=== PATIENT | female | born 1955 | race Caucasian/White ===

== ENCOUNTER 2022-09-23 09:31 | Outpatient (CLI) | payer MEDICARE, BC, SELFPAY ==
[2022-09-23 11:04] LABS: Aspartate Amino Transferase* 24 U/L (12-35); Cholesterol* 182 mg/dL (90-199)
[2022-09-23 11:05] LABS: Glucose* 92 mg/dL (60-115); HDL Cholesterol* 77 mg/dL (>=50); LDL Cholesterol Calculated 83 mg/dL (<100); Triglycerides* 109 mg/dL (40-149)
[2022-09-23 11:36] LABS: TSH With Reflex to FT4* 0.205 uIU/mL (0.270-4.200)
== END 2022-09-23 09:32 | disposition home or self-care (01) ==
LOC: NFLDREF 09:31
PROVIDERS: PCP Internal Medicine; Visit Provider Internal Medicine
DX: E78.5 Hyperlipidemia, unspecified (principal); E03.9 Hypothyroidism, unspecified; I10 Essential (primary) hypertension; E66.9 Obesity, unspecified; R73.03 Prediabetes
CPT/HCPCS: 80061; 82947; 84439; 84443; 84450

== ENCOUNTER 2022-09-26 11:08 | Outpatient (CLI) | payer MEDICARE, BC, SELFPAY ==
--- OUTSIDE RECORDS SUMMARY | 2022-09-26 11:10 | XMS_ITS | Clinical Summary ---
:1955 Author Organization [facility] Address [address] [place] [address] Care Team Providers Name Role Phone Elsewhere, Pcp Primary Care Provider Unavailable Source Comments Patient records contain information from all sites at [facility]. For routine questions regarding patient records, call [phone] during business hours, M-F 8:00 AM - 5:00 PM Central Time. Record requests for emergency care only can be directed to [phone] at any time.[facility] Allergies Active Allergy Reactions Severity Noted Date Comments Sulfa (Sulfonamide Antibiotics) Hives 9 Medications Medication Sig Dispensed Refills Start Date End Date Status aspirin [address] Take 81 mg by 0 Active tablet mouth daily. melatonin 5 mg tablet Take 5 mg by mouth 0 Active at bedtime. fluticasone Administer 1 spray 0 Active propionate (FLONASE) into each nostril 50 mcg/actuation daily. nasal spray sertraline (ZOLOFT) Take 100 mg by 0 Active 100 mg tablet mouth daily. omeprazole (PriLOSEC) Take 40 mg by [address] capsule mouth every morning before breakfast. ramipril (ALTACE) 5 Take 5 mg by mouth 0 Active mg capsule daily. simvastatin (ZOCOR) Take 10 mg by 0 Active 10 mg tablet mouth at bedtime. levothyroxine Take 88 mcg by 0 A ctive (SYNTHROID, mouth every LEVOTHROID) 88 mcg morning before tablet breakfast. acetaminophen Take 325-650 mg by 0 09/24/2012 Active (TYLENOL) 325 mg mouth as needed. tablet cefdinir (OMNICEF) Take 1 capsule 14 capsule 0 08/07/2021 Active 300 mg capsule (300 mg total) by mouth every 12 (twelve) hours. 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 07/06/2022 Clinical Support Physical Medicine and Mitchell Amador Movement Disorder Rehabilitation P.T. from Last 3 Months Immunizations Name Administration Dates Next Due SARS-COV-2 (COVID-19) - MODERNA 01/15/2021, 12/17/2020 Family History Medical History Relation Name Comments Coronary artery disease Father Stroke Father Breast cancer Father's Sister 3 Breast cancer Maternal Grandmother Heart failure Mother CHF Relation Name Status Comments Father (Age 79) Stroke complic ations Father's Sister 3 Maternal Grandmother Mother (Age 95) After a fall/r habdomyolysis Social History Tobacco Use Types Packs/Day Years Used Date Smoking Tobacco: Former Cigarettes Quit : 04/2003 Smokeless Tobacco: Never Alcohol Use Standard Drinks/Week Comments No 0 (1 standard drink = 0.6 oz pure alcoho l) Sober since 01/2013 Alcohol Habits Answer Date Recorded How often do you have a drink containing alcohol? Never 04/06/2019 How many drinks containing alcohol do you have on a typical Not asked day when you are drinking? How often do you have six or more drinks on one occasion? Ne nora 04/06/2019 Social Isolation Answer Date Recorded In a typical week, how many times do you talk on the phone O nce a week 04/06/2019 with family, friends, or neighbors? How often do you get together with friends or relatives? Onc e a week 04/06/2019 How often do you attend holiness or christianity services? Never 04/06/2019 Do you belong to any clubs or organizations such as holiness N o 04/06/2019 groups, unions, fraternal or athletic groups, or school groups? How often do you attend meetings of the clubs or Never 04/06/2019 organizations you belong to? Are you now , , , , never Div orced 04/06/2019 or living with a partner? Physical Activity Answer Date Recorded On average, how many days per week do you engage in moderate to 3 days 04/06/2019 strenuous exercise (like walking fast, running, jogging, dancing, swimming, biking, or other activities that cause a light or heavy sweat)? On average, how many minutes do you engage in exercise at th is 40 min 04/06/2019 level? Stress Answer Date Recorded Do you feel stress - tense, restless, nervous, or anxious, N ot at all 04/06/2019 or unable to sleep at night because your mind is troubled all the time - these days? Financial Resource Strain Answer Date Recorded How hard is it for you to pay for the very basics like Not h jeovanny at all 04/06/2019 food, housing, medical care, and heating? Food Insecurity Answer Date Recorded Within the past 12 months, you worried that your food would Never true 04/06/2019 run out before you got money to buy more. Within the past 12 months, the food you bought just didn't N ever true 04/06/2019 last and you didn't have money to get more. Transportation Needs Answer Date Recorded In the past 12 months, has lack of transportation kept you f rom No 04/06/2019 medical appointments or from getting medications? In the past 12 months, has lack of transportation kept you f rom No 04/06/2019 meetings, work, or getting things needed for daily living? Education Answer Date Recorded What is the highest level of school Bachelor's degree (e.g., BA, AB, 04/05/2019 you have completed or the highest BS) degree you have received? Sex Assigned at Date Recorded Female 02/07/2019 8:34 PM CDT Last Filed Vital Signs Vital Sign Reading Time Taken Comments Blood Pressure 135/66 08/07/2021 3:12 PM CDT Pulse 88 08/07/2021 3:12 PM CDT Temperature 36.8 ??C (98.2 ??F) 08/07/2021 3:12 PM CDT Respiratory Rate 16 08/07/2021 3:12 PM CDT Oxygen Saturation 99% 08/07/2021 3:12 PM CDT Inhaled Oxygen Concentration - - Weight 79 kg (174 lb 2.6 oz) 08/07/2021 3:10 PM CDT Height - - Body Mass Index - - Plan of Treatment Health Maintenance Due Date Last Done Comments Bone Density Scan (Osteoporosis 1954 Screen) CT Colonography 1955 Cologuard 1955 Colonoscopy 1955 Colorectal Cancer Screening 1955 FIT 1955 Hepatitis C Screening 1955 Mammogram 1955 Thyroid Stimulating Hormone (TSH) 1955 test for thyroid function DTaP,Tdap,and Td Vaccines (2 - Td 06/08/2021 06/08/2011 or Tdap) COVID-19 Vaccine (4 - Booster for 10/08/2021 08/13/2021, , Moderna series) 12/17/2020 Depression Screening (Annual 10/16/2021 PHQ-2) Creatinine Level 07/15/2022 07/15/2021 Potassium Level 07/15/2022 07/15/2021 Sodium Level 07/15/2022 07/15/2021 Fasting Glucose for Diabetes 07/15/2024 07/15/2021, 021 Screening Zoster Vaccines Completed 05/30/2019, 02/16/2019 Pneumococcal vaccine (65+ years) Completed 09/22/2020, Fall Risk Screen (Annual) Completed 11/22/2021 Influenza Vaccine Completed 07/21/2022, 09/23/2021, 09/22/2020, Additional history exists Insurance Payer Benefit Plan Subscriber ID Effective Phone Address Typ e / Group Dates MEDICARE MEDICARE A [id number] 2019-Pres [address] [place] [address] BLUE CROSS BCBS [place] [id number] 2020-Pres [phone] PO AUGUST X Cost Share BLUE SHIELD BLUE COST ent [phone] [address] [place] [id number] Advance Directives For more information, please contact: [phone] Documents on File Type Date Recorded Patient Insurance Inspector Explanati on Advance Directives 08/08/2021 10:13 AM Inés Ortega HCPOA/ADVOCATE/AGENT/R EPRESENTATIVE/[place] RROGAT E Healthcare Agents on File Name Relationship Healthcare Agent Relationship Co mmunication Inés Marrero Daughter Health Care Agent [phone] ( Home) Justice Ortega Daughter [facility] Care Agen t Care Teams Extractor Loader And Unloader Relationship Specialty Start Date End Date Elsewhere, Pcp PCP - General Family Medicine 10/11/18
--- OUTSIDE RECORDS SUMMARY | 2022-09-26 11:10 | XMS_ITS | Encounter Summary ---
:1955 Author Organization [facility] Address [address] [place] [address] Care Team Providers Name Role Phone Elsewhere, Pcp Primary Care Provider Unavailable Reason for Visit Physical Therapy (Routine) - Authorized Specialty Diagnoses / Procedures Referred By Contact Refer red To Contact Diagnoses [facility] Procedures PT Ongoing treatment [address] [address] Referral ID Status Reason Start Date Expiration Date Visits V isits Requested Authorized [id number] Authorized 06/10/2022 06/10/2023 99 99 Encounter Details Date Type Department Care Team Description 07/15/2022 Clinical Support Department of Physical Perry, Mitchell Goodrich, Movement Disorder Medicine and P.T. Rehabilitation in [facility] [address] [place], [place] [address] [facility] [address] [place] [address] [phone] Social History Tobacco Use Types Packs/Day Years [...] week 04/06/2019 How often do you attend faith or mandaen services? Never 04/06/2019 Do you belong to any clubs or organizations such as faith N o 04/06/2019 groups, unions, fraternal or [...] Date Recorded Female 02/07/2019 8:34 PM CDT documented as of this encounter Progress Notes Mitchell Amador P.T. - 07/15/2022 12:30 PM CDT Physical Therapy Outpatient Treatment and Discharge Note SUBJECTIVE Patient's Name: Shawna White Referring Provider: No ref. provider found Visit Diagnosis: 1. 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 female who presents to outpatient physical therapy for evaluation. Her symptoms consist of: Involuntary movements, freezing, speech disturbance Overall she reports her status remains the same. 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 She made tremendous improvement at the end of the week long program which only lasted about 2 weeks. She was trying to reintegrate back to the community (going to restaurants, going for walks outside) but, foundthat she was not able to continue with the strategies with external stimulus occurring from the environment. She had another bout of PT and OT for motor retraining in June of 2019 with excellent results after 5 weeks. Again she could not maintain effective use of the strategies learned. The patient continues to be sensitive to auditory and visual stimulus to the point that she has returned to plugging her ears, wearing ear plugs, wearing darkened glasses, and modifying her environment. She is currently struggling with her involuntary movements again over the past month. Feels like trigger may have been a biopsy she underwent in beginning of May. Even having difficulty maintaining control within her apartment (controlled environment). Triggers include: surprises, biopsy, loud noise or higher pitched voices. Patient goals: to improve self control of her FMD symptoms Contact monitoring: PPE used during therapy: Therapist was wearing the following PPE throughout entire session: surgicalmask and eye protection Patient was wearing a mask during therapy session: yes Additional Staff Present During Session: no OBJECTIVE PHYSICAL EXAM Pain: None reported Symptoms during mobility: Sitting: rare trunk flexion pending noise level Walking: no freezing or symptoms in gym or hallway when walking, no longer using 4ww or spc Ortho Exam TREATMENT Treatment today consisted of: Neuromuscular Re-education: Provided education on idea of body scanning, identifying which muscles are turned on at a certain time, and working to only have necessary muscles active, allowing all others to relax via controlled,pursed lip breathing. Ongoing education/training on motor reprogramming intervention is specific to the patient's unique symptoms and improves with a focus on quality vs quantity of movement. Goal of PT is to re-establish self-management strategies to improve independent control of abnormal movement patterns, specifically recognizing abnormal movements before (or when) they begin, and incorporating breathing strategies toassist in relaxation and control of movement, while reducing or eliminating dependence on adaptive equipment and compensatory strategies: ear plugs. Continued practice of self-management by stopping and resetting to avoid reinforcing maladaptive patterns. Discussed quality versus quantity and avoiding pushing through movements as this reinforces prior abnormal, inefficient movement patterns. Provided patient education on deep, pursed lip, diaphragmatic breathing during functional tasks whenshe experiences symptoms; again using body scanning, identifying which muscles are turned on and then using controlled breath to resolve them. Practiced this during standing tasks today. Discussed importance of breath in assisting with controlling and re-setting movement. Also discussed use of mindfulness practice during controlled breathing, acknowledging thoughts and avoiding judgement on them. Negative thoughts about situation or self, as well as judging herself, will increase her abnormal movements. Incorporated these strategies during the following movement patterns: Step taps alternating without UE support Alternating step ups 8 with single light UE support as needed Cross stepping L/R Fast forward walking with quick reversal into retro walking without UE support Stair negotiation up/down with light single UE support Ramp negotiation up/down with carlos UE support Stair negotiation while carrying 5kg ball, no UE support ascending, single UE support descending Marching + weighted ball raises Ball toss with forward walking Assessment Clinical Impression: Ms. White presented to physical therapy with return of signs and symptoms consistent with previously diagnosed functional movement disorder involving abnormal gait and tremors of upper extremities with stopping of lower extremities. Her symptoms are distractible and are modulated by controlling the environment but she is now able to functiona in more open environments with much less symptoms, and diminish/resolve symptoms if they do occur with use of controlled breathing and resetting. Today was able to demonstrate good control and prevention of most symptoms in a louder, more open environment(gym with other patients/PT). She will now transition out of form skilled PT and continue with independent management. She may return to PT in the future if she experiences a regression in function. Rehab Potential: Ms. White has potential to achieve established physical therapy goals within thetime frame outlined below, provided she actively participates in her physical therapy treatment planand home program. Functional Goals and Timeframes: Functional Goals and Timeframes: PT Outpatient Goals PT Goal #1: Patient will demonstrate and/or verbalize understanding of home exercise program for improved self-management of the condition. PT Goal #1 Date: 08/09/22 PT Goal #1 Status: Met PT Goal #2: Patient will report >3+ on the Global Rating of Change in 6 weeks. PT Goal #2 Date: 07/22/22 PT Goal #2 Status: Met PT Goal #3: Patient will improve 10 MWT speed to 1.1 m/sec or greater to demonstrate improved gait efficiency and less involuntary movement patterns. PT Goal #3 Date: 08/09/22 PT Goal #3 Status: Met PT Goal #4: Patient will improve 5 Times sit to stand to 9 reps or more PT Goal #4 Date: 08/09/22 PT Goal #4 Status: Ongoing - not assessed Plan Ms. White was educated regarding evaluative findings, diagnosis, prognosis, potential risks and benefits of rehabilitation interventions. A collaborative effort was used to establish goals and plan of care. She was informed of her right to make decisions regarding her care, including refusal of examination or treatment or selection of services from another provider if desired. The treatment plan may be progressed or modified based upon her response to treatment. Treatment Plan: Start of Plan of Care: 07/15/2022 PT Next Certification Date: 09/08/22 Number of Visits: 5/16 visits PT Duration: PT Frequency: Treatment interventions may include: DISCHARGE STATUS Patient discharged from therapy after this session. Refer to plan of care for first appointment date and recorded visit counts. REASON FOR DISCHARGE: see above progress report on current status and goal status. DISCHARGE RECOMMENDATIONS: Patient would be advised to continue with her previously documented home program. Juan Manuel Amador P.T. 07/15/2022 Time Spent with Patient Neuromuscular Re-Education (min): 40 min Time Calculation Total Timed Units (min): 40 min Total Treatment Time (min): 40 min documented in this encounter Plan of Treatment Not on filedocumented as of this encounter Visit Diagnoses Diagnosis Movement Disorder documented in this encounter Care Teams Spinning Machine Tender Relationship Specialty Start Date End Date Elsewhere, Pcp PCP - General Family Medicine 10/11/18 documented as of this encounter
--- OUTSIDE RECORDS SUMMARY | 2022-09-26 11:10 | XMS_ITS | Encounter Summary ---
:1955 Author Organization [facility] Address [address] [place] [address] Care Team Providers Name Role Phone Elsewhere, Pcp Primary Care Provider Unavailable Reason for Visit Physical Therapy (Routine) - Authorized Specialty Diagnoses / Procedures Referred By Contact Refer red To Contact Diagnoses [facility] Procedures PT Ongoing treatment [address] [place] [address] Referral ID Status Reason Start Date Expiration Date Visits V isits Requested Authorized [id number] Authorized 06/10/2022 06/10/2023 99 99 Encounter Details Date Type Department Care Team Description 07/06/2022 Clinical Support Department of Physical Perry, Mitchell Goodrich, Movement Disorder Medicine and P.T. Rehabilitation in [facility] [address] [place], [place] [address] [facility] [address] [place] [address] [phone] Social History Tobacco Use Types Packs/Day Years [...] week 04/06/2019 How often do you attend anabaptism or taoist services? Never 04/06/2019 Do you belong to any clubs or organizations such as anabaptism N o 04/06/2019 groups, unions, fraternal or [...] encounter Progress Notes Mitchell Amador P.T. - 07/06/2022 12:30 PM CDT Physical Therapy Outpatient Treatment Note SUBJECTIVE Patient's Name: Shawna White Referring Provider: No ref. provider found Visit Diagnosis: 1. Movement Disorder Reason for Referral: PT Re-evaluation for motor retraining due to functional movement disorder Onset Date: (2018) Payor: MEDICARE / Plan: MEDICARE A AND B / Product Type: Medicare / ValetAnywhere Visit Count: 14 PERTINENT MEDICAL / SURGICAL HISTORY: Patient Active [...] Pain: None reported Symptoms during mobility: Sitting: trunk flexion, kicking or stomping legs L > R Walking: less frequent freezing gait and improving initiation, wide stance, impaired coordination Demonstrates a high steppage gait, with intermittent trunk/hip flexion during periods of leg freezing. No freezing during sit > stand. Occasional trunk flexion when sitting and heel raise L LE when standing still. No speech symptoms today. Ortho Exam TREATMENT Treatment today consisted of: [...] with single light UE support as needed Lateral steps L/R with metronome for step initiation (worked well) Fast forward walking with quick reversal into retro walking without UE support Stair negotiation up/down with light single UE support Ramp negotiation up/down and down backwards with carlos UE support W drill walking forward/back 4 corner cone drill: forward, retro, lateral walking Assessment Clinical Impression: Ms. White presents to physical therapy with return of signs and symptoms consistent with previously diagnosed functional movement disorder involving abnormal gait and tremors of upper extremities with stopping of lower extremities. Her symptoms are distractible and are modulated by controlling the environment but is improving her ability to diminish/resolve symptoms with use of controlled breathing and resetting. Today was able to demonstrate good control and prevention of most symptoms in a louder, more open environment (gym with other patients/PT). She is also requiring less time to recover when symptoms occur. Will plan on one additional skilled PT session prior to DC utilizing strategies for independent management. Rehab Potential: Ms. White has potential to [...] #1 Date: 08/09/22 PT Goal #1 Status: Ongoing PT Goal #2: Patient will report >3+ on the Global Rating of Change in 6 weeks. PT Goal #2 Date: 07/22/22 PT Goal #2 Status: Ongoing PT Goal #3: Patient will improve 10 MWT speed to 1.1 m/sec or greater to demonstrate improved gait efficiency and less involuntary movement patterns. PT Goal #3 Date: 08/09/22 PT Goal #3 Status: Ongoing PT Goal #4: Patient will improve 5 Times sit to stand to 9 reps or more PT Goal #4 Date: 08/09/22 PT Goal #4 Status: Ongoing Plan Ms. White was educated regarding evaluative [...] Treatment Plan: Start of Plan of Care: 07/06/2022 PT Next Certification Date: 09/08/22 Number of Visits: 4/16 visits PT Duration: PT Frequency: Treatment interventions may include: Plan for next session: body scanning step ups > stairs carrying items, walking/balance in gym quiet (forward/back/lateral, braiding), open space walking. Time Spent with Patient Neuromuscular Re-Education (min): 54 min Time Calculation Total Timed Units (min): 54 min Total Treatment Time (min): 54 min documented in this encounter Plan of Treatment Not on filedocumented as of this encounter Visit Diagnoses Diagnosis Movement Disorder documented in this encounter Care Teams Upholsterer Limousine And Hearse Relationship Specialty Start Date End Date Elsewhere, Pcp PCP - General Family Medicine 10/11/18 documented as of this encounter
--- OUTSIDE RECORDS SUMMARY | 2022-09-26 11:11 | XMS_ITS | Encounter Summary ---
:1955 Author Organization [facility] Address [address] [place] [id number] Care Team Providers Name Role Phone Elsewhere, Pcp Primary Care Provider Unavailable Reason for Visit Reason Comments JakeA/Juwan Encounter Details Date Type Department Care Team Description 07/16/2021 Clinical Communication Department of Neurology Serene Echeverria/Juwan in [facility] chelly Bey M.D., [address] [facility] Ph.D. [place], [place] [address] [place] [phone] [place], [place] [phone] Social History Tobacco Use Types Packs/Day Years [...] week 04/06/2019 How often do you attend anabaptist or latter day services? Never 04/06/2019 Do you belong to any clubs or organizations such as anabaptist N o 04/06/2019 groups, unions, fraternal or [...] PM CDT documented as of this encounter Miscellaneous Notes Telephone Encounter - Radha Whitfield R.NJavier - 07/23/2021 3:30 PM CDT SUBJECTIVE CHIEF COMPLAINT / REASON FOR CALL Brent/Juwan Information Discussed I spoke with Mrs. White who states that when the weather was very humid and she went swimming after that she had brain fog an no energy. This lasted a couple days and then she became quite dizzy andwas seen in the ER. She states they thought she was probably a bit dehydrated. I let her know that she should talk with her PCP about concerns related to this as Dr. Echeverria saw her for her movement disorder. She understood and had no further questions. PLAN Disposition/Recommendation: self-care is appropriate at this time, patient encouraged to call back with questions Information/Education: patient/caller able to teach back Caller agreeable to plan of care: yes The following references were used: nursing clinical judgement Telephone Encounter - Serene Echeverria M.D., Ph.D. - 07/17/2021 10:45 AM CDT To the Neurology nursing staff: Please look at her last notes from me and then call her. 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 If the problems are still the same,there would not be much purpose in doing further diagnostic tests. Telephone Encounter - Kylee Moses - 07/16/2021 10:[address] Echeverria, You last saw this patient in 2019. She was in the ER last night and they suggested she reconnect with you. Since seeing you, her she moves abnormally when she is overstimulated. Noise and tones can sether off too. She tends to rock back and forth when overstimulated. If she stands up when overstimulated, she bends over and cannot move well. Her ER note is from the [facility]. She would like to meet with you again to discuss what is going on. Please advise if you'd like to see her back. Thank you, Kelly documented in this encounter Plan of Treatment Not on filedocumented as of this encounter Visit Diagnoses Not on filedocumented in this encounter Care Teams Power And Recovery Supervisor Relationship Specialty Start Date End Date Elsewhere, Pcp PCP - General Family Medicine 10/11/18 documented as of this encounter
--- OUTSIDE RECORDS SUMMARY | 2022-09-26 11:11 | XMS_ITS | Encounter Summary ---
:1955 Author Organization [facility] Address [address] [place] [address] Care Team Providers Name Role Phone Elsewhere, Pcp Primary Care Provider Unavailable Reason for Visit Physical Therapy (Routine) - Canceled Specialty Diagnoses / Procedures Referred By Contact Refer red To Contact Diagnoses Abnormal Gait Non Orthopedic Abnormal Movement Involuntary Samreen Romano M.D. [facility] Procedures PT Ongoing treatment [address] [place] [address] Referral ID Status Reason Start Date Expiration Date Visits V isits Requested Authorized [id number] Canceled 11/03/2021 11/03/2022 99 99 Encounter Details Date Type Department Care Team Description 11/16/2021 Clinical Support Department of Physical Samreen Romano M.D. [address] [place] [address] Abnormal Gait Non Orthopedic; Medicine and Mitchell Amador, PJavierTJavier [address] [place] [phone] Abnormal Movement Involuntary Rehabilitation in [place], [place] [address] [place] [phone] Social History Tobacco Use Types Packs/Day Years [...] week 04/06/2019 How often do you attend christianity or synagogue services? Never 04/06/2019 Do you belong to any clubs or organizations such as christianity N o 04/06/2019 groups, unions, fraternal or [...] encounter Progress Notes Mitchell Amador P.T. - 11/16/2021 3:30 PM CST Physical Therapy Outpatient Treatment Note SUBJECTIVE Patient's Name: Shawna White Referring Provider: Samreen Romano M.D. Visit Diagnosis: 1. Abnormal Gait Non Orthopedic 2. Abnormal Movement Involuntary Reason for Referral: PT evaluation for motor retraining due to functional movement disorder Onset Date: (2018) Payor: MEDICARE / Plan: MEDICARE A AND B / Product Type: Medicare / PT Next Certification Date: 02/01/2022 Epic Visit Count: 3 Patient comments: no new concerns. Attends PT wearing darkened glasses but without earplugs, using 4ww. Performs good sit <> stand from chair, and good control of ambulation back to treatment area. Contact monitoring: PPE used during therapy: Therapist was wearing the following PPE throughout entire session: surgicalmask and eye protection Patient was wearing a mask during therapy session: yes Additional Staff Present During Session: no OBJECTIVE Pain: Ortho Exam TREATMENT Treatment today consisted of: Neuromuscular Re-education: Ongoing education on idea of??body scanning, identifying which muscles begin to tense/tighten and at a certain time, and then resetting with breath control, working to only have necessary muscles active, allowing all others to relax.? Discussed that motor reprogramming intervention is specific to the patient's unique symptoms and improves with a focus on quality vs quantity of movement. Goal of PT is to re-establish self-management strategies to improve independent control of abnormal movement patterns, specifically recognizing abnormal movements before they begin, and incorporating breathing strategies to assist in relaxation andcontrol of movement, while reducing or eliminating dependence on adaptive equipment and compensatorystrategies. We will work to improve self- management by stopping and resetting to avoid reinforcingmaladaptive patterns. Discussed quality versus quantity and avoiding pushing through movements as this reinforces??prior abnormal, inefficient movement patterns. ?? Provided patient education on deep breathing and relaxation when completing activities or exercises.Discussed importance of breath in assisting with controlling and re-setting movement. Instructed in diaphragmatic breathing and pursed lip breathing with breathing in through nose, out through mouth using hand on stomach for tactile feedback of it rising and falling vs chest movement. Tied breathing to pre gait and multidirectional stepping: retro, left and right. Cues to stop, breathe and reset prior to restarting intentional movement. Progressed to breathe control synchronized with sit <> stands. Home Exercise Program/Education: Access Code: [email or web address] URL: [email or web address] Date: 11/10/2021 Prepared by: Mitchell Amador Program Notes -Perform controlled breathing prior to each exercise. -Only start an exercise once you are focused on breathing and are in control. -Stop, breathe and reset if you experience abnormal movements during an exercise. -Control your breath, control your body. Exercises Hooklying Lumbar Rotation - 3 x daily - 5-7 x weekly - 2 sets - 10 reps Bridge - 3 x daily - 5-7 x weekly - 2 sets - 10 reps Supine Hip Abduction - 3 x daily - 5-7 x weekly - 2 sets - 10 reps Sit to Stand - 2 x daily - 5-7 x weekly - 2 sets - 10 reps Pt reports good compliance with her HEP. Assessment Clinical Impression: Ms. White presents to physical therapy with signs and symptoms consistent with previously diagnosed functional movement disorder involving abnormal gait and tremors of upper extremities with stopping of lower extremities. ??Her symptoms are distractible and are modulated by controlling the environment. She is demonstrating improved symptoms in just 3 sessions. She has been able to remove her ear plugs and has been utilizing breath control to improve movement efficiency within the community. Needsmore work on improved utilization of body scanning, identifying which muscles begin to tense/tighten and then resetting prior to attempting to carry on with mobility. Functional Goals and Timeframes: PT Goal #1: Patient will demonstrate and/or verbalize understanding of home exercise program for improved self-management of the condition. PT Goal #1 Date: 01/02/2022 PT Goal #1 Status: Ongoing PT Goal #2: Patient will report >3+ on the Global Rating of Change in 6 weeks. PT Goal #2 Date: 01/02/2022 PT Goal #3: Patient will improve 10 MWT speed by 0.15 m/sec to demonstrate improved gait efficiency and less involuntary movement patterns. PT Goal #3 Date: 01/02/2022 PT Goal #3 Status: Ongoing No data recorded Plan Plan: Continue with current plan Number of Outpatient PT Visits: 01/02 PT Outpatient Duration (days): 60 days Plan for next session: education re: body scanning and identifying if the stimulus is threatening, pre- gait training > // bars (forward/back/lateral, braiding), open space walking at fast and slow speeds, stepping over obstacles, more open environment. Time Spent with Patient Neuromuscular Re-Education (min): 56 min Time Calculation Total Timed Units (min): 56 min Total Treatment Time (min): 56 min OR BUSINESS ARCHITECT documented in this encounter Plan of Treatment Not on filedocumented as of this encounter Visit Diagnoses Diagnosis Abnormal Gait Non Orthopedic Abnormal Movement Involuntary documented in this encounter Care Teams Indirect Fire Infantryman Relationship Specialty Start Date End Date Elsewhere, Pcp PCP - General Family Medicine 10/11/18 documented as of this encounter
--- OUTSIDE RECORDS SUMMARY | 2022-09-26 11:11 | XMS_ITS | Encounter Summary ---
:1955 Author Organization [facility] Address [address] [place] [address] Care Team Providers Name Role Phone Elsewhere, Pcp Primary Care Provider Unavailable Reason for Visit Physical Therapy (Routine) - Canceled Specialty Diagnoses / Procedures Referred By Contact Refer red To Contact Diagnoses Abnormal Gait Non Orthopedic Abnormal Movement Involuntary Samreen Romano M.D. [facility] Procedures PT Ongoing treatment [address] [place] [address] Referral ID Status Reason Start Date Expiration Date Visits V isits Requested Authorized [id number] Canceled 11/03/2021 11/03/2022 99 99 Encounter Details Date Type Department Care Team Description 12/01/2021 Clinical Support Department of Physical Samreen Romano M.D. [address] [place] [address] Abnormal Gait Non Orthopedic; Medicine and Mitchell Amador, PJavierTJavier [address] [place] [phone] Abnormal Movement Involuntary Rehabilitation in [place], [place] [address] [place] [address] [phone] Social History Tobacco Use Types Packs/Day Years [...] week 04/06/2019 How often do you attend buddhism or mormonism services? Never 04/06/2019 Do you belong to any clubs or organizations such as buddhism N o 04/06/2019 groups, unions, fraternal or [...] encounter Progress Notes Mitchell Amador P.T. - 12/01/2021 9:00 AM CST Physical Therapy Outpatient Treatment Note SUBJECTIVE [...] Next Certification Date: 02/01/2022 Epic Visit Count: 6 Patient comments: no new concerns. Attends PT wearing darkened glasses and earplugs, and has progressed to no AD unless walking in parking lots. Performs good sit <> stand from chair, only minor freezing prior to walking. She states her symptoms have been very minimal when she is at home and shewas able to go out for dinner with her daughter the other night with minimal symptoms except when the vibration technician was talking loudly. Contact monitoring: PPE used during therapy: Therapist was wearing the following PPE throughout entire session: surgicalmask and eye protection Patient was wearing a mask during therapy session: yes Additional Staff Present During Session: no OBJECTIVE Ortho Exam TREATMENT Treatment today consisted of: Neuromuscular Re-education: Ongoing education on idea of??body scanning, identifying which muscles begin to tense/tighten and at a certain time, and then resetting with breath control, working to only have necessary muscles active, allowing all others to relax.? Ongoing education: specifically recognizing abnormal movements before they begin, and incorporating breathing strategies to assist in relaxation and control of movement, while reducing or eliminating dependence on adaptive equipment and compensatory strategies. We worked to improve self-management by stopping and resetting to avoid reinforcing maladaptive patterns. Discussed quality versus quantityand avoiding pushing through movements as this reinforces??prior abnormal, inefficient movement patterns. ?? Provided patient education on deep breathing and relaxation for resetting. Breathing should be deep enough to hear so she received auditory feedback since her triggers are auditory. Discussed importance of breath in assisting with controlling and re-setting movement. Ongoing cues for diaphragmatic breathing and pursed lip breathing with breathing in through nose, out through mouth. Incorporated external auditory stimuli with recording of crowd noise in the background. PT adjusted the noise volume at random throughout the treatment: controlled breathing during sit <> stands with good control. Progressed to pre gait and multidirectional stepping: left and right, high knee marching with single light UE support, 180 degree turns on command with cues as needed to breathe and reset prior to restarting intentional movement. Home Exercise Program/Education: Access Code: [email or web address] URL: [email or web address] Date: 11/10/2021 Prepared by: Mitchell Amador Program [...] by controlling the environment. She is demonstrating substantially improved symptoms in quite environments after just 4 sessions. She has been able to remove her ear plugs and has been utilizing breath control to improve movementefficiency within the community. Needs to improve ability/perforemance in open environments with more auditory stimuli, utilization of body scanning, identifying which muscles [...] current plan Number of Outpatient PT Visits: 04/04 PT Outpatient Duration (days): 60 days Plan for next session: education re: body scanning and identifying if the stimulus is threatening, deep breathing for auditory feedback, with video/music playing for auditory stimuli: pre-gait training > // bars, L SLS with light UE support, open space walking at fast and slow speeds, stepping over obstacles. Time Spent with Patient Neuromuscular Re-Education (min): 26 min Time Calculation Total Timed Units (min): 26 min Total Treatment Time (min): 26 min UNITY SERVICE OFFICER COORDINATOR documented in this encounter Plan of Treatment Not on filedocumented as of this encounter Visit Diagnoses Diagnosis Abnormal Gait Non Orthopedic Abnormal Movement Involuntary documented in this encounter Care Teams Color Paste Mixer Relationship Specialty Start Date End Date Elsewhere, Pcp PCP - General Family Medicine 10/11/18 documented as of this encounter
--- OUTSIDE RECORDS SUMMARY | 2022-09-26 11:11 | XMS_ITS | Encounter Summary ---
:1955 Author Organization [facility] Address [address] [place] [address] Care Team Providers Name Role Phone Elsewhere, Pcp Primary Care Provider Unavailable Reason for Visit Occupational Therapy (Routine) - Closed Specialty Diagnoses / Procedures Referred By Contact Refer red To Contact Diagnoses Movement Disorder David Best M.D., Ph.D. [facility] Procedures OT Ongoing Treatment [address] [place] [phone] Referral ID Status Reason Start Date Expiration Date Visits Requ ested Visits Authorized [id number] Closed 07/08/2019 07/07/2020 20 20 Encounter Details Date Type Department Care Team Description 08/07/2019 Clinical Support Department of Physical David Best M.D., Ph.D. [address] [place] [phone] Movement Disorder (Primary Dx); Medicine and Hanny Morgan O.T., O.TLilian Abnormal Movement Involuntary Rehabilitation in [place], [place] [address] [place] [phone] Social History Tobacco Use Types Packs/Day Years [...] How often do you attend christianity or lutheran services? Never 04/06/2019 Do you belong to [...] documented as of this encounter Progress Notes Hanny Morgan O.T., O.T.D. - 08/07/2019 2:00 PM CDT Occupational Therapy Neurologic Outpatient Progress Note SUBJECTIVE Patient's Name: Shawna White Referring Provider: David Best M.D., Ph.D. Rehab Diagnosis: 1. Movement Disorder 2. Abnormal Movement Involuntary Reason for Referral: Occupational therapy evaluation and intervention for motor retraining in the setting of functional movement disorder History of Present Illness: The patient went through the BeST program for functional movement disorder related to stamping, rocking, and stuttering with vocalizations at the end of January 2019. She madetremendous improvement at the end of the week which lasted about 2 weeks. She was trying to reintegrate back to the community (going to restaurants, going for walks outside) but, found that she was notable to continue with the strategies with external stimulus occurring from the environment. The patient continues to be sensitive to auditory and visual stimulus to the point that she has returned to plugging her ears, wearing ear plugs, wearing sunglasses, and modifying the environment. She is able to successfully reset but, only for a manner of seconds. She worked with physical therapy in [place] for 6 sessions, primarily focused on desensitization but, this has thus far been unsuccessful. Onset Date: 07/08/19 Payor: [facility] / Plan: [facility] HMO / Product Type: HMO / Patient/Caregiver Goals: Return to riding bike, going to movies, or going to resturaunts. OBJECTIVE Pain: Patient denies any pain that would interfere with her participation in this session. TREATMENT Patient presented to the session alone and independent of the use of an ambulation aid. She reportedthat yesterday was a ???eye skein dyer?? for her to see how much she has restricted her exposure to visual and auditory stimulation in her own home environment and how this has impacted her. She endorses feeling more confident in her ability to manage her movement independently today. Treatment today consisted of: Therapist and patient went for a walk down into the subway and navigated to a small gift shop with music, smells, and visual overload. The patient was given a theoretical 50 dollars to spend on 12 items in the store. This forced the patient to be immerse to in the store while engaging in a cognitive task. Through the span the walk to and from the store and time in the store, the patient experienced one minor movement that was quickly managed. Recommendations: breathe; stop and reset; focus on control and not speed; use the eyes to look, not the head; practice eye exercises twice daily; use the finger to track items, if needed; contemplate if the visual or auditory stimulus that is experienced is harmful in any way; keep arms down at rest; find a focal point; heels down Assessment Clinical Impression: Marly is made tremendous improvement in not only managing her movements but, understanding the relationship between her chosen sensory deprivation and movements occurring. She has been challenged over the last several weeks with multiple activities meant to help her adjust to both visually and auditorily stimulating environments. Marly now states that she feels that she has the tools to continue succeeding at home independently. I am exceptionally brought up of hard work Marly has put into these last several weeks and an a hopeful that she will continue to work hard at home. She has met treatment goals for this plan of care and is dismissed from skilled occupational therapy services at this time. Rehab Potential: Ms. White has Good potential to achieve established occupational therapy goals within the time frame outlined below. Functional Goals and Timeframes: OT Goal #1: Patient will tolerate 15 minutes of controlled movement while in a store. OT Goal #1 Date: 10/06/19 OT Goal #2: Patient will tolerate 15 minutes of activity without visual or auditory compensations. OT Goal #2 Date: 10/06/19 Plan Treatment Plan: Number of Visits: up to 12 visits. Pt is on 13 visit. OT Duration: 90 days Plan: Discontinue therapy Treatment interventions may include: Therapeutic functional activity Progress: Improving as expected Rehab Potential: Good Time Spent with Patient Therapeutic Activity (min): 45 min Time Calculation Total Timed Units (min): 45 min Total Treatment Time (min): 45 min TECHNICIAN documented in this encounter Plan of Treatment Not on filedocumented as of this encounter Visit Diagnoses Diagnosis Movement Disorder - Primary Abnormal Movement Involuntary documented in this encounter Care Teams Camera Mechanic Relationship Specialty Start Date End Date Elsewhere, Pcp PCP - General Family Medicine 10/11/18 documented as of this encounter
--- OUTSIDE RECORDS SUMMARY | 2022-09-26 11:11 | XMS_ITS | Encounter Summary ---
:1955 Author Organization [facility] Address [address] [place] [address] Care Team Providers Name Role Phone Elsewhere, Pcp Primary Care Provider Unavailable Reason for Visit Physical Therapy (Routine) - Canceled Specialty Diagnoses / Procedures Referred By Contact Refer red To Contact Diagnoses Abnormal Gait Non Orthopedic Abnormal Movement Involuntary Samreen Romano M.D. [facility] Procedures PT Ongoing treatment [address] [place] [address] Referral ID Status Reason Start Date Expiration Date Visits V isits Requested Authorized [id number] Canceled 11/03/2021 11/03/2022 99 99 Encounter Details Date Type Department Care Team Description 11/10/2021 Clinical Support Department of Physical Samreen Romano M.D. [address] [place] [address] Abnormal Gait Non Orthopedic; Medicine and Mitchell Amador, PJavierTJavier [address] [place] [phone] Abnormal Movement Involuntary Rehabilitation in [place], [place] [address] [place] [address] [phone] Social History Tobacco Use Types Packs/Day Years [...] week 04/06/2019 How often do you attend scientology or congregation services? Never 04/06/2019 Do you belong to any clubs or organizations such as scientology N o 04/06/2019 groups, unions, fraternal or [...] for the very basics like Not h jeovanyn at all 04/06/2019 food, housing, medical care, [...] of this encounter Progress Notes Mitchell Amador PStacy. - 11/10/2021 4:00 PM CST Physical Therapy Outpatient Treatment Note [...] Next Certification Date: 02/01/2022 Epic Visit Count: 2 History of Present Illness: The patient went [...] walks outside) but, found that she was not able to continue with [...] glasses, and modifying her environment. She is able to successfully reset in a controlled, quiet environment, but only for less than 1 min. Patient/Caregiver Goals: Return to going to movies, or going to resturaunts with less symptom interruption. Patient comments: no new concerns. Attends PT wearing darkened glasses and ear plugs, using 4ww. Performs good sit <> stand from chair, but then involuntary movement triggered by another patient talking and blocking her path. Fall Risk (65 and older) Fall in the last 12 months: No Are you fearful of falling?: No Contact monitoring: PPE used during therapy: Therapist was wearing the following PPE throughout entire session: surgicalmask and eye protection Patient was wearing a mask during therapy session: yes Additional Staff Present During Session: no OBJECTIVE Pain: Ortho Exam TREATMENT Treatment today consisted of: Neuromuscular Re-education: Provided education on idea of??body scanning, identifying which muscles are turned on or off at a certain time, and working to [...] falling vs chest movement. Tied breathing to supine exercise program including hooklying spinal rotation, bridging and hip abduction. If she experienced abnormal movement, she was cued to stop, breathe and reset prior to restarting intentional movement. Progressed to breathe control synchronized with sit <> stands. Home Exercise Program/Education: Access Code: [email or web address] URL: [email or web address] Date: 11/10/2021 Prepared by: Mitchell Amador Program [...] and are modulated by controlling the environment. ?? Rehab Potential: Good Personal Factors: Needs assistive device Functional Goals and Timeframes: PT Goal #1: [...] #3 Status: Ongoing No data recorded Plan Physical Therapy Attestation Statement: Patient agrees with the plan of care and goals. Plan: Continue with current plan Number of Outpatient PT Visits: 12/05 PT Outpatient Duration (days): 60 days Plan for next session: PSFS, 10 MWT, 5 Times Sit to Stand, 6 min walk, education re: body scanning and identifying if the stimulus is threatening, pre-gait training > // bars (forward/back/lateral, braiding), open space walking. Treatment/Interventions: Therapeutic exercise, Neuromuscular re-education, Therapeutic functional activity, Gait training, Self-care/home management Time Spent with Patient Neuromuscular Re-Education (min): 26 min Time Calculation Total Timed Units (min): 26 min Total Treatment Time (min): 26 min RY CHEF documented in this encounter Plan of Treatment Not on filedocumented as of this encounter Visit Diagnoses Diagnosis Abnormal Gait Non Orthopedic Abnormal Movement Involuntary documented in this encounter Care Teams Dope Worker Relationship Specialty Start Date End Date Elsewhere, Pcp PCP - General Family Medicine 10/11/18 documented as of this encounter
--- OUTSIDE RECORDS SUMMARY | 2022-09-26 11:11 | XMS_ITS | Encounter Summary ---
:1955 Author Organization [facility] Address [address] [place] [address] Care Team Providers Name Role Phone Elsewhere, Pcp Primary Care Provider Unavailable Reason for Visit Physical Therapy (Routine) - Canceled Specialty Diagnoses / Procedures Referred By Contact Refer red To Contact Diagnoses Abnormal Gait Non Orthopedic Abnormal Movement Involuntary Samreen Romano M.D. [facility] Procedures PT Ongoing treatment [address] [place] [address] Referral ID Status Reason Start Date Expiration Date Visits V isits Requested Authorized [id number] Canceled 11/03/2021 11/03/2022 99 99 Encounter Details Date Type Department Care Team Description 12/31/2021 Clinical Support Department of Physical Samreen Romano M.D. [address] [place] [address] Abnormal Gait Non Orthopedic; Medicine and Mitchell Amador, PJavierTJavier [address] [place] [phone] Abnormal Movement Involuntary Rehabilitation in [place], [place] [address] [place] [address] [phone] Social History Tobacco Use Types Packs/Day Years [...] week 04/06/2019 How often do you attend spiritism or scientology services? Never 04/06/2019 Do you belong to any clubs or organizations such as spiritism N o 04/06/2019 groups, unions, fraternal or [...] encounter Progress Notes Mitchell Amador PStacy. - 12/31/2021 12:30 PM CDT Images from the original note were not included. Physical Therapy Outpatient Progress, Treatment Note and Discharge SUBJECTIVE Patient's Name: Shawna Jacob White Referring Provider: Samreen Romano M.D. Visit Diagnosis: 1. Abnormal Gait Non Orthopedic 2. Abnormal Movement Involuntary Reason for Referral: PT evaluation for motor retraining due to functional movement disorder Onset Date: (2018) Payor: MEDICARE / Plan: MEDICARE A AND B / Product Type: Medicare / PT Next Certification Date: 02/01/2022 Epic Visit Count: 10 Patient comments: no new concerns. Attends PT wearing darkened glasses but no earplugs, and has progressed to no AD unless walking in parking lots. She states her symptoms have been very minimal when she is at home. Pickleball has been going well though has difficulty jogging/running forward so she avoids this. Has been returning to society more and more. Contact monitoring: PPE used during therapy: Therapist was wearing the following PPE throughout entire session: surgicalmask and eye protection Patient was wearing a mask during therapy session: yes Additional Staff Present During Session: no OBJECTIVE Ortho Exam 10 MWT without AD, Self Selected: 0.79 m/sec and no maladaptive movements 10 MWT without AD, Fast: 1.25 m/sec and no maladaptive movements GROC: +7 points (maximal improvement possible). TREATMENT Treatment today consisted of: Neuromuscular Re-education: Ongoing education: incorporating breathing strategies to assist in relaxation and control of movement, while reducing or eliminating dependence on adaptive equipment such as ear plugs and compensatory strategies. We worked to improve self-management by stopping and resetting to avoid reinforcing maladaptive patterns. ??Incorporated intentional multijoint movements during controlled breathing to improve rate of resetting, allowing her brain to concentrate on the simple movement and breathing vs stopping the unwantedmovements. Reinforced trunk and cervical rotation L/R with controlled breathing and this was effective for resetting. Progressed to functional activities and balance challenges with cues as needed to breathe and reset prior to restarting intentional movement: Walking slow and fast on command. Walking fast pace along level, clear hallway. Home Exercise Program/Education: Access Code: [email or web address] URL: [email or web address] Date: 12/20/2021 Prepared by: Mitchell Amador Program Notes -Perform controlled breathing prior to each exercise. -Only start an exercise once you are focused on breathing and are in control. -Stop, breathe and reset if you experience abnormal movements during an exercise. -Control your breath, control your body. In seated: you can lean forward and backward in a controlled manner to help stop involuntary movements. In standing: you can rotate your shoulders left and right in a controlled manner to help stop involuntary movements. Exercises Hooklying Lumbar Rotation - 3 x [...] her HEP. Assessment Clinical Impression: Ms. White presented to physical therapy with signs and symptoms consistent with previously diagnosed functional movement disorder involving abnormal gait and tremors of upper extremities with stopping of lower extremities. ??Her symptoms are much less frequent and intense and she no longer needs touse compensatory strategies such as ear plugs or avoidance to control her symptoms. She is demonstrating substantially improved symptoms in controlled and open environments. She will not transition to independent management program and discontinue formal PT. Functional Goals and Timeframes: PT Goal #1: Patient will demonstrate and/or verbalize understanding of home exercise program for improved self-management of the condition. PT Goal #1 Date: 01/02/2022 PT Goal #1 Status: Met. PT Goal #2: Patient will report >3+ on the Global Rating of Change in 6 weeks. PT Goal #2 Date: 01/02/2022 Status: Met. PT Goal #3: Patient will improve 10 MWT speed by 0.15 m/sec to demonstrate improved gait efficiency and less involuntary movement patterns. PT Goal #3 Date: 01/02/2022 PT Goal #3 Status: Met. No data recorded Plan Plan: Continue with current plan Number of Outpatient PT Visits: 08/04 PT Outpatient Duration (days): 60 days DISCHARGE STATUS Patient discharged from therapy after this session. Refer to plan of care for first appointment date and recorded visit counts. REASON FOR DISCHARGE: see above progress report on current status and goal status. DISCHARGE RECOMMENDATIONS: Patient would be advised to continue with her previously documented home program. Juan Manuel Amador P.T. 12/31/2021 Time Spent with Patient Neuromuscular Re-Education (min): 19 min Time Calculation Total Timed Units (min): 19 min Total Treatment Time (min): 19 min documented in this encounter Plan of Treatment Not on filedocumented as of this encounter Visit Diagnoses Diagnosis Abnormal Gait Non Orthopedic Abnormal Movement Involuntary documented in this encounter Care Teams Pipe Layer Relationship Specialty Start Date End Date Elsewhere, Pcp PCP - General Family Medicine 10/11/18 documented as of this encounter
--- OUTSIDE RECORDS SUMMARY | 2022-09-26 11:11 | XMS_ITS | Encounter Summary ---
:1955 Author Organization [facility] Address [address] [place] [address] Care Team Providers Name Role Phone Elsewhere, Pcp Primary Care Provider Unavailable Reason for Visit Physical Therapy (Routine) - Canceled Specialty Diagnoses / Procedures Referred By Contact Refer red To Contact Diagnoses Abnormal Gait Non Orthopedic Abnormal Movement Involuntary Samreen Romano M.D. [facility] Procedures PT Ongoing treatment [address] [place] [address] Referral ID Status Reason Start Date Expiration Date Visits V isits Requested Authorized [id number] Canceled 11/03/2021 11/03/2022 99 99 Encounter Details Date Type Department Care Team Description 11/19/2021 Clinical Support Department of Physical Samreen Romano M.D. [address] [place] [address] Abnormal Gait Non Orthopedic; Medicine and Mitchell Amador, PJavierTJavier [address] [place] [phone] Abnormal Movement Involuntary Rehabilitation in [place], [place] [address] [place] [address] [phone] Social History Tobacco Use Types Packs/Day Years [...] week 04/06/2019 How often do you attend jehovah's witness or sikh services? Never 04/06/2019 Do you belong to any clubs or organizations such as jehovah's witness N o 04/06/2019 groups, unions, fraternal or [...] encounter Progress Notes Mitchell Amador P.T. - 11/19/2021 3:30 PM CST Physical Therapy Outpatient Treatment [...] Next Certification Date: 02/01/2022 Epic Visit Count: 4 Patient comments: no new concerns. Attends PT wearing darkened glasses but without earplugs, and [facility] [place] [place]. Performs good sit <> stand from chair, mild freezing when reaching for bag,and then good control of ambulation back to treatment area. She states her symptoms have been very minimal and healed when she is at home and she hasn't been using a cane for mobility unless outside her apartment. Contact monitoring: PPE used during therapy: Therapist [...] dependence on adaptive equipment and compensatorystrategies. We worked to improve self- management by stopping and resetting to avoid reinforcing [...] it rising and falling vs chest movement. Progressed to Supine motor control exercises of hip abd, bridging and hooklying lumbar rotation. Incorporated breathing during sit <> stands with good control. Progressed to pre gait and multidirectional stepping: retro, left and right, braiding steps with cues to stop, breathe and reset prior to restarting intentional movement. Attempted to progress to ambulation exercises out in the open environment of the gym, however this was too challenging due to external stimuli of another patient talking loudly. Home Exercise Program/Education: Access Code: [email or web address] URL: [email or web address] Date: 11/10/2021 Prepared by: Mitchell Amador Program [...] current plan Number of Outpatient PT Visits: 02/02 PT Outpatient Duration (days): 60 days Plan for next session: education re: body scanning and identifying if the stimulus is threatening, with video/music playingfor auditory stimuli: pre-gait training > // bars (forward/back/lateral, braiding), open space walking at fast and slow speeds, stepping over obstacles. Time Spent with Patient Neuromuscular Re-Education (min): 54 min Time Calculation Total Timed Units (min): 54 min Total Treatment Time (min): 54 min HELPER documented in this encounter Plan of Treatment Not on filedocumented as of this encounter Visit Diagnoses Diagnosis Abnormal Gait Non Orthopedic Abnormal Movement Involuntary documented in this encounter Care Teams Planting Material Remover Relationship Specialty Start Date End Date Elsewhere, Pcp PCP - General Family Medicine 10/11/18 documented as of this encounter
--- OUTSIDE RECORDS SUMMARY | 2022-09-26 11:11 | XMS_ITS | Encounter Summary ---
:1955 Author Organization [facility] Address [address] [place] [address] Care Team Providers Name Role Phone Elsewhere, Pcp Primary Care Provider Unavailable Reason for Visit Physical Therapy (Routine) - Canceled Specialty Diagnoses / Procedures Referred By Contact Refer red To Contact Diagnoses Movement Disorder David Best M.D., Ph.D. [facility] Procedures PT Ongoing treatment [address] [place] [phone] Referral ID Status Reason Start Date Expiration Date Visits V isits Requested Authorized [id number] Canceled 07/08/2019 07/07/2020 14 14 Encounter Details Date Type Department Care Team Description 08/06/2019 Clinical Support Department of Physical David Best M.D., Ph.D. [address] [place] [phone] Movement Disorder Medicine and Urvashi Hernández, P.T., D.P.T., [facility] Rehabilitation in [place], [place] [address] [place] [phone] Social History Tobacco Use Types Packs/Day Years [...] week 04/06/2019 How often do you attend rastafari or sabianism services? Never 04/06/2019 Do you belong to any clubs or organizations such as rastafari N o 04/06/2019 groups, unions, fraternal or [...] documented as of this encounter Progress Notes Urvashi Hernández P.T., D.P.T., [facility] - 08/06/2019 11:00 AM CDT Physical Therapy Neurologic Outpatient Progress Note SUBJECTIVE Patient's Name: Shawna White Referring Provider: David Best M.D., Ph.D. Rehab Diagnosis: 1. Movement Disorder Reason for Referral: Physical therapy evaluation and intervention for motor retraining [...] seconds. She worked with physical therapy in [place] for 6 sessions, primarily focused on desensitization but, this has thus far been unsuccessful. Onset Date: 07/08/19 Payor: [facility] / Plan: [facility] HMO / Product Type: HMO / Patient/Caregiver Goals: Return to riding bike, going to movies, or going to resturaunts. Patient Comments: Marly returns and reports that the standing balance reset has been very helpful for her. She had a really good weekend and went to the mall but had a setback in the waiting room yesterday. Total Visit Count: 5 OBJECTIVE Vitals: Not indicated at this time Observation: Still in the waiting room, movements kicked up when discussing the difficulties she hadyesterday in the lobby. TREATMENT Neuromuscular Re-Education: Marly reports that the standing balance has been very helpful and now we progressed to work on her turning technique. Educated patient on safety with turning, the patient was encouraged to maintain an upright posture and to move in a slow and controlled fashion. The patient is to complete a full 90 degree L turn to the direction that they want to turn, then completing it with me needed with the trailing leg so that both toes are facing in the same direction. This is to be repeated in a full [place] until turn is complete. The patient was encouraged to maintain upright posture, to waste picker the feet rather than slide them, and to move slowly and with control making sure to find balance point before going to the next step. New Noise desensitization homework- setting a morning alarm and alternating between music or the TV on at home for 3 hours a day. Broken into small doses and use of resets as needed. Assessment Clinical Impression: Marly reports that she is now able to stand still while in the kitchen or brushing her teeth but stillstruggles with noise such as in a waiting room. We progressed her work on turning and some more gradual exposure to noise. We will wrap up in our next session for continued home going program and plan. Functional Goals and Timeframes: PT Goal #1: Patient will demonstrate and/or verbalize understanding of home exercise program in 5 sessions for improved self-management of the condition. (GOAL IN PROGRESS) PT Goal #1 Date: 10/06/19 PT Goal #2: Patient will report >3+ on the Global Rating of Change in 5 sessions. (GOAL IN PROGRESS) PT Goal #2 Date: 10/06/19 Rehab Potential: Ms. White has Good potential to achieve established physical therapy goals within the time frame outlined below, provided she actively participates in her physical therapy treatmentplan and home program. Plan TREATMENT PLAN Number of Visits: up to 6 visits Patient is on visit 5. Frequency: 1-2x/week Duration: until goals in plan of care are met. Plan: Continue with current plan Other PT Comments: resetting in standing, balance with trunk rotation, sts with ball bounce Treatment interventions may include: Treatment/Interventions: Neuromuscular re- education, Gait training, Therapeutic functional activity, Therapeutic exercise Time Spent with Patient Neuromuscular Re-Education (min): 48 min Time Calculation Total Timed Units (min): 48 min Total Treatment Time (min): 48 min Functional G-code Worksheet Urvashi Hernández P.T., D.P.T., MIGUEL documented in this encounter Plan of Treatment Not on filedocumented as of this encounter Visit Diagnoses Diagnosis Movement Disorder documented in this encounter Care Teams Regulator Assembler Relationship Specialty Start Date End Date Elsewhere, Pcp PCP - General Family Medicine 10/11/18 documented as of this encounter
--- OUTSIDE RECORDS SUMMARY | 2022-09-26 11:11 | XMS_ITS | Encounter Summary ---
:1955 Author Organization [facility] Address [address] [place] [address] Care Team Providers Name Role Phone Elsewhere, Pcp Primary Care Provider Unavailable Reason for Visit Occupational Therapy (Routine) - Closed Specialty Diagnoses / Procedures Referred By Contact Refer red To Contact Diagnoses Movement Disorder David Best M.D., Ph.D. [facility] Procedures OT Ongoing Treatment [address] [place] [phone] Referral ID Status Reason Start Date Expiration Date Visits Requ ested Visits Authorized [id number] Closed 07/08/2019 07/07/2020 20 20 Encounter Details Date Type Department Care Team Description 08/06/2019 Clinical Support Department of Physical David Best M.D., Ph.D. [address] [place] [phone] Movement Disorder Medicine and Hanny Morgan O.T., O.TLilian (Primary Dx) Rehabilitation in [place], [place] [address] [place] [address] Social History Tobacco Use Types Packs/Day Years [...] How often do you attend anabaptist or faith services? Never 04/06/2019 Do you belong to [...] documented as of this encounter Progress Notes Molly Felix M - 08/06/2019 2:00 PM CDT Occupational Therapy Neurologic Outpatient Progress Note SUBJECTIVE Patient's Name: Shawna White Referring Provider: David Best M.D., Ph.D. Rehab Diagnosis: 1. Movement Disorder Reason for Referral: Occupational therapy evaluation and [...] seconds. She worked with physical therapy in [place] for 6 sessions, primarily focused on desensitization but, this has thus far been unsuccessful. Onset Date: 07/08/19 Payor: [facility] / Plan: [facility] HMO / Product Type: HMO / Patient/Caregiver Goals: Return to riding bike, going to movies, or going to resturaunts. OBJECTIVE Pain: Patient denies any pain that would interfere with her participation in this session. TREATMENT Patient presented to this session alone, without the use of a gait aid, and with minimal abnormal movements. Patient reports that her movements have been difficult today and that she has been trying tocontrol them and 'calm' them down since arriving at [facility] at 1:00pm--she even went as far as going into the bathroom for a while just to be in a quiet environment. Treatment today consisted of: Treatment today focused on controlled movements with an integrated cognitive task while in an environment with increased auditory stimuli. Therapist and patient went from [place] [address] to the [facility] level and navigated through the elevators and busy hallways to a coffee shop. Therapist had the patient standin line, place an order for coffee, and then sit at a table while waiting for her order to be called. Therapist selected a table that was near the coffee shop's overhead music speaker as well as other customers. While seated at this location, therapist instructed patient on a Sudoku game and facilitated patient engagement in this cognitively challenging task. Patient displayed episodes of abnormal movements during Sudoku but was able to calm down quickly when closing her eyes and ears. Patient was then able to complete this task with minimal abnormal movements despite exposure to a busy environmentwith auditory distractions including grinding noises, calling out names, music, and various conversations. Recommendations: breathe; stop and reset; focus on control and not speed; use the eyes to look, not the head; practice eye exercises twice daily; use the finger to track items, if needed; contemplate if the visual or auditory stimulus that is experienced is harmful in any way; keep arms down at rest; find a focal point; heels down Assessment Clinical Impression: Marly continues to improve in her movement abilities, even with increasing challenge and distracting environmental stimuli. Overall, her tolerance to unwanted auditory stimuli is improving and Marly has anincreased abilities to recognize and control her movements.The beginning of the session, while in the elevator, and at the start of the Sudoku task were difficult times for Marly today, as her movements started to increase in response to the anticipation of loud environments as well as when she was subjected the loud/distracting environments themselves. During this, Marly went back to implementing sensory deprivation strategies (i.e. closing her eyes and plugging her ears) in order to lessen her postural deviations and calm her movements. Although these are not the strategies that have been promoted through therapy sessions, Marly did a great job quickly recovering from her movements and then maintaining them for >10 minutes to engage in the Sudoku task. Marly continues to require cueing to find a focal spot as a means to lessen her postural deviations. Skilled occupational therapy remains necessary for sensory and motor retraining, cueing, and functional integration of skills. Rehab Potential: Ms. White has Good potential [...] up to 12 visits. Pt is on 12 visit. One more session is scheduled, as there was a miscommunication on scheduling and the visit count within occupational therapy notes. Therefore, patient is currently at 12/13 visits. OT Duration: 90 days Plan: Continue with current plan Plan Comments: Patient has not met treatment goals and will return for additional occupational therapy sessions to address the following: shopping task in an environment with various visual and auditory stimuli. Treatment interventions may include: Therapeutic functional activity Progress: Progressing toward goals Rehab Potential: Good Time Spent with Patient Therapeutic Activity (min): 40 min Time Calculation Total Timed Units (min): 40 min Total Treatment Time (min): 40 min Associated attestation - Hanny Morgan O.T., O.TLilian - 08/08/2019 11:23 AM CDT This therapist has reviewed all documentation and supervised today's session. This therapist agrees with the plan of care developed in collaboration with the patient. documented in this encounter Plan of Treatment Not on filedocumented as of this encounter Visit Diagnoses Diagnosis Movement Disorder - Primary documented in this encounter Care Teams Clinical Counselor Relationship Specialty Start Date End Date Elsewhere, Pcp PCP - General Family Medicine 10/11/18 documented as of this encounter
--- OUTSIDE RECORDS SUMMARY | 2022-09-26 11:11 | XMS_ITS | Encounter Summary ---
:1955 Author Organization [facility] Address [address] [place] [id number] Care Team Providers Name Role Phone Elsewhere, Pcp Primary Care Provider Unavailable Encounter Details Date Type Department Care Team Description 08/10/2021 Abstract [facility] FAM Provider, Historical Social History Tobacco Use Types Packs/Day Years [...] week 04/06/2019 How often do you attend worship or episcopal services? Never 04/06/2019 Do you belong to any clubs or organizations such as worship N o 04/06/2019 groups, unions, fraternal or [...] PM CDT documented as of this encounter Plan of Treatment Not on filedocumented as of this encounter Visit Diagnoses Not on filedocumented in this encounter Care Teams Soda Fountain Operator Relationship Specialty Start Date End Date Elsewhere, Pcp PCP - General Family Medicine 10/11/18 documented as of this encounter
--- OUTSIDE RECORDS SUMMARY | 2022-09-26 11:11 | XMS_ITS | Encounter Summary ---
:1955 Author Organization [facility] Address [address] [place] [address] Care Team Providers Name Role Phone Elsewhere, Pcp Primary Care Provider Unavailable Reason for Visit Physical Therapy (Routine) - Authorized Specialty Diagnoses / Procedures Referred By Contact Refer red To Contact Diagnoses [facility] Procedures PT Ongoing treatment [address] [place] [phone] Referral ID Status Reason Start Date Expiration Date Visits V isits Requested Authorized [id number] Authorized 06/10/2022 06/10/2023 99 99 Encounter Details Date Type Department Care Team Description 06/22/2022 Clinical Support Department of Physical Perry, Mitchell Goodrich, Movement Disorder Medicine and P.T. Rehabilitation in [facility] [address] [place], [place] [address] [facility] [phone] [place] [address] [phone] Social History Tobacco Use Types Packs/Day Years [...] How often do you attend rastafari or worship services? Never 04/06/2019 Do you belong to [...] encounter Progress Notes Mitchell Amador P.T. - 06/22/2022 11:00 AM CDT Physical Therapy Outpatient Treatment Note SUBJECTIVE Patient's Name: Shawna White Referring Provider: No ref. provider found Visit Diagnosis: 1. Movement Disorder Reason for Referral: PT Re-evaluation for motor retraining due to functional movement disorder Onset Date: (2018) Payor: MEDICARE / Plan: MEDICARE A AND B / Product Type: Medicare / [facility] Visit Count: 13 PERTINENT MEDICAL / SURGICAL HISTORY: Patient Active [...] Triggers include: surprises, biopsy, loud noise or voices. Patient goals: Contact monitoring: PPE used during therapy: Therapist [...] education on deep, pursed lip, diaphragmatic breathing and relaxation at rest and during functional tasks when she experiences symptoms. Practiced this in sitting and standing while limiting use of accessory muscles. Discussed importance of breath in assisting with [...] with single light UE support as needed Standing lateral wt shifting Lateral steps L/R with metronome for step initiation (worked well) Retro walking without UE support Assessment Clinical Impression: Ms. White presents to physical therapy with return of signs and symptoms consistent with previously diagnosed functional movement disorder involving abnormal gait and tremors of upper extremities with stopping of lower extremities. Her symptoms are distractible and are modulated by controlling the environment but is improving her ability to diminish/resolve symptoms with use of controlled breathing and resetting. She is also requiring less time to recover when symptoms occur. Rehab Potential: Ms. White has Good potential to achieve established physical therapy goals within the time frame outlined below, provided she actively participates in her physical therapy treatmentplan and home program. Personal Factors: Needs assistive device Functional Goals and Timeframes: Functional Goals and [...] modified based upon her response to treatment. Physical Therapy Attestation Statement: Patient agrees with the plan of care and goals. Treatment Plan: Plan: Continue with current plan Start of Plan of Care: 06/22/2022 PT Next Certification Date: 09/08/22 Number of Visits: 3/16 visits PT Duration: 60 days PT Frequency: Treatment interventions may include: Treatment/Interventions: Therapeutic exercise, Neuromuscular re-education, Therapeutic functional activity, Gait training, Self-care/home management Plan for next session: body scanning and identifying if the stimulus is threatening, pre-gait training with repeated steps,step ups, // bars if gym quiet (forward/back/lateral, braiding), open space walking. Time Spent with Patient Neuromuscular Re-Education (min): 35 min Time Calculation Total Timed Units (min): 35 min Total Treatment Time (min): 35 min documented in this encounter Plan of Treatment Not on filedocumented as of this encounter Visit Diagnoses Diagnosis Movement Disorder documented in this encounter Care Teams Piano Regulator Inspector Relationship Specialty Start Date End Date Elsewhere, Pcp PCP - General Family Medicine 10/11/18 documented as of this encounter
--- OUTSIDE RECORDS SUMMARY | 2022-09-26 11:11 | XMS_ITS | Encounter Summary ---
:1955 Author Organization [facility] Address [address] [place] [address] Care Team Providers Name Role Phone Elsewhere, Pcp Primary Care Provider Unavailable Encounter Details Date Type Department Care Team Description 08/11/2021 Orders Only RST PCP [facility] MNT Hanny Suarez M.D. [address] [place], [place] [phone] (Wo rk) Social History Tobacco Use Types Packs/Day Years [...] week 04/06/2019 How often do you attend episcopalian or amish services? Never 04/06/2019 Do you belong to any clubs or organizations such as episcopalian N o 04/06/2019 groups, unions, fraternal or [...] on filedocumented in this encounter Care Teams Concert Promoter Relationship Specialty Start Date End Date Elsewhere, Pcp PCP - General Family Medicine 10/11/18 documented as of this encounter
--- OUTSIDE RECORDS SUMMARY | 2022-09-26 11:11 | XMS_ITS | Encounter Summary ---
:1955 Author Organization [facility] Address [address] [place] [address] Care Team Providers Name Role Phone Elsewhere, Pcp Primary Care Provider Unavailable Reason for Visit Reason Comments Blood in Urine presents with blood in urine and lower abdominal pain Encounter Details Date Type Department Care Team Description 08/07/2021 Emergency [facility] Cummins, Piña N, Hemat uria (Primary Dx); Department C.N.P. Infection Urinary Tract [address] [place] [address] [address] [place] [phone] Social History Tobacco Use Types Packs/Day Years [...] week 04/06/2019 How often do you attend quaker or gnosticism services? Never 04/06/2019 Do you belong to any clubs or organizations such as quaker N o 04/06/2019 groups, unions, fraternal or [...] PM CDT documented as of this encounter Last Filed Vital Signs Vital Sign Reading [...] - - Body Mass Index - - documented in this encounter Discharge Instructions Discharge InstructionsWang Cummins C.N.P. - 08/07/2021 3:41 PM CDT Take the antibiotic completely for 5 days only. If the blood in urine still persist after finishing antibiotic, I recommend follow up with your primary care provider for further evaluation, including referral to urology or cystoscopy. Return to the emergency department if you develop fever, nausea or vomiting that you cannot control,or worsening symptoms. AttachmentsThe following attachments cannot be sent through Care Everywhere. Hematuria Adult (Bermudian)Urinary Tract Infection Adult (Bermudian)documented in this encounter Medications at Time of Discharge Medication Sig Dispensed Refills Start Date End Date acetaminophen (TYLENOL) Take 325-650 mg by 0 09/15 325 mg tablet mouth as needed. aspirin [address] tablet Take 81 mg by mouth 0 daily. fluticasone propionate Administer 1 spray 0 (FLONASE) 50 into each nostril mcg/actuation nasal spray daily. levothyroxine (SYNTHROID, Take 88 mcg by mouth 0 LEVOTHROID) 88 mcg tablet every morning before breakfast. melatonin 5 mg tablet Take 5 mg by mouth at 0 bedtime. omeprazole (PriLOSEC) 40 Take 40 mg by mouth [address] capsule every morning before breakfast. ramipril (ALTACE) 5 mg Take 5 mg by mouth 0 capsule daily. sertraline (ZOLOFT) 100 Take 100 mg by mouth 0 mg tablet daily. simvastatin (ZOCOR) 10 mg Take 10 mg by mouth 0 tablet at bedtime. cefdinir (OMNICEF) 300 mg Take 1 capsule (300 14 capsule 0 1 capsule mg total) by mouth every 12 (twelve) hours. documented as of this encounter ED Notes Wang Cummins C.NLora. - 08/07/2021 3:12 PM CDT SUBJECTIVE CHIEF COMPLAINT/REASON FOR VISIT Blood in Urine (presents with blood in urine and lower abdominal pain) HISTORY OF PRESENT ILLNESS Shawna White is a 66 y.o. female presents to the ED concerning for hematuria. Patient reports this morning she noticed blood in urine. She states for the past week she has been having suprapubic discomfort. She does endorse having urinary urgency but no dysuria or frequency. Denies any fevers,chills, back pain, or flank pain. REVIEW OF SYSTEMS Constitutional: Negative for chills and fever. HENT: Negative. Eyes: Negative for theresa-orbital edema. Respiratory: Negative for cough. Cardiovascular: Negative for chest pain. Gastrointestinal: Positive for abdominal pain. Genitourinary: Positive for hematuria and urgency. Negative for dysuria, flank pain and frequency. Psychiatric/Behavioral: Negative for homicidal ideas and suicidal ideas. OBJECTIVE Initial Vitals Temperature Pulse Rate Heart Rate Resp Rate Blood Pressure SpO2 08/07/21 1512 08/07/21 1512 -- 08/07/21 1512 08/07/21 1512 08/07/21 1512 36.8 ??C 88 16 135/66 99 % Pain Score 08/07/21 1515 2 PHYSICAL EXAMINATION Constitutional: She appears not lethargic. No distress. HENT: Nose: Nose normal. Eyes: Conjunctivae are normal. Pulmonary/Chest: Effort normal. Abdominal: There is abdominal tenderness in the suprapubic area. There is no CVA tenderness. Neurological: Alert and oriented to person, place, and time. Skin: Skin is normal color. She is not diaphoretic. Psychiatric: She has a normal mood and affect. ASSESSMENT/PLAN IMPRESSION AND PLAN Differential diagnoses includes but is not limited to nephritic syndrome, urogenital malignancy, pyelonephritis, kidney stones, urethritis, urogenital trauma and UTI. This includes the possible complication of pyelonephritis progressing to urosepsis, a life threatening complication. Patient presents concerning for hematuria. Stable vital sign. Low suspicion for sepsis. No flank pain noted. Low suspicion pyelo at this time. Urinalysis does shows evidence of UTI. Plan: Discharge home with cefdinir and recommendation to follow up with PCP for further evaluation, including referral to urology for cystoscopy if hematuria still persist after UTI treatment. Advised on strict time precaution. Patient states understanding. I personally reviewed the lab result(s) and my interpretation is abnormal. ED Course as of 08/07/21 1541 Sat Aug 07, 2021 1534 Leukocyte Esterase(!): Moderate 1534 Blood(!): Large Patient denies any flank or back pain. Do think symptoms likely UTI and less likely renal stone. 1537 Bacteria(!): Present 1537 White Blood Cells(!): 21-30 Final Diagnoses: as of 08/07/21 1541 Hematuria Infection Urinary Tract Wang Cummins, C.N.P. 08/07/21 1541 documented in this encounter Plan of Treatment Not on filedocumented as of this encounter Procedures Procedure Name Priority Date/Time Associated Comments Diagnosis BACTERIAL CULTURE, STAT 08/07/2021 3:19 PM Res ults for this AEROBIC + SUSC, URINE CDT proced ure are in the results section. URINALYSIS WITH STAT 08/07/2021 3:19 PM Result s for this MICROSCOPIC CDT procedure are i n the results section. documented in this encounter Results (ABNORMAL) Urinalysis with Microscopic: Urine, Midstream (08/07/2021 3:19 PM CDT) P athologist Signature Source Midstream 08/07/2021 [facility] 3:33 PM CDT Clarity Cloudy (A) Clear 08/07/2021 [facility] 3:33 PM CDT Color Krista 08/07/2021 [facility] 3:33 PM CDT Comment: ----REFERENCE VALUE---- Colorless Yellow Krista Blood Large (A) Negative 08/07/2021 3:33 PM CDT [facility] Nitrite Negative Negative 08/07/2021 3:33 PM CDT [facility] Leukocyte Esterase Moderate (A) Negative 08/07/2021 3:33 PM CDT [facility] Protein 100 (A) mg/dL 08/07/2021 3:33 PM CDT [facility] Comment: ----REFERENCE VALUE---- Negative Trace Glucose Negative Negative mg/dL 08/07/2021 3:33 PM CDT CN FL Ketones, QI(U) Negative Negative mg/dL 08/07/2021 3:33 PM C DT [facility] Bilirubin Negative Negative 08/07/2021 3:33 PM CDT [facility] pH 7.5 5.0 - 8.0 08/07/2021 3:33 PM CDT [facility] Specific [place] 1.015 1.001 - 1.035 08/07/2021 3:33 PM CDT [facility] Urobilinogen 0.2 0.2 - 1.0 mg/dL 08/07/2021 3:33 PM CD T [facility] White Blood Cells 21-30 (A) /hpf 08/07/2021 3:36 PM CDT [facility] Comment: ----REFERENCE VALUE---- Males: 0-3 Females: 0-10 Unknown: 0-10 Red Blood Cells 31-40 (A) 0 - 2 /hpf 08/07/2021 3:36 PM CDT [facility] Dysmorphic Red Blood Cells <=25 <=25 % 08/07/2021 3: 36 PM CDT [facility] Squamous Cells Occ-3 /hpf 08/07/2021 3:36 PM CDT CN FL Transitional Cells Occ-3 (A) None Seen /hpf 08/07/2021 3:36 PM CDT [facility] Bacteria Present (A) None Seen 08/07/2021 3:36 PM CDT [facility] Specimen Anatomical Collection Method Collection Time Receive d Time (Source) Location / / Volume Laterality Urine (Urine, 08/07/2021 3:19 PM 08/07/20 3:29 Midstream) CDT PM CDT Piña N Cummins C.N.P. LAB URINE ORDERABLES Performing Organization Address City/State/ZIP Code Phon e Number [address] [address] [place] [address] System in [address] Bacterial Culture, Aerobic + Susc, Urine (08/07/2021 3:19 PM CDT) [facility] Method Time Signature Urine Culture No growth 08/08/2021 ECLR after 1 day 3:33 PM CDT of incubation. Specimen Anatomical Collection Method Collection Time Receive d Time (Source) Location / / Volume Laterality Urine (Urine, 08/07/2021 3:19 PM 08/07/20 9:07 Midstream) CDT PM CDT Comment: Specimen Source Site: Urine Wang VasquezN.PJavier LAB MICROBIOLOGY - GENERAL O RDERABLES Performing Organization Address City/State/ZIP Code Phon e Number [facility]- [address] [place] [address] [place] [address] [place] [address] System in [address] documented in this encounter Visit Diagnoses Diagnosis Hematuria - Primary Infection Urinary Tract documented in this encounter Care Teams Poultry Boner Relationship Specialty Start Date End Date Elsewhere, Pcp PCP - General Family Medicine 10/11/18 documented as of this encounter
--- OUTSIDE RECORDS SUMMARY | 2022-09-26 11:11 | XMS_ITS | Encounter Summary ---
:1955 Author Organization [facility] Address [address] [place] [address] Care Team Providers Name Role Phone Elsewhere, Pcp Primary Care Provider Unavailable Reason for Visit Physical Therapy (Routine) - Authorized Specialty Diagnoses / Procedures Referred By Contact Refer red To Contact Diagnoses Movement Disorder [facility] Procedures PT Ongoing treatment [address] [place] [phone] Referral ID Status Reason Start Date Expiration Date Visits V isits Requested Authorized [id number] Authorized 06/10/2022 06/10/2023 99 99 Encounter Details Date Type Department Care Team Description 06/15/2022 Clinical Support Department of Physical Perry, Mitchell Goodrich, Movement Disorder Medicine and P.T. Rehabilitation in [facility] [address] [place], [place] [address] [facility] [address] [place] [address] [phone] Social History Tobacco Use Types Packs/Day Years [...] week 04/06/2019 How often do you attend oriental orthodox or judaism services? Never 04/06/2019 Do you belong to any clubs or organizations such as oriental orthodox N o 04/06/2019 groups, unions, fraternal or [...] encounter Progress Notes Mitchell Amador P.T. - 06/15/2022 10:00 AM CDT Physical Therapy Outpatient Treatment Note SUBJECTIVE Patient's Name: Shawna White Referring Provider: No ref. provider found Visit Diagnosis: 1. 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 female who presents [...] include: surprises, biopsy, loud noise or voices. Family/Caregiver Present: No Patient goals:I want to be able to talk on the telephone. Return to going to movies, or going to [employer] with less symptom interruption. Fall Risk (65 and older) Fall in [...] or stomping legs L > R Walking: freezing gait, difficulty with initiation, wide stance, impaired coordination Demonstrates a high steppage gait, with intermittent trunk/hip flexion during periods of leg freezing.Note freezing during sit > stand with excessive trunk extension and heel raise carlos. She also demonstrates speech freezing and stuttering. Ortho Exam TREATMENT Treatment today consisted of: Neuromuscular Re-education: Provided education on idea of body scanning, identifying which muscles are turned on at a certain time, and working to only have necessary muscles active, allowing all others to relax via controlled,pursed lip breathing. Discussed that motor reprogramming intervention is specific to the patient's unique symptoms and improves with a focus on quality vs quantity of movement. Goal of PT is to re-establish self-management strategies to improve independent control of abnormal movement patterns, specifically recognizing abnormal movements before (or when) they begin, and incorporating breathing strategies to assist in relaxation and control of movement, while reducing or eliminating dependence on adaptive equipment and compensatory strategies. We will work to improve self-management by stopping and resetting to avoid reinforcing maladaptive patterns. Discussed quality versus quantity and avoiding pushing through movements as this reinforces prior abnormal, inefficient movement patterns. Provided patient education on deep, pursed lip, diaphragmatic breathing and relaxation at rest. Practiced this in supine and seated with tactile cues of hand on chest and hand on abdomen to ensure diaphragmatic breathing and limiting use of accessory muscles. Discussed importance of breath in assisting with controlling and re-setting movement. Also discussed use of mindfulness practice during controlled breathing, acknowledging thoughts and avoiding judgement on them. Negative thoughts about situation or self, as well as judging herself, will increase her abnormal movements. Incorporated these strategies during the following movement patterns, progressing from easy to more dynamic/functional: Hooklying trunk rotation, supine hip abd, hooklying bridging, sit <> stands, standing lateral wt shifting, walking forward and backward without UE support. Assessment Clinical Impression: Ms. White presents to physical therapy with return of signs and symptoms consistent with previously diagnosed functional movement disorder involving abnormal gait and tremors of upper extremities with stopping of lower extremities. Her symptoms are distractible and are modulated by controlling the environment. Is able to diminish/resolve symptoms with verbal cues for breath control and resettingbut is not yet able to identify the start of symptoms and prevent them from occurring. Rehab Potential: Ms. White has Good potential to achieve established physical therapy goals within the time frame outlined below, provided she actively participates in her physical therapy treatmentplan and home program. Personal Factors: Needs assistive device Functional Goals and Timeframes: PT Outpatient Goals [...] current plan Start of Plan of Care: 06/15/2022 PT Next Certification Date: 09/08/22 Number of Visits: 2/16 visits PT Duration: 60 days PT Frequency: Treatment interventions may include: Treatment/Interventions: Therapeutic exercise, Neuromuscular re-education, Therapeutic functional activity, Gait training, Self-care/home management Plan for next session: body scanning and identifying if the stimulus is threatening, pre-gait training with repeated steps,step ups, // bars if gym quiet (forward/back/lateral, braiding), open space walking. Time Spent with Patient Neuromuscular Re-Education (min): 55 min Time Calculation Total Timed Units (min): 55 min Total Treatment Time (min): 55 min documented in this encounter Plan of Treatment Not on filedocumented as of this encounter Visit Diagnoses Diagnosis Movement Disorder documented in this encounter Care Teams Ski Tow Operator Relationship Specialty Start Date End Date Elsewhere, Pcp PCP - General Family Medicine 10/11/18 documented as of this encounter
--- OUTSIDE RECORDS SUMMARY | 2022-09-26 11:11 | XMS_ITS | Encounter Summary ---
:1955 Author Organization [facility] Address [address] [place] [address] Care Team Providers Name Role Phone Elsewhere, Pcp Primary Care Provider Unavailable Reason for Referral Physical Therapy (Routine) - Authorized Specialty Diagnoses / Procedures Referred By Contact Refer red To Contact Diagnoses [facility] Procedures PT Ongoing treatment [address] [place] [address] Referral ID Status Reason Start Date Expiration Date Visits V isits Requested Authorized [id number] Authorized 06/10/2022 06/10/2023 99 99 Reason for Visit Appointment Request (Routine) - Closed Specialty Diagnoses / Procedures Referred By Contact Refer red To Contact Physical Therapy Diagnoses Musculoskeletal Psychogenic Disorder Louise Vaz M.D. [address] [place] [address] Referral ID Status Reason Start Date Expiration Date Visits Requ ested Visits Authorized [id number] Closed 05/19/2022 05/19/2023 1 1 Encounter Details Date Type Department Care Team Description 06/10/2022 Comprehensive Visit Department of Germaine Romano M.D. [address] [place] [address] Movement Disorder Physical Medicine and Mitchell Amador P.T. [address] [place] [address] (Primary Dx) Rehabilitation in [place], [place] [address] [place] [address] Social History Tobacco Use Types Packs/Day Years [...] week 04/06/2019 How often do you attend samaritan or mosque services? Never 04/06/2019 Do you belong to any clubs or organizations such as samaritan N o 04/06/2019 groups, unions, fraternal or [...] PM CDT documented as of this encounter Consult Notes Mitchell Amador PJavierT. - 06/10/2022 10:30 AM CDT Physical Therapy Outpatient Evaluation/Treatment SUBJECTIVE Patient's Name: Shawna White Referring Provider: Louise Vaz M.D. Visit Diagnosis: 1. Movement Disorder Reason for Referral: PT Re-evaluation for motor retraining due to functional movement disorder Onset Date: (2018) Payor: MEDICARE / Plan: MEDICARE A AND B / Product Type: Medicare / [facility] Visit Count: 11 PERTINENT MEDICAL / SURGICAL HISTORY: Patient Active [...] include: surprises, biopsy, loud noise or voices. Previous Treatments: Physical Therapy Best program x 1 week intensive, PT and OT again using BeST strategies x 5 weeks. PT Program here last winter x 6 weeks. Family/Caregiver Present: No Patient goals:I want to be able to talk on the telephone. Return to going to movies, or going to [email or web address] with less symptom interruption. Fall Risk (65 and older) Fall in the last 12 months: No Are you fearful of falling?: No Contact monitoring: PPE used during therapy: Therapist was wearing the following PPE throughout entire session: surgicalmask and eye protection Patient was wearing a mask during therapy session: yes Additional Staff Present During Session: no OBJECTIVE I have briefly reviewed the Review of Systems based on chart review and history per patient report. I am only responding to those symptoms which are directly relevant to the specific indication for my consultation. I recommend that the patient follow up with their primary or referring provider to pursue any other symptoms which may be of concern. PHYSICAL EXAM Pain: None reported Symptoms during [...] demonstrates speech freezing and stuttering. Ortho Exam Outcome Measures: 30 Sec Sit to Stand: 6 reps 10 MWT without AD: 16.6 sec = 0.60 m/sec Previously 1.25 m/sec TREATMENT Treatment today consisted of: Neuromuscular Re-education: Provided education on idea of body scanning, identifying which muscles are turned on or off at a certain time, and working to only have necessary muscles active, allowing all others to relax. Discussed that motor reprogramming intervention is specific [...] lip, diaphragmatic breathing and relaxation at rest. Discussed importance of breath in assisting with controlling and re-setting movement. She should use handon stomach for tactile feedback of it rising and falling vs chest movement. Also discussed use of mindfulness practice during controlled breathing, acknowledging thoughts and avoiding judgement on them. Negative thoughts about situation or self, as well as judging herself, will increase her abnormal movements. Assessment Clinical Impression: Ms. White presents to physical therapy with return of signs and symptoms consistent with previously diagnosed functional movement disorder involving abnormal gait and tremors of upper extremities with stopping of lower extremities. Her symptoms are distractible and are modulated by controlling the environment. Rehab Potential: Ms. White has Good potential to achieve established physical therapy goals within the time frame outlined below, provided she actively participates in her physical therapy treatmentplan and home program. Personal Factors: Needs assistive device Clinical Presentation: Evolving Clinical Decision Making: Moderate complexity clinical decision making Functional Goals and Timeframes: PT Outpatient Goals [...] of care and goals. Treatment Plan: Plan: Alter current plan Start of Plan of Care: 06/10/2022 PT Next Certification Date: 09/08/22 Number of Visits:16 visits PT Duration: 60 days PT Frequency: Treatment interventions may include: Treatment/Interventions: Therapeutic exercise, Neuromuscular re-education, Therapeutic functional activity, Gait training, Self-care/home management Plan for next session: body scanning and identifying if the stimulus is threatening, supine exercise program including hooklying spinal rotation, bridging and hip abduction, pre- gait training > // bars (forward/back/lateral, braiding), open space walking. Time Spent with Patient PT Re-Eval (min): 14 min Neuromuscular Re-Education (min): 36 min Time Calculation Total Timed Units (min): 36 min Total Treatment Time (min): 50 min documented in this encounter Plan of Treatment Not on filedocumented as of this encounter Visit Diagnoses Diagnosis Movement Disorder - Primary documented in this encounter Care Teams Test And Research Reactor Operator Relationship Specialty Start Date End Date Elsewhere, Pcp PCP - General Family Medicine 10/11/18 documented as of this encounter
--- OUTSIDE RECORDS SUMMARY | 2022-09-26 11:11 | XMS_ITS | Encounter Summary ---
:1955 Author Organization [facility] Address [address] [place] [address] Care Team Providers Name Role Phone Elsewhere, Pcp Primary Care Provider Unavailable Reason for Visit Occupational Therapy (Routine) - Closed Specialty Diagnoses / Procedures Referred By Contact Refer red To Contact Diagnoses Movement Disorder David Best M.D., Ph.D. [facility] Procedures OT Ongoing Treatment [address] [place] [phone] Referral ID Status Reason Start Date Expiration Date Visits Requ ested Visits Authorized [id number] Closed 07/08/2019 07/07/2020 20 20 Encounter Details Date Type Department Care Team Description 08/01/2019 Clinical Support Department of Physical David Best M.D., Ph.D. [address] [place] [id number] Movement Disorder (Primary Dx); Medicine and Hanny Morgan O.T., O.TLilian Abnormal Movement Involuntary Rehabilitation in [place], [place] [address] [place] [address] Social History Tobacco Use Types Packs/Day Years [...] week 04/06/2019 How often do you attend voodoo or buddhism services? Never 04/06/2019 Do you belong to any clubs or organizations such as voodoo N o 04/06/2019 groups, unions, fraternal or [...] encounter Progress Notes Molly Felix M - 08/01/2019 4:30 PM CDT Occupational Therapy Neurologic Outpatient Progress [...] seconds. She worked with physical therapy in [place] for 6 sessions, primarily focused on desensitization but, this has thus far been unsuccessful. Onset Date: 07/08/19 Payor: [facility] / Plan: [facility] HMO / Product Type: HMO / Patient/Caregiver Goals: Return to riding bike, going to movies, or going to resturaunts. OBJECTIVE Pain: Patient denies any pain that would interfere with her participation in this session. TREATMENT Patient presented to this session alone, without the use of a gait aid, and with no abnormal movements. She reported that over the past few days, she followed therapist instruction and listened to the TV at a high volume while engaging in another task (in the kitchen). She was able to do this for 2 hours with ease, however when she sat in her chair to watch the TV at a high volume, she reported that this was very difficult for her and she was only do it for a short period of time before turning the volume down to 'very quiet.' Further, patient reported that since her last therapy session, her movements have been well controlled and she has had many moments of calm. Treatment today consisted of: Treatment today focused on multi-tasking, controlled movements, and postural stability while engaging in an integrated walking task. Therapist provided patient with Perplexus and instructed patient to engage in the 3D maze while walking through the therapy department and between [place] and [place] [address]. Patient was able to ambulate in the different environments with few abnormal movements, but therapist provided 3-5 verbal cues for patient to 'keep her heels down' when her movements started to exacerbate.Therapist facilitated the continuation of Perplexus and provided minimal assistance when the patientbecame frustrated with the maze. Therapist next instructed patient to bounce a small ball while walking through the therapy department in order to further increase postural stability. While patient performed this task, with a ball that did not make much noise, therapist would create auditory confrontation by loudly bouncing a gym ball behind the patient. Patient was initially startled by the sound, but was able to continue through task with minimal postural deviations. Therapist then progressed the bouncing task by providing the patient with a large rubber gym ball that created a much louder auditory stimulus in each bounce. The patient was able to better tolerate the loud auditory stimulus produced by bouncing the gym ball because each bounce was predictable and the patient was in control. Therapist provided further auditory confrontation by clapping her hands at various intensities and frequencies. Patient had moments of abnormal movements during these activities in response to auditory stimuli, but with therapist cueing of not pushing through her movements, continue breathing, and when breathing does not decrease the movements, stop and reset, the patient was able to find 'calm.' Recommendations: breathe; stop and reset; focus on [...] in her movement abilities, even with increasing challenge. Today she presented to the session without her cane, with no obvious postural deviations or abnormal movments, which is a great success for her. However, today was challenging for Marly; there was an increased need for multi- tasking while maintaining postural stabilities when subjected to various visual and auditory stimuli. For example, twice throughout the Perplexus activity she stopped participating in the maze and focused on ambulation due to the increased difficulty in the multi-tasking component of the game. Additonally, at the end of the bouncing task, Marly was overwhelmed by the noise she was unable to change, and her postural deviations became apparent and disruptive to the task, causing her to flex forward at the waist. Marly continues to require multiple verbal cues to control her movements, keep her heels down, and reset herself. Despite the various visual and auditory stimuli and confrontations in today's session, Marly was able to successfully find periods of calm.Skilled occupational therapy remains necessary for sensory and [...] up to 12 visits. Pt is on 10 visit. OT Duration: 90 days Plan: Continue with current plan Plan Comments: Patient has not met treatment goals and will return for additional occupational therapy sessions to address the following: integrated auditory tasks; simple tasks in complex enviornments->multitasking through complex enviornments, shopping task , wayfinding through the [employer] level, v isualization of harmful and adverse scenarios. Treatment interventions may include: Therapeutic functional activity Progress: Patient is progressing as expected. Rehab Potential: Good Time Spent with Patient Therapeutic Activity (min): 30 min Time Calculation Total Timed Units (min): 30 min Total Treatment Time (min): 30 min Associated attestation - Kavitateresa Hanny Jose Georges O.T.D. - 08/05/2019 9:47 AM CDT This therapist has reviewed all documentation and supervised today's session. This therapist agrees with the plan of care developed in collaboration with the patient. documented in this encounter Plan of Treatment Not on filedocumented as of this encounter Visit Diagnoses Diagnosis Movement Disorder - Primary Abnormal Movement Involuntary documented in this encounter Care Teams Securities Compliance Examiner Relationship Specialty Start Date End Date Elsewhere, Pcp PCP - General Family Medicine 10/11/18 documented as of this encounter
--- OUTSIDE RECORDS SUMMARY | 2022-09-26 11:11 | XMS_ITS | Encounter Summary ---
:1955 Author Organization [facility] Address [address] [place] [address] Care Team Providers Name Role Phone Elsewhere, Pcp Primary Care Provider Unavailable Reason for Visit Physical Therapy (Routine) - Canceled Specialty Diagnoses / Procedures Referred By Contact Refer red To Contact Diagnoses Abnormal Gait Non Orthopedic Abnormal Movement Involuntary Samreen Romano M.D. [facility] Procedures PT Ongoing treatment [address] [place] [address] Referral ID Status Reason Start Date Expiration Date Visits V isits Requested Authorized [id number] Canceled 11/03/2021 11/03/2022 99 99 Encounter Details Date Type Department Care Team Description 12/20/2021 Clinical Support Department of Physical Samreen Romano M.D. [address] [place] [address] Abnormal Gait Non Orthopedic; Medicine and Mitchell Amador, PJavierTJavier [address] [place] [address] Abnormal Movement Involuntary Rehabilitation in [place], [place] [address] [place] [address] [phone] Social History Tobacco Use Types Packs/Day Years [...] week 04/06/2019 How often do you attend orthodox or latter-day services? Never 04/06/2019 Do you belong to any clubs or organizations such as orthodox N o 04/06/2019 groups, unions, fraternal [...] encounter Progress Notes Mitchell Amador P.T. - 12/20/2021 1:00 PM CST Physical Therapy Outpatient Treatment Note [...] Next Certification Date: 02/01/2022 Epic Visit Count: 8 Patient comments: no new concerns. Attends PT wearing darkened glasses but no earplugs, and has progressed to no AD unless walking in parking lots. She states her symptoms have been very minimal when she is at home. She was able to go out for dinner with friends on Monday night with minimal symptoms but did not disrupt her mobility. She also attended her grandson's birthday with 8 people. One person's voice was a trigger and she had to remove her self from the crowd a few times to diminish symptoms.Pickleball has been going well though has difficulty jogging/running forward so she avoids this. Contact monitoring: PPE used during therapy: Therapist [...] allowing all others to relax.? Ongoing education: incorporating breathing strategies to assist in relaxation and control of movement, while reducing or eliminating dependence on adaptive equipment such as ear plugs and compensatory strategies. We worked to improve self-management by stopping and resetting to avoid reinforcing maladaptive patterns. ?? Provided education regarding evidence based treatment incorporating regular visits/discussions with a psychological therapist or psychologist to maximize effectiveness of treatment and self management. Incorporated intentional multijoint movements during controlled breathing to improve rate of resetting, allowing her brain to concentrate on the simple movement and breathing vs stopping the unwanted movements. In sitting, incorporated anterior and posterior hip hinges with breathing. In standing worke d on trunk rotation L/R with controlled breathing and this was effective for resetting. Incorporated external auditory stimuli with recording of crowd noise in the background. PT adjusted the noise volume at random throughout the treatment: controlled breathing during sit <> stands with good control. Progressed to functional activities and balance challenges with cues as needed to breathe and reset prior to restarting intentional movement: repeated step taps at 8 surface progressing to alternating step taps; forward step ups and downs at 4 step without UE support; single leg balance with R UE support for each LE; walking on compliant mat surface with 4 step up/down. Home Exercise Program/Education: Access Code: [email or web address] Access Code: [email or web address] URL: [email or web address] Date: 12/20/2021 Prepared by: Mitchell Amador Program [...] She is demonstrating substantially improved symptoms in quiet environments and mildly noisy environments. She has been able to remove her ear plugs and today demonstrated improved ability to reset when implementing a simple intentional movement pattern in combination with breathing to improve movement efficiency when presented with auditory stimuli. Demonstrated the least amount of involutionary movements during today's session since start of care. Needs to improve ability/perforemance in open environments with more auditory stimuli, utilization of body scanning, identifying which muscles beginto tense/tighten and then resetting prior to attempting [...] current plan Number of Outpatient PT Visits: 06/04 PT Outpatient Duration (days): 60 days Plan for next session: education re: body scanning and identifying if the stimulus is threatening, deep breathing for auditory feedback and use of simple intentional movement to reset, with video/music playing for auditory stimuli: pre-gait training > // bars, L SLS with light UE support, open space walking at fast and slow speeds, stepping over obstacles and walking on mats. Time Spent with Patient Neuromuscular Re-Education (min): 56 min Time Calculation Total Timed Units (min): 56 min Total Treatment Time (min): 56 min ER documented in this encounter Plan of Treatment Not on filedocumented as of this encounter Visit Diagnoses Diagnosis Abnormal Gait Non Orthopedic Abnormal Movement Involuntary documented in this encounter Care Teams Floor Care Technician Relationship Specialty Start Date End Date Elsewhere, Pcp PCP - General Family Medicine 10/11/18 documented as of this encounter
--- OUTSIDE RECORDS SUMMARY | 2022-09-26 11:11 | XMS_ITS | Encounter Summary ---
:1955 Author Organization [facility] Address [address] [place] [address] Care Team Providers Name Role Phone Elsewhere, Pcp Primary Care Provider Unavailable Reason for Referral Specialty Diagnoses / Procedures Referred By Contact Refer red To Contact T [facility] [address] [place] [address] Referral ID Status Reason Start Date Expiration Date Visits Requ ested Visits Authorized HANDISING EXECUTION ASSOCIATE Encounter Details Date Type Department Care Team Description 12/17/2020 Immunization Department of [facility] er For COVID-19 Medicine, [facility] Vaccine I [facility], ([facility] in [facility] [address] [place] [address] Social History Tobacco Use Types Packs/Day Years [...] week 04/06/2019 How often do you attend caodaism or jew services? Never 04/06/2019 Do you belong to any clubs or organizations such as caodaism N o 04/06/2019 groups, unions, fraternal or [...] as of this encounter Plan of Treatment Scheduled Referrals Name Type Priority Associated Diagnoses Order S chedule Covid immunization Outpatient Referral Routine Encounter For E xpected: office visit COVID-19 Vaccine 01/14/2021, Subsequent; 28 days Immunization Expires: 12/18/2023 documented as of this encounter Visit Diagnoses Diagnosis Encounter For COVID-19 Vaccine Immunizat ion - Primary documented in this encounter Care Teams Snowboarding Instructor Relationship Specialty Start Date End Date Elsewhere, Pcp PCP - General Family Medicine 10/11/18 documented as of this encounter
--- OUTSIDE RECORDS SUMMARY | 2022-09-26 11:11 | XMS_ITS | Encounter Summary ---
:1955 Author Organization [facility] Address [address] [place] [id number] Care Team Providers Name Role Phone Elsewhere, Pcp Primary Care Provider Unavailable Reason for Referral Specialty Diagnoses / Procedures Referred By Contact Refer red To Contact Dre Barrett M.D. [facility] [address] [place] [phone] Referral ID Status Reason Start Date Expiration Date Visits Requ ested Visits Authorized [employer] Encounter Details Date Type Department Care Team Description 12/15/2020 Orders Only RST PCP [facility] Max Barrett Jr., M.D. [address] [facility] [address] [place] [phone] (Wo rk) Social History Tobacco Use Types [...] week 04/06/2019 How often do you attend gnosticist or episcopal services? Never 04/06/2019 Do you belong to any clubs or organizations such as gnosticist N o 04/06/2019 groups, unions, fraternal or [...] Treatment Scheduled Referrals Name Type Priority Associated Order Schedule Diagnoses Covid immunization Outpatient Referral Routine Ex pected: office visit Initial 021 (Approximate), Expires: 12/15/2021 documented as of this encounter Visit Diagnoses Not on filedocumented in this encounter Care Teams Volunteer Specialist Relationship Specialty Start Date End Date Elsewhere, Pcp PCP - General Family Medicine 10/11/18 documented as of this encounter
--- OUTSIDE RECORDS SUMMARY | 2022-09-26 11:11 | XMS_ITS | Encounter Summary ---
:1955 Author Organization [facility] Address [address] [place] [address] Care Team Providers Name Role Phone Elsewhere, Pcp Primary Care Provider Unavailable Reason for Visit Physical Therapy (Routine) - Canceled Specialty Diagnoses / Procedures Referred By Contact Refer red To Contact Diagnoses Abnormal Gait Non Orthopedic Abnormal Movement Involuntary Samreen Romano M.D. [facility] Procedures PT Ongoing treatment [address] [place] [address] Referral ID Status Reason Start Date Expiration Date Visits V isits Requested Authorized [id number] Canceled 11/03/2021 11/03/2022 99 99 Encounter Details Date Type Department Care Team Description 12/28/2021 Clinical Support Department of Physical Samreen Romano M.D. [address] [place] [address] Abnormal Gait Non Orthopedic; Medicine and Mitchell Amador, PJavierTJavier [address] [place] [address] Abnormal Movement Involuntary Rehabilitation in [place], [place] [address] [place] [address] [phone] Social History Tobacco Use Types Packs/Day Years [...] or more drinks on one occasion? Ne nroa 04/06/2019 Social Isolation Answer Date Recorded In a typical week, how many times do you talk on the phone O nce a week 04/06/2019 with family, friends, or neighbors? How often do you get together with friends or relatives? Onc e a week 04/06/2019 How often do you attend sabianism or zoroastrianism services? Never 04/06/2019 Do you belong to any clubs or organizations such as sabianism N o 04/06/2019 groups, unions, fraternal or [...] encounter Progress Notes Mitchell Amador PStacy. - 12/28/2021 1:00 PM CDT Physical Therapy Outpatient Treatment Note [...] Next Certification Date: 02/01/2022 Epic Visit Count: 9 Patient comments: no new concerns. Attends PT [...] resetting to avoid reinforcing maladaptive patterns. ?? Incorporated intentional multijoint movements during controlled breathing to improve rate of resetting, allowing her brain to concentrate on the simple movement and breathing vs stopping the unwanted movements. In sitting, incorporated anterior and posterior hip hinges with breathing. In standing worke d on trunk and cervical rotation L/R with controlled breathing and this was effective for resetting. Incorporated external auditory stimuli with by moving patient form a controlled environment of [facility] room, out into the gym with other patients and therapists working. Progressed to functional activities and balance challenges with cues as needed to breathe and reset prior to restarting intentional movement: repeated step taps at 8 surface progressing to alternating step taps; single leg balance with R UE support for each LE; walking up/down stairs (6) with single UE support, walking up/down ramped surface with single UE support, retro walking without UE support, 180 degree turns on command during fast paced walking. Home Exercise Program/Education: Access Code: [email or web address] URL: [email or web address] Date: 12/20/2021 Prepared by: Mitchell Amador Program [...] and are modulated by controlling the environment however today she was able to demonstrate her best ability/performance when exposed to an open environment with more volume. She is demonstrating substantially improved symptoms in controlled and open environments. She has been able to remove her ear plugs and today demonstrated improved ability to reset when implementing a simple intentional movement pattern in combination with breathing to improve movement efficiency when presented with auditory stimuli. Demonstrated the least amount of involutionary movements during today's session since start of care. Will continue to work on improvement of ability/perforemance in open environments with more auditory stimuli, utilization of body scanning,identifying which muscles begin to tense/tighten and then [...] current plan Number of Outpatient PT Visits: 07/05 PT Outpatient Duration (days): 60 days Plan for next session: Progress assessment, education re: body scanning and identifying if the stimulus is threatening, deep breathing for auditory feedback and use of simple intentional movement to reset, with video/music playing for auditory stimuli: Cycling in open gym, L SLS with light UE support, open space walking at fast and slow speeds, stepping over obstacles, walking on mats, walking and carrying a weight to emulate bags. Time Spent with Patient Neuromuscular Re-Education (min): 48 min Time Calculation Total Timed Units (min): 48 min Total Treatment Time (min): 48 min documented in this encounter Plan of Treatment Not on filedocumented as of this encounter Visit Diagnoses Diagnosis Abnormal Gait Non Orthopedic Abnormal Movement Involuntary documented in this encounter Care Teams Bottom Buffer Relationship Specialty Start Date End Date Elsewhere, Pcp PCP - General Family Medicine 10/11/18 documented as of this encounter
--- OUTSIDE RECORDS SUMMARY | 2022-09-26 11:11 | XMS_ITS | Encounter Summary ---
:1955 Author Organization [facility] Address [address] [place] [address] Care Team Providers Name Role Phone Elsewhere, Pcp Primary Care Provider Unavailable Reason for Visit Physical Therapy (Routine) - Canceled Specialty Diagnoses / Procedures Referred By Contact Refer red To Contact Diagnoses Abnormal Gait Non Orthopedic Abnormal Movement Involuntary Samreen Romano M.D. [facility] Procedures PT Ongoing treatment [address] [place] [address] Referral ID Status Reason Start Date Expiration Date Visits V isits Requested Authorized [id number] Canceled 11/03/2021 11/03/2022 99 99 Encounter Details Date Type Department Care Team Description 12/10/2021 Clinical Support Department of Physical Samreen Romano M.D. [address] [place] [address] Abnormal Gait Non Orthopedic; Medicine and Mitchell Amador, PJavierTJavier [address] [place] [address] Abnormal Movement Involuntary Rehabilitation in [place], [place] [address] [place] [address] [phone] Social History Tobacco Use Types Packs/Day Years [...] How often do you attend orthodox or samaritan services? Never 04/06/2019 Do you belong to [...] encounter Progress Notes Mitchell Amador P.T. - 12/10/2021 1:30 PM CST Physical Therapy Outpatient Treatment Note [...] Next Certification Date: 02/01/2022 Epic Visit Count: 7 Patient comments: no new concerns. Attends PT wearing darkened glasses and earplugs, and has progressed to no AD unless walking in parking lots. Waiting area was very busy with a lot of auditory stimuli which resulted in significant symptoms. This took quite a bit of time to gain control. She states her symptoms have been very minimal when she is at home. She was able to go out for dinner with her daughter, she went to an [employer] store, she began pickle ball at the [facility] and she attended a birthday gathering at her apartment building, all with good tolerance and few symptoms. Contact monitoring: PPE used during therapy: Therapist [...] and compensatory strategies. We worked to improve se lf-management by stopping and resetting to avoid reinforcing maladaptive patterns. ?? Provided patient education on deep breathing to balance her autonomic nervous system regarding sympathetics and parasympathetics and resetting. Breathing should be deep enough to hear so she receivedauditory feedback since her triggers are auditory. Discussed importance of breath in assisting with c ontrolling and re-setting movement. Ongoing cues for pursed lip breathing with breathing in throughnose, out through mouth. Incorporated intentional multijoint movements during controlled breathing to improve rate of resetting, allowing her brain to concentrate on the simple movement and breathing vs stopping the unwanted movements. In sitting, incorporated anterior and posterior hip hinges with breathing. In standing, atte mpted lateral wt shifts with minimal affect so progressing to static marching with little effect. Progressed to standing trunk rotation L/R with controlled breathing and this was effective for resetting. Incorporated external auditory stimuli with recording of crowd noise in the background. PT adjusted the noise volume at random throughout the treatment: controlled breathing during sit <> stands with good control. Progressed to pre gait and multidirectional stepping: left and right, 180 degree turns on command and retro ambulation with cues as needed to breathe and reset prior to restarting intentional movement. Home Exercise Program/Education: Access Code: [email or web address] URL: [email or web address] Date: 11/10/2021 Prepared by: Mitchell Amador Program Notes -Perform controlled breathing prior to each exercise. -Only start an exercise once you are focused on breathing and are in control. -Stop, breathe and perform simple intentional movement to reset if you experience abnormal movementsduring an exercise. -Control your breath, control your [...] demonstrating substantially improved symptoms in quiet environments after just 4 sessions. She has been able to remove her ear plugs and today demonstrated improved ability to reset when implementing a simple intentional movement pattern in combination with breathing to improve movement efficiency when presented with auditory stimuli. Needs to improve ability/perforemance in open environments [...] current plan Number of Outpatient PT Visits: 05/04 PT Outpatient Duration (days): 60 days Plan [...] Time Spent with Patient Neuromuscular Re-Education (min): 45 min Time Calculation Total Timed Units (min): 45 min Total Treatment Time (min): 45 min TERM CARE PHLEBOTOMIST documented in this encounter Plan of Treatment Not on filedocumented as of this encounter Visit Diagnoses Diagnosis Abnormal Gait Non Orthopedic Abnormal Movement Involuntary documented in this encounter Care Teams Television Picture Tube Rebuilder Relationship Specialty Start Date End Date Elsewhere, Pcp PCP - General Family Medicine 10/11/18 documented as of this encounter
--- OUTSIDE RECORDS SUMMARY | 2022-09-26 11:11 | XMS_ITS | Encounter Summary ---
:1955 Author Organization [facility] Address [address] [place] [address] Care Team Providers Name Role Phone Elsewhere, Pcp Primary Care Provider Unavailable Reason for Visit Physical Therapy (Routine) - Canceled Specialty Diagnoses / Procedures Referred By Contact Refer red To Contact Diagnoses Abnormal Gait Non Orthopedic Abnormal Movement Involuntary Samreen Romano M.D. [facility] Procedures PT Ongoing treatment [address] [place] [address] Referral ID Status Reason Start Date Expiration Date Visits V isits Requested Authorized [id number] Canceled 11/03/2021 11/03/2022 99 99 Encounter Details Date Type Department Care Team Description 11/22/2021 Clinical Support Department of Physical Samreen Romano M.D. [address] [place] [address] Abnormal Gait Non Orthopedic; Medicine and Mitchell Aamdor, PJavierTJavier [address] [place] [address] Abnormal Movement Involuntary Rehabilitation in [place], [place] [address] [place] [address] [phone] Social History Tobacco Use Types Packs/Day Years [...] How often do you attend gnosticist or taoism services? Never 04/06/2019 Do you belong to [...] encounter Progress Notes Mitchell Amador P.T. - 11/22/2021 2:00 PM CST Physical Therapy Outpatient Treatment Note [...] Next Certification Date: 02/01/2022 Epic Visit Count: 5 Patient comments: no new concerns. Attends PT wearing darkened glasses but without earplugs, and hasprogressed to no AD unless walking in parking lots. Performs good sit <> stand from chair, with significant freezing in the waiting room. She squats so deeply that she lowers herself onto one knee. After breath control is regained, she is able to return to standing under her own power and then good control of ambulation back to treatment area. She states her symptoms have been very minimal whenshe is at home Contact monitoring: PPE used during therapy: Therapist [...] it rising and falling vs chest movement. Incorporated external auditory stimuli with recording of crowd noise in the background. PT adjusted the noise volume at random throughout the treatment: controlled breathing during sit <> stands with good control. Progressed to pre gait and multidirectional stepping: retro, left and right, clockheel taps, stair negotiation up and down with cues as needed to breathe and reset prior to restarting intentional movement. Home Exercise Program/Education: Access Code: [email or web address] URL: [email or web address])/ Date: 11/10/2021 Prepared by: Mitchell Amador Program [...] playingfor auditory stimuli: pre-gait training > // bars, L SLS with light UE support, open space walking at fast and slow speeds, stepping over obstacles. Time Spent with Patient Neuromuscular Re-Education (min): 54 min Time Calculation Total Timed Units (min): 54 min Total Treatment Time (min): 54 min O NARRATOR documented in this encounter Plan of Treatment Not on filedocumented as of this encounter Visit Diagnoses Diagnosis Abnormal Gait Non Orthopedic Abnormal Movement Involuntary documented in this encounter Care Teams Accounting Lecturer Relationship Specialty Start Date End Date Elsewhere, Pcp PCP - General Family Medicine 10/11/18 documented as of this encounter
--- OUTSIDE RECORDS SUMMARY | 2022-09-26 11:11 | XMS_ITS | Encounter Summary ---
:1955 Author Organization [facility] Address [address] [place] [address] Care Team Providers Name Role Phone Elsewhere, Pcp Primary Care Provider Unavailable Reason for Visit Occupational Therapy (Routine) - Closed Specialty Diagnoses / Procedures Referred By Contact Refer red To Contact Diagnoses Movement Disorder David Best M.D., Ph.D. [facility] Procedures OT Ongoing Treatment [address] [place] [phone] Referral ID Status Reason Start Date Expiration Date Visits Requ ested Visits Authorized [id number] Closed 07/08/2019 07/07/2020 20 20 Encounter Details Date Type Department Care Team Description 08/05/2019 Clinical Support Department of Physical David Best M.D., Ph.D. [address] [place] [id number] Movement Disorder (Primary Dx); Medicine and Hanny Morgan O.T., O.TLilian Abnormal Movement Involuntary Rehabilitation in [place], [place] [address] [place] [phone] Social History Tobacco Use Types Packs/Day Years [...] week 04/06/2019 How often do you attend lutheran or zoroastrian services? Never 04/06/2019 Do you belong to any clubs or organizations such as lutheran N o 04/06/2019 groups, unions, fraternal or [...] encounter Progress Notes Molly Felix M - 08/05/2019 1:00 PM CDT Occupational Therapy Neurologic Outpatient Progress [...] seconds. She worked with physical therapy in [place] for 6 sessions, primarily focused on desensitization but, this has thus far been unsuccessful. Onset Date: 07/08/19 Payor: [facility] / Plan: [facility] HMO / Product Type: HMO / Patient/Caregiver Goals: Return to riding bike, going to movies, or going to resturaunts. OBJECTIVE Pain: Patient denies any pain that would interfere with her participation in this session. TREATMENT Patient presented to this session alone, without the use of a gait aid, and with minimal abnormal movements. She reported that while in the waiting room, her movements were 'good' for roughly 30 minutes. At that time, she said that two men talking next to her provoked her symptoms, although their conversation was not loud, and she was unable to find 'calm' and regain control of her movements--which frustrated her. Other than this, patient reported that her movements have been good for the past few days, even when subjected to loud auditory stimuli on the TV. Treatment today consisted of: Treatment today focused on controlled movements and postural stability while engaging in a baking task. At beginning of session, patient had a bout of movements that she was unable to gain control of for >5 minutes while seated. Therapist emphasized that just because the patient was having movements and that it may be a bad day, that doesn't have to impact the improvements she has made thus far intherapy. Patient was then able to successfully implement breathing strategies and find 'calm' in order to begin task. Therapist instructed patient to locate materials to make cookies, follow the directions on the package, and clean up afterwards. While patient was engaging in task, therapist created au ditory stimuli around the therapy kitchen (I.e. loudly opening and closing cabinets). Patient was able to complete this task with minimal abnormal movements despite exposure to unwanted auditory distractions and was able to 'reset' without therapist cueing. Recommendations: breathe; stop and reset; focus on [...] with increasing challenge and distracting environmental stimuli. Although the beginning of the session was difficult for Marly, with the episode of movements, she was able to slowly control these and regain 'calm.' Marly continues to need reassurance that just because her movements may be having a bad day, it does not mean that it is a bad life; she has the tools to lessen the postural deviations. Her tolerance to unwanted auditory stimuli is improving, and as noted today during the treatment session, she did not display any movements in responseto sound. Skilled occupational therapy remains necessary for sensory [...] up to 12 visits. Pt is on 11 visit. OT Duration: 90 days Plan: Continue with current plan Plan Comments: Patient has not met treatment goals and will return for additional occupational therapy sessions to address the following: cognitive tasks in a busy coffee shop; shopping task in an environment with various visual and auditory stimuli. Treatment interventions may include: Therapeutic functional activity Progress: Progressing toward goals Rehab Potential: Good Time Spent with Patient Therapeutic Activity (min): 43 min Time Calculation Total Timed Units (min): 43 min Total Treatment Time (min): 43 min Associated attestation - Hanny Morgan O.T., O.TLilian - 08/07/2019 9:51 AM CDT This therapist has reviewed all documentation and supervised today's session. This therapist agrees with the plan of care developed in collaboration with the patient. documented in this encounter Plan of Treatment Not on filedocumented as of this encounter Visit Diagnoses Diagnosis Movement Disorder - Primary Abnormal Movement Involuntary documented in this encounter Care Teams Acoustical Installer Relationship Specialty Start Date End Date Elsewhere, Pcp PCP - General Family Medicine 10/11/18 documented as of this encounter
--- OUTSIDE RECORDS SUMMARY | 2022-09-26 11:11 | XMS_ITS | Encounter Summary ---
:1955 Author Organization [facility] Address [address] [place] [address] Care Team Providers Name Role Phone Elsewhere, Pcp Primary Care Provider Unavailable Encounter Details Date Type Department Care Team Description 01/15/2021 Immunization Department of Reymundo Fairchild For COVID-19 Medicine, [facility] M.D. Vaccine Immunization Clinic [place], [address] [facility] in [address] [phone] [place] [address] [address] ([address]) [place], [place] [phone] (Fax) [phone] Social History Tobacco Use Types Packs/Day Years [...] week 04/06/2019 How often do you attend mandaen or latter day services? Never 04/06/2019 Do you belong to any clubs or organizations such as mandaen N o 04/06/2019 groups, unions, fraternal or [...] Diagnosis Encounter For COVID-19 Vaccine Immunizat ion documented in this encounter Care Teams Naval Designer Relationship Specialty Start Date End Date Elsewhere, Pcp PCP - General Family Medicine 10/11/18 documented as of this encounter
--- OUTSIDE RECORDS SUMMARY | 2022-09-26 11:11 | XMS_ITS | Encounter Summary ---
:1955 Author Organization [facility] Address [address] [place] [address] Care Team Providers Name Role Phone Elsewhere, Pcp Primary Care Provider Unavailable Reason for Visit Reason Comments Abdominal Pain Encounter Details Date Type Department Care Team Description 07/15/2021 Emergency [place] [facility] Cummins, Piña N, Diver ticulosis (Primary Dx); Department C.N.P. Nausea; [address] [place] [address] [address] [facility] [place] [phone] Social History Tobacco Use Types Packs/Day Years [...] week 04/06/2019 How often do you attend hoahaoism or adventism services? Never 04/06/2019 Do you belong to any clubs or organizations such as hoahaoism N o 04/06/2019 groups, unions, fraternal or [...] Sign Reading Time Taken Comments Blood Pressure 114/73 07/15/2021 10:15 PM CDT Pulse 65 07/15/2021 10:15 PM CDT Temperature 36 ??C (96.8 ??F) 07/15/2021 7:44 PM CDT Respiratory Rate 17 07/15/2021 8:30 PM CDT Oxygen Saturation 94% 07/15/2021 10:15 PM CDT Inhaled Oxygen Concentration - - Weight - - Height - - Body Mass Index - - documented in this encounter Discharge Instructions Discharge InstructionsWang Cummins C.NLora. - 07/15/2021 10:12 PM CDT Your blood work and CT scan are reassuring at this time. I have low suspicion for stroke at this time. A prescription for Zofran has been prescribed for your nausea. You can follow-up with your primaryproviders next week for close monitoring as needed. Return to the emergency department if you develop fever, slurred speech, vision changes, sensation loss, facial drooping, nausea vomiting that you cannot control, or worsening symptoms. AttachmentsThe following attachments cannot be sent through Care Everywhere. Dizziness (Zambian)Diverticulosis (Zambian)documented in this encounter Medications at Time of [...] tablet Take 5 mg by mouth 0 at bedtime. omeprazole (PriLOSEC) 40 Take 40 mg by mouth [address] capsule every morning before breakfast. ramipril (ALTACE) 5 mg Take 5 mg by mouth 0 capsule daily. sertraline (ZOLOFT) 100 Take 100 mg by mouth 0 mg tablet daily. simvastatin (ZOCOR) 10 mg Take 10 mg by mouth 0 tablet at bedtime. ALPRAZolam (XANAX) 0.5 mg Take 1-2 tablets 2 tablet 0 03/2 11/2018 08/07/2021 tablet (0.5-1 mg total) by mouth See Admin Instructions. 1-2 tablets by mouth 30 minutes prior to procedure ondansetron ODT Take 1 tablet (4 mg 10 tablet 0 07/15/2021 08/07/2021 (ZOFRAN-ODT) 4 mg total) by mouth disintegrating tablet every 12 (twelve) hours. primidone (MYSOLINE) 50 Take 50 mg by mouth 0 08/07/2021 mg tablet at bedtime. documented as of this encounter ED Notes Wang Cummins C.NChapo - 07/15/2021 7:48 PM CDT SUBJECTIVE CHIEF COMPLAINT/REASON FOR VISIT Abdominal Pain HISTORY OF PRESENT ILLNESS Shawna White is a 66 y.o. 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 Patient reports since 5:00 p.m. she has been having feelings of intermittent dizziness along with abdominal pain to the epigastric area as well as 1 episodes of nausea and vomiting. She did states she felt like fogginess well at home. She states she did said dizziness while she was laying down. She denies any dizziness at this time. Denies any fever, chills, headache, slurred speech, weakness, chest pain, back pain, shortness of breath, or urinary problem. REVIEW OF SYSTEMS Constitutional: Negative for chills and fever. HENT: Negative for facial swelling. Eyes: Negative for theresa-orbital edema. Respiratory: Negative for cough and shortness of breath. Cardiovascular: Negative for chest pain and leg swelling. Gastrointestinal: Positive for abdominal pain, nausea and vomiting. Negative for diarrhea. Genitourinary: Negative for dysuria, flank pain, frequency and urgency. Musculoskeletal: Negative. Skin: Negative. Negative for pallor. Neurological: Positive for dizziness. Negative for tremors, seizures, syncope, speech difficulty, weakness and headaches. Psychiatric/Behavioral: Negative. Negative for hallucinations, homicidal ideas and suicidal ideas. All other systems reviewed and are negative. OBJECTIVE Initial Vitals Temperature Pulse Rate Heart Rate Resp Rate Blood Pressure SpO2 07/15/21 1944 07/15/21199907/15/21199907/15/21199907/15/21199907/15/211999 36 ??C 75 75 20 (!) 155/105 92 % Pain Score 07/15/211943 1 PHYSICAL EXAMINATION Constitutional: Nursing note and vitals reviewed. She appears not lethargic. No distress. HENT: Head: Normocephalic. Nose: Nose normal. Eyes: Conjunctivae are normal. Cardiovascular: Normal rate. Capillary refill: takes less than 3 seconds, Pulmonary/Chest: Effort normal. Abdominal: exhibits no distension. There is abdominal tenderness in the epigastric area. Musculoskeletal: General: No deformity. Neurological: Alert. She has normal sensation and normal strength. GCS eye subscore is 4. GCS verbalsubscore is 5. GCS motor subscore is 6. Normal speech. Skin: Skin is warm and dry. She is not diaphoretic. Psychiatric: She has a normal mood and affect. ASSESSMENT/PLAN IMPRESSION AND PLAN Patient presents concerning for nausea vomiting abdominal pain as well as dizziness occurring since 5:00 p.m. today. Her dizziness is not constant. She has not had any dizziness while in the ED. neurologically she is intact. Low suspicion at the time symptoms could be due to CVA. Given the abdominal pain with nausea vomiting, blood work and CT scan was done that was essentially unremarkable. Diverticulosis with no evidence of diverticulitis. No signs of bowel obstruction noted. Stable vital sign in the ED. She was given Zofran as well as GI cocktail with improvement in pain and nausea. Plan: Given improvement in symptoms, plan will be to discharge home with the Zofran as needed for nausea. Advised to follow with PCP for close monitoring further evaluation as needed. Patient states understanding. DIFFERENTIAL DIAGNOSIS Mesenteric ischemia, bowel obstruction, diverticulitis, CVA, and others considered. I personally reviewed the lab result(s) and my interpretation is normal. I reviewed the radiology report(s). The Radiology exam interpretation(s) is/are abnormal but unchanged from previous exam. Final Diagnoses: as of Jul 15 2212 Diverticulosis Nausea Dizziness Wang Cummins, C.N.P. 07/15/212211 documented in this encounter Plan of Treatment Not on filedocumented as of this encounter Procedures Procedure Name Priority Date/Time Associated Comments Diagnosis CT ABDOMEN PELVIS RAD - Semiurgent 07/15/2021 8:52 Res ults for WITH IV CONTRAST (Fast; most ED PM CDT this proc edure patients; some are in the inpatients) results section. TROPONIN T, STAT 07/15/2021 8:03 Results for BASELINE, 5TH GEN, P PM CDT this pr ocedure are in the results section. CBC WITH STAT 07/15/2021 8:03 Results for DIFFERENTIAL, B PM CDT this procedu re are in the results section. LIPASE, S/P STAT 07/15/2021 8:03 Results for PM CDT this procedure are in the results section. LACTATE, B/P STAT 07/15/2021 8:03 Results for PM CDT this procedure are in the results section. COMPREHENSIVE STAT 07/15/2021 8:03 Results for METABOLIC PANEL, S/P PM CDT this pr ocedure are in the results section. ECG STAT 07/15/2021 7:53 Results for PM CDT this procedure are in the results section. GLUCOSE POCT, B Routine 07/15/2021 7:48 Results f or PM CDT this procedure are in the results section. documented in this encounter Results CT Abdomen Pelvis with IV Contrast (07/15/2021 8:52 PM CDT) Anatomical Region Laterality Modality Abdomen, Pelvis, Abdominal RST LOS, Abdominal ARZ LOS, N/A Computed Tomography Abdominal FLA LOS Specimen (Source) Anatomical Collection Method Collection Time Re ceived Time Location / / Volume Laterality 07/16/2021 8:20 AM CDT Impressions 07/16/2021 8:23 AM CDT 1. Colonic diverticulosis without diverticulitis. 2. Negative for small bowel obstruction. 3. Large colonic stool burden. Narrative 07/16/2021 8:23 AM CDT EXAM: CT ABDOMEN PELVIS WITH IV CONTRAST COMPARISON: None FINDINGS: The liver, spleen, adrenal gla nds, and pancreas are negative. Symmetric nephrograms. No hydronephrosis . Small esophageal hiatal hernia. Negative for small bowel obstruction. Colonic diverticulosis without diverticulitis. L arge stool burden. Appendectomy. Cholecystectomy. Small fat-containing umbilical hernia. N o consolidations in the lung bases. No acute osseous findings. Left GROVER. vRad: ??Findings concordant with marianne Oakes report. Procedure Note Adriel Benavides M.D. - 07/16/2021For matting of this note might be different from the original. EXAM: CT ABDOMEN PELVIS WITH IV CONTRAST COMPARISON: None FINDINGS: The liver, spleen, adrenal gla nds, and pancreas are negative. Symmetric nephrograms. No hydronephrosis . Small esophageal hiatal hernia. Negative for small bowel obstruction. Colonic diverticulosis without diverticulitis. L arge stool burden. Appendectomy. Cholecystectomy. Small fat-containing umbilical hernia. N o consolidations in the lung bases. No acute osseous findings. Left GROVRE. vRad: Findings concordant with prelimina ry vRad report. IMPRESSION: 1. Colonic diverticulosis without divert iculitis. 2. Negative for small bowel obstruction. 3. Large colonic stool burden. Wang VasquezNLora. IMG CT PROCEDURES Troponin T, Baseline, 5th gen (07/15/2021 8:03 PM CDT) athologist Signature Troponin T, <6 <=10 ng/L 07/15/2021 CNFL Baseline, 5th 8:27 PM CDT gen Comment: Biotin has been identified by the robert cturer as a potential interfering substance. ??Higher concentr ations of biotin may be found in multivitamins, hair/nail supple ments, and workout supplements. ??If the result does not [facility] clinical observations, repeat testing after patient refrains fr om the use of supplements for at least 12 hours. Specimen Anatomical Collection Method Collection Time Receive d Time (Source) Location / / Volume Laterality Blood (Blood, 07/15/2021 8:03 PM 07/15/20 8:06 Venous) CDT PM CDT Wang VasquezN.P. LAB BLOOD TROPONIN Performing Organization Address City/State/ZIP Code Phon e Number [facility]- [address] [place], [place] [address] [address] [place] [address] [address] Lipase (07/15/2021 8:03 PM CDT) athologist Signature Lipase, P 40 13 - 60 U/L 07/15/2021 8:26 CNFL PM CDT Specimen Anatomical Collection Method Collection Time Receive d Time (Source) Location / / Volume Laterality Blood (Blood, 07/15/2021 8:03 PM 07/15/20 8:06 Venous) CDT PM CDT Wang Cummins C.N.P. LAB BLOOD ADD-ON Performing Organization Address City/[facility] Phon e Number [address] [phone] [place] [address] [address] Lactate (07/15/2021 8:03 PM CDT) P athologist Signature Lactate, P 1.7 0.5 - 2.2 07/15/2021 CNFL mmol/L 8:20 PM CDT Specimen Anatomical Collection Method Collection Time Receive d Time (Source) Location / / Volume Laterality Blood (Blood, 07/15/2021 8:03 PM 07/15/20 8:05 Venous) CDT PM CDT Wang Cummins C.N.P. LAB BLOOD NON ADD-ON Performing Organization Address City/[facility] Phon e Number [address] [phone] [place] [address] [address] (ABNORMAL) Comprehensive Metabolic Panel (07/15/2021 8:03 PM CDT) Analysis Performed At Patho logist Time Signature Potassium, P 4.1 3.6 - 5.2 07/15/2021 CNFL mmol/L 8:26 PM CDT Sodium, P 135 135 - 145 07/15/2021 CNFL mmol/L 8:26 PM CDT Chloride, P 103 98 - 107 07/15/2021 CNFL mmol/L 8:26 PM CDT Bicarbonate, P 21 (L) 22 - 29 07/15/2021 CNFL mmol/L 8:26 PM CDT Anion Gap, P 11 7 - 15 07/15/2021 CNFL 8:26 PM CDT BUN (Blood Urea 17 6 - 21 07/15/2021 CNFL Nitrogen), P mg/dL 8:26 PM CDT Creatinine 1.08 (H) 0.59 - 07/15/2021 CNFL 1.04 mg/dL 8:26 PM CDT eGFR-Black/Afri 61 >=60 07/15/2021 CNFL can Zimbabwean mL/min/BSA 8:26 PM CDT Comment: ----ADDITIONAL INFORMATION---- Estimated GFR calculated using the 2009 CKD_EPI creatinine equation. eGFR Non-Black/ 53 (L) >=60 mL/min/BSA 07/15/2021 8:26 PM CDT CNFL Zimbabwean Comment: ----ADDITIONAL INFORMATION---- Estimated GFR calculated using the 2009 CKD_EPI creatinine equation. Calcium, Total, P 9.4 8.8 - 10.2 mg/dL 07/15/2021 8:26 PM CDT CNFL Glucose, P 125 70 - 140 mg/dL 07/15/2021 8:26 PM CDT C NFL Protein, Total, P 6.4 6.3 - 7.9 g/dL 07/15/2021 8:26 P M CDT CNFL Albumin, P 4.4 3.5 - 5.0 g/dL 07/15/2021 8:26 PM CDT C NFL Aspartate Aminotransferase 16 8 - 43 U/L 07/15/2021 8 :26 PM CDT CNFL (AST), P Alkaline Phosphatase, P 68 35 - 104 U/L 07/15/2021 8: 26 PM CDT CNFL Alanine Aminotransferase (ALT), 17 7 - 45 U/L 021 8:26 PM CDT CNFL P Bilirubin, Total, P 0.2 <=1.2 mg/dL 07/15/2021 8:26 PM CDT CNFL Specimen Anatomical Collection Method Collection Time Receive d Time (Source) Location / / Volume Laterality Blood (Blood, 07/15/2021 8:03 PM 07/15/20 21 8:06 Venous) CDT PM CDT Wang VasquezNJavierPJavier LAB BLOOD ADD-ON Performing Organization Address City/State/ZIP Code Phon e Number [facility]- [address] [place] [phone] [place] [address] CBC with Differential, Blood (07/15/2021 8:03 PM CDT) P athologist Signature Hemoglobin 12.9 11.6 - 07/15/2021 CNFL 15.0 g/dL 8:11 PM CDT Hematocrit 38.6 35.5 - 07/15/2021 CNFL 44.9 % 8:11 PM CDT Erythrocytes 4.21 3.92 - 07/15/2021 CNFL 5.13 8:11 PM CDT x10(12)/L MCV 91.7 78.2 - 07/15/2021 CNFL 97.9 fL 8:11 PM CDT RBC Distrib Width 13.0 12.2 - 07/15/2021 CNFL 16.1 % 8:11 PM CDT Platelet Count 223 157 - 371 07/15/2021 CNFL x10(9)/L 8:11 PM CDT Leukocytes 4.7 3.4 - 9.6 07/15/2021 CNFL x10(9)/L 8:11 PM CDT Neutrophils 3.18 1.56 - 07/15/2021 CNFL 6.45 8:11 PM CDT x10(9)/L Lymphocytes 1.08 0.95 - 07/15/2021 CNFL 3.07 8:11 PM CDT x10(9)/L Monocytes 0.39 0.26 - 07/15/2021 CNFL 0.81 8:11 PM CDT x10(9)/L Eosinophils 0.07 0.03 - 07/15/2021 CNFL 0.48 8:11 PM CDT x10(9)/L Basophils 0.01 0.01 - 07/15/2021 CNFL 0.08 8:11 PM CDT x10(9)/L Specimen Anatomical Collection Method Collection Time Receive d Time (Source) Location / / Volume Laterality Blood (Blood, 07/15/2021 8:03 PM 07/15/20 8:06 Venous) CDT PM CDT Wang Cummins C.N.P. LAB BLOOD ADD-ON Performing Organization Address City/State/ZIP Code Phon e Number [address] [address] [place] [address] ECG 12 Lead (07/15/2021 7:53 PM CDT) P athologist Signature Ventricular Rate 88 BPM MUSE ECG/Min AL Interval 130 ms MUSE QRSD Interval 82 ms MUSE QT Interval 380 ms MUSE QTC Interval 459 ms MUSE P Mingo 41 degrees MUSE R Mingo 35 degrees MUSE T Wave Mingo 43 degrees MUSE Specimen Anatomical Collection Method Collection Time Receive d Time (Source) Location / / Volume Laterality 07/15/2021 7:53 PM 8:01 CDT PM CDT Impressions MUSE - 07/15/2021 8:01 PM CDT Normal sinus rhythm Normal ECG No previous ECGs available Reviewed by FALGUNI Oleary Narrative This result has an attachment that is no t available. Procedure Note Gerald Tolbert M.D. - 07/15/2021Form atting of this note might be different from the original. IMPRESSION: Normal sinus rhythm Normal ECG No previous ECGs available Reviewed by FALGUNI Oleary Piña N Cummins C.N.P. ECG ORDERABLES Performing Organization Address City/State/ZIP Code Phon e Number MUSE MUSE NA Glucose, POCT (07/15/2021 7:48 PM CDT) P athologist Signature Glucose, POCT, 130 70 - 140 07/15/2021 CNFL B mg/dL 7:48 PM CDT Specimen Anatomical Collection Method Collection Time Receive d Time (Source) Location / / Volume Laterality Blood 07/15/2021 7:48 PM 8:09 CDT PM CDT Generic Rals LAB POCT ORDERABLES-MANUAL Performing Organization Address City/State/ZIP Code Phon e Number [facility]- [address] [place] [address] [place] [address] [address] documented in this encounter Visit Diagnoses Diagnosis Diverticulosis - Primary Nausea Dizziness documented in this encounter Administered Medications Inactive Administered Medications - up to 3 most recent administrations Medication Order MAR Action Action Date Dose Rate Site iohexoL (OMNIPAQUE) 300 mg iodine/mL shaina ution - ADS Override Pull Starting on Deisy 07/15/21 at 2027, For 1 dose, Created b y cabinet override iohexoL 300 mg iodine/mL solution 100 mL Given 07/15/2021 8:57 P M CDT 100 mL (OMNIPAQUE) 100 mL, intravenous, Once in imaging, contrast, Starting on Deisy 07/15/21 at 2017, For 1 dose, If administered oral then dilute in 900 mL water lidocaine viscous 2 % 15 mL, alum-mag Given 07/15/2021 8:08 PM C DT 45 mL hydroxide-simeth 30 mL suspension 45 mL, oral, Once, On Deisy 07/15/21 at 2004, For 1 dose, Mix ingredients prior to administration ondansetron (PF) injection 4 mg (ZOFRAN) Given 07/15/2021 8:08 PM CDT 4 mg 4 mg, intravenous, Once, On Deisy 07/15/21 at 1950, For 1 dose sodium chloride 0.9 % flush 75 mL Given 07/15/2021 8:58 PM CDT 75 mL 75 mL, intravenous, Once, On Deisy 07/15/21 at 2017, For 1 dose sodium chloride 0.9 % injection 10 mL Given 07/15/2021 8:58 PM CDT 10 mL 10 mL, intravenous, Once, On Deisy 07/15/21 at 2017, For 1 dose documented in this encounter Active and Recently Administered Medications Times are shown in CDT. Scheduled Medication Order 07/13/2021 07/14/2021 07/15/2021 lidocaine viscous 2 % 15 mL, alum-mag hy droxide-simeth 30 mL suspension (COMPLETED) 2007 (Given - Provid er: Dorita Hess R.N.) 45 mL, oral, Once, On Deisy 07/15/21 at 200 5, For 1 dose, Mix ingredients prior to administration ondansetron (PF) injection 4 mg (ZOFRAN) (COMPLETED) 2007 (Given - Provider: Dorita Hess R.N.) 4 mg, intravenous, Once, On Deisy 07/15/21 at 1950, For 1 dose sodium chloride 0.9 % flush 75 mL (COMPLETED) 2057 (Given - Provider: Anel Doty(R)(CT), R.T.(R)) 75 mL, intravenous, Once, On Deisy 07/15/21 at 2018, For 1 dose sodium chloride 0.9 % injection 10 mL (COMPLETED) 2057 (Given - Provider: Anel Doty(Ofelia)(CT), EsperanzaTJavier(R)) 10 mL, intravenous, Once, On Deisy 07/15/21 at 2018, For 1 dose PRN Medication Order 07/13/2021 07/14/2021 07/15/2021 iohexoL 300 mg iodine/mL solution 100 mL (OMNIPAQUE) (COMPLETED) 2056 (Given - Provider: Anel Doty(Ofelia)(CT), EsperanzaTJavier(R) - Comment: [phone]) 100 mL, intravenous, Once in imaging, co ntrast, Starting on Deisy 07/15/21 at 2017, For 1 dose, If administered oral then dilute in 900 mL water documented in this encounter Care Teams Community Health Nurse Supervisor Relationship Specialty Start Date End Date Elsewhere, Pcp PCP - General Family Medicine 10/11/18 documented as of this encounter
--- OUTSIDE RECORDS SUMMARY | 2022-09-26 11:11 | XMS_ITS | Encounter Summary ---
:1955 Author Organization [facility] Address [address] [place] [address] Care Team Providers Name Role Phone Elsewhere, Pcp Primary Care Provider Unavailable Reason for Visit Physical Therapy (Routine) - Canceled Specialty Diagnoses / Procedures Referred By Contact Refer red To Contact Diagnoses Movement Disorder David Best M.D., Ph.D. [facility] Procedures PT Ongoing treatment [address] [place] [phone] Referral ID Status Reason Start Date Expiration Date Visits V isits Requested Authorized [id number] Canceled 07/08/2019 07/07/2020 14 14 Encounter Details Date Type Department Care Team Description 08/13/2019 Clinical Support Department of Physical David Best M.D., Ph.D. [address] [place] [phone] Movement Disorder Medicine and Urvashi Hernández, P.T., D.P.T., NCS Rehabilitation in [place], [place] [address] [place] [phone] Social History Tobacco Use Types Packs/Day [...] week 04/06/2019 How often do you attend confucianist or tenriism services? Never 04/06/2019 Do you belong to any clubs or organizations such as confucianist N o 04/06/2019 groups, unions, fraternal or [...] this encounter Progress Notes Urvashi Hernández P.T., Maral.P.T., [facility] - 08/13/2019 11:00 AM CDT Physical Therapy Neurologic Outpatient [...] seconds. She worked with physical therapy in [place] for 6 sessions, primarily focused on desensitization but, this has thus far been unsuccessful. Onset Date: 07/08/19 Payor: [facility] / Plan: [facility] HMO / Product Type: HMO / Patient/Caregiver Goals: Return to riding bike, going to movies, or going to resturaunts. Patient Comments: Marly is very happy with her progress and feels like she fully understands the process and the work she has to keep doing to get better. Total Visit Count: 6 OBJECTIVE Vitals: Not indicated at this time Observation: Still in the waiting room, movements kicked up when discussing the difficulties she hadyesterday in the lobby. TREATMENT Neuromuscular Re-Education: Discussed the process of her continuing to progress her work on motor reprogramming especially with gradual return to noise especially at home and gradual exposure to being around people. She will continue to work on this and not avoiding exposure to allow her continued impr ovement. Assessment Clinical Impression: Pat is happy with her progress and feels confident with her skills and will contact me with any future questions or concerns. She rates herself to be 70% better. Functional Goals and Timeframes: PT Goal #1: Patient will demonstrate and/or verbalize understanding of home exercise program in 5 sessions for improved self-management of the condition. (Goals met.) PT Goal #1 Date: 10/06/19 PT Goal #2: Patient will report >3+ on the Global Rating of Change in 5 sessions. (Goals met.) PT Goal #2 Date: 10/06/19 Rehab Potential: Ms. White has Good potential to achieve established physical therapy goals within the time frame outlined below, provided she actively participates in her physical therapy treatmentplan and home program. Plan TREATMENT PLAN Number of Visits: up to 6 visits Patient is on visit 6. Frequency: 1-2x/week Duration: until goals in plan of care are met. Plan: Discontinue therapy Other PT Comments: Goals met, will continue to work on the skills independently and contact me with any future questions or concerns. Treatment interventions may include: Treatment/Interventions: Neuromuscular re- education, Gait training, Therapeutic functional activity, Therapeutic exercise Time Spent with Patient Neuromuscular Re-Education (min): 42 min Time Calculation Total Timed Units (min): 42 min Total Treatment Time (min): 42 min Functional G-code Worksheet Urvashi Hernández P.T., D.P.T., NCS documented in this encounter Plan of Treatment Not on filedocumented as of this encounter Visit Diagnoses Diagnosis Movement Disorder documented in this encounter Care Teams Activities Volunteer Relationship Specialty Start Date End Date Elsewhere, Pcp PCP - General Family Medicine 10/11/18 documented as of this encounter
--- OUTSIDE RECORDS SUMMARY | 2022-09-26 11:11 | XMS_ITS | Encounter Summary ---
:1955 Author Organization [facility] Address [address] [place] [address] Care Team Providers Name Role Phone Elsewhere, Pcp Primary Care Provider Unavailable Reason for Visit Appointment Request (Routine) - Closed Specialty Diagnoses / Procedures Referred By Contact Refer red To Contact Physical Medicine and Diagnoses Musculoskeletal Psychogenic Disorder Samreen Romano Rehabilitation M.D. [address] [place] [address] Referral ID Status Reason Start Date Expiration Date Visits Requ ested Visits Authorized [id number] Closed 09/23/2021 09/23/2022 1 1 Encounter Details Date Type Department Care Team Description 11/03/2021 Comprehensive Visit Department of Germaine Romano M.D. [address] [place] [address] Abnormal Movement Involuntary (Primary D x); Physical Medicine and Mitchell Amador, PJavierTJavier [address] [place] [phone] Abnormal Gait Non Orthopedic Rehabilitation in [place], [place] [address] [place] [address] [phone] Social History Tobacco Use Types Packs/Day Years [...] How often do you attend sabianism or nondenominational services? Never 04/06/2019 Do you belong to [...] of this encounter Consult Notes Mitchell Amador P.T. - 11/03/2021 3:00 PM CST Physical Therapy Outpatient Evaluation/Treatment SUBJECTIVE Patient's Name: Shawna White Referring Provider: Samreen Romano M.D. Visit Diagnosis: 1. Abnormal Movement Involuntary 2. Abnormal Gait Non Orthopedic Reason for Referral: PT evaluation for motor retraining due to functional movement disorder Onset Date: (2018) Payor: MEDICARE / Plan: MEDICARE A AND B / Product Type: Medicare / [place] Visit Count: 1 PERTINENT MEDICAL / SURGICAL HISTORY: Patient Active Problem List Diagnosis ??? Movement Disorder ??? Abnormal Movement Involuntary ??? Musculoskeletal Psychogenic Disorder Past Surgical History: Procedure Laterality Date ??? APPENDECTOMY 04/15/1972 ??? CHOLECYSTECTOMY 04/15/1972 ??? DILATATION AND CURETTAGE 04/15/1980 ??? RECONSTRUCTION LIGAMENT ELBOW Left 04/15/2017 ??? TOTAL HIP ARTHROPLASTY Left 10/16/2014 Shawna White is a 66 y.o. female who presents to outpatient physical therapy for evaluation. Her symptoms consist of: 1. Involuntary movements, freezing, speech disturbance Overall she [...] but only for less than 1 min. Triggering event: yes Bright lights, loud noises, complex environment Previous Treatments: Physical Therapy Best program x 1 week intensive, PT and OT again using BeST strategies x 5 weeks. Patient goals:Return to going to movies, or going to resturaunts with less symptom interruption. Fall Risk (64 [...] EXAM Pain: None reported Symptoms during mobility: Demonstrates a high steppage gait, with intermittent trunk/hip flexion during periods of leg freezing. In sitting she demonstrates foot stomping and rocking forward/back at the trunk. Her upper extremities also tremor in a supination/pronation alternating movement. Note freezing during sit > stand with excessive trunk extension and heel raise carlos. She also demonstrates speech freezing and stuttering. Ortho Exam Outcome Measures: PSFS: 5 Times Sit to Stand: 6 min walk with 4ww: 10 MWT with 4ww: TREATMENT Treatment today consisted of: Neuromuscular Re-education: [...] inefficient movement patterns. Provided patient education on deep breathing and relaxation when completing activities or exercises.Discussed importance of breath in assisting with controlling and re-setting movement. Instructed in diaphragmatic breathing and pursed lip breathing with breathing in through nose, out through mouth using hand on stomach for tactile feedback of it rising and falling vs chest movement. ?? Assessment Clinical Impression: Ms. White presents to [...] Factors: Needs assistive device Clinical Presentation: Evolving Examination elements: 3 Clinical Decision Making: Moderate complexity clinical decision making Functional Goals and Timeframes: PT Outpatient Goals PT Goal #1: Patient will demonstrate and/or verbalize understanding of home exercise program for improved self-management of the condition. PT Goal #1 Date: 01/02/22 PT Goal #1 Status: Ongoing PT Goal #2: Patient will report >3+ on the Global Rating of Change in 6 weeks. PT Goal #2 Date: 01/02/22 PT Goal #3: Patient will improve 10 MWT speed by 0.15 m/sec to demonstrate improved gait efficiency and less involuntary movement patterns. PT Goal #3 Date: 01/02/22 PT Goal #3 Status: Ongoing Plan Ms. White was educated [...] of care and goals. Treatment Plan: Plan: Plan of care initiated Start of Plan of Care: 11/03/2021 PT Next Certification Date: 02/01/22 Number of Visits:20 visits PT Duration: 60 days PT Frequency: Treatment interventions may include: Treatment/Interventions: Therapeutic exercise, Neuromuscular re-education, Therapeutic functional activity, Gait training, Self-care/home management Plan for next session: PSFS, 10 MWT, 5 Times Sit to Stand, 6 min walk, education re: body scanning and identifying if the stimulus is threatening, pre-gait training > // bars (forward/back/lateral, braiding), open space walking. Time Spent with Patient PT Eval - Mod Complexity: 25 min Neuromuscular Re-Education (min): 30 min Time Calculation Total Timed Units (min): 30 min Total Treatment Time (min): 55 min D PIPELINES SUPERVISOR documented in this encounter Plan of Treatment Not on filedocumented as of this encounter Visit Diagnoses Diagnosis Abnormal Movement Involuntary - Primary Abnormal Gait Non Orthopedic documented in this encounter Care Teams County Manager Relationship Specialty Start Date End Date Elsewhere, Pcp PCP - General Family Medicine 10/11/18 documented as of this encounter
--- OUTSIDE RECORDS SUMMARY | 2022-09-26 11:12 | XMS_ITS | Encounter Summary ---
:1955 Author Organization [facility] Address [address] [place] [address] Care Team Providers Name Role Phone Elsewhere, Pcp Primary Care Provider Unavailable Reason for Visit Physical Therapy (Routine) - Canceled Specialty Diagnoses / Procedures Referred By Contact Refer red To Contact Diagnoses Movement Disorder David Best M.D., Ph.D. [facility] Procedures PT Ongoing treatment [address] [place] [phone] Referral ID Status Reason Start Date Expiration Date Visits V isits Requested Authorized [id number] Canceled 04/15/2019 10/15/2019 99 19 Encounter Details Date Type Department Care Team Description 06/05/2019 Clinical Support Department of David Best M.D., Ph.D. [address] [place] [phone] Movement Disorder Rehabilitation Services Clare Mcleod, P.T. in [address] [phone] Social History Tobacco Use Types Packs/Day Years [...] week 04/06/2019 How often do you attend synagogue or latter-day services? Never 04/06/2019 Do you belong to any clubs or organizations such as synagogue N o 04/06/2019 groups, unions, fraternal or [...] documented as of this encounter Progress Notes Clare Mcleod P.T., CorkyPJavierT. - 06/05/2019 11:00 AM CDT Physical Therapy Outpatient Treatment Note SUBJECTIVE Patient's Name: Shawna White Referring Provider: David Best M.D., Ph.* Visit Diagnosis: 1. Movement Disorder Reason for Referral: Physical therapy evaluate and treatment Onset Date: 05/09/19 [facility] / Plan: [employer] HMO / Product Type: HMO / No data recorded Epic Visit Count: 5 Patient comments: Patient reports that she has had more uncontrolable involuntary movements over thepast 2 days. She is doesn't feel she can attribute this to any change in her routine. She did watch a whole season of game of [employer] on Monday, and she typically has the TV on , when she woke up Monday she was unable to control her abnormal movements and spent most of her time in bed. She states that it usually take ~1 week to recover with this happens. She went to the gym yesterday, but was only able to do the bike. OBJECTIVE Pain: patient has no pain today. TREATMENT Treatment today consisted of: Manual Therapy/Self management: Due to patients current lack of control of movements, we went to a dark room and she applied her earplugs. We attempted STM to her Hamstrings and Plantar flexors. Patient was educated on how this may help to relax her spasms. Her spams did decrease after <5 minutes of STM while patient was focusing on relaxing her mind with no auditory or visual stimuli. Unclear if this was able to help patient with longer tem relaxation, will assess next visit. Therapeutic Exercise: lifts, Supine core strengthening, Hamstring stretching, calf stretching. We stayed in less stimulating room today for therapy. Self-care/Home Management Training: Continued discussion on first trying to remove vision stimuli prior to jumping to closing eyes and plugging ears when involuntary movements come on. This is very difficulty for patient to regain control, unless both visual and auditory stimuli are removed. Applying pressure to area of body with involuntary movements, or distracting herself with a purposeful movement also help to control her abnormal movements. Home Exercise Program/Education: Focusing on mediation and re-integration into busy environments. Trying to find tricks to regain control of her movement quicker and more efficiently - this includes applying pressure to area, or utilizing purposeful movements. Assessment Clinical Impression: Patient had an increase in her involuntary movements today, therapy focused on strategies for systemic relaxation and local muscle relaxation. We had good success with short term relaxation of her abnormal movements, unable to assess [facility] affects. We are continuing to find and practice strategiesthat decrease her involuntary movements. Rehab Potential: Good Comorbidities: Please see active problem list and EMR Personal Factors: Needs assistive device Clinical Presentation: Evolving Examination elements: 3 Clinical Decision Making: Moderate: 1-2 complicating factors, 3 eval elements, evolving clinical presentation Functional Goals and Timeframes: PT Goal #1: Patient will be able to tolerate ambulation and exercises in busy environment of gym with good mental control and focus for decreased involuntary movement symptoms. PT Goal #1 Date: 07/04/19 PT Goal #2: Patient will demonstrate an improvement of at least 3 points on dyanmic gait index for clinically meaningful difference. at evaluation. PT Goal #2 Date: 07/04/19 PT Goal #3: Patient will be able to return to safely riding her bike outdoors with good fluidity of movement. PT Goal #3 Date: 07/04/19 Plan Treatment/Interventions: Neuromuscular re-education, Gait training, Therapeutic functional activity,Therapeutic exercise, Self-care / Home management Number of outpatient visits: 16 PT Frequency: 2-3x/week PT Duration: 6- 8 weeks Plan: Continue with current plan Plan for next session: Extension strengthening as most of her involuntary movements are into flexion - reciprocal inhibition. Continue to practice meditation, gradually increasing auditory and visual stimuli. Time Spent with Patient Time Calculation Total Timed Units (min): 45 min Total Treatment Time (min): 45 min Clare Mcleod P.T., D.P.T. Department of Rehabilitation Services in [address] [phone] Dept: [phone] documented in this encounter Plan of Treatment Not on filedocumented as of this encounter Visit Diagnoses Diagnosis Movement Disorder documented in this encounter Care Teams Turbine Operator Relationship Specialty Start Date End Date Elsewhere, Pcp PCP - General Family Medicine 10/11/18 documented as of this encounter
--- OUTSIDE RECORDS SUMMARY | 2022-09-26 11:12 | XMS_ITS | Encounter Summary ---
:1955 Author Organization [facility] Address [address] [place] [phone] Care Team Providers Name Role Phone Elsewhere, Pcp Primary Care Provider Unavailable Reason for Visit Occupational Therapy (Routine) - Closed Specialty Diagnoses / Procedures Referred By Contact Refer red To Contact Diagnoses Abnormal Movement Involuntary Movement Disorder Serene Echeverria M.D., [facility] Procedures Neurological disorder - OT Evaluate and treat Ph.D. [address] [place] [phone] Referral ID Status Reason Start Date Expiration Date Visits Requ ested Visits Authorized [id number] Closed 01/10/2019 01/10/2020 15 15 Encounter Details Date Type Department Care Team Description 02/08/2019 Comprehensive Visit Department of Physical Serene Limon M.D., Ph.D. [address] [place] [phone] Movement Disorder (Primary Dx); Medicine and Hanny Morgan O.T., O.T.Corky Abnormal Movement Involuntary Rehabilitation in [place], [place] [address] [place] [phone] Social History Tobacco Use Types Packs/Day Years [...] week 04/06/2019 How often do you attend jain or lutheran services? Never 04/06/2019 Do you belong to any clubs or organizations such as jain N o 04/06/2019 groups, unions, fraternal or [...] or getting things needed for daily living? Sex Assigned at Date Recorded Female 02/07/2019 8:34 PM CDT documented as of this encounter Progress Notes [place] - 02/08/2019 10:00 AM CDT Occupational Therapy Outpatient Progress Note SUBJECTIVE Patient's Name: Shawna White Referring Provider: Serene Echeverria M.D., Ph.D. Rehab Diagnosis: 1. Movement Disorder 2. Abnormal Movement Involuntary Reason for Referral: Patient referred to occupational therapy for motor retraining in the setting ofFunctional Movement Disorder History of Present Illness: Patient reports that her current symptoms began in July 2017 with unintended foot tapping. These unplanned movements progressed to include stomping, whole body rock, and stuttering speech. She initially received physical therapy for these symptoms which included walking,balance, and strength exercises, but she reports that it wasn't effective. Ms. White reports seeing [facility] for two rounds of treatment beginning in February 2018. She indicates that the first round was somewhat successful, but her symptoms returned and her second round of treatment had no effect on reducing her symptoms. Things that aggravate her symptoms include stress, being out in public, fluorescent lights, talking on the phone, and loud noises. She tries to expose herself to stimuli as much as she can tolerate to desensitize. Ms. White tends not to have symptoms in herapartment as long as she is sitting down, but she is not able to maintain control when standing. Dilia ent reports that external feedback, such as holding on object in her hand or having a hand on her back reduces her symptoms. Payor: [facility] / Plan: [facility] / Product Type: Medicaid HMO / Patient/Caregiver Goals: Limit abnormal body movements. She would like to get back to bike riding. Patient Comments: I would like to have my life back OBJECTIVE TREATMENT Ms. White presents to occupational therapy alone and without a gait aid. Treatment today consisted of: For today's session, therapist facilitated the card game cribbage which Ms. White had identified as being a meaningful activity on her COPM. This was facilitated as a seated activity and [facility] to provide some external stimuli. Cribbage contains significant cognitive components including attention to task and mental math, fine motor skills with card shuffling and dealing and placing the pegs in the scoreboard, and the social component of communicating with the other player. During the 45 minute game, no abnormal movements were noticeable and Ms. White maintained attention to task throughout the activity. Recommendations: practice diaphragmatic breathing daily; integrate diaphragmatic breathing in to functional activities when experiencing abnormal movement; initiate resetting at first recognition of symptoms; ease into new social situations as tolerated Assessment Clinical Impression: Ms. White was able to maintain control for the duration of the session even as other people walked into the room or made noticeable noise just outside the door. She is pleased with her progress and cautiously optimistic going forward. OT did emphasize, and she agreed, that this program is designed to give patients the strategies to cope and regain control should they have a bad day. As we prepare for our final session, there is every reason to think that Ms. White can maintain and improve uponher current status provided she remembers the tools at her disposal and when is appropriate to use them. Skilled occupational therapy remains necessary to repeat outcome measure and develop home maintenance plan. Rehab Potential: Ms. White has Excellent potential to achieve established occupational therapy goals within the time frame outlined below. Functional Goals and Timeframes: OT Goal #1: Patient will tolerate 30 minutes of functional activity without abnormal movement and independent integration of therapeutic strategies. OT Goal #1 Date: 02/08/19 OT Goal #2: Patient will demonstrate the ability to perform diaphragmatic breathing independently toreduce maladaptive responses during functional activities. OT Goal #2 Date: 02/08/19 OT Goal #3: Patient will demonstrate the ability to perform progressive muscle relaxation independently to reduce muscle tension and facilitate normal movment patterns during functional activities. OT Goal #3 Date: 02/08/19 OT Goal #4: Patient will demonstrate proficiency in therapeutic strategies learned through the BeST program to eliminate or manage symptoms of functional movement disorder while engaging in meaningful activities. OT Goal #4 Date: 02/08/19 Plan Treatment Plan: Number of Visits: up to 10 visits. Pt is on 9 visit. OT Duration: 1 week Plan: COPM and home maintenance plan Treatment interventions may include: Therapeutic functional activity Progress: Progress: Progressing toward goals Rehab Potential: Excellent Time Spent with Patient Therapeutic Activity (min): 46 min Time Calculation Total Timed Units (min): 46 min Total Treatment Time (min): 46 min Associated attestation - Hanny Morgan O.T., O.T.D. - 02/16/2019 12:40 PM CDT This therapist has reviewed all documentation and supervised today's session. This therapist agrees with the plan of care developed in collaboration with the patient. documented in this encounter Plan of Treatment Not on filedocumented as of this encounter Visit Diagnoses Diagnosis Movement Disorder - Primary Abnormal Movement Involuntary documented in this encounter Care Teams Lawn Care Worker Relationship Specialty Start Date End Date Elsewhere, Pcp PCP - General Family Medicine 10/11/18 documented as of this encounter
--- OUTSIDE RECORDS SUMMARY | 2022-09-26 11:12 | XMS_ITS | Encounter Summary ---
:1955 Author Organization [facility] Address [address] [place] [id number] Care Team Providers Name Role Phone Elsewhere, Pcp Primary Care Provider Unavailable Reason for Visit Physical Therapy (Routine) - Closed Specialty Diagnoses / Procedures Referred By Contact Refer red To Contact Diagnoses Movement Disorder David Best M.D., Ph.D. [facility] Procedures PT Evaluate and treat [address] [place] [phone] Referral ID Status Reason Start Date Expiration Date Visits Requ ested Visits Authorized [id number] Closed 05/03/2019 05/02/2020 1 1 Encounter Details Date Type Department Care Team Description 05/09/2019 Comprehensive Visit Department of Torin Best M.D., Ph.D. [address] [place] [phone] Movement Disorder Rehabilitation [facility] P[facility] Services in [address] [phone] Social History Tobacco Use Types Packs/Day Years [...] week 04/06/2019 How often do you attend zoroastrianism or pentecostal services? Never 04/06/2019 Do you belong to any clubs or organizations such as zoroastrianism N o 04/06/2019 groups, unions, fraternal or [...] documented as of this encounter Consult Notes Clare Mcleod P.T., CorkyPStacy. - 05/09/2019 11:00 AM CDT Physical Therapy Outpatient Evaluation/Treatment SUBJECTIVE Patient's Name: Shawna White Referring Provider: David Best M.D., Ph.* Visit Diagnosis: 1. Movement Disorder Reason for Referral: Physical therapy evaluate and treatment Onset Date: 05/09/19 Payor: [facility] / Plan: [facility] / Product Type: Medicaid HMO / [facility] Visit Count: 1 PERTINENT MEDICAL / SURGICAL HISTORY: Patient Active Problem List Diagnosis ??? Movement Disorder ??? Abnormal Movement Involuntary Past Surgical History: Procedure Laterality Date ??? APPENDECTOMY 04/15/1972 ??? CHOLECYSTECTOMY 04/15/1972 ??? DILATATION AND CURETTAGE 04/15/1980 ??? RECONSTRUCTION LIGAMENT ELBOW Left 04/15/2017 ??? TOTAL HIP ARTHROPLASTY Left 10/16/2014 Shawna White is a 63 y.o. female who presents to outpatient physical therapy for evaluation. Her symptoms consist of: 1. 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 Overall she reports her status remains the same. History of Present Illness:Patient reports that her current symptoms began in July 2017, first with involuntary foot tapping. Involuntary movements progressed to stomping, whole body rocking, trunk flexion, stuttering speech and freezing of movement when attempting normal functional movements such as ambulation. Patient recently finished BeST program in [place] where she made significant gains in her function. This was 2 weeks ago and patient is discouraged that she has already lost some of thefunctional gains she made. Triggers include loud noises, stress, being in public, unfamiliar situations, flourescent lights. She states that she does not have much for symptoms if sitting in her home, as long as she keeps TV low and is not talking on phone., or standing. Patient is very pleasant and has a positive attitude. She avoids going into public currently and has goal of being able to ride herbike, go to a movie, or go to a resturaunt with her daughters and granddaughters. Occupational Profile Level of independence: Independent Lives with: Alone, moved to to be closer to her daughter for assistance if needed. 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 Exercise/Activity level: Avoids leaving her home, due to her many environmental triggers Family/Caregiver Present: No Patient goals:Return to riding bike, going to movies, or going to resturaunts. Fall Risk (65 and older) Fall in the last 12 months: Yes Did you have an injury with the fall?: No Are you fearful of falling?: No OBJECTIVE Dynamic Gait Index (performed in quiet, bright hallway) ?? Gait level surface: 2 Mild impairment (walks 20', uses assistive device, good speed, no evidence for imbalance, normal gait pattern) Changes in gait speed: 2 Mild impairment (Is able to change speed but demonstrates mild gait deviations, or not gait deviations but unable to achieve a significant change in velocity, or uses an assistive device. Gait with horizontal head turns: 1 Moderate impairment (performs head turns with moderate change in gait velocity, slows down, staggers but recovers, can continue to walk) Gait with vertical head turns: 1 Moderate impairment (performs head turns with moderate change in gait velocity, slows down, staggers but recovers, can continue to walk) Gait and pivot turn: 2 Mild impairment (pivot turns safely in >3 seconds and stops with no loss of balance) Step over obstacle: 1 Moderate impairment (able to step over box, but must stop, then step over it. May require verbal cueing) Step around obstacles: 2 Mild impairment (able to step around both cones, but must slow down and adjust steps to clear cones) Steps: 2 Mild impairment (alternating feet, must use rail) ?? Total score: 13/24 ?? INTERPRETATION: According to scoring guidelines, people who score less than or equal to 19/24 are at an increased risk of falls. Patient Specific Functional Scale Activities: 1. Biking (5) 2. Walking (5) 3. Going to a Movie (0) 4. Going to a Restaurant (2) PHYSICAL EXAM Pain: Some hip arthritic pain, not patient's primary concern. TREATMENT Treatment today consisted of: INTERDISCIPLINARY PATIENT EDUCATION RECORD: Assessment of learning challenges of patient/family: No barriers Learning preferences: Verbal, print, demonstration Topic of education: Goals and plan of care of physical therapy Current knowledge assessment: Some understanding Readiness/barriers to learning: Accepting Teaching method: Verbal, print and demonstration Outcomes and reinforcement: Verbalizes understanding Education on how end goal will be for her to be independent in her self- management strategies to be able to better control her movements. Education on stopping and recognizing when abnormal movements are beginning, blocking out environmental triggers and re-focusing to regain control of her movements.Mental training and control will likely be the primary contributor to her well-being. Home Exercise Program/Education: We discussed attempting an free meditation buster on her phone first for bedtime meditation. She is able to relax her body through breathing and mental focus, however has not yet been able to relax her mind, making it very difficult to fall asleep every night. Discussed how having guided meditations will allow her to learn more about meditation and controlling her symptoms and what will and will not work for her. Assessment Clinical Impression: Ms. White presents to physical therapy with signs and symptoms consistent with Functional movement disorder. Abnormal gait, foot stomping, trunk rocking, stuttering, all increased with environmentalstimuli and are distractible. Rehab Potential: Ms. White has Good potential to achieve established physical therapy goals within the time frame outlined below, provided she actively participates in her physical therapy treatmentplan and home program. Comorbidities: Please see active problem list and [...] movement. PT Goal #3 Date: 07/04/19 Plan Ms. White was educated regarding evaluative [...] Treatment Plan: Start of Plan of Care: 05/09/2019 Number of Visits: 16 visits PT Duration: 6- 8 weeks PT Frequency: 2-3x/week Treatment interventions may include: Neuromuscular re-education, Gait training, Therapeutic functional activity, Therapeutic exercise, Self-care / Home management Plan for next session: Emphasis on quality over quantity of movement. Practicing control of abnormal movements in the context of her triggers. Meditation and mental training. Time Spent with Patient PT Evaluation (min): 40 min Home Management Training (min): 10 min Time Calculation Total Timed Units (min): 10 min Total Treatment Time (min): 50 min Clare Mcleod P.T., D.P.T. Department of Rehabilitation Services in [address] [phone] Dept: [phone] documented in this encounter Plan of Treatment Not on filedocumented as of this encounter Visit Diagnoses Diagnosis Movement Disorder documented in this encounter Care Teams Check Clerk Relationship Specialty Start Date End Date Elsewhere, Pcp PCP - General Family Medicine 10/11/18 documented as of this encounter
--- OUTSIDE RECORDS SUMMARY | 2022-09-26 11:12 | XMS_ITS | Encounter Summary ---
:1955 Author Organization [facility] Address [address] [place] [address] Care Team Providers Name Role Phone Elsewhere, Pcp Primary Care Provider Unavailable Reason for Referral Occupational Therapy (Routine) - Closed Specialty Diagnoses / Procedures Referred By Contact Refer red To Contact Diagnoses Movement Disorder David Best M.D., Ph.D. [facility] Procedures OT Ongoing Treatment [address] [place] [phone] Referral ID Status Reason Start Date Expiration Date Visits Requ ested Visits Authorized [id number] Closed 07/08/2019 07/07/2020 20 20 Reason for Visit Physical Therapy (Routine) - Canceled Specialty Diagnoses / Procedures Referred By Contact Refer red To Contact Diagnoses Movement Disorder David Best M.D., Ph.D. [facility] Procedures PT Ongoing treatment [address] [place] [phone] Referral ID Status Reason Start Date Expiration Date Visits V isits Requested Authorized [id number] Canceled 04/15/2019 10/15/2019 99 19 Encounter Details Date Type Department Care Team Description 07/08/2019 Clinical Support Department of Physical David Best M.D., Ph.D. [address] [place] [phone] Movement Disorder (Primary Dx); Medicine and Hanny Morgan O.T., O.TLilian Musculoskeletal Psychogenic Disorder; Rehabilitation in Abnormal M ovement Involuntary [place], [place] [address] [place] [phone] Social History Tobacco Use Types Packs/Day Years [...] week 04/06/2019 How often do you attend baptism or worship services? Never 04/06/2019 Do you belong to any clubs or organizations such as baptism N o 04/06/2019 groups, unions, fraternal or [...] documented as of this encounter Consult Notes Hanny Morgan O.T., O.T.DJavier - 07/08/2019 9:00 AM CDT Consults Occupational Therapy Neurologic Outpatient Evaluation/Treatment By co-signing this note, the provider certifies the therapy being provided to this patient is reasonable and necessary for the diagnosis or treatment of this patient. SUBJECTIVE Patient's Name: Shawna White Referring Provider: David Best M.D., Ph.D. Rehab Diagnosis: 1. Movement Disorder 2. Musculoskeletal Psychogenic Disorder 3. Abnormal Movement Involuntary Reason for Referral: Occupational [...] seconds. She worked with physical therapy in [place] for 6 sessions, primarily focused on desensitization but, this has thus far been unsuccessful. Onset Date: 07/08/19 Payor: [facility] / Plan: [facility] [employer] H[facility] / Product Type: HMO / PERTINENT MEDICAL / SURGICAL HISTORY: Patient Active Problem List Diagnosis ??? Movement Disorder ??? Abnormal Movement Involuntary ??? Musculoskeletal Psychogenic Disorder Past Surgical History: Procedure Laterality Date ??? APPENDECTOMY 04/15/1972 ??? CHOLECYSTECTOMY 04/15/1972 ??? DILATATION AND CURETTAGE 04/15/1980 ??? RECONSTRUCTION LIGAMENT ELBOW Left 04/15/2017 ??? TOTAL HIP ARTHROPLASTY Left 10/16/2014 OT Next Certification Date: 08/07/19 Occupational Profile: Level of 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 OBJECTIVE Review of Systems: History obtained from chart review and the patient Physical Exam: Cognition: stutter and vocal clicking were noted, especially at the beginning of the session but, significantly diminished towards the end Mobility: patient has a single point cane and four-wheeled walker that she will use depending on howshe is feeling that day; she has episodes of 'sticking' when overstimulated Vision/Sensation: wears glasses Tone: patient endorses new bilateral leg tightness and 'twisting' Neuro Screen/Motor Control: patient has variable movements of rocking, foot stamping, and hand slapping that, at points of the evaluation were completely absent. TREATMENT Patient presented to the session alone and using a single point cane for mobility. She reports feeling 'possessed' at this point with minimal control of her own body due to external stimulus. Treatment today consisted of: Evaluation only with review of past treatments. Recommendations: practice diaphragmatic breathing daily; integrate diaphragmatic breathing in to functional activities when experiencing abnormal movement; initiate resetting at first recognition of symptoms; focus on a distant focal point rather than looking down or covering eyes Assessment Clinical Impression: Shawna returns to the outpatient occupational therapy practice after a relapse of abnormal movement. There appears to be an exclusive correlation of movements with external stimulation with auditory being worse than visual. She is familiar with the concepts of the BeST program, having completed in in January of this year, and of sensory habituation from previous therapies. Since we know she can improve her movements, as noted in the BeST program, we may instead try to focus on the stimulus causing the movements. Furthermore, since she has always tried to control both visual and auditory at the sametime, we might try a different approach were we focus on the lesser of the two (visual) first and allow compensation for the auditory until the visual can be better controlled. Hopefully, with this shift in approach, we will be able to make notable and sustainable progress in not only her movements but, sensory aversions. Skilled occupational therapy intervention will be necessary to facilitate motor retraining, educate on therapeutic strategies, reinforce integration of principles in functional activity, and encouragement of abilities. Rehab Potential: Ms. White has Good potential to achieve established occupational therapy goals within the time frame outlined below, provided she actively participates in her occupational therapy treatment plan and home program. Occupational Profile and History review: Brief Comorbidities: see pertinent medical/surgical history above Personal Factors: Needs assistive device Performance Deficits: 3 - 5 performance deficits Evaluation Complexity: Low Functional Goals and Timeframes: OT Goal #1: Patient will tolerate 15 minutes of controlled movement while in a store. OT Goal #1 Date: 10/06/19 OT Goal #2: Patient will tolerate 15 minutes of activity without visual or auditory compensations. OT Goal #2 Date: 10/06/19 The severity of Ms. White???s functional limitation will be re-assessed within the next 12 visits. Plan Ms. White was educated regarding evaluative findings, diagnosis, prognosis, potential risks and benefits of rehabilitation interventions. A collaborative effort was used to establish goals and plan of care. She was informed of her right to make decisions regarding her care, including refusal of examination or treatment or selection of therapy services from another provider if desired. The treatment plan may be progressed or modified based upon her response to treatment. Treatment Plan: Start of Plan of Care: 07/14/2019 Number of Visits: up to 12 visits OT Duration: 90 days Plan: Plan of care initiated Plan Comments: Patient has not met treatment goals and will return for additional occupational therapy sessions to address the following: static visual search->dynamic visual search; visual tracking(simple ->complex); integrated auditory tasks; simple tasks in complex enviornments->multitasking through complex enviornments. Treatment interventions may include: Therapeutic functional activity Time Spent with Patient OT Evaluation (min): 42 min Time Calculation Total Treatment Time (min): 42 min documented in this encounter Plan of Treatment Not on filedocumented as of this encounter Visit Diagnoses Diagnosis Movement Disorder - Primary Musculoskeletal Psychogenic Disorder Abnormal Movement Involuntary documented in this encounter Care Teams Inspector Golf Ball Relationship Specialty Start Date End Date Elsewhere, Pcp PCP - General Family Medicine 10/11/18 documented as of this encounter
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
--- OUTSIDE RECORDS SUMMARY | 2022-09-26 11:12 | XMS_ITS | Encounter Summary ---
:1955 Author Organization [facility] Address [address] [place] [phone] Care Team Providers Name Role Phone Elsewhere, Pcp Primary Care Provider Unavailable Reason for Visit Outpatient (Routine) - Closed Specialty Diagnoses / Procedures Referred By Contact Refer red To Contact Neurology Serene Echeverria M. D., Ph.D. [facility] [address] [place] [phone] Referral ID Status Reason Start Date Expiration Date Visits Requ ested Visits Authorized [id number] Closed 01/10/2019 01/10/2020 1 1 Encounter Details Date Type Department Care Team Description 02/12/2019 Office Visit Department of Serene Echeverria Movement Disor naomi Neurology in [place], (Primary Dx) [place], [place] Ph.D. [address] [place] [address] [place] [phone] Social History Tobacco Use Types Packs/Day Years [...] week 04/06/2019 How often do you attend denominational or sikh services? Never 04/06/2019 Do you belong to any clubs or organizations such as denominational N o 04/06/2019 groups, unions, fraternal or [...] documented as of this encounter Consult Notes Serene Echeverria M.D., Ph.D. - 02/12/2019 4:30 PM CDT Mrs. White returned for follow-up. She completed the PMR-best protocol last week. I reviewed the reports of the therapists. She had progressively improved to the point of normality. Today, she was normal in every respect. We spent about half an hour together and there are no adventitious movements,which is very gratifying. I discussed my recommendation about where to go from here. Specifically, I advised not returning to work for the next couple of months. She should be active during this time but should avoid as best she can major stressors; she should remain active but not take on excessive responsibilities. The intent over this time would be to lock in the PMR program that was taught to her last week. Subsequent to that, I see no reason she cannot return to her full an active life. We discussed which she had been doing in the work place until these neurologic symptoms developed. 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 It seemed to me that she would do better to not return to that line of work and rather choose an occupational activity that would be safe and less stressful period I told her that I would be happy to under right temporary disability continuing for the next 2 months. We reviewed her outside MRI brain scan that had been done in 2017. 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 The heterogeneity did not seem indicative of cardioembolic as much but ratherhe appearance suggested to me that this might represent a cerebral vascular anomaly. I reviewed her outside report of an MRI scan from 2011 with the description similar to what we are now seeing on [id number] MRI brain scan. As I mentioned, these findings appear to be stable and could represent an ancient process. 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 documented in this encounter Plan of Treatment Not on filedocumented as of this encounter Visit Diagnoses Diagnosis Movement Disorder - Primary documented in this encounter Care Teams Mechanical Systems Designer Relationship Specialty Start Date End Date Elsewhere, Pcp PCP - General Family Medicine 10/11/18 documented as of this encounter
--- OUTSIDE RECORDS SUMMARY | 2022-09-26 11:12 | XMS_ITS | Encounter Summary ---
:1955 Author Organization [facility] Address [address] [place] [address] Care Team Providers Name Role Phone Elsewhere, Pcp Primary Care Provider Unavailable Reason for Visit Occupational Therapy (Routine) - Closed Specialty Diagnoses / Procedures Referred By Contact Refer red To Contact Diagnoses Movement Disorder David Best M.D., Ph.D. [facility] Procedures OT Ongoing Treatment [address] [place] [place] [phone] Referral ID Status Reason Start Date Expiration Date Visits Requ ested Visits Authorized [id number] Closed 07/08/2019 07/07/2020 20 20 Encounter Details Date Type Department Care Team Description 07/24/2019 Clinical Support Department of Physical David Best M.D., Ph.D. [address] [place] [phone] Abnormal Movement Involuntary (Primary D x); Medicine and Hanny Morgan O.T., O.T.Maral. Movement Disorder Rehabilitation in [place], [place] [address] [place] [phone] Social History Tobacco Use Types Packs/Day Years [...] week 04/06/2019 How often do you attend anglican or gnosticism services? Never 04/06/2019 Do you belong to any clubs or organizations such as anglican N o 04/06/2019 groups, unions, fraternal or [...] this encounter Progress Notes Hanny Morgan O.T., O.T.DJavier - 07/24/2019 4:00 PM CDT Occupational Therapy Neurologic Outpatient Progress Note SUBJECTIVE Patient's Name: Shawna White Referring Provider: David Best M.D., Ph.D. Rehab Diagnosis: 1. Abnormal Movement Involuntary 2. Movement Disorder Reason for Referral: Occupational therapy [...] seconds. She worked with physical therapy in [place] for 6 sessions, primarily focused on desensitization but, this has thus far been unsuccessful. Onset Date: 07/08/19 Payor: [facility] / Plan: [facility] H[facility] / Product Type: HMO / Patient/Caregiver Goals: Return to riding bike, going to movies, or going to resturaunts. OBJECTIVE Pain: Patient denies any pain that would interfere with her participation in this session. TREATMENT Patient presented to this session alone and with the use of a single point cane. The patient reported having a good conversation with her physical therapist regarding trying to regain control over her experiences with sensory stimulation and movements by considering if something is within her immediate environment, if it is harmful, and if there is anything she can reasonably do about it. She notes that she does not find herself anticipating negative stimulation in an environment so much as she anticipates her negative responses to that stimulation. Treatment today consisted of: This session focused on predictable auditory stimulation during functional tasks. First, we started with completing multiple rounds on the [employer], which integrated both visual and auditory components. Each time the patient his a light on the board, the light would change to a different button and would beep. There appeared to be only minimal response to this after 4, 1 minute, rounds. We transitioned to another task with an added stress component. Therapist and patient played each other in multiple games of [employer] which required the patient to place small pieces on a board while a timer ticked with increasing speed until the board 'popped' all the game pieces out. The first round, we completed without the timed component and with fairly good success. Therapist mentioned that we would be adding the timer component on the next round, which then resulted in an increase of patient movements. We discussed that she had thus far not even heard what the timer would sound like but, how in anticipating it, she created her own stressor in preparing for the worse. The patient acknowledged this. The remaining three rounds were with the timer, resulting in the 'popping' of the board each time. She had a significant response to the first round and gradual reduced responses in the remaining rounds. Recommendations: breathe; stop and reset; focus on control and not speed; use the eyes to look, not the head; practice eye exercises twice daily; use the finger to track items, if needed; contemplate if the visual or auditory stimulus that is experienced is harmful in any way Assessment Clinical Impression: This session transitioned to integration of auditory stimulus, which is the hardest for the patient to cope with. There was some notable increases in movement due to the auditory stimulation but, nowhere near the levels of movement that were present when we initially saw her. She reported being irritat ed with the ticking but, was able to maintain good control of her movements throughout the task until the board popped. Pat is demonstrating more independent use of therapeutic strategies and increasedunderstanding of why sensory stimulation is impacting her. Skilled occupational therapy remains neces my for sensory and motor retraining, cueing, and [...] up to 12 visits. Pt is on 6 visit. OT Duration: 90 days Plan: Continue with current plan Plan Comments: Patient has not met treatment goals and will return for additional occupational therapy sessions to address the following: integrated auditory tasks; simple tasks in complex enviornments->multitasking through complex enviornments. Treatment interventions may include: Therapeutic functional activity Progress: Progress: Progressing toward goals Rehab Potential: Good Time Spent with Patient Therapeutic Activity (min): 32 min Time Calculation Total Timed Units (min): 32 min Total Treatment Time (min): 32 min documented in this encounter Plan of Treatment Not on filedocumented as of this encounter Visit Diagnoses Diagnosis Abnormal Movement Involuntary - Primary Movement Disorder documented in this encounter Care Teams Distributor Cleaner Relationship Specialty Start Date End Date Elsewhere, Pcp PCP - General Family Medicine 10/11/18 documented as of this encounter
--- OUTSIDE RECORDS SUMMARY | 2022-09-26 11:12 | XMS_ITS | Encounter Summary ---
:1955 Author Organization [facility] Address [address] [place] [address] Care Team Providers Name Role Phone Elsewhere, Pcp Primary Care Provider Unavailable Reason for Visit Physical Therapy (Routine) - Canceled Specialty Diagnoses / Procedures Referred By Contact Refer red To Contact Diagnoses Movement Disorder David Best M.D., Ph.D. [facility] Procedures PT Ongoing treatment [address] [place] [phone] Referral ID Status Reason Start Date Expiration Date Visits V isits Requested Authorized [id number] Canceled 07/08/2019 07/07/2020 14 14 Encounter Details Date Type Department Care Team Description 07/30/2019 Clinical Support Department of Physical David Best M.D., Ph.D. [address] [place] [phone] Movement Disorder Medicine and Urvashi Hernández, P.T., D.P.T., [facility] Rehabilitation in [place], [place] [address] [place] [phone] Social History Tobacco Use Types Packs/Day [...] How often do you attend orthodox or congregation services? Never 04/06/2019 Do you [...] Notes Urvashi Hernández P.T., Maral.P.T., [facility] - 07/30/2019 11:00 AM CDT Physical Therapy Neurologic Outpatient [...] seconds. She worked with physical therapy in [place] for 6 sessions, primarily focused on desensitization but, this has thus far been unsuccessful. Onset Date: 07/08/19 Payor: [facility] / Plan: [facility] HMO / Product Type: HMO / Patient/Caregiver Goals: Return to riding bike, going to movies, or going to resturaunts. Patient Comments: Marly returns and reports that she practiced resetting in the laundry room with noise from the machines and from the TV around the corner. She had a really great day yesterday but she feels like today is very challenging. Total Visit Count: 4 OBJECTIVE Vitals: Not indicated at this time Observation: She reports that today is a fair day, she is feeling more brain fog and stiffness with the weather today. TREATMENT Re-reviewed the connection and awareness of her movements in sitting especially when there is background noise. She doesn't realize when she is still moving when she is distracted. We reviewed the nextstep to work on being more vigilant about resetting when a 2 or greater and for long enough to last.She will try to work on resetting in the lobby of her apartment building after riding the elevator. Neuromuscular Re-Education: reviewed the focus not on the outside noise and trying to control it butinstead focusing on breath instead of trying to control the noise outside. This is going to be challenging for her. We discussed a new step would be to watch a TV show without a low volume and not changing the volume in the commercials. We reviewed working on static balance with use of the balance board with finding the neutral positioning, and then using midfoot weight bearing for balance support. We were able to find full midfoot balance and full stillness in stance. -She will continue to work on being able reset in public placed and utilize the three questions we came up with three things to keep in mind to help her recognize the triggers and thought processes. This helped frame the disconnect between the stimulus and need for movement. 1) Am I breathing effectively? 2) Is the noise in my 1 foot radius? 3) Is the noise a danger to me? Assessment Clinical Impression: Pat will continue to work on being more stringent with her resetting now with the level at 2 insteadof 4 and [address] in a place with some background noise to help with the work on not having complete silence to reset and using a standing reset. Functional Goals and Timeframes: PT Goal #1: [...] TREATMENT PLAN Number of Visits: up to 5 visits Patient is on visit 4. Frequency: 1-2x/week Duration: until goals in plan of care are met. Plan: Continue with current plan Other PT Comments: resetting in standing, balance with trunk rotation, sts with ball bounce Treatment interventions may include: Treatment/Interventions: Neuromuscular re- education, Gait training, Therapeutic functional activity, Therapeutic exercise Time Spent with Patient Neuromuscular Re-Education (min): 60 min Time Calculation Total Timed Units (min): 60 min Total Treatment Time (min): 60 min Functional G-code Worksheet Urvashi Hernández P.T., D.P.T., MIGUEL documented in this encounter Plan of Treatment Not on filedocumented as of this encounter Visit Diagnoses Diagnosis Movement Disorder documented in this encounter Care Teams Sql Server Dba Developer Relationship Specialty Start Date End Date Elsewhere, Pcp PCP - General Family Medicine 10/11/18 documented as of this encounter
--- OUTSIDE RECORDS SUMMARY | 2022-09-26 11:12 | XMS_ITS | Encounter Summary ---
:1955 Author Organization [facility] Address [address] [place] [address] Care Team Providers Name Role Phone Elsewhere, Pcp Primary Care Provider Unavailable Reason for Referral Outpatient (Routine) - Closed Specialty Diagnoses / Procedures Referred By Contact Refer red To Contact Physical Medicine and Diagnoses Musculoskeletal Psychogenic Disorder Samreen Romano [facility] [place] [address] [place] [address] Referral ID Status Reason Start Date Expiration Date Visits Requ ested Visits Authorized [id number] Closed 06/27/2019 06/26/2020 1 1 Encounter Details Date Type Department Care Team Description 06/27/2019 Community Orders [place] Samreen Romano [employer] [facility] [place] Psych[facility] [address] [facility] (Primary Dx) [address] [place] [phone] Social History Tobacco Use Types Packs/Day Years [...] week 04/06/2019 How often do you attend roman catholic or yazidism services? Never 04/06/2019 Do you belong to any clubs or organizations such as roman catholic N o 04/06/2019 groups, unions, fraternal or [...] Name Type Priority Associated Diagnoses [facility] Outpatient Routine Musculoskeletal Expec romi: Rehabilitation Referral Psychogenic Disorder 06/27 Referral (Approximate), Expires: 06/27/2022 documented as of this encounter Visit Diagnoses Diagnosis Musculoskeletal Psychogenic Disorder - P rimary documented in this encounter Care Teams Atm Servicer Relationship Specialty Start Date End Date Elsewhere, Pcp PCP - General Family Medicine 10/11/18 documented as of this encounter
--- OUTSIDE RECORDS SUMMARY | 2022-09-26 11:12 | XMS_ITS | Encounter Summary ---
:1955 Author Organization [facility] Address [address] [place] [address] Care Team Providers Name Role Phone Elsewhere, Pcp Primary Care Provider Unavailable Reason for Visit Physical Therapy (Routine) - Canceled Specialty Diagnoses / Procedures Referred By Contact Refer red To Contact Diagnoses Movement Disorder David Best M.D., Ph.D. [facility] Procedures PT Ongoing treatment [address] [place] [phone] Referral ID Status Reason Start Date Expiration Date Visits V isits Requested Authorized [id number] Canceled 07/08/2019 07/07/2020 14 14 Encounter Details Date Type Department Care Team Description 07/17/2019 Clinical Support Department of Physical David Best M.D., Ph.D. [address] [place] [phone] Movement Disorder Medicine and Urvashi Hernández, P.T., D.P.T., [facility] Rehabilitation in [place], [place] [address] [place] [phone] Social History Tobacco Use Types Packs/Day [...] week 04/06/2019 How often do you attend yarsanism or gnosticist services? Never 04/06/2019 Do you belong to any clubs or organizations such as yarsanism N o 04/06/2019 groups, unions, fraternal or [...] encounter Progress Notes Urvashi Hernández P.T., D.P.T., [facility] - 07/17/2019 11:00 AM CDT Physical Therapy Neurologic Outpatient [...] seconds. She worked with physical therapy in [place] for 6 sessions, primarily focused on desensitization but, this has thus far been unsuccessful. Onset Date: 07/08/19 Payor: [facility] / Plan: [facility] H[facility] / Product Type: HMO / Patient/Caregiver Goals: Return to riding bike, going to movies, or going to resturaunts. Patient Comments: Pat reports that the exercises have been helping her fall asleep at night, she feels she is better able to move with breath. She still struggles with being able to reset in an environment. Total Visit Count: 2 OBJECTIVE Vitals: Not indicated at this time Observation: She reports that today is a fair day, she is feeling more brain fog and stiffness with the weather today. TREATMENT Neuromuscular Re-Education: -We reviewed the seated reset with 50/50 feet, with glutes and hands on lap- separate and palms up. Worked on full reset without distraction with the movement and allowing to get to 0/10 and then stay.This was challenging with times of the movements kicking up to provide distraction. But with maintaining awareness on the breath instead. -For a challenge if she is doing well, work on resetting as she walks in the hallway outside her apartment. Home Exercise Program/Education: She will work on focusing on full reset at level 4 or above and gradually grade her exposure. Assessment Clinical Impression: Marly was challenged today with the review and progression of her reset from supine to seated. We wereable to work through her distraction and focus on breath only with palms up and resting. She will work on implementing this to her day and focus more on her awareness of her breath and symptom number. Functional Goals and Timeframes: PT Goal #1: [...] to 5 visits Patient is on visit 2. Frequency: 1-2x/week Duration: until goals in plan of care are met. Plan: Continue with current plan Other PT Comments: resetting in standing, balance with trunk rotation Treatment interventions may include: Treatment/Interventions: Neuromuscular re- [...] Disorder documented in this encounter Care Teams Rubber Block Layer Relationship Specialty Start Date End Date Elsewhere, Pcp PCP - General Family Medicine 10/11/18 documented as of this encounter
--- OUTSIDE RECORDS SUMMARY | 2022-09-26 11:12 | XMS_ITS | Encounter Summary ---
:1955 Author Organization [facility] Address [address] [place] [address] Care Team Providers Name Role Phone Elsewhere, Pcp Primary Care Provider Unavailable Reason for Visit Physical Therapy (Routine) - Canceled Specialty Diagnoses / Procedures Referred By Contact Refer red To Contact Diagnoses Movement Disorder David Best M.D., Ph.D. [facility] Procedures PT Ongoing treatment [address] [place] [phone] Referral ID Status Reason Start Date Expiration Date Visits V isits Requested Authorized [id number] Canceled 04/15/2019 10/15/2019 99 19 Encounter Details Date Type Department Care Team Description 05/21/2019 Clinical Support Department of David Best M.D., Ph.D. [address] [place] [phone] Movement Disorder Rehabilitation Services Clare Mcleod, P.T. in [address] [phone] Social History Tobacco Use Types Packs/Day Years [...] week 04/06/2019 How often do you attend moravian or temple services? Never 04/06/2019 Do you belong to any clubs or organizations such as moravian N o 04/06/2019 groups, unions, fraternal or [...] this encounter Progress Notes Clare Mcleod P.T., CorkyP.T. - 05/21/2019 11:00 AM CDT Physical Therapy Outpatient Treatment Note SUBJECTIVE Patient's Name: Shawna White Referring Provider: David Best M.D., Ph.* Visit Diagnosis: 1. Movement Disorder Reason for Referral: Physical therapy evaluate and treatment Onset Date: 05/09/19 Payor: [facility] [place] / Plan: [facility] / Product Type: Medicaid HMO / No data recorded Epic Visit Count: 3 Patient comments: Patient reports that she felt today was going to be a really good today as she felt good and her movements were under control when she woke up. Upon ambulating into therapy her movements were increased, I feel that it has to do with being around healthcare providers. She also reports that she has been going to the gym, and completing the treadmill, bike, leg press, abdominal crunch machine, back extension machine, hip abduction/adduction machine, and bicep and tricep strengthening. She feels that after going to the gym her stiffness is improved however it typically returns in ~20 minutes. OBJECTIVE Pain: patient has no pain today. TREATMENT Treatment today consisted of: Therapeutic Exercise: We applied a posteriorly weighted vest with compression. Patient is able to fundraising manager open area without trunk movements while this is applied, which she is unable to do without the vest. We discussed options for purchasing a weighted vest. Elliptical - 3 minutes on walking setting. Antagonistic fluid movements - sidelying, hip flexion, knee flexion, plantar flexion, alternating tohip extension, knee extension, dorsiflexion. Very fluid movements today, unable to lay still in sidelying when resting. Attempted seated heel raises with weights, auditory stimuli in gym was too much for patient today and we had to return to private room. Diaphragmatic breathing: Patient demonstrates good motor learning, after ~3 breaths movements becomeworse requiring her to sit up. It's as if my body doesn't want me to relax. She does feel that thefirst few breaths before movements came on, provided a wave of relief. She will continue with trying to master guided meditation in controlled environment of her home. Self-care/Home Management Training: Discussion on first trying to remove vision stimuli prior to jumping to closing eyes and plugging ears when involuntary movements come on. This is very difficulty for patient to regain control, unless both visual and auditory stimuli are removed. Applying pressure to area of body with involuntary movements, or distracting herself with a purposeful movement also help to control her abnormal movements. Attempted meditation exercise of thinking of 5 things she can see, 4 things she can hear, 3 things she can feel, 2 things she can smell, and 1 thing she can taste. This does not decrease her involuntary movements today. She states that it increases her awareness of her environment, which she typicallytries to avoid. INTERDISCIPLINARY PATIENT EDUCATION RECORD: Assessment of learning challenges of patient/family: No barriers Learning preferences: Verbal, print, demonstration Topic of education: mental focus and gradual introduction of stimuli. Current knowledge assessment: Some understanding Readiness/barriers to learning: Accepting Teaching method: Verbal, print and demonstration Outcomes and reinforcement: Verbalizes understanding Home Exercise Program/Education: Focusing on mediation and re-integration into busy environments. Trying to find tricks to regain control of her movement quicker and more efficiently - this includes applying pressure to area, or utilizing purposeful movements. Patient provided with online support group options for functional movement disorders. Assessment Clinical Impression: Patient was unable to tolerate the increased auditory stimuli in the gym today, increased involuntary movements when focus on relaxation and meditation. She responds excellent to weighted compression vest trialed today, no trunk movements while standing in open space. She has increased her participation in her community gym, and reports it is going very well as long as she has her headphone in. We are continuing to find and practice strategies that decrease her involuntary movements. Rehab Potential: Good [...] with current plan Plan for next session: Provide options of good weighted vests/ compression vests to purchase. Extension strengthening as most of her involuntary movements are into flexion - reciprocal inhibition. Continue to practice meditation, gradually increasing auditory and visual stimuli. Time Spent with Patient Home Management Training (min): 15 min Therapeutic Activity (min): 30 min Time Calculation Total Timed Units (min): 45 min Total Treatment Time (min): 45 min Clare Mcleod P.T., D.P.T. Department of Rehabilitation Services in [address] [phone] Dept: [phone] documented in this encounter Plan of Treatment Not on filedocumented as of this encounter Visit Diagnoses Diagnosis Movement Disorder documented in this encounter Care Teams Hand Bootmaker Relationship Specialty Start Date End Date Elsewhere, Pcp PCP - General Family Medicine 10/11/18 documented as of this encounter
--- OUTSIDE RECORDS SUMMARY | 2022-09-26 11:12 | XMS_ITS | Encounter Summary ---
:1955 Author Organization [facility] Address [address] [place] [address] Care Team Providers Name Role Phone Elsewhere, Pcp Primary Care Provider Unavailable Reason for Visit Occupational Therapy (Routine) - Closed Specialty Diagnoses / Procedures Referred By Contact Refer red To Contact Diagnoses Movement Disorder David Best M.D., Ph.D. [facility] Procedures OT Ongoing Treatment [address] [place] [phone] Referral ID Status Reason Start Date Expiration Date Visits Requ ested Visits Authorized [id number] Closed 07/08/2019 07/07/2020 20 20 Encounter Details Date Type Department Care Team Description 07/15/2019 Clinical Support Department of Physical David Best M.D., Ph.D. [address] [place] [phone] Movement Disorder (Primary Dx); Medicine and Hanny Morgan O.T., O.TLilian Abnormal Movement Involuntary Rehabilitation in [place], [place] [address] [place] [phone] Social History Tobacco Use Types Packs/Day Years [...] week 04/06/2019 How often do you attend mandaeism or druze services? Never 04/06/2019 Do you belong to any clubs or organizations such as mandaeism N o 04/06/2019 groups, unions, fraternal or [...] Progress Notes Hanny Morgan O.T., O.T.DJavier - 07/15/2019 1:00 PM CDT Occupational Therapy Neurologic Outpatient [...] seconds. She worked with physical therapy in [place] for 6 sessions, primarily focused on desensitization but, this has thus far been unsuccessful. Onset Date: 07/08/19 Payor: [facility] / Plan: [facility] HMO / Product Type: HMO / Patient/Caregiver Goals: Return to riding bike, going to movies, or going to resturaunts. OBJECTIVE Pain: Patient denies any pain that would interfere with her participation in this session. TREATMENT Patient presented to this session alone and with the use of a single point cane. Overt head, arm, and trunk movements, as well as, stomping and vocal clicks were noted as the patient arrived from the [facility]. Treatment today consisted of: Started the session with the patient engaging in a simple visual search. Therapist set-up sticky notes on a minimally busy, vertical background. While seated, the patient was asked to search and tap pairs of sticky notes in alternating, ascending order (1-a-2-b-3-c, etc.). The patient was noted to use head movements to search, even for searching in a relatively small area. When confronted with this, the patient reported that she had developed this strategy to reduce dizziness but, even though the dizziness is gone, she continues to use it as she finds it challenging to process visual information outside of her central field. Therapist discussed with the patient that avoidance of eye isolation is likely a strong contributor to her difficulties with managing visual stimulation, especially in busy environments. For this reason, we completed the progressively challenging rounds (moving sticky notes further apart both vertically and horizontally), with the emphasize on isolating the eye movements. This was significantly more challenging for the patient but, she was able to complete the remaining rounds with increased time and breaks. Given the patient's complaints today, therapist educated, instructed, and demonstrated eye exercisesfor stretching, tracking, and gaze stabilization. The patient returned demonstration but, reported difficulties, especially with tracking. She was encouraged to go as slow as needed and pause she feelsthat she is losing the track. Recommendations: breathe; stop and reset; focus on control and not speed; use the eyes to look, not the head; practice eye exercises twice daily Assessment Clinical Impression: Pat returns for another session to focus on visual processing of stimulus. We had somewhat of a revelation today in regards to identifying a possibly significant aspect of her visual processing. She was able to complete the exercises provided and verbalized understanding of their intent. Abnormal movem ents continued throughout the session but, with varying degrees. Rehab Potential: Ms. White has Good potential [...] up to 12 visits. Pt is on 2 visit. OT Duration: 90 days Plan: Plan Comments: Patient has not met treatment goals and will return for additional occupational therapy sessions to address the following: static visual search->dynamic visual search; visual tracking(simple ->complex); integrated auditory tasks; simple tasks in complex enviornments->multitasking through complex enviornments. Treatment interventions may include: Therapeutic functional activity Progress: Progress: Progressing toward goals Rehab Potential: Good Time Spent with Patient Therapeutic Activity (min): 25 min Time Calculation Total Timed Units (min): 25 min Total Treatment Time (min): 25 min documented in this encounter Plan of Treatment Not on filedocumented as of this encounter Visit Diagnoses Diagnosis Movement Disorder - Primary Abnormal Movement Involuntary documented in this encounter Care Teams Automobile Service Writer Relationship Specialty Start Date End Date Elsewhere, Pcp PCP - General Family Medicine 10/11/18 documented as of this encounter
--- OUTSIDE RECORDS SUMMARY | 2022-09-26 11:12 | XMS_ITS | Encounter Summary ---
:[address] [facility] Address [address] [place] [address] Care Team Providers Name Role Phone Elsewhere, Pcp Primary Care Provider Unavailable Reason for Visit Occupational Therapy (Routine) - Closed Specialty Diagnoses / Procedures Referred By Contact Refer red To Contact Diagnoses Movement Disorder David Best M.D., Ph.D. [facility] Procedures OT Ongoing Treatment [address] [place] [phone] Referral ID Status Reason Start Date Expiration Date Visits Requ ested Visits Authorized [id number] Closed 07/08/2019 07/07/2020 20 20 Encounter Details Date Type Department Care Team Description 07/17/2019 Clinical Support Department of Physical David Best M.D., Ph.D. [address] [place] [phone] Movement Disorder (Primary Dx); Medicine and Hanny Morgan O.T., O.TLilian Abnormal Movement Involuntary Rehabilitation in [place], [place] [address] [place] [phone] Social History Tobacco Use Types Packs/Day Years [...] week 04/06/2019 How often do you attend gnosticism or anabaptism services? Never 04/06/2019 Do you belong to any clubs or organizations such as gnosticism N o 04/06/2019 groups, unions, fraternal or [...] Progress Notes Hanny Morgan O.T., O.T.DJavier - 07/17/2019 3:00 PM CDT Occupational Therapy Neurologic Outpatient Progress [...] seconds. She worked with physical therapy in [place] for 6 sessions, primarily focused on desensitization but, this has thus far been unsuccessful. Onset Date: 07/08/19 Payor: [facility] / Plan: [facility] HMO / Product Type: HMO / Patient/Caregiver Goals: Return to riding bike, going to movies, or going to resturaunts. OBJECTIVE Pain: Patient denies any pain that would interfere with her participation in this session. TREATMENT Patient presented to this session alone and with the use of a single point cane. The patient reported practicing the eye exercises with continued difficulties. Treatment today consisted of: This session focused on visual search with isolated eye movements in a more complex, but still static, environment. Therapist had the patient start in sitting. She was asked to achieve control of her movement prior to standing, look in a cabinet full of varied items to search for a 1 cube using her eyes only. Once the cube was found, the patient retrieved it, set it on the countertop, and sat back down. This was completed for 8 cubes and 2 rounds. Therapist provided cueing for the patient to use her eyes, not her head, and use her finger to help her eye track to the block when reaching. Recommendations: breathe; stop and reset; focus on control and not speed; use the eyes to look, not the head; practice eye exercises twice daily; use the finger to track items, if needed Assessment Clinical Impression: Marly returns to participate in another visual search task with increasing challenge. She continues toneed cueing to use her eyes to search the periphery but, seems to do so with less effort today. She had more notable periods of physical calm during this session and had an absence of vocal clicks. Rehab Potential: Ms. White has Good potential [...] up to 12 visits. Pt is on 3 visit. OT Duration: 90 days Plan: Continue [...] Time Spent with Patient Therapeutic Activity (min): 35 min Time Calculation Total Timed Units (min): 35 min Total Treatment Time (min): 35 min documented in this encounter Plan of Treatment Not on filedocumented as of this encounter Visit Diagnoses Diagnosis Movement Disorder - Primary Abnormal Movement Involuntary documented in this encounter Care Teams City Planning Aide Relationship Specialty Start Date End Date Elsewhere, Pcp PCP - General Family Medicine 10/11/18 documented as of this encounter
--- OUTSIDE RECORDS SUMMARY | 2022-09-26 11:12 | XMS_ITS | Encounter Summary ---
:1955 Author Organization [facility] Address [address] [place] [id number] Care Team Providers Name Role Phone Elsewhere, Pcp Primary Care Provider Unavailable Reason for Visit Physical Therapy (Routine) - Closed Specialty Diagnoses / Procedures Referred By Contact Refer red To Contact Diagnoses Abnormal Movement Involuntary Movement Disorder Serene Echeverria M.D., [facility] Procedures Neurological disease - PT Evaluate and treat Ph.D. [address] [place] [phone] Referral ID Status Reason Start Date Expiration Date Visits Requ ested Visits Authorized [id number] Closed 01/10/2019 01/10/2020 1 1 Encounter Details Date Type Department Care Team Description 02/07/2019 Comprehensive Visit Department of Physical Serene Limon M.D., Ph.D. [address] [place] [phone] Movement Disorder (Primary Dx); Medicine and Mitchell Cevallos P.T., D.P.T. Abnormal Movement Involuntary Rehabilitation in [place], [place] [address] [place] [phone] Social History Tobacco Use Types Packs/Day Years [...] week 04/06/2019 How often do you attend christian or confucianism services? Never 04/06/2019 Do you belong to any clubs or organizations such as christian N o 04/06/2019 groups, unions, fraternal or [...] encounter Progress Notes Mitchell Cevallos - 02/07/2019 3:00 PM CDT Physical Therapy Musculoskeletal Outpatient Progress Note [...] which she feels she cannot move. Payor: [facility] / Plan: [facility] / Product Type: Medicaid HMO / Patient/Caregiver Goals: Return to bike riding and being able to stand still. She would also like kathleen able to go to the movies and be relaxed. Total Visit Count: 7 SUBJECTIVE: Patient returns for her 7th visit in the week-long best program. She presents to physical therapy again walking independently. She [place] with occupational therapy, during which she purchased coffee from [address] coffee shops. She states that thistrip went very well and she is improving her ability to navigate crowded areas. OBJECTIVE TREATMENT Treatment today consisted of: Neuromuscular re-education: ?? Gym ?? Began with 15 min of stationary biking, progressing from level 1 to level 3 for peak aerobic activity and increased heart rate and back down to level 1 for cool down ?? During biking therapist played various ring tones on phone near patient to address difficulties with auditory stimulus ?? Patient had only to instances of abnormal movement onset in response to the ringtones during this15 min; lower pitched/loud noises seem to be her biggest trigger ?? Transitioned to parallel bars ?? Foam pad balance including slow marches, step-up/step downs, single leg stance ?? Wobble board balance including anterior posterior weight shifting and replication of abnormal trunk flexion/extension; patient was able to ???master?? her own abnormal movement and increased confidence in her ability to move smoothly ?? Open space ?? 10 lb medicine ball carries during forward walking throughout the gym ?? Patient initially had abnormal movements after 1st holding the medicine ball, but was able to reset appropriately within 30 sec ?? Trialed various holds to challenge her differently ?? Fitness session in treatment room with staggered stance boxing using gloves and application trainer blockers ?? Patient was able to appropriately increase force and maintain balance with quality repetition * patient had several minor onsets of abnormal movements, but resets independently. She did have twogreater amplitude abnormal movement onsets, which required about 10% cuing. Assessment Clinical Impression: Ms. White returns for her 7th session in the week long best program. This afternoon we implemented stationary biking to address 1 of her personal goals, and she did well with smooth movement even with fatigue. She is improving her ability to complete complex activities such as wobble board balance and boxing, but unexpected loud noises continue to be triggers for her. She will benefit from furtherskilled physical therapy to continue the motor retraining program and help with self management of the condition. Functional Goals and Timeframes: PT Goal [...] current plan Other PT Comments: Next Session: Reassess outcome measures and videotape gait, establish home going plan for patient to continue working on symptom management and motor retraining Treatment interventions may include: Treatment/Interventions: Neuromuscular re-education Time Spent with Patient Neuromuscular Re-Education (min): 61 min Time Calculation Total Timed Units (min): 61 min Total Treatment Time (min): 61 min Associated attestation - Anne Mathew P.T., Maral.PStacy., A.T.C. - 02/08/2019 10:55 AM CDT This therapist has reviewed all documentation and supervised today's session. This therapist agrees with the plan of care developed in collaboration with the patient. documented in this encounter Plan of Treatment Not on filedocumented as of this encounter Visit Diagnoses Diagnosis Movement Disorder - Primary Abnormal Movement Involuntary documented in this encounter Care Teams Piercing Machine Operator Relationship Specialty Start Date End Date Elsewhere, Pcp PCP - General Family Medicine 10/11/18 documented as of this encounter
--- OUTSIDE RECORDS SUMMARY | 2022-09-26 11:12 | XMS_ITS | Encounter Summary ---
:1955 Author Organization [facility] Address [address] [place] [address] Care Team Providers Name Role Phone Elsewhere, Pcp Primary Care Provider Unavailable Reason for Visit Occupational Therapy (Routine) - Closed Specialty Diagnoses / Procedures Referred By Contact Refer red To Contact Diagnoses Movement Disorder David Best M.D., Ph.D. [facility] Procedures OT Ongoing Treatment [address] [place] [phone] Referral ID Status Reason Start Date Expiration Date Visits Requ ested Visits Authorized [id number] Closed 07/08/2019 07/07/2020 20 20 Encounter Details Date Type Department Care Team Description 07/23/2019 Clinical Support Department of Physical David Best M.D., Ph.D. [address] [place] [phone] Movement Disorder (Primary Dx); Medicine and Hanny Morgan O.T., O.TLilian Abnormal Movement Involuntary Rehabilitation in [place], [place] [address] [place] [phone] Social History Tobacco Use Types Packs/Day Years [...] How often do you attend sabianism or uatsdin services? Never 04/06/2019 Do you belong to [...] Progress Notes Hanny Morgan O.T., O.T.DJavier - 07/23/2019 2:00 PM CDT Occupational Therapy Neurologic Outpatient [...] seconds. She worked with physical therapy in [place] for 6 sessions, primarily focused on desensitization but, this has thus far been unsuccessful. Onset Date: 07/08/19 Payor: [facility] / Plan: [facility] HMO / Product Type: HMO / Patient/Caregiver Goals: Return to riding bike, going to movies, or going to resturaunts. OBJECTIVE Pain: Patient denies any pain that would interfere with her participation in this session. TREATMENT Patient presented to this session alone and with the use of a single point cane. Treatment today consisted of: This session focused on dynamic visual tracking in stimulating environments. We started with the patient playing balloon volley while seated requiring the patient to track unpredictable movements of the balloon and accurately hit it back to the therapist. This occurred for about 15 minutes with 2 restbreaks for movement control. Next, we transitioned to standing and started playing catch with a standard gym ball. Therapist remained directly in front of the patient to begin. When the patient was able to complete this with fairly good control, therapist had the patient pass the ball between two people standing opposite of each other thus, requiring the patient to turn 180 with each attempted pass. A gain, when she was able to complete this with fairly good control, we finished with a significantly harder variation with the two people moving positions in front of the patient and switching between each passer at random intervals. This required visual tracking of both the people and the ball througha visually and auditorily stimulating environment. The patient did have period of worsening movementduring this task, mainly due to a group of people talking in another room but conversely, she also had prolonged periods being movement-free (about 2 minutes). Recommendations: breathe; stop and reset; focus on control and not speed; use the eyes to look, not the head; practice eye exercises twice daily; use the finger to track items, if needed Assessment Clinical Impression: This was an excellent session for Pat as, for the first time since we started, she had a periods of standing absent of movement. This was even noted by her during the session with a report of physical relief from the lack of near- constant movement. Auditory stimulus continues to be aggravating and we will start to transition towards integrating this more in to our sessions. Skilled occupational therapy remains necessary for sensory [...] up to 12 visits. Pt is on 5 visit. OT Duration: 90 days Plan: Continue with current plan Plan Comments: Patient has not met treatment goals and will return for additional occupational therapy sessions to address the following: dynamic visual search; visual tracking (simple ->complex); integrated auditory tasks; simple tasks in [...] Involuntary documented in this encounter Care Teams Lockstitch Pocket Setter Relationship Specialty Start Date End Date Elsewhere, Pcp PCP - General Family Medicine 10/11/18 documented as of this encounter
--- OUTSIDE RECORDS SUMMARY | 2022-09-26 11:12 | XMS_ITS | Encounter Summary ---
:1955 Author Organization [facility] Address [address] [place] [address] Care Team Providers Name Role Phone Elsewhere, Pcp Primary Care Provider Unavailable Reason for Visit Occupational Therapy (Routine) - Closed Specialty Diagnoses / Procedures Referred By Contact Refer red To Contact Diagnoses Movement Disorder David Best M.D., Ph.D. [facility] Procedures OT Evaluate and treat - General [address] [place] [phone] Referral ID Status Reason Start Date Expiration Date Visits Requ ested Visits Authorized [id number] Closed 05/03/2019 05/02/2020 1 1 Encounter Details Date Type Department Care Team Description 07/08/2019 Clinical Support Department of Physical David Best M.D., Ph.D. [address] [place] [phone] Movement Disorder Medicine and Urvashi Hernández, P.T., D.P.T., [facility] Rehabilitation in [place], [place] [address] [place] [phone] Social History Tobacco Use Types Packs/Day [...] How often do you attend baptism or nondenominational services? Never 04/06/2019 Do you [...] documented as of this encounter Consult Notes Urvashi Hernández P.T., CorkyPPierce, [facility] - 07/08/2019 10:00 AM CDT Physical Therapy Neurologic Outpatient Evaluation and Treatment SUBJECTIVE Patient's Name: Shawna White Referring Provider: [...] seconds. She worked with physical therapy in [place] for 6 sessions, primarily focused on desensitization but, this has thus far been unsuccessful. Onset Date: 07/08/19 Payor: [facility] / Plan: [facility] [employer] [employer] HMO / Product Type: HMO / PERTINENT MEDICAL / SURGICAL HISTORY: Patient Active Problem List Diagnosis ??? Movement Disorder ??? Abnormal Movement Involuntary Past Surgical History: Procedure Laterality Date ??? APPENDECTOMY 04/15/1972 ??? CHOLECYSTECTOMY 04/15/1972 ??? DILATATION AND CURETTAGE 04/15/1980 ??? RECONSTRUCTION LIGAMENT ELBOW Left 04/15/2017 ??? TOTAL HIP ARTHROPLASTY Left 10/16/2014 Shawna White is a 64 y.o. female who presents to outpatient physical therapy for evaluation. Her symptoms consist of gait imbalance, trunk movement and sensory over sensitivity in the setting ofa functional movement disorder. Overall she reports her status is worsening . Occupational Profile: Patient Comments: She feels like she is not in control and wants to have her life back. Patient/Caregiver Goals: Return to riding bike, going to movies, or going to resturaunts. Previous Treatments: Occupational Therapy and Physical Therapy Aggravating Factors: noise, being in crowds Relieving Factors: breath to rest OBJECTIVE I briefly reviewed the review of systems as noted on the health history form. I am only responding to those symptoms which are directly relevant the specific indication for my consultation. I recommended the patient follow up with their primary care referring provider to pursue any other symptoms which may be of concern. Otherwise negative review of symptoms. No red flags identified on today's examination PHYSICAL EXAM Vitals: Not indicated at this time Fall Risk ScreeningAssessment: Fall in the last 12 months: Yes Did you have an injury with the fall?: No Are you fearful of falling?: No Balance Balance Comments: Imbalance with initial stand from the lobby with trunk swaying and forward flexed posture with the feet feeling like they are glued to the floor. Observation / Posture General: Other (Comment)(intemittent trunk rocking, R leg stomping and mild vocalizations, wavering intensity during the session. ) Gait/Stair/WC: Gait Assessment Level of Assistance: Modified Independent Device: Single point cane Assessment of Gait: instances of imbalance and trunk movement with gait, intermittent. TREATMENT Treatment today consisted of: Reviewed the principles of motor reprogramming with focus on stopping and resetting with breath. Sherated her symptoms to be a 7-8/10 at the start of the session but were a 1/10 with use of diaphragmatic breath in lying. Reviewed and developed home exercise program incorporating attention to intentional and deep diaphragmatic breathing and coordinated controlled movement. The [place] -Deep diaphragmatic breaths into the abdomen with controlled slow inhale for count of 5 and out for count of 5 with cueing for sipping in the air slowly without having the chest or shoulder rise, then breath out slowly as if pushing air out through a straw. x 5 reps -Lower lumbar rotations with maintained breath x 5 reps -End with Deep diaphragmatic breaths x 5 reps -Seated breath in mirror for feedback and use of resets if ever above a 4/10. Home Exercise Program/Education: Provided education on exam findings, condition, rationale behind interventions chosen, and educated the patient on the value and benefits of physical therapy to addressdeficits. Patient agreed to plan of care as discussed and is willing to participate. Patient was instructed in and demonstrated the above listed exercises with verbal, tactile, and visual cueing for enhanced understanding and correct exercise technique as part of their home going home exercise program. Assessment Clinical Impression: Pat did well in the [facility] for Functional Movement Disorder but was unable to maintain gains. We reviewed the course of a functional movement disorder especially with some ups and downs and use of resets to prevent rebound of symptoms is aguilar. She better understands the process and will work on regaining attention to her movements and not avoiding movementor pushing through. We will progress as able in our follow up appointments. Rehab Potential: Ms. White has Good potential to achieve established physical therapy goals within the time frame outlined below, provided she actively participates in her physical therapy treatmentplan and home program. Complicating Factors: Comorbidities: Please see active problem list and EMR Personal Factors: Needs assistive device Clinical Presentation: Evolving Examination elements: 3 Clinical Decision Making Complexity: Moderate: 1-2 complicating factors, 3 eval elements, evolving clinical presentation Functional Goals and Timeframes: PT Goal #1: Patient will demonstrate and/or verbalize understanding of home exercise program in 5 sessions for improved self-management of the condition. PT Goal #1 Date: 10/06/19 PT Goal #2: Patient will report >3+ on the Global Rating of Change in 5 sessions. PT Goal #2 Date: 10/06/19 The severity of Ms. White???s functional limitation will be re-assessed within the next 5 visits. Plan Ms. White was educated regarding [...] Treatment Plan: Start of Plan of Care: 07/08/2019 Number of Visits: up to 5 visits 1-2x/week PT Duration: until goals in plan of care are met. Plan: Plan of care initiated Other PT Comments: resetting, balance with trunk rotation Treatment interventions may include: Treatment/Interventions: Neuromuscular re- education, Gait training, Therapeutic functional activity, Therapeutic exercise Time Spent with Patient PT Evaluation (min): 15 min Neuromuscular Re-Education (min): 40 min Time Calculation Total Timed Units (min): 40 min Total Treatment Time (min): 55 min Functional G-code Worksheet Urvashi Hernández P.T., D.P.T., MIGUEL documented in this encounter Plan of Treatment Not on filedocumented as of this encounter Visit Diagnoses Diagnosis Movement Disorder documented in this encounter Care Teams Communication Equipment Mechanic Relationship Specialty Start Date End Date Elsewhere, Pcp PCP - General Family Medicine 10/11/18 documented as of this encounter
--- OUTSIDE RECORDS SUMMARY | 2022-09-26 11:12 | XMS_ITS | Encounter Summary ---
:1955 Author Organization [facility] Address [address] [place] [address] Care Team Providers Name Role Phone Elsewhere, Pcp Primary Care Provider Unavailable Reason for Visit Occupational Therapy (Routine) - Closed Specialty Diagnoses / Procedures Referred By Contact Refer red To Contact Diagnoses Movement Disorder David Best M.D., Ph.D. [facility] Procedures OT Ongoing Treatment [address] [place] [phone] Referral ID Status Reason Start Date Expiration Date Visits Requ ested Visits Authorized [id number] Closed 07/08/2019 07/07/2020 20 20 Encounter Details Date Type Department Care Team Description 07/26/2019 Clinical Support Department of Physical David Best M.D., Ph.D. [address] [place] [phone] Movement Disorder (Primary Dx); Medicine and Hanny Morgan O.T., O.TLilian Abnormal Movement Involuntary Rehabilitation in [place], [place] [address] [place] [phone] Social History Tobacco Use Types Packs/Day Years [...] week 04/06/2019 How often do you attend sikhism or yazdanism services? Never 04/06/2019 Do you belong to any clubs or organizations such as sikhism N o 04/06/2019 groups, unions, fraternal or [...] this encounter Progress Notes Hanny Morgan O.T., O.T.Corky - 07/26/2019 4:30 PM CDT Occupational Therapy Neurologic Outpatient [...] seconds. She worked with physical therapy in [place] for 6 sessions, primarily focused on desensitization but, this has thus far been unsuccessful. Onset Date: 07/08/19 Payor: [facility] / Plan: [facility] HMO / Product Type: HMO / Patient/Caregiver Goals: Return to riding bike, going to movies, or going to resturaunts. OBJECTIVE Pain: Patient denies any pain that would interfere with her participation in this session. TREATMENT Patient presented to this session alone and carrying a single point cane. She reports having very little movement for the last 2 days but, also reports a new tremoring in her left fingers. She notes getting an extension of her social security thus, she will not be on a deadline to return to work. Treatment today consisted of: This session was focused on engaging in fine motor movements during a stressful task with integratedauditory stimulation. While standing, therapist and patient played a round of Jenga while another person played varied music in the background. This music ranged from soft to loud, heavy instrumentation to high pitched voices, and various speeds. Increases in tremors were noted with the change of music, with some being more dramatic than others ([place] and [place] resulting in the most due to heavy instrumentation). The patient completed two rounds of Jenga without severe deviation of movements. Recommendations: breathe; stop and reset; focus on control and not speed; use the eyes to look, not the head; practice eye exercises twice daily; use the finger to track items, if needed; contemplate if the visual or auditory stimulus that is experienced is harmful in any way Assessment Clinical Impression: Pat continues to make strides towards quelling aberrant movements, even with the presence of sensorystimulation. The task today was more challenging than previous activities, mainly as she found the instrumentation to be annoying. She was noted to independently reset when needed. She expressed concern for the new tremoring in her left fingers but, was understanding that the same strategies would be implemented in order to manage those. Skilled occupational therapy remains necessary for sensory [...] up to 12 visits. Pt is on 7 visit. OT Duration: 90 days Plan: Continue with current plan Plan Comments: Patient has not met treatment goals and will return for additional occupational therapy sessions to address the following: integrated auditory tasks; simple tasks in complex enviornments->multitasking through complex enviornments. Treatment interventions may include: Therapeutic functional activity Progress: Progress: Progressing toward goals Rehab Potential: Good Time Spent with Patient Therapeutic Activity (min): 29 min Time Calculation Total Timed Units (min): 29 min Total Treatment Time (min): 29 min documented in this encounter Plan of Treatment Not on filedocumented as of this encounter Visit Diagnoses Diagnosis Movement Disorder - Primary Abnormal Movement Involuntary documented in this encounter Care Teams Nitrating Acid Mixer Relationship Specialty Start Date End Date Elsewhere, Pcp PCP - General Family Medicine 10/11/18 documented as of this encounter
--- OUTSIDE RECORDS SUMMARY | 2022-09-26 11:12 | XMS_ITS | Encounter Summary ---
:1955 Author Organization [facility] Address [address] [place] [id number] Care Team Providers Name Role Phone Elsewhere, Pcp Primary Care Provider Unavailable Reason for Visit Occupational Therapy (Routine) - Closed Specialty Diagnoses / Procedures Referred By Contact Refer red To Contact Diagnoses Abnormal Movement Involuntary Movement Disorder Serene Echeverria M.D., [facility] Procedures Neurological disorder - OT Evaluate and treat Ph.D. [address] [place] [phone] Referral ID Status Reason Start Date Expiration Date Visits Requ ested Visits Authorized [id number] Closed 01/10/2019 01/10/2020 15 15 Encounter Details Date Type Department Care Team Description 02/07/2019 Comprehensive Visit Department of Physical Serene Limon M.D., Ph.D. [address] [place] [phone] Movement Disorder (Primary Dx); Medicine and Hanny Morgan O.T., O.T.Corky Abnormal Movement Involuntary Rehabilitation in [place], [place] [address] [place] [phone] Social History Tobacco Use Types Packs/Day Years [...] week 04/06/2019 How often do you attend pentecostal or pentecostal services? Never 04/06/2019 Do you belong to any clubs or organizations such as pentecostal N o 04/06/2019 groups, unions, fraternal or [...] this encounter Progress Notes [place] - 02/07/2019 1:00 PM CDT Occupational Therapy Outpatient Progress Note SUBJECTIVE [...] it wasn't effective. Ms. White reports seeing [facility] for two rounds of treatment [...] on her back reduces her symptoms. Payor: [facility] / Plan: [facility] / Product Type: Medicaid HMO / Patient/Caregiver Goals: Limit abnormal body movements. She would like to get back to bike riding. Patient Comments: I would like to have my life back OBJECTIVE TREATMENT Ms. White presents to occupational therapy alone and without a gait aid. She reports feeling refreshed and ready for the afternoon session. Treatment today consisted of: Therapist facilitated a walk in the [employer] system to further develop Ms. White's skills at engaging in different cognitive and social activities while ambulating in dynamic environments. She was first instructed to find various buildings in the [place] system using tools at her disposal (information desks, maps, signs). While navigating, therapist cued her to find objects of different colors or that began with certain letters to challenge her divided attention. Therapist finished the session byfacilitating a [id number] social interaction between Ms. White and the attendant in an art gallery. Throughout the ambulation, cognitive activity, and social interaction, Ms. White was able to maintain control of her movements with only one cue from therapist to maintain her arms relaxed at her side rather than tensed and held at her midsection. She was on her feet and walking for the duration of the 30 minute session without taking a break. Recommendations: practice diaphragmatic breathing daily; integrate diaphragmatic breathing in to functional activities when experiencing abnormal movement; practice progressive muscle relaxation as needed, initiate resetting at first recognition of symptoms, read at the end of the day to facilitate relaxation Assessment Clinical Impression: Ms. White did quite well navigating the somewhat chaotic subway system. She continues to independently cue to use motor retraining strategies. She was specifically able to use deep breathing and only going as fast as she could control during her activities in the subway. She successfully demonstrated the ability to incorporate these strategies while walking through a dynamic environment and in social situations that could easily occur in her everyday life. Skilled occupational therapy is requiredto implement home maintenance plan to further facilitate reintegration of BeST skills and strategiesinto daily life. Rehab Potential: Ms. White has Excellent potential [...] up to 10 visits. Pt is on 8 visit. OT Duration: 1 week Plan: Comments: cribbage and home maintenance plan/COPM Treatment interventions may include: Therapeutic functional activity Progress: Progress: Progressing toward goals Rehab Potential: Excellent Time Spent with Patient Therapeutic Activity (min): 31 min Time Calculation Total Timed Units (min): 31 min Total Treatment Time (min): 31 min Associated attestation - Hanny Morgan O.T., O.T.D. - 02/10/2019 1:29 PM CDT This therapist has reviewed all documentation and supervised today's session. This therapist agrees with the plan of care developed in collaboration with the patient. documented in this encounter Plan of Treatment Not on filedocumented as of this encounter Visit Diagnoses Diagnosis Movement Disorder - Primary Abnormal Movement Involuntary documented in this encounter Care Teams Trauma Surgeon Relationship Specialty Start Date End Date Elsewhere, Pcp PCP - General Family Medicine 10/11/18 documented as of this encounter
--- OUTSIDE RECORDS SUMMARY | 2022-09-26 11:12 | XMS_ITS | Encounter Summary ---
:1955 Author Organization [facility] Address [address] [place] [phone] Care Team Providers Name Role Phone Elsewhere, Pcp Primary Care Provider Unavailable Reason for Visit Occupational Therapy (Routine) - Closed Specialty Diagnoses / Procedures Referred By Contact Refer red To Contact Diagnoses Abnormal Movement Involuntary Movement Disorder Serene Echeverria M.D., [facility] Procedures Neurological disorder - OT Evaluate and treat Ph.D. [address] [place] [phone] Referral ID Status Reason Start Date Expiration Date Visits Requ ested Visits Authorized [id number] Closed 01/10/2019 01/10/2020 15 15 Encounter Details Date Type Department Care Team Description 02/07/2019 Comprehensive Visit Department of Physical Serene Limon M.D., Ph.D. [address] [place] [phone] Movement Disorder (Primary Dx); Medicine and Hanny Morgan O.T., O.T.Corky Abnormal Movement Involuntary Rehabilitation in [place], [place] [address] [place] [phone] Social History Tobacco Use Types Packs/Day Years [...] How often do you attend anglican or protestant services? Never 04/06/2019 Do you belong to [...] encounter Progress Notes [place] - 02/07/2019 9:00 AM CDT Occupational Therapy Outpatient Progress Note [...] it wasn't effective. Ms. White reports seeing [facility] for two rounds of treatment [...] on her back reduces her symptoms. Payor: [facility] / Plan: [facility] / Product Type: Medicaid HMO / Patient/Caregiver Goals: Limit abnormal body movements. She would like to get back to bike riding. Patient Comments: I would like to have my life back OBJECTIVE TREATMENT Ms. White presents to occupational therapy alone and without a gait aid. Treatment today consisted of: Today's session began with therapist facilitating use of Dynavision, which Ms. White had reportedworking with in previous therapy treatments and being unable to sustain an entire session without whole body tremors. Beginning with four, 1 minute intervals, she was first instructed to use both hands, then just her right, then just her left, and finally alternating between right and left. She took short breaks between each interval. She was able to tolerate each of the four, 1 minute intervals under control and without loss of balance. Therapist graded the activity to require her to stand on an Airex pad and complete a 4 minute interval to further challenge her balance and endurance. The patient was able to complete the first 2 minutes at a steady pace without issue. At the 2 minute krunal, she was observed to take time to reset, focusing on her breath and relaxing her arms at her side. She took ~8-10 times over the course of the final 2 minutes to focus on her breathing and control. These resets lasted 1-5 seconds in duration. Although light swaying was observed, she was able to independently recognize when to take appropriate time to reset and was able to halt symptom progression and return to normal movement throughout the course of the activity by using this strategy. Therapist praised her for ability to recognize when to implement strategies rather than fighting through her loss of control which would effectively reinforce her maladaptive motor patterns. Ms. White also expressed pride at being able to actively participate at the [employer] for the duration of the activity. Therapist then facilitated an activity requiring Ms. White to read printed instructions for the card game Dodonation and teach the therapist how to play. This was done in response to her statedgoal of reading, on which had become difficult for her to focus through the uncontrolled movements. [place] through her first attempt at reading the instructions, she became visibly frustrated, saying It doesn't make sense. Therapist set instructions off to the side, cueing Ms. White to take as much time as she needs. She took 5 minutes to focus on breathing and regain control. Although she wasvisibly agitated, there was no hnen-ey-puftl trunk swaying or foot stomping as she took time to regroup. She was able to maintain even diaphragmatic breathing and after 5 minutes was able to return to reading the instructions. She read and understood the rules of the game and effectively taught the therapist how to play. At the end of the session, therapist praised Ms. White for her ability to control her movements through periods of frustration and her ability to independently recognize when to reset. ?? Recommendations: practice diaphragmatic breathing daily; integrate diaphragmatic breathing in to functional activities when experiencing abnormal movement; initiate resetting at first recognition of symptoms, take as much time as needed Assessment Clinical Impression: Marly has made great strides in body awareness and recognition of symptom onset. Her resets at the Dynavision board resulted in visibly more relaxed posture and body positioning. The 1 minute intervals did not provide a great challenge, although she does demonstrate slightly better control with her right hand as compared to left. She did well to focus on control vs. Speed with her left, occasionally taking a second with her hand still outstretched to ensure control before tapping the appropriate button. The 4 minute interval did provide a challenge, both physically from standing on the Airex pad and from a mental standpoint, overcoming the visual and auditory stimuli to control movements for the duration. Her mental fatigue from the activity was still apparent as we transitioned to the next task asshe needed a significant amount of time to regain the focus needed to read and interpret the game instructions. Even with the amount of time needed, her ability to recover while still maintaining trunk and LE control mayberry significant progress. Skilled occupational therapy is required to work towards maximizing functional performance and optimizing motor patterns through education, implementation, and carry over of therapeutic strategies. Rehab Potential: Ms. White has Excellent potential [...] up to 10 visits. Pt is on 7 visit. OT Duration: 1 week Plan: Comments: fine motor with cognitive activity (cards-specifically cribbage), walk in subway Treatment interventions may include: Therapeutic functional activity Progress: Progress: Progressing toward goals Rehab Potential: Excellent Time Spent with Patient Therapeutic Activity (min): 58 min Time Calculation Total Timed Units (min): 58 min Total Treatment Time (min): 58 min Associated attestation - Hanny Morgan O.T., O.T.D. - 02/10/2019 1:30 PM CDT This therapist has reviewed all documentation and supervised today's session. This therapist agrees with the plan of care developed in collaboration with the patient. documented in this encounter Plan of Treatment Not on filedocumented as of this encounter Visit Diagnoses Diagnosis Movement Disorder - Primary Abnormal Movement Involuntary documented in this encounter Care Teams Land Manager Relationship Specialty Start Date End Date Elsewhere, Pcp PCP - General Family Medicine 10/11/18 documented as of this encounter
--- OUTSIDE RECORDS SUMMARY | 2022-09-26 11:12 | XMS_ITS | Encounter Summary ---
:1955 Author Organization [facility] Address [address] [place] [address] Care Team Providers Name Role Phone Elsewhere, Pcp Primary Care Provider Unavailable Reason for Visit Reason Comments Tremors Outpatient (Routine) - Closed Specialty Diagnoses / Procedures Referred By Contact Refer red To Contact Neurology Serene Greene M.D ., M.P.H. [facility] [address] [place] [phone] Referral ID Status Reason Start Date Expiration Date Visits Requ ested Visits Authorized [id number] Closed 01/04/2019 01/04/2020 1 1 Encounter Details Date Type Department Care Team Description 04/10/2019 Office Visit Department of Serene Greene Abnormal M ovement Neurology in [place], M.P.H. Involuntary ([place], [place] [address]) [address] [place] [phone] Social History Tobacco Use Types Packs/Day Years [...] week 04/06/2019 How often do you attend scientologist or alevism services? Never 04/06/2019 Do you belong to any clubs or organizations such as scientologist N o 04/06/2019 groups, unions, fraternal or [...] Sign Reading Time Taken Comments Blood Pressure 123/96 04/10/2019 11:34 AM CDT Pulse 68 04/10/2019 11:34 AM CDT Temperature - - Respiratory Rate - - Oxygen Saturation - - Inhaled Oxygen Concentration - - Weight 79.5 kg (175 lb 2.5 oz) 04/10/2019 11:34 AM CDT Height - - Body Mass Index - - documented in this encounter Progress Notes Serene Greene M.D., M.P.H. - 04/10/2019 11:30 AM CDT SUBJECTIVE CHIEF COMPLAINT / REASON FOR VISIT Shawna White is a 63 y.o. female who presents for evaluation of Tremors. HISTORY OF PRESENT ILLNESS Returns for follow-up after she was seen in [place]. Appears that after her visit to [place] including physical therapy she was free of adventitious movements. At today's visit however this is no longer the case and she says that in certain situations she has trouble Re setting herself. She says if it is loud or crowded she is unable to reset herself. When asked about today why she is unable to reset herself because is just weather person the room she is on able to articulate that period she does have the contact information for physical therapist whom she saw in [place] at least the e-mail. She was quite happy after her initial visit and thought that she was doing well. No past medical history on file. Past Surgical History: Procedure Laterality Date ??? APPENDECTOMY 04/15/1972 ??? CHOLECYSTECTOMY 04/15/1972 ??? DILATATION AND CURETTAGE 04/15/1980 ??? RECONSTRUCTION LIGAMENT ELBOW Left 04/15/2017 ??? TOTAL HIP ARTHROPLASTY Left 10/16/2014 MEDICATIONS: Current Outpatient Medications: ??? acetaminophen (TYLENOL) 325 mg tablet, Take 325-650 mg by mouth as needed., Disp: , Rfl: ??? aspirin [address] tablet, Take 81 mg by mouth daily., Disp: , Rfl: ??? levothyroxine (SYNTHROID, LEVOTHROID) 88 mcg tablet, Take 88 mcg by mouth every morning before breakfast., Disp: , Rfl: ??? melatonin 5 mg tablet, Take 5 mg by mouth at bedtime., Disp: , Rfl: ??? omeprazole (PriLOSEC) [address] capsule, Take 40 mg by mouth every morning before breakfast., Disp: , Rfl: ??? ramipril (ALTACE) 5 mg capsule, Take 5 mg by mouth daily., Disp: , Rfl: ??? sertraline (ZOLOFT) 100 mg tablet, Take 100 mg by mouth daily., Disp: , Rfl: ??? simvastatin (ZOCOR) 10 mg tablet, Take 10 mg by mouth at bedtime., Disp: , Rfl: ??? ALPRAZolam (XANAX) 0.5 mg tablet, Take 1-2 tablets (0.5-1 mg total) by mouth See Admin Instructions. 1-2 tablets by mouth 30 minutes prior to procedure, Disp: 2 tablet, Rfl: 0 ??? fluticasone propionate (FLONASE) 50 mcg/actuation nasal spray, Administer 1 spray into each nostril daily., Disp: , Rfl: ??? primidone (MYSOLINE) 50 mg tablet, Take 50 mg by mouth at bedtime., Disp: , Rfl: ALLERGY: Allergies Allergen Reactions ??? Sulfa (Sulfonamide Antibiotics) Hives Family History Problem Relation Age of Onset ??? Heart failure Mother CHF ??? Stroke Father ??? Coronary artery disease Father ??? Breast cancer Father's Sister ??? Breast cancer Maternal Grandmother Social History Socioeconomic History ??? Marital status: Spouse name: Not on file ??? Number of children: Not on file ??? Years of education: Not on file ??? Highest education level: Bachelor's degree (e.g., BA, AB, BS) Occupational History ??? Not on file Social Needs ??? Financial resource strain: Not hard at all ??? Food insecurity: Worry: Never true Inability: Never true ??? Transportation needs: Medical: No Non-medical: No Tobacco Use ??? Smoking status: Former Smoker Types: Cigarettes Last attempt to quit: 04/2003 Years since quittin.9 ??? Smokeless tobacco: Never Used Substance and Sexual Activity ??? Alcohol use: No Frequency: Never Binge frequency: Never Comment: Sober since 01/2013 ??? Drug use: No ??? Sexual activity: Never Lifestyle ??? Physical activity: Days per week: 3 days Minutes per session: 40 min ??? Stress: Not at all Relationships ??? Social connections: Talks on phone: Once a week Gets together: Once a week Attends alevism service: Never Active member of club or organization: No Attends meetings of clubs or organizations: Never Relationship status: ??? Intimate partner violence: Fear of current or ex partner: Not on file Emotionally abused: Not on file Physically abused: Not on file Forced sexual activity: Not on file Other Topics Concern ??? Not on file Social History Narrative ??? Not on file OBJECTIVE Vitals: 04/10/19 1134 BP: (!) 123/96 BP Location: Left arm Patient Position: Sitting Cuff Size: Regular Pulse: 68 Weight: 79.5 kg PHYSICAL EXAM COGNITION: Alert and oriented x 4. CRANIAL NERVES: lounge car attendant II-XII intact and symmetric. MOTOR: Full strength throughout the upper and lower extremities bilaterally both proximally and distally. Normal tone. No pronator drift. she has a variety of movements that are repetitive but changes in axes and location as well as stuttering and oral tics. REFLEXES: Normal and symmetric at the biceps, triceps, brachioradialis, knees, and ankles. SENSORY: normal sensation to touch CEREBELLAR: ARMs-normal GAIT: Normal Impression: Encounter Diagnoses Name Primary? Abnormal Movement Involuntary Yes He took some care to explain to the patient that I would did not really have any medicine that wouldhelp treat her condition but that she should follow up with the physical therapist who provided somemuch benefit to her in the past. She does seem more hopeful since she has had better control of her condition of late but she is not doing well at today's visit confirms that. I am going to see her back on a p.r.n. basis total time with patient today was over 30 minutes and more than half was counseling. Serene Greene M.D., M.P.H. documented in this encounter Plan of Treatment Not on filedocumented as of this encounter Visit Diagnoses Diagnosis Abnormal Movement Involuntary - Primary documented in this encounter Care Teams Medical Affairs Specialist Relationship Specialty Start Date End Date Elsewhere, Pcp PCP - General Family Medicine 10/11/18 documented as of this encounter
--- OUTSIDE RECORDS SUMMARY | 2022-09-26 11:12 | XMS_ITS | Encounter Summary ---
:1955 Author Organization [facility] Address [address] [place] [address] Care Team Providers Name Role Phone Elsewhere, Pcp Primary Care Provider Unavailable Reason for Visit Physical Therapy (Routine) - Canceled Specialty Diagnoses / Procedures Referred By Contact Refer red To Contact Diagnoses Movement Disorder David Best M.D., Ph.D. [facility] Procedures PT Ongoing treatment [address] [place] [phone] Referral ID Status Reason Start Date Expiration Date Visits V isits Requested Authorized [id number] Canceled 04/15/2019 10/15/2019 99 19 Encounter Details Date Type Department Care Team Description 05/29/2019 Clinical Support Department of David Best M.D., Ph.D. [address] [place] [phone] Movement Disorder Rehabilitation Services Clare Mcleod, P.T. in [address] [phone] Social History Tobacco Use Types Packs/Day Years [...] How often do you attend samaritan or samaritan services? Never 04/06/2019 Do you [...] Progress Notes Clare Mcleod P.T., CorkyP.T. - 05/29/2019 11:00 AM CDT Physical Therapy Outpatient Treatment Note SUBJECTIVE Patient's Name: Shawna White Referring Provider: David Best M.D., Ph.* Visit Diagnosis: 1. Movement Disorder Reason for Referral: Physical therapy evaluate and treatment Onset Date: 05/09/19 Payor: [employer] / Plan: [employer] / Product Type: HMO / No data recorded Epic Visit Count: 4 Patient comments: Patient ambulates into therapy with a humberto vest that has weights velcro'd to the inside. She ordered this after having success trying a weighted vest in our last session. She states that she was able to administrative officer the open and wash her dishes without movement for the first time. States that she also had a lot of success with walking outside with this vest on. She plans to attempt riding her bike outside with her vest today. She also reports that she joined the online functional movement disorders support group, and states that she has really enjoyed it thus far, and feels that it will be good for her. She continue to go to the gym, completing bike and/or treadmill and strengthening exercises. Currently using Bluetooth headphones which completely block out any auditory stimuli. OBJECTIVE Pain: patient has no pain today. TREATMENT Treatment today consisted of: Therapeutic Exercise/Sensory Integration Sci-Fit Total body ergometer. Gym environment was very loud with several patients undergoing group therapy and talking. Open bright windows. Initially started with ear plugs in, intervals, increasing the resistance up to level 6. Very fluid movements today. With 4 minutes left, we attempted to take out ear plug on side away fromthe noise, patient was unable to tolerate this. Sympathetic response and increased movements within 5 seconds. Ear plug donned again, and patient was able to gain control within <1 minute. Will attempt in less stimulating of an environment next visit. Self-care/Home Management Training: Discussion on first trying [...] also help to control her abnormal movements. Patient was given handout from [facility], a patient's guide to medical cannabis, as she had several questions regarding this topic. Home Exercise Program/Education: Focusing on mediation and re-integration into busy environments. Trying to find tricks to regain control of her movement quicker and more efficiently - this includes applying pressure to area, or utilizing purposeful movements. Assessment Clinical Impression: Patient was unable to tolerate the increased auditory stimuli in the gym today, however was able to regain control of sympathetic response and involuntary movements within <1 minute after removal ofauditory stimuli. She responds excellent to weighted vest that she wears into therapy today, improving her control in open spaces. We are continuing to find and practice [...] Patient Time Calculation Total Timed Units (min): 40 min Total Treatment Time (min): 40 min Clare Mcleod P.T., Maral.P.T. Department of Rehabilitation Services in [address] [phone] Dept: [phone] documented in this encounter Plan of Treatment Not on filedocumented as of this encounter Visit Diagnoses Diagnosis Movement Disorder documented in this encounter Care Teams Miter Cutter Relationship Specialty Start Date End Date Elsewhere, Pcp PCP - General Family Medicine 10/11/18 documented as of this encounter
--- OUTSIDE RECORDS SUMMARY | 2022-09-26 11:12 | XMS_ITS | Encounter Summary ---
:1955 Author Organization [facility] Address [address] [place] [id number] Care Team Providers Name Role Phone Elsewhere, Pcp Primary Care Provider Unavailable Reason for Visit Physical Therapy (Routine) - Canceled Specialty Diagnoses / Procedures Referred By Contact Refer red To Contact Diagnoses Movement Disorder David Best M.D., Ph.D. [facility] Procedures PT Ongoing treatment [address] [place] [phone] Referral ID Status Reason Start Date Expiration Date Visits V isits Requested Authorized [id number] Canceled 04/15/2019 10/15/2019 99 19 Encounter Details Date Type Department Care Team Description 05/14/2019 Clinical Support Department of David Best M.D., Ph.D. [address] [place] [phone] Movement Disorder; Rehabilitation Clare Mcleod, P.T. Abnormal Movement Involuntary Services in [address] [phone] Social History Tobacco Use Types Packs/Day Years [...] How often do you attend denominational or scientologist services? Never 04/06/2019 Do you belong to [...] this encounter Progress Notes Clare Mcleod P.T., D.P.T. - 05/14/2019 10:00 AM CDT Physical Therapy Outpatient Treatment Note SUBJECTIVE Patient's Name: Shawna White Referring Provider: David Best M.D., Ph.* Visit Diagnosis: 1. Movement Disorder 2. Abnormal Movement Involuntary Reason for Referral: Physical therapy evaluate and treatment Onset Date: 05/09/19 Payor: [facility] / Plan: [facility] / Product Type: Medicaid HMO / No data recorded Epic Visit Count: 2 Patient comments: Patient reports that she tried the meditation buster and the last 3 nights she was excited to report that she had no issues falling asleep. She also reports that she went to a public event with her sister that went really well. OBJECTIVE Pain: patient has no pain today. TREATMENT Treatment today consisted of: Therapeutic Exercise: Sidestepping, Walking backwards Leg press with 50# Back extension with 90# Self-care/Home Management Training: Discussion on first trying to remove vision stimuli prior to jumping to closing eyes and plugging ears when involuntary movements come on. This is very difficulty for patient to regain control, unless both visual and auditory stimuli are removed. INTERDISCIPLINARY PATIENT EDUCATION RECORD: Assessment of learning challenges of patient/family: No barriers Learning preferences: Verbal, print, demonstration Topic of education: Discussion on potential benefit of weighted or compression vest. Current knowledge assessment: Some understanding Readiness/barriers to learning: Accepting Teaching method: Verbal, print and demonstration Outcomes and reinforcement: Verbalizes understanding Home Exercise Program/Education: Focusing on mediation and re-integration into busy environments. Trying to find tricks to regain control of her movement quicker and more efficiently. Assessment Clinical Impression: Patient is able to gain control of her involuntary movements within 10-20 seconds when auditory stimuli removed (I.e. Plugging her ears). Focused on strengthening into extensor muscle groups with goal of reciprocal inhibition of involuntary movements as these are primarily into fle xion. We did this in the busy environment of the gym, and patient had good control of her involuntary movements, present only 15% of the session. Rehab Potential: Good Comorbidities: Please see active [...] 2-3x/week PT Duration: 6- 8 weeks Plan: Plan of care initiated Plan for next session: Try weighted vest with weight posterior, as posterior cueing has decreased her forward trunk movement in the past. She does well when near a wall, other object or even standing shoulder to shoulder with people, but standing in line or open area, brings on all of her involuntary movements. May also wish to try compression vest. Extension strengthening as most of her involuntary movements are into flexion - reciprocal inhibition. Continue to practice meditation, gradually increasing auditory and visual stimuli. Discussion on support groups. Time Spent with Patient Home Management Training (min): 15 min Therapeutic Activity (min): 35 min Time Calculation Total Timed Units (min): 50 min Total Treatment Time (min): 50 min Clare cMleod P.T., D.P.T. Department of Rehabilitation Services in [address] [phone] Dept: [phone] documented in this encounter Plan of Treatment Not on filedocumented as of this encounter Visit Diagnoses Diagnosis Movement Disorder Abnormal Movement Involuntary documented in this encounter Care Teams Seal Mixing Operator Relationship Specialty Start Date End Date Elsewhere, Pcp PCP - General Family Medicine 10/11/18 documented as of this encounter
--- OUTSIDE RECORDS SUMMARY | 2022-09-26 11:12 | XMS_ITS | Encounter Summary ---
:1955 Author Organization [facility] Address [address] [place] [address] Care Team Providers Name Role Phone Elsewhere, Pcp Primary Care Provider Unavailable Reason for Visit Occupational Therapy (Routine) - Closed Specialty Diagnoses / Procedures Referred By Contact Refer red To Contact Diagnoses Movement Disorder David Best M.D., Ph.D. [facility] Procedures OT Ongoing Treatment [address] [place] [phone] Referral ID Status Reason Start Date Expiration Date Visits Requ ested Visits Authorized [id number] Closed 07/08/2019 07/07/2020 20 20 Encounter Details Date Type Department Care Team Description 07/29/2019 Clinical Support Department of Physical David Best M.D., Ph.D. [address] [place] [phone] Movement Disorder (Primary Dx); Medicine and Hanny Morgan O.T., O.TLilian Abnormal Movement Involuntary Rehabilitation in [place], [place] [address] [place] [phone] Social History Tobacco Use Types Packs/Day Years [...] How often do you attend lutheran or restoration services? Never 04/06/2019 Do you belong to [...] encounter Progress Notes Molly Felix M - 07/29/2019 1:00 PM CDT Occupational Therapy Neurologic Outpatient [...] She worked with physical therapy in [place] for 6 sessions, primarily focused on desensitization but, this has thus far been unsuccessful. Onset Date: 07/08/19 Payor: [facility] / Plan: [facility] H[facility] / Product Type: HMO / Patient/Caregiver Goals: Return to riding bike, going to movies, or going to resturaunts. OBJECTIVE Pain: Patient denies any pain that would interfere with her participation in this session. TREATMENT Patient presented to this session alone and using a single point cane. She reported that she subjected herself to stimulating environments over the weekend and was able to sit in her building's laundryroom and manage her movements using breathing strategies while the washer and dryer were on and the TV volume was on 'full blast'. Treatment today consisted of: Treatment today was focused on multi-tasking through complex environments with integrated stress components. Therapist instructed patient on the game 'Bop It' and demonstrated how to follow the auditory commands that the game gives. The patient and the therapist then played 'Bop It' while seated, passing the game back and forth as instructed. Therapist ensured that the patient was sequencing the instructions quickly and in a timely manner while also monitoring abnormal body movements. Therapist instructed patient to find a focal point during the game, keep her feet on the floor, keep arms down at rest, and remember to breathe. Task was completed in this seated position until patient gained better control of her movements. Therapist then progressed the complexity of the game and instructed the patient to play 'Bop It' against the therapist while static standing. Task was performed in this position until patient gained better control of her movements. Next, therapist again progressed the challenge of the game and instructed the patient to play 'Bop It' against herself while ambulating throughoutthe therapy department. Patient responded well to this challenge and was able to reset her postural deviation and movements with minimal cueing from therapist. At the end of the session, therapist upgraded the ambulatory 'Bop It' game again so that the patient would have to respond to the sound that the game made, rather than the verbal instruction of 'bop it, twist it, pull it.' With this upgrade, patient became more aggitated and dysregulated in her movements, and therefore the therapist provided more verbal instruction and reminders for the patient to control her movements. Recommendations: breathe; stop and reset; focus on control and not speed; use the eyes to look, not the head; practice eye exercises twice daily; use the finger to track items, if needed; contemplate if the visual or auditory stimulus that is experienced is harmful in any way; keep arms down at rest; find a focal point Assessment Clinical Impression: Marly continues to improve in her movement abnormalities, even with increasing challenge and auditory stimuli. Today was challenging for Marly, as there was greater multi-tasking involved through the use of the auditory cues, motor planning, and ambulation without a gait aid. She was calm today at the beginning of the session up to the point where the auditory stimulus was presented. At this point, she required multiple verbal cues to control her movements, reset herself, and find a focal point during tasks. With these strategies, Marly was able to find periods of calm, especially when focused on the task. Marly was noted to have 2 good resets today, which she independently initiated. When her movements are present and she has decreased control in response to visual and/or auditory stimuli, she needs continued reminders to ask herself (a) is it harmful? (b) is it something I have control over? (c) is itin my immediate area?. Skilled occupational therapy remains necessary for sensory [...] up to 12 visits. Pt is on 8 visit. OT Duration: 90 days Plan: Continue with current plan Plan Comments: Patient has not met treatment goals and will return for additional occupational therapy sessions to address the following: integrated auditory tasks; simple tasks in complex enviornments->multitasking through complex enviornments, Spot It game in busy environment while seated on Guamanian ball, shopping task , wayfinding through the [employer] level, Perplexus Treatment interventions may include: Therapeutic functional activity Progress: Progress: Improving as expected Rehab Potential: Good Time Spent with Patient Therapeutic Activity (min): 33 min Time Calculation Total Timed Units (min): 33 min Total Treatment Time (min): 33 min Associated attestation - Hanny Morgan O.T., O.TLilian - 07/29/2019 3:57 PM CDT This therapist has reviewed all documentation and supervised today's session. This therapist agrees with the plan of care developed in collaboration with the patient. 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
--- OUTSIDE RECORDS SUMMARY | 2022-09-26 11:12 | XMS_ITS | Encounter Summary ---
:1955 Author Organization [facility] Address [address] [place] [phone] Care Team Providers Name Role Phone Elsewhere, Pcp Primary Care Provider Unavailable Reason for Visit Occupational Therapy (Routine) - Closed Specialty Diagnoses / Procedures Referred By Contact Refer red To Contact Diagnoses Movement Disorder Serene Echeverria M.D., [facility] Procedures Neurological disorder - OT Evaluate and treat Ph.D. [address] [place] [phone] Referral ID Status Reason Start Date Expiration Date Visits Requ ested Visits Authorized [id number] Closed 02/08/2019 02/08/2020 1 1 Encounter Details Date Type Department Care Team Description 02/08/2019 Comprehensive Visit Department of Physical Serene Limon M.D., Ph.D. [address] [place] [phone] Movement Disorder (Primary Dx); Medicine and Hanny Morgan O.T., O.T.Corky Abnormal Movement Involuntary Rehabilitation in [place], [place] [address] [place] [phone] Social History Tobacco Use Types Packs/Day Years [...] week 04/06/2019 How often do you attend islam or hinduism services? Never 04/06/2019 Do you belong to any clubs or organizations such as islam N o 04/06/2019 groups, unions, fraternal or [...] encounter Progress Notes Edd Lake - 02/08/2019 1:30 PM CDT Occupational Therapy Outpatient Progress Note [...] it wasn't effective. Ms. White reports seeing [facility] for two rounds of treatment [...] on her back reduces her symptoms. Payor: [facility] / Plan: [facility] / Product Type: Medicaid HMO / Patient/Caregiver Goals: Limit abnormal body movements. She would like to get back to bike riding. Patient Comments: I would like to have my life back OBJECTIVE The [place]ijian Occupational Performance Measure (COPM) is an individualized measure of a client's self-perception of problems encountered in occupational performance.??This tool is designed for use by Occupational Therapists to detect a client's self-perceived change in occupational performance problemsover time. ?? Initial Assessment Reassessment ?? Occupational Performance Problems: Performance Satisfaction Performance Satisfaction ?? 1. Walking in public without gait aid 1 1 ??10 10 2. Laundry 2 5 8 8 3. Going to the mall 1 1 10 10 4. Riding a bike 1 1 8 10 5. reading 4 4 9 10 ?? Total Performance Total Satisfaction Total Performance Total Satisfaction Total Scores ? 9 12 ??45 ??48 ?? Average Performance Average Satisfaction Average Performance Average Satisfaction Average Scores (Total number of Problems 1.8 2.4 ??9 9.6 ? Change in Performance Change in Satisfaction Change Scores ?7.2 7.2 ?? A positive change in performance or satisfaction score indicates an improvement in occupational performance TREATMENT Ms. White presents to occupational therapy alone and without a gait aid. Treatment today consisted of: This session was focused on wrap-up and repeating outcome measures. The patient was guided through writing up a home maintenance plan which contained: feelings prior to the program, feelings at the endof the program, a toolbox of therapeutic strategies, as well as, short-term goals (1-3 months) and long-term goals (6-9 months). Once that was completed, we repeated the COPM and gathered exit scores (see above). The patient was encouraged to take it easy once returning home in attempts to focus on reintegratingin to their daily activities using proper movement patterns and therapeutic strategies learned from this week. We discussed that there may be good days and bad days but, to always remember that it is just that, a bad day. A bad day does not mean that the movement is coming back or that everything is going to fall apart. Now that the patient has a tool box full of therapeutic strategies, they just need to be mindful to take them out and use them. Assessment Clinical Impression: Ms. White made significant progress towards her OT and personal goals this week. Her scores on the COPM represent significant improvements in performance of meaningful activities and her satisfaction with that performance. She had good understanding of which tools and strategies were effective for her and when to use them. Using the skills she acquired in the BeST program going forward, Ms. White can expect to continue to progress towards her long-term goals. Rehab Potential: Ms. White has Excellent potential to achieve established occupational therapy goals within the time frame outlined below. Functional Goals and Timeframes: OT Goal #1: Patient will tolerate 30 minutes of functional activity without abnormal movement and independent integration of therapeutic strategies.. GOAL MET OT Goal #1 Date: 02/08/19 OT Goal #2: Patient will demonstrate the ability to perform diaphragmatic breathing independently toreduce maladaptive responses during functional activities. GOAL MET OT Goal #2 Date: 02/08/19 OT Goal #3: Patient will demonstrate the ability to perform progressive muscle relaxation independently to reduce muscle tension and facilitate normal movment patterns during functional activities. WILL CONTINUE AT HOME OT Goal #3 Date: 02/08/19 OT Goal #4: Patient will demonstrate proficiency in therapeutic strategies learned through the BeST program to eliminate or manage symptoms of functional movement disorder while engaging in meaningful activities. GOAL MET OT Goal #4 Date: 02/08/19 Plan Treatment Plan: Number of Visits: up to 10 visits. Pt is on 10 visit. OT Duration: 1 week Plan: Discharged from OT with home maintenance plan to promote continued success. Treatment interventions may include: Therapeutic functional activity Progress: Progress: Discontinue OT Rehab Potential: Excellent Time Spent with Patient Therapeutic Activity (min): 25 min Time Calculation Total Timed Units (min): 25 min Total Treatment Time (min): 25 min Associated attestation - Hanny Morgan O.T., O.TLilian - 02/16/2019 12:40 PM CDT This therapist has reviewed all documentation and supervised today's session. This therapist agrees with the plan of care developed in collaboration with the patient. 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
--- OUTSIDE RECORDS SUMMARY | 2022-09-26 11:12 | XMS_ITS | Encounter Summary ---
:1955 Author Organization [facility] Address [address] [place] [address] Care Team Providers Name Role Phone Elsewhere, Pcp Primary Care Provider Unavailable Reason for Visit Occupational Therapy (Routine) - Closed Specialty Diagnoses / Procedures Referred By Contact Refer red To Contact Diagnoses Movement Disorder David Best M.D., Ph.D. [facility] Procedures OT Ongoing Treatment [address] [place] [phone] Referral ID Status Reason Start Date Expiration Date Visits Requ ested Visits Authorized [id number] Closed 07/08/2019 07/07/2020 20 20 Encounter Details Date Type Department Care Team Description 07/19/2019 Clinical Support Department of Physical David Best M.D., Ph.D. [address] [place] [phone] Movement Disorder (Primary Dx); Medicine and Hanny Morgan O.T., O.TLilian Abnormal Movement Involuntary Rehabilitation in [place], [place] [address] [place] [phone] Social History Tobacco Use Types Packs/Day Years [...] How often do you attend confucianist or holiness services? Never 04/06/2019 Do you belong to [...] Progress Notes Hanny Morgan O.T., O.T.DJavier - 07/19/2019 4:30 PM CDT Occupational Therapy Neurologic Outpatient [...] seconds. She worked with physical therapy in [place] for 6 sessions, primarily focused on desensitization but, this has thus far been unsuccessful. Onset Date: 07/08/19 Payor: [facility] / Plan: [facility] HMO / Product Type: HMO / Patient/Caregiver Goals: Return to riding bike, going to movies, or going to resturaunts. OBJECTIVE Pain: Patient denies any pain that would interfere with her participation in this session. TREATMENT Patient presented to this session alone and with the use of a single point cane. Treatment today consisted of: This session was focused on dynamic visual search through dynamic environments. Therapist walked with the patient through varied environments of increasing challenge (isolated apartment room, hallway to scheduling desk, therapy gym with moving lights, and large waiting room with overhead music). Whilewalking through these environments, the patient was asked to search for items starting with letters of the alphabet, without repeating letters. Therapist also introduced a stress component with the patient having to find as many items as possible in a 2 minute window. The patient and therapist completed multiple rounds in each setting. Minimal increases increases in abnormal movement were noted. Recommendations: breathe; stop and reset; focus on control and not speed; use the eyes to look, not the head; practice eye exercises twice daily; use the finger to track items, if needed Assessment Clinical Impression: Marly had an excellent session with visual processing through varied environments. Aberrant movements were at a minimum and she was able to walk through the environments without the use of her cane. We continue to introduce progressive challenges to visual processing leading towards integration of visual processing with auditory processing. Therapist continues to cue to use of therapeutic strategies though, only about 25% of the time today. Skilled occupational therapy remains necessary for sensory [...] up to 12 visits. Pt is on 4 visit. 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
--- OUTSIDE RECORDS SUMMARY | 2022-09-26 11:12 | XMS_ITS | Encounter Summary ---
:1955 Author Organization [facility] Address [address] [place] [address] Care Team Providers Name Role Phone Elsewhere, Pcp Primary Care Provider Unavailable Reason for Visit Occupational Therapy (Routine) - Closed Specialty Diagnoses / Procedures Referred By Contact Refer red To Contact Diagnoses Movement Disorder David Best M.D., Ph.D. [facility] Procedures OT Ongoing Treatment [address] [place] [phone] Referral ID Status Reason Start Date Expiration Date Visits Requ ested Visits Authorized [id number] Closed 07/08/2019 07/07/2020 20 20 Encounter Details Date Type Department Care Team Description 07/30/2019 Clinical Support Department of Physical David Best M.D., Ph.D. [address] [place] [phone] Movement Disorder (Primary Dx); Medicine and Hanny Morgan O.T., O.TLilian Abnormal Movement Involuntary Rehabilitation in [place], [place] [address] [place] [phone] Social History Tobacco Use Types Packs/Day Years [...] week 04/06/2019 How often do you attend taoist or mormon services? Never 04/06/2019 Do you belong to any clubs or organizations such as taoist N o 04/06/2019 groups, unions, fraternal or [...] encounter Progress Notes Molly Felix M - 07/30/2019 1:00 PM CDT Occupational Therapy Neurologic Outpatient [...] seconds. She worked with physical therapy in [place] for 6 sessions, primarily focused on desensitization but, this has thus far been unsuccessful. Onset Date: 07/08/19 Payor: [facility] / Plan: [facility] HMO / Product Type: HMO / Patient/Caregiver Goals: Return to riding bike, going to movies, or going to resturaunts. OBJECTIVE Pain: Patient denies any pain that would interfere with her participation in this session. TREATMENT Patient presented to this session alone and using a single point cane. She reported that yesterday was a good day for her movements, but she was having an 'off' day today and was frustrated by this. The patient stated that today while waiting for her appointment, the waiting room was too overwhelming for her with multiple conversations surrounding her. She endorses that she tried to focus on her breathing in order to reset herself, but the stimulus was too much for her. Patient reports that she feels that her movements are improving and that she can now stand up tall without movements, which is a 'big deal' to her. Treatment today consisted of: Treatment today focused on controlled movements and postural stability while engaging in integrated visual find task. Therapist instructed patient to calm her movements and ground her feet before having her sit on a Russian Ball positioned at a raised hi-lo table in a visually and auditory stimulating en vironment. Therapist ensured that patient was safely positioned on the Russian ball, and then set up and demonstrated how to play the game 'Spot It'. Therapist and patient played the game against each other, having to visually scan the two playing cards to locate the object that is on both cards. Therapist provided minimal verbal cues to the patient for her hand placement and to reset her and upper extremity movements during the game. Therapist then graded up the 'Spot It' game by having patient standon an AirEx mat while raising the hi-lo table to 'counter' height to progress the balancing and positional challenges of the task. In this position, therapist had patient play the game against herself jayna van again upgrading the challenge of the task by having her visually scan six cards to find matching symbols as opposed to scanning two cards. Therapist provided minimal verbal cues to maintain an upright posture during the standing game task. Recommendations: breathe; stop and reset; focus on [...] movement abnormalities, even with increasing challenge and visual stimuli. Today was challenging for Marly, there was increased need for visual scanning and postural balance when subjected to unsteady surfaces while seated and standing. Marly's apprehension has a major rolein her movements and being able to control her movements and reset. For example, during today's session, she had no movements until she was presented with the Russian ball. Marly was able to scan her 'SpotIt' cards well, easily identifying the objects. Marly continues to require multiple verbal cues to control her movements, reset herself, and make sure she keeps her eyes open in response to arousing/annoying external stimuli. Despite the uneven surfaces and textures, Marly was able to find periods of calmin her movements over 50% of the time. Skilled occupational therapy remains necessary for sensory [...] up to 12 visits. Pt is on 9 visit. OT Duration: 90 days Plan: Continue with current plan Plan Comments: Patient has not met treatment goals and will return for additional occupational therapy sessions to address the following: integrated auditory tasks; simple tasks in complex enviornments->multitasking through complex enviornments, shopping task , wayfinding through the [employer] level, P erplexus, visualization of harmful and adverse scenarios. Treatment interventions may include: Therapeutic functional activity Progress: Progress: Improving as expected Rehab Potential: Good Time Spent with Patient Therapeutic Activity (min): 33 min Time Calculation Total Timed Units (min): 33 min Total Treatment Time (min): 33 min Associated attestation - Hanny Morgan O.T., O.TLilian - 07/30/2019 4:58 PM CDT This therapist has reviewed all documentation and supervised today's session. This therapist agrees with the plan of care developed in collaboration with the patient. 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
--- OUTSIDE RECORDS SUMMARY | 2022-09-26 11:12 | XMS_ITS | Encounter Summary ---
:1955 Author Organization [facility] Address [address] [place] [address] Care Team Providers Name Role Phone Elsewhere, Pcp Primary Care Provider Unavailable Reason for Visit Physical Therapy (Routine) - Canceled Specialty Diagnoses / Procedures Referred By Contact Refer red To Contact Diagnoses Movement Disorder David Best M.D., Ph.D. [facility] Procedures PT Ongoing treatment [address] [place] [phone] Referral ID Status Reason Start Date Expiration Date Visits V isits Requested Authorized [id number] Canceled 04/15/2019 10/15/2019 99 19 Encounter Details Date Type Department Care Team Description 06/12/2019 Clinical Support Department of David Best M.D., Ph.D. [address] [place] [phone] Movement Disorder Rehabilitation Services Clare Mcleod, P.T. in [address] [phone] Social History Tobacco Use Types Packs/Day Years [...] week 04/06/2019 How often do you attend advent or spiritism services? Never 04/06/2019 Do you belong to any clubs or organizations such as advent N o 04/06/2019 groups, unions, fraternal or [...] Progress Notes Clare Mcleod P.T., CorkyPJavierT. - 06/12/2019 10:30 AM CDT Physical Therapy Outpatient Treatment Note SUBJECTIVE Patient's Name: Shawna White Referring Provider: David Best M.D., Ph.* Visit Diagnosis: 1. Movement Disorder Reason for Referral: Physical therapy evaluate and treatment Onset Date: 05/09/19 Payor: [facility] / Plan: [employer] HMO / Product Type: HMO / No data recorded Epic Visit Count: 6 Patient comments: Patient reports that her movements are much more under control this week. She states that by Monday last week her increased movements had returned to baseline and she was feeling muchbetter. She reports that she has been using CBD oil which helps to calm spasms and twitches greatly,but she continues to struggle with relaxing her mind/ unable to sleep due to this. We discussed transferring to [facility] physical therapy where they have more experience with treating and managing movement disorders. She plans to pursue this option, and is encouraged to come backto [facility] rehab department if any concerns arise. OBJECTIVE Pain: No pain. TREATMENT Treatment today consisted of: Therapeutic Exercise: All performed in bright hallways with minimal traffic: Heel walking Toe walking Sidestepping Ambulation with head turns Ambulation with abrupt change in speed. lift exercise with no weight - focus on keeping heels on ground Therapeutic Activity: Continued Education on practicing independence in her self-management strategies to be able to better control her movements. Education on stopping and recognizing when abnormal movements are beginning,blocking out environmental triggers and re-focusing to regain control of her movements. Mental relaxation and control continue to be the primary contributor to her well-being. We implemented this in hallway when people passed by or when she was attempting a change in movementand involuntary movements increased. INTERDISCIPLINARY PATIENT EDUCATION RECORD: Assessment of learning challenges of patient/family: No barriers Learning preferences: Verbal, print, demonstration Topic of education: Education on transferring to Physical therapy in [place] in more specialized setting. Current knowledge assessment: Some understanding Readiness/barriers to learning: Accepting Teaching method: Verbal, print and demonstration Outcomes and reinforcement: Verbalizes understanding Home Exercise Program/Education: Focusing on mediation and re-integration into busy environments. Trying to find tricks to regain control of her movement quicker and more efficiently - this includes applying pressure to area, or utilizing purposeful movements Pt reports good compliance with her HEP. Assessment Clinical Impression: Ms. White was seen in Physical therapy for functional movement disorder, symptoms including abnormal gait, foot stomping, trunk rocking, tongue clicking, stuttering and tightly closing eyes. These movements are all increased by environmental stimuli, auditory being the biggest trigger. Symptoms were all distractible. Our focus during therapy was to improve her control of movements through relaxation and removing triggers. Patient will continue with Physical Therapy in [place] to improve her above impairments, discharging from [facility] OP rehab. Functional Goals and Timeframes: PT Goal #1: Patient will be able to tolerate ambulation and exercises in busy environment of gym with good mental control and focus for decreased involuntary movement symptoms. (Progressing towards goals, patient will continue physical therapy in [place].) PT Goal #1 Date: 06/12/19 PT Goal #2: Patient will demonstrate an improvement of at least 3 points on dyanmic gait index for clinically meaningful difference. at evaluation. (Progressing, patient will continue therapy in [place].) PT Goal #2 Date: 06/12/19 PT Goal #3: Patient will be able to return to safely riding her bike outdoors with good fluidity of movement. (Progressing.) PT Goal #3 Date: 06/12/19 Plan Plan: Discontinue therapy Other Comments Other PT Comments: Patient will continue with Physical therapy in [place]. DISCHARGE STATUS STATUS OF GOALS: Patient is progressing towards goals, will continue with physical therapy in [place]. REASON FOR DISCHARGE: Patient will be going to physical therapy who specializes in OP neuro. DISCHARGE PLAN/RECOMMENDATIONS: It is recommended that Ms. White continue with therapeutic recommendations provided in the course of her care. If additionalskilled care is indicated in the future, a new physical therapy order and evaluation would be required. Time Spent with Patient Therapeutic Activity (min): 20 min Therapeutic Exercise (min): 25 min Time Calculation Total Timed Units (min): 45 min Total Treatment Time (min): 45 min Clare Mcleod P.T., D.P.T. Department of Rehabilitation Services in [address] [phone] Dept: [phone] documented in this encounter Plan of Treatment Not on filedocumented as of this encounter Visit Diagnoses Diagnosis Movement Disorder documented in this encounter Care Teams Professor Of Surgery Relationship Specialty Start Date End Date Elsewhere, Pcp PCP - General Family Medicine 10/11/18 documented as of this encounter
--- OUTSIDE RECORDS SUMMARY | 2022-09-26 11:12 | XMS_ITS | Encounter Summary ---
:1955 Author Organization [facility] Address [address] [place] [address] Care Team Providers Name Role Phone Elsewhere, Pcp Primary Care Provider Unavailable Reason for Visit Physical Therapy (Routine) - Canceled Specialty Diagnoses / Procedures Referred By Contact Refer red To Contact Diagnoses Movement Disorder David Best M.D., Ph.D. [facility] Procedures PT Ongoing treatment [address] [place] [phone] Referral ID Status Reason Start Date Expiration Date Visits V isits Requested Authorized [id number] Canceled 07/08/2019 07/07/2020 14 14 Encounter Details Date Type Department Care Team Description 07/24/2019 Clinical Support Department of Physical David Best M.D., Ph.D. [address] [place] [phone] Movement Disorder Medicine and Urvashi Hernández, P.T., D.P.T., [facility] Rehabilitation in [place], [place] [address] [place] [phone] Social History Tobacco Use Types Packs/Day [...] week 04/06/2019 How often do you attend episcopal or mu-ism services? Never 04/06/2019 Do you belong to any clubs or organizations such as episcopal N o 04/06/2019 groups, unions, fraternal or [...] encounter Progress Notes Urvashi Hernández P.T., Maral.P.T., [facility] - 07/24/2019 11:00 AM CDT Physical Therapy Neurologic Outpatient [...] seconds. She worked with physical therapy in [place] for 6 sessions, primarily focused on desensitization but, this has thus far been unsuccessful. Onset Date: 07/08/19 Payor: [facility] / Plan: [facility] HMO / Product Type: HMO / Patient/Caregiver Goals: Return to riding bike, going to movies, or going to resturaunts. Patient Comments: Marly returns for follow up and reports that she had a good session with OT yesterday. She was able to start walking in the hallways at home and is getting better at resetting. She is often able to maintain the 4/10 symptoms but it is very difficult to reset when she is not in a quiet room, outside noise is the most distracting. Total Visit Count: 3 OBJECTIVE Vitals: Not indicated at this time Observation: She reports that today is a fair day, she is feeling more brain fog and stiffness with the weather today. TREATMENT Neuromuscular Re-Education: -Reviewed the connection and awareness of her movements in sitting especially when there is background noise. She doesn't realize when she is still moving when she is distracted. We reviewed the next step to work on being more vigilant about resetting when a 2 or greater and for long enough to last. She will try to work on resetting in the lobby of her apartment building after riding the elevator. -Reviewed that noise doesn't have to cause movement and work on decreasing avoidance such as turningher tv volume way down. -Worked on being able to reset in the treatment room with the door open for background noise which was very challenging for her. We came up with three things to keep in mind to help her recognize. 1) Am I breathing effectively? 2) Is the noise in my 1 foot radius? 3) Is the noise a danger to me? This helped frame the disconnect between the stimulus and need for movement. Home Exercise Program/Education: She will work on focusing on full reset at level 2 or above and gradually grade her exposure especially with outside noise like her apartment lobby. Assessment Clinical Impression: Pat will work on being more stringent with her resetting now with the level at 2 instead of 4 and resetting in a place with some background noise to help with the work on not having complete silence toreset. Functional Goals and Timeframes: PT Goal #1: [...] to 5 visits Patient is on visit 3. Frequency: 1-2x/week Duration: until goals in plan of care are met. Plan: Continue with current plan Other PT Comments: resetting in standing, balance with trunk rotation, sts with ball bounce Treatment interventions may include: Treatment/Interventions: Neuromuscular re- education, Gait training, Therapeutic functional activity, Therapeutic exercise Time Spent with Patient Neuromuscular Re-Education (min): 47 min Time Calculation Total Timed Units (min): 47 min Total Treatment Time (min): 47 min Functional G-code Worksheet Urvashi Hernández P.T., D.P.T., [facility] documented in this encounter Plan of Treatment Not on filedocumented as of this encounter Visit Diagnoses Diagnosis Movement Disorder documented in this encounter Care Teams Airline Ticket Agent Relationship Specialty Start Date End Date Elsewhere, Pcp PCP - General Family Medicine 10/11/18 documented as of this encounter
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
--- OUTSIDE RECORDS SUMMARY | 2022-09-26 11:13 | XMS_ITS | Encounter Summary ---
:1955 Author Organization [facility] Address [address] [place] [phone] Care Team Providers Name Role Phone Elsewhere, Pcp Primary Care Provider Unavailable Reason for Visit Occupational Therapy (Routine) - Closed Specialty Diagnoses / Procedures Referred By Contact Refer red To Contact Diagnoses Abnormal Movement Involuntary Movement Disorder Serene Echeverria M.D., [facility] Procedures Neurological disorder - OT Evaluate and treat Ph.D. [address] [place] [phone] Referral ID Status Reason Start Date Expiration Date Visits Requ ested Visits Authorized [id number] Closed 01/10/2019 01/10/2020 15 15 Encounter Details Date Type Department Care Team Description 02/04/2019 Comprehensive Visit Department of Physical Serene Limon M.D., Ph.D. [address] [place] [phone] Movement Disorder (Primary Dx); Medicine and Hanny Morgan O.T., [facility] Abnormal Movement Involuntary Rehabilitation in [place], [place] [address] [place] [phone] Social History Tobacco Use Types Packs/Day Years [...] often do you attend roman catholic or shinto services? Never 04/06/2019 Do you belong to [...] documented as of this encounter Consult Notes [place] - 02/04/2019 1:00 PM CDT Consults Occupational Therapy Outpatient Evaluation/Treatment SUBJECTIVE Patient's Name: Shawna [...] it wasn't effective. Ms. White reports seeing [facility] for two rounds of treatment [...] on her back reduces her symptoms. Payor: [facility] / Plan: [facility] / Product Type: Medicaid HMO / PERTINENT MEDICAL / SURGICAL HISTORY: Patient Active Problem List Diagnosis ??? Movement Disorder ??? Abnormal Movement Involuntary Past Surgical History: Procedure Laterality Date ??? APPENDECTOMY 04/15/1972 ??? CHOLECYSTECTOMY 04/15/1972 ??? DILATATION AND CURETTAGE 04/15/1980 ??? RECONSTRUCTION LIGAMENT ELBOW Left 04/15/2017 ??? TOTAL HIP ARTHROPLASTY Left 10/16/2014 Occupational Profile: Level of [place]: independent Lives with: alone Driving: Currently driving, reports reduced reaction time Employment status: Currently not working but interested in returning to part-time Type of home: apartment Home access: elevator Exercise/Activity Level: She likes to walk if weather is nice Home Equipment Gait Devices : Walker rolling or standard, Cane (4 wheeled walker in public. cane at home) Patient/Caregiver Goals: Limit abnormal body movements. She would like to get back to bike riding. Patient Comments: I would like to have my life back OBJECTIVE Review of Systems: History obtained from chart review and the patient Pain: Pain Assessment Pain Assessment: (Does not report pain, but her neck is frequently stiff) Cognition: Reports reduced attention span and frequent brain fog Vision: Wears corrective lenses Motor control: High amplitude, whole body rocking is more noticeable when symptoms are discussed. Foot tapping increases to stomping with increased stressed. Stuttering is rarely noticeable, except when symptoms are being discussed. The [place] Occupational Performance Measure (COPM) is an individualized measure of a client's self-perception of problems encountered in occupational performance. This tool is designed for use by Occupational Therapists to detect a client's self-perceived change in occupational performance problems over time. Initial Assessment Reassessment Occupational Performance Problems: Performance Satisfaction Performance Satisfaction 1. Walking in public without gait aid 1 1 2. Laundry 2 5 3. Going to the mall 1 1 4. Riding a bike 1 1 5. reading 4 4 Total Performance Total Satisfaction Total Performance Total Satisfaction Total Scores 9 12 Average Performance Average Satisfaction Average Performance Average Satisfaction Average Scores (Total number of Problems 1.8 2.4 Change in Performance Change in Satisfaction Change Scores A positive change in performance or satisfaction score indicates an improvement in occupational performance TREATMENT Ms. White reports to OT alone and with a 4-wheeled walker for a gait aid. She reports being tiredfrom her earlier PT session, which included a lot of walking Treatment today consisted of: We started the session with a discussion about functional movement disorder and how it is similar toa GPS that has undergone a software update with a 'glitch' which causes rerouting movements on to a different, inefficent highway. This glitch can happen as a response to a medical condition (i.e. twisted ankle, surgery, etc.), as a response to cognitive and emotional strain (i.e. loss of job, change in relationships, psychological history, etc.) or, in some cases, for unknown reasons. Our goal in therapy is to retrain the muscles to use the correct highway first, by focusing on regaining control over simple movements and actions. Therapist administered COPM for an outcome measure and to gain an understanding of Ms. White's interests and priorities to help guide therapeutic activities and treatment (see results above). Patient was educated on the importance of breathing and relaxation techniques for minimizing stress,managing pain and reducing musculoskeletal tension. Instructed, demonstrated and had patient return demonstration on diaphragmatic breathing. Emphasized breathing in through the nose and out through the mouth while expanding and castillo the stomach, respectively. This can be helpful when trying to'reset' movement. The session ended with therapist providing an introduction to progressive muscle relaxation, which would be the focus of the afternoon's session. Assessment Clinical Impression: Ms. 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 She appeared to have good understanding of her diagnosis and was glad to have some hopefor future improvement. She is highly motivated to gain control over her movements and return to engaging in the activities she has been avoiding or limiting. I anticipate she will do well in the BeST program and make significant progress towards her goals. Skilled occupational therapy intervention will be necessary to facilitate motor retraining, educate on therapeutic strategies, reinforce integration of principles in functional activity, and encouragement of abilities. Rehab Potential: Ms. White has Excellent potential to achieve established occupational therapy goals within the time frame outlined below, provided she actively participates in her occupational therapy treatment plan and home program. Occupational Profile and History review: Brief Comorbidities: See pertinent medical history above Personal Factors: Needs assistive device [...] meaningful activities. OT Goal #4 Date: 02/08/19 The severity of Ms. White???s functional limitation will be re-assessed within the next 10 visits. Plan Ms. White was educated regarding [...] Treatment Plan: Start of Plan of Care: 02/05/2019 Number of Visits: up to 10 visits OT Duration: 1 week Plan: Plan of care initiated Comments: Comments: activities requiring reach (post-its, cones) (sitting--> standing), fine motor with cognitive activity (kanoodle, cards, Hi-Que), standing-->walking with activity (balloon volley, bop-it), dynavision, carrying loads in laundry basket, walk in subway Treatment interventions may include: Therapeutic functional activity Time Spent with Patient OT Evaluation (min): 40 min Therapeutic Activity (min): 10 min Time Calculation Total Timed Units (min): 10 min Total Treatment Time (min): 50 min Associated attestation - Hanny Morgan O.T., O.TLilian - 02/06/2019 4:00 PM CDT This therapist has reviewed all documentation and supervised today's session. This therapist agrees with the plan of care developed in collaboration with the patient. documented in this encounter Plan of Treatment Not on filedocumented as of this encounter Visit Diagnoses Diagnosis Movement Disorder - Primary Abnormal Movement Involuntary documented in this encounter Care Teams Supply Chain Tech Relationship Specialty Start Date End Date Elsewhere, Pcp PCP - General Family Medicine 10/11/18 documented as of this encounter
--- OUTSIDE RECORDS SUMMARY | 2022-09-26 11:13 | XMS_ITS | Encounter Summary ---
:1955 Author Organization [facility] Address [address] [place] [phone] Care Team Providers Name Role Phone Elsewhere, Pcp Primary Care Provider Unavailable Reason for Visit Physical Therapy (Routine) - Closed Specialty Diagnoses / Procedures Referred By Contact Refer red To Contact Diagnoses Abnormal Movement Involuntary Movement Disorder Serene Echeverria M.D., [facility] Procedures Neurological disease - PT Evaluate and treat Ph.D. [address] [place] [phone] Referral ID Status Reason Start Date Expiration Date Visits Requ ested Visits Authorized [id number] Closed 01/10/2019 01/10/2020 1 1 Encounter Details Date Type Department Care Team Description 02/04/2019 Comprehensive Visit Department of Physical Serene Limon M.D., Ph.D. [address] [place] [phone] Movement Disorder (Primary Dx); Medicine and Mitchell Cevallos P.T., D.P.T. Abnormal Movement Involuntary Rehabilitation in [place], [place] [address] [place] [phone] Social History Tobacco Use Types Packs/Day Years [...] How often do you attend worship or mosque services? Never 04/06/2019 Do you [...] this encounter Progress Notes Mitchell Cevallos - 02/04/2019 3:00 PM CDT Physical Therapy Musculoskeletal Outpatient [...] which she feels she cannot move. Payor: [facility] / Plan: [facility] / Product Type: Medicaid HMO / Patient/Caregiver Goals: Return to bike riding and being able to stand still. She would also like kathleen able to go to the movies and be relaxed. Total Visit Count: 2 SUBJECTIVE: Patient reports that her symptoms have mildly improved since the treatment visit in the morning as she is beginning to use the strategies of diaphragmatic breathing and Re setting. She stated it felt strange in her brain to be relaxed as she was with the diaphragmatic breathing and principles of motor retraining Pain Assessment Pain Assessment: 0-10 Numeric Pain Intensity Scale Pain Score: (No pain reported) OBJECTIVE Pain Assessment Pain Assessment: 0-10 Numeric Pain Intensity Scale Pain Score: (No pain reported) TREATMENT Treatment today consisted of: Neuromuscular re-education: * Re setting throughout session with 1-2 minute breaks ?? Reinforced education from the evaluation session regarding the purpose of the week long best program including principles diaphragmatic breathing, stopping and Re setting, recognition of abnormal movements, incorporating breathing combined with movement, and emphasizing quality or quantity ?? Practiced motor retraining with cuing as appropriate in the following exercises progressing from least difficult to more difficult as patient was able to successfully perform with quality * combining breath with movement was the most successful cue ?? Knee flexion extension on towel on floor ?? Toe tapping ?? Sit to stand ?? Pre gait activities in room ?? Lateral weight shifting ?? Anterolateral weight shifting in stride stance ?? Weight shifting in stride stance progressing to taking steps ?? Progressed from unilateral support on mat table to no upper extremity support ?? Trialed sidestepping at mat table, but this was quite difficult for the patient and triggered herabnormal movements which required a 3-4 min stop and reset * patient improved significantly intra session and was able to relax and reset more quickly toward the end of the session compared to the beginning in regards to the onset of her abnormal movements. Assessment Clinical Impression: Shawna White did very well in today's 2nd session and 1st full treatment session of the a week-long best program. She is responding positively to the principles of the program and now has a selfstrategy to manage her abnormal movement symptoms, using diaphragmatic breathing and Re setting. Triggers still exist in complex situations, and she will benefit from further motor retraining in increasingly complex tasks and environment. She responds best to encouragement regarding focusing on diaphragmatic breathing and allowing her abnormal movements to subside rather than trying force them to do so. Functional Goals and Timeframes: PT Goal #1: [...] current plan Other PT Comments: Next Session: Transition pre gait activities to out in more complex environment such as the gym Treatment interventions may include: Treatment/Interventions: Neuromuscular re-education Time Spent with Patient Neuromuscular Re-Education (min): 49 min Time Calculation Total Timed Units (min): 49 min Total Treatment Time (min): 49 min Associated attestation - Anne Mathew P.T., Bere, Mitch. - 02/06/2019 9:57 AM CDT This therapist has reviewed all documentation and supervised today's session. This therapist agrees with the plan of care developed in collaboration with the patient. documented in this encounter Plan of Treatment Not on filedocumented as of this encounter Visit Diagnoses Diagnosis Movement Disorder - Primary Abnormal Movement Involuntary documented in this encounter Care Teams Computer Security Specialist Relationship Specialty Start Date End Date Elsewhere, Pcp PCP - General Family Medicine 10/11/18 documented as of this encounter
--- OUTSIDE RECORDS SUMMARY | 2022-09-26 11:13 | XMS_ITS | Encounter Summary ---
:1955 Author Organization [facility] Address [address] [place] [phone] Care Team Providers Name Role Phone Elsewhere, Pcp Primary Care Provider Unavailable Reason for Visit Physical Therapy (Routine) - Closed Specialty Diagnoses / Procedures Referred By Contact Refer red To Contact Diagnoses Abnormal Movement Involuntary Movement Disorder Serene Echeverria M.D., [facility] Procedures Neurological disease - PT Evaluate and treat Ph.D. [address] [place] [phone] Referral ID Status Reason Start Date Expiration Date Visits Requ ested Visits Authorized [id number] Closed 01/10/2019 01/10/2020 1 1 Encounter Details Date Type Department Care Team Description 02/06/2019 Comprehensive Visit Department of Physical Serene Limon M.D., Ph.D. [address] [place] [phone] Abnormal Movement Involuntary; Medicine and Mitchell Cevallos P.T., D.P.T. Movement Disorder Rehabilitation in [place], [place] [address] [place] [phone] Social History Tobacco Use Types Packs/Day Years [...] How often do you attend sabianism or samaritan services? Never 04/06/2019 Do you [...] this encounter Progress Notes Mitchell Cevallos - 02/06/2019 2:00 PM CDT Physical Therapy Musculoskeletal Outpatient Progress Note SUBJECTIVE Patient's Name: Shawna White Referring Provider: Serene Echeverria M.D., Ph.D. Rehab Diagnosis: 1. Abnormal Movement Involuntary 2. Movement Disorder Reason for Referral: PT eval and treat [...] which she feels she cannot move. Payor: [facility] / Plan: [facility] / Product Type: Medicaid HMO / Patient/Caregiver Goals: Return to bike riding and being able to stand still. She would also like kathleen able to go to the movies and be relaxed. Total Visit Count: 5 SUBJECTIVE: Patient returns for her 5th visit in the week-long best program. She presents to physical therapy without use of her 4 wheeled walker. She states that she did quite a bit of walking with occupational therapy in the session immediately preceding this. She is quite pleased with her progress thus far OBJECTIVE TREATMENT Treatment today consisted of: Neuromuscular re-education: Began session in treatment room and transitioned to gym in parallel bars and finally into open space ?? Treatment room ?? Mental imagery of entering a crowded and busy/loud/noisy restaurant ?? Patient had a significant abnormal movement response, but was able to reset with diaphragmatic breathing on her own ?? Parallel bars (progressing from bilateral to unilateral and finally no upper extremity support within each condition) ?? Slow marches ?? Toe walking ?? Heel walking ?? Retro walking ?? Braiding ?? River stones walking ?? Open space gym ?? Forward walking ?? Walking with intermittent pauses for stop and go re-training ?? Began with verbal stopping go for reactive motor retraining ?? Transition to using hand signals to indicate stopping goal, patient more difficulty with this butimproved significantly within session ?? Obstacle course walking including stepping over shoe boxes, picking up cones, S curve around cones, and stepping onto/off of foam pad * throughout the session patient had several instances of abnormal movements onset especially with the more complex gait/environmental distraction, but is increasing her ability to quickly reset and recover through diaphragmatic breathing Assessment Clinical Impression: Ms. White returns for her 2nd session of the day and 5th overall in the week long best program. This afternoon she progressed to more complex gait activities on even and uneven surfaces in with increasing level of auditory/visual distraction. She will benefit from further skilled therapy to progress her to community ambulation/interaction and give her the strategies [...] with uneven surface ambulation and complex gait in gym, progressing to ambulation in crowded subway Treatment interventions may include: Treatment/Interventions: Neuromuscular re-education Time Spent with Patient Neuromuscular Re-Education (min): 50 min Time Calculation Total Timed Units (min): 50 min Total Treatment Time (min): 50 min Associated attestation - Anne Mathew P.T., Bere, Mitch. - 02/06/2019 4:13 PM CDT This therapist has reviewed all documentation and supervised today's session. This therapist agrees with the plan of care developed in collaboration with the patient. documented in this encounter Plan of Treatment Not on filedocumented as of this encounter Visit Diagnoses Diagnosis Abnormal Movement Involuntary Movement Disorder documented in this encounter Care Teams Chemist Organic Relationship Specialty Start Date End Date Elsewhere, Pcp PCP - General Family Medicine 10/11/18 documented as of this encounter
--- OUTSIDE RECORDS SUMMARY | 2022-09-26 11:13 | XMS_ITS | Encounter Summary ---
:1955 Author Organization [facility] Address [address] [place] [address] Care Team Providers Name Role Phone Elsewhere, Pcp Primary Care Provider Unavailable Reason for Visit Occupational Therapy (Routine) - Closed Specialty Diagnoses / Procedures Referred By Contact Refer red To Contact Diagnoses Abnormal Movement Involuntary Movement Disorder Serene Echeverria M.D., [facility] Procedures Neurological disorder - OT Evaluate and treat Ph.D. [address] [place] [phone] Referral ID Status Reason Start Date Expiration Date Visits Requ ested Visits Authorized [id number] Closed 01/10/2019 01/10/2020 15 15 Encounter Details Date Type Department Care Team Description 02/05/2019 Comprehensive Visit Department of Physical Serene Limon M.D., Ph.D. [address] [place] [phone] Movement Disorder (Primary Dx); Medicine and Hanny Morgan O.T., [facility] Abnormal Movement Involuntary Rehabilitation in [place], [place] [address] [place] [phone] Social History Tobacco Use Types Packs/Day Years [...] How often do you attend anabaptism or sikh services? Never 04/06/2019 Do you [...] this encounter Progress Notes [place] - 02/05/2019 1:00 PM CDT Occupational Therapy Outpatient Progress [...] it wasn't effective. Ms. White reports seeing [facility] for two rounds of treatment [...] symptoms. Payor: [facility] / Plan: [facility] / Product Type: Medicaid HMO / Patient/Caregiver Goals: Limit abnormal body movements. She would like to get back to bike riding. Patient Comments: I would like to have my life back OBJECTIVE TREATMENT Ms. White presented to occupational therapy alone with a 4 wheeled walker for a gait aid. She hadjust eaten lunch outside and was pleased with the nice weather. Treatment today consisted of: The session began with Ms. White seated in a chair working with the block and Velcro Hi-Que boardto challenge her trunk stability while engaged in a cognitive, fine motor task. She was able to quickly gain control of her motions and completed one round of this activity quickly without apparent challenge. Therapist graded the activity up to include sitting on a therapy ball and reaching to place the blocks in a bucket placed on the floor when she had removed them from the board. The first couple blocks proved to be a challenge as evidenced by increased tremoring. She needed verbal cues to fully relax during resetting, including bringing her hands down to her sides and relaxing her shoulders. She demonstrated the ability to regain control with these cues and was able to finish the task without any more issues. Therapist graded task to include one more attempt while sitting on a larger therapy ball requiring a further reach to place the blocks in the bucket. Ms. White got off to a good start with the first 3 blocks taken off the board and placed in the bucket without issue. She was abruptly distracted by a group that walked in to the room to use the other side of the apartment. This caused her to lose control of her movements, resulting in foot tapping progressing to stomping and significant front to back swaying. She was unable to regain control, even with cues to maintain diaphragmatic breathing. She was cued to move back to the chair to regain control. Using diaphragmatic breathing, she was able to regain control of her movements and finished the task without further loss of control. We then moved to the kitchen area to work on gross motor movements. First, Ms. White was instructed to stand from a chair, grab a cone and reach to place it in the cupboard. She was initially instructed to return to her seated position after each cone. She successfully completed 10 kxn-vd-cehyg transfers while placing cones in the cupboard, maintaining quality movements throughout the activity. Therapist then graded the activity to include a step in front of the counter, requiring her to step up before putting each cone in the cupboard. Ms. White initially struggled with the step up, needing a moment to reset and gain control before reaching for a cone. After the initial attempt, she was able to repeat the step [address] and remove the 10 cones from the cupboard while maintaining movement quality and standing for the duration of the task. With her improved quality of movements during standing tasks, therapist facilitated a fine motor/cognitive task, the puzzle game [employer]ulse[employer], to include standing at an adjustable height table. She was observed to gently sway a couple times but these movements did not progress to include her legs or aggressive back and forth swaying and she regained control before continuing the task. She was able to complete 3 puzzles while standing to finish the session. ?? Recommendations: practice diaphragmatic breathing daily; integrate diaphragmatic breathing in to functional activities when experiencing abnormal movement; practice progressive muscle relaxation as needed, initiate resetting at first recognition of symptoms, read at end of day to facilitate muscle relaxation Assessment Clinical Impression: As noted yesterday with regards to the progressive muscle relaxation, auditory stimuli seem to provide a significant distraction to Ms. White and negatively impact her ability to control her movements. Her performance with the [employer] board was under control and relaxed until the distraction of someone else entering the OT apartment threw off her concentration. It took several minutes for her to recover and once she grew accustomed to their presence, her control returned and remained throughout the session. She still seems to be pushing through when she starts to struggle with control, rather than taking a moment to reset before her lack of control progresses to include whole body movements. The time it takes her to regain control through diaphragmatic breathing and relaxation is improving as well as her time between spells. Notable today was her ability to remain standing for 10 minutes whilecompleting functional tasks with quality movements, even at the end of a tiring session. Skilled occu pational therapy is required to work towards maximizing [...] up to 10 visits. Pt is on 4 visit. OT Duration: 1 week Plan: Comments: activities requiring reach (post-its, cones) (sitting--> standing), fine motor with cognitive activity (cards, Hi-Que), standing-->walking with activity (balloon volley, bop-it), dynavision, carrying loads in laundry basket, walk in subway Treatment interventions may include: Therapeutic functional activity Progress: Progress: Progressing toward goals Rehab Potential: Excellent Time Spent with Patient Therapeutic Activity (min): 53 min Time Calculation Total Timed Units (min): 53 min Total Treatment Time (min): 53 min Associated attestation - Hanny Morgan O.T., [...] Involuntary documented in this encounter Care Teams Physician President Relationship Specialty Start Date End Date Elsewhere, Pcp PCP - General Family Medicine 10/11/18 documented as of this encounter
--- OUTSIDE RECORDS SUMMARY | 2022-09-26 11:13 | XMS_ITS | Encounter Summary ---
:1955 Author Organization [facility] Address [address] [place] [address] Care Team Providers Name Role Phone Elsewhere, Pcp Primary Care Provider Unavailable Encounter Details Date Type Department Care Team Description 01/26/2019 Clinical Communication Department of Physical Cl Parris rueda Medicine and [address] [place] [address] Rehabilitation in [place], [place] [phone] [place] [address] [place], [place] (Work) [phone] Social History Tobacco Use Types Packs/Day Years [...] How often do you attend anabaptist or jainism services? Never 04/06/2019 Do you belong to [...] this encounter Miscellaneous Notes Telephone Encounter - Parris Starr - 01/26/2019 10:46 AM CDT Lmtcb to confirm best program starting 02/04 documented in this encounter Plan of Treatment Not on filedocumented as of this encounter Visit Diagnoses Not on filedocumented in this encounter Care Teams Coil Tester Relationship Specialty Start Date End Date Elsewhere, Pcp PCP - General Family Medicine 10/11/18 documented as of this encounter
--- OUTSIDE RECORDS SUMMARY | 2022-09-26 11:13 | XMS_ITS | Encounter Summary ---
:1955 Author Organization [facility] Address [address] [place] [address] Care Team Providers Name Role Phone Elsewhere, Pcp Primary Care Provider Unavailable Reason for Visit Occupational Therapy (Routine) - Closed Specialty Diagnoses / Procedures Referred By Contact Refer red To Contact Diagnoses Abnormal Movement Involuntary Movement Disorder Serene Echeverria M.D., [facility] Procedures Neurological disorder - OT Evaluate and treat Ph.D. [address] [place] [phone] Referral ID Status Reason Start Date Expiration Date Visits Requ ested Visits Authorized [id number] Closed 01/10/2019 01/10/2020 15 15 Encounter Details Date Type Department Care Team Description 02/06/2019 Comprehensive Visit Department of Physical Serene Limon M.D., Ph.D. [address] [place] [phone] Abnormal Movement Involuntary; Medicine and Hanny Morgan O.T., O.T.Mraal. Movement Disorder Rehabilitation in [place], [place] [address] [place] [phone] Social History Tobacco Use Types Packs/Day Years [...] week 04/06/2019 How often do you attend druze or latter-day services? Never 04/06/2019 Do you belong to any clubs or organizations such as druze N o 04/06/2019 groups, unions, fraternal or [...] this encounter Progress Notes [place] - 02/06/2019 1:00 PM CDT Occupational Therapy Outpatient Progress Note SUBJECTIVE Patient's Name: Shawna White Referring Provider: Serene Echeverria M.D., Ph.D. Rehab Diagnosis: 1. Abnormal Movement Involuntary 2. Movement Disorder Reason for Referral: Patient referred to occupational [...] it wasn't effective. Ms. White reports seeing [facility] for two rounds of treatment [...] on her back reduces her symptoms. Payor: [facility] / Plan: [facility] / Product Type: Medicaid HMO / Patient/Caregiver Goals: Limit abnormal body movements. She would like to get back to bike riding. Patient Comments: I would like to have my life back OBJECTIVE TREATMENT Ms. White presents to occupational therapy alone and without a gait aid. She is proud to report it is the first time she has walked in public without a gait aid in 18 months. Treatment today consisted of: We first walked around the patient areas of the [place] 14th floor and the neighboring building. As shegrew comfortable ambulating without a gait aid in a relatively crowded environment, therapist implemented a scavenger javier to incorporate visual scanning and problem solving with her ambulation. Ms. David guerra was able to walk in the crowded patient area for 15 minutes while engaged in a cognitive activity with no noticeable loss of control. Therapist then facilitated a game of balloon volleyball to challenge her dynamic balance and abilityto react to an unpredictable object. She initially struggled, noticeably losing her balance. Ms. White took the appropriate time to reset and reengaged in the activity. She again lost her balance, but was able to reset and regain control. On the third attempt, she maintained control even as therapist progressively challenged her front to back and lateral movements. Therapist then instructed Ms. White to walk in a 10' diameter ruby, bouncing a tennis ball with each step. Initially she frequently dropped the tennis ball, requiring her to walk in an unplanned direction to retrieve the ball, bend down to pick it up, and return to her previous position. Her performance in this task improved andtherapist instructed her to alternate bouncing with each hand. No noticeable loss of control was observed throughout this activity, even through repeated bending and unpredictable changes of direction. We returned to the apartment for the game Bop-It to challenge Ms. White's ability to follow unpredictable auditory cues and control her movements when executing these actions. Therapist facilitated this as a standing task to further challenge her balance and control. No loss of control was notedand Ms. White was observed to integrate diaphragmatic breathing throughout the task. Finally, therapist facilitated a basic laundry task to promote increased performance in a task identified on her COPM as an area she would like to improve. Ms. White specifically identified the repeated bending as the most challenging aspect of laundry. Therapist instructed on proper body mechanicsand Pat was instructed to remove towels from the dryer one at a time, bring them to a nearby table, and fold them. This required repeated bending and 180 degree turning to take the 6 towels and scrubs to the table to be folded. No loss of control was noticeable. Then, she was instructed to remove the laundry from the dryer, place it in a laundry basket, and carry it around the apartment, a distance of ~50'. She had previously loaded her laundry onto her walker, so this was a task in which she had not engaged in some time. She was able to carry the clothes and laundry basket, maintaining body mechanics and movement control throughout. ?? Recommendations: practice diaphragmatic breathing daily; integrate diaphragmatic breathing in to functional activities when experiencing abnormal movement; practice progressive muscle relaxation as needed, initiate resetting at first recognition of symptoms, take as much time as needed to reset Assessment Clinical Impression: We had a busy and challenging session today with lots of transition between activities. Ms. Whitehandled the activity and stimulation quite well. In comparison to yesterday, when unpredicted soundsin the hallway brought on symptom onset from which she took a couple minutes to recover, she was able to maintain focus and attention to task regardless of the external stimuli. This was true whether the distraction was bystanders in the waiting room or therapy gym, or the music and verbal cues in [facility] game. She has also now repeatedly shown the ability to integrate skills such as diaphragmaticbreathing and resetting into functional tasks. When she was noticeably losing her balance at the beginning of balloon volleyball she demonstrated the ability to regain control through utilizing these strategies without cues from the therapist. Skilled occupational therapy is required to work [...] up to 10 visits. Pt is on 6 visit. OT Duration: 1 week Plan: Comments: fine motor with cognitive activity (cards, Hi-Que pegs), dynavision, walk in subway Treatment interventions may include: Therapeutic functional activity Progress: Progress: Progressing toward goals Rehab Potential: Excellent Time Spent with Patient Therapeutic Activity (min): 55 min Time Calculation Total Timed Units (min): 55 min Total Treatment Time (min): 55 min Associated attestation - Hanny Morgan O.T., [...] Disorder documented in this encounter Care Teams Sales Order Clerk Relationship Specialty Start Date End Date Elsewhere, Pcp PCP - General Family Medicine 10/11/18 documented as of this encounter
--- OUTSIDE RECORDS SUMMARY | 2022-09-26 11:13 | XMS_ITS | Encounter Summary ---
:1955 Author Organization [facility] Address [address] [place] [id number] Care Team Providers Name Role Phone Elsewhere, Pcp Primary Care Provider Unavailable Reason for Visit Physical Therapy (Routine) - Closed Specialty Diagnoses / Procedures Referred By Contact Refer red To Contact Diagnoses Abnormal Movement Involuntary Movement Disorder Serene Echeverria M.D., [facility] Procedures Neurological disease - PT Evaluate and treat Ph.D. [address] [place] [phone] Referral ID Status Reason Start Date Expiration Date Visits Requ ested Visits Authorized [id number] Closed 01/10/2019 01/10/2020 1 1 Encounter Details Date Type Department Care Team Description 02/06/2019 Comprehensive Visit Department of Physical Serene Limon M.D., Ph.D. [address] [place] [phone] Abnormal Movement Involuntary; Medicine and Mitchell Cevallos P.T., D.P.T. Movement Disorder Rehabilitation in [place], [place] [address] [place] [phone] Social History Tobacco Use Types Packs/Day Years [...] How often do you attend confucianist or lutheran services? Never 04/06/2019 Do you [...] encounter Progress Notes Mitchell Cevallos - 02/06/2019 11:00 AM CDT Physical Therapy Musculoskeletal Outpatient [...] which she feels she cannot move. Payor: [facility] / Plan: [facility] / Product Type: Medicaid HMO / Patient/Caregiver Goals: Return to bike riding and being able to stand still. She would also like kathleen able to go to the movies and be relaxed. Total Visit Count: 4 SUBJECTIVE: Patient returns for her 4th visit in the week-long best program. She states that she feels so much more relaxed now compared to the beginning of the week. She also had a more restful night of sleep issues able to relax more easily. OBJECTIVE TREATMENT Treatment today consisted of: Neuromuscular re-education: Reviewed idea of body scanning, identifying which muscles are turned on or off at a certain time, and working to only have necessary muscles active, allowing all others to relax. Began session in treatment room and transitioned to gym in parallel bars and finally into open space ?? Treatment room ?? Sit to stands, timing breath to movement ?? Lateral weight shifts in normal state progressing to anterolateral weight shifting and posterolateral weight shifting in staggered stance ?? Parallel bars (progressing from bilateral to unilateral and finally no upper extremity support within each condition) ?? Forward walking ?? Lateral stepping ?? Slow marches ?? Toe walking ?? Heel walking ?? Retro walking ?? Exaggerated stride length walking ?? Braiding ?? Open space gym ?? Forward walking ?? Walking with intermittent pauses for stop and go re-training ?? S curve walking ?? Changing direction based on therapist walking towards patient, practicing reaction time to step to the side to avoid running into the therapist ?? Walking with therapist sporadically walking in front and close by patient in a random fashion ?? Forward walking with dual tasking including arithmetic challenges * throughout the session patient had several instances of abnormal movements onset especially with the more complex gait/environmental distraction, but is increasing her ability to quickly reset and recover through diaphragmatic breathing Assessment Clinical Impression: Ms. White is significantly improving using the principles of the best program, emphasizing motor retraining and diaphragmatic breathing while Re- setting. This morning she progressed to more complex gait activities in more complex environments and is demonstrating improved ability to recognize her ab normal movements and appropriately reset and focus on smooth, quality motion. She will benefit from further skilled therapy [...] Other PT Comments: Next Session: Continue with complex gait activities in gym, progressed to dual tasking and complex environment Treatment interventions may include: Treatment/Interventions: Neuromuscular re-education Time Spent with Patient Neuromuscular Re-Education (min): 53 min Time Calculation Total Timed Units (min): 53 min Total Treatment Time (min): 53 min Associated attestation - Anne Mathew P.T., D.P.T., [place] - 02/06/2019 4:12 PM CDT This therapist has reviewed all documentation and supervised today's session. This therapist agrees with the plan of care developed in collaboration with the patient. documented in this encounter Plan of Treatment Not on filedocumented as of this encounter Visit Diagnoses Diagnosis Abnormal Movement Involuntary Movement Disorder documented in this encounter Care Teams Negative Turner Relationship Specialty Start Date End Date Elsewhere, Pcp PCP - General Family Medicine 10/11/18 documented as of this encounter
--- OUTSIDE RECORDS SUMMARY | 2022-09-26 11:13 | XMS_ITS | Encounter Summary ---
:1955 Author Organization [facility] Address [address] [place] [phone] Care Team Providers Name Role Phone Elsewhere, Pcp Primary Care Provider Unavailable Reason for Visit Occupational Therapy (Routine) - Closed Specialty Diagnoses / Procedures Referred By Contact Refer red To Contact Diagnoses Abnormal Movement Involuntary Movement Disorder Serene Echeverria M.D., [facility] Procedures Neurological disorder - OT Evaluate and treat Ph.D. [address] [place] [phone] Referral ID Status Reason Start Date Expiration Date Visits Requ ested Visits Authorized [id number] Closed 01/10/2019 01/10/2020 15 15 Encounter Details Date Type Department Care Team Description 02/05/2019 Comprehensive Visit Department of Physical Serene Limon M.D., Ph.D. [address] [place] [phone] Movement Disorder (Primary Dx); Medicine and Hanny Morgan O.T., O.T.Corky Abnormal Movement Involuntary Rehabilitation in [place], [place] [address] [place] [phone] Social History Tobacco Use Types Packs/Day Years [...] How often do you attend mandaeism or advent services? Never 04/06/2019 Do you belong to [...] encounter Progress Notes [place] - 02/05/2019 10:00 AM CDT Occupational Therapy Outpatient Progress [...] symptoms. Payor: [facility] / Plan: [facility] / Product Type: Medicaid HMO / Patient/Caregiver Goals: Limit abnormal body movements. She would like to get back to bike riding. Patient Comments: I would like to have my life back OBJECTIVE TREATMENT Ms. White presented to occupational therapy alone with a 4 wheeled walker for a gait aid. Treatment today consisted of: The morning session began with an edge of bed seated activity to facilitate controlled trunk movements on an uneven surface. Therapist placed cones on the ground and Ms. White was instructed to reach down with the ipsilateral hand to grab a cone, bring it to her body, transfer it to the other hand,and then reach down to place it on the floor on the opposite side. Ms. White performed two of these quite well and then began to transfer cones to the other hand before returning to the fully upright position. Therapist cued her to return to the upright position and ensure that she has control before reaching down to place the cone with the rationale that it is important to master the simple movements first, before linking together more complex movements. Therapist also had to frequently cue Ms. White to reset and regain control rather than pushing through the movement. The amount of time Shawna needed to regain control after her leg and body began shaking decreased throughout the activity. The frequency of cues needed to break and reset also decreased over the course of the activity. Next, while still seated edge of bed, therapist produced a Bosu Ball on which Ms. White was instructed to place her feet and use controlled movements to steer a tennis ball towards numbers (1,2, 3) taped on the flat surface of the Bosu. Therapist called out a number (1,2, or 3) for Ms. White to direct the tennis ball towards using the actions of her legs and feet. She was able to maintain control of her leg and trunk movements throughout the majority of the activity with only one small loss ofcontrol noticed, from which she quickly recovered with cueing from therapist. ?? Recommendations: practice diaphragmatic breathing daily; integrate diaphragmatic breathing in to functional activities when experiencing abnormal movement; practice progressive muscle relaxation as needed Assessment Clinical Impression: Ms. White struggles with differentiating between controlled and uncontrolled movements and as a result, struggles recognizing when she needs to reset. When therapist advised that when her foot starts tapping would be a good time to reset, she said she did not realize that she had been tapping her foot. Through two sessions, it is apparent that Ms. White does better at controlling her movements when she is engaged in an activity than when she is at rest. The constant engagement that the Bosu/tennis ball activity required made it easier for her to maintain control and focus than the cones whichrequired frequent resting. Skilled occupational therapy is required to work [...] up to 10 visits. Pt is on 3 visit. OT Duration: 1 week Plan: Comments: [...] min Total Treatment Time (min): 32 min Associated attestation - Hanny Morgan O.T., [...] Involuntary documented in this encounter Care Teams Urogynecology Physician Relationship Specialty Start Date End Date Elsewhere, Pcp PCP - General Family Medicine 10/11/18 documented as of this encounter
--- OUTSIDE RECORDS SUMMARY | 2022-09-26 11:13 | XMS_ITS | Encounter Summary ---
:1955 Author Organization [facility] Address [address] [place] [address] Care Team Providers Name Role Phone Elsewhere, Pcp Primary Care Provider Unavailable Encounter Details Date Type Department Care Team Description 11/05/2018 Abstract [facility] NICOLE Irvin ea Provider, Historical [address] [place] [phone] Social History Tobacco Use Types Packs/Day Years Used Date Smoking Tobacco: Former Cigarettes Quit : 04/2003 Alcohol Use Standard Drinks/Week Comments No 0 [...] How often do you attend anglican or anglican services? Never 04/06/2019 Do you belong to [...] on filedocumented in this encounter Care Teams Fire Engineer Relationship Specialty Start Date End Date Elsewhere, Pcp PCP - General Family Medicine 10/11/18 documented as of this encounter
--- OUTSIDE RECORDS SUMMARY | 2022-09-26 11:13 | XMS_ITS | Encounter Summary ---
:[address] [facility] Address [address] [place] [phone] Care Team Providers Name Role Phone Elsewhere, Pcp Primary Care Provider Unavailable Reason for Visit Occupational Therapy (Routine) - Closed Specialty Diagnoses / Procedures Referred By Contact Refer red To Contact Diagnoses Abnormal Movement Involuntary Movement Disorder Serene Echeverria M.D., [facility] Procedures Neurological disorder - OT Evaluate and treat Ph.D. [address] [place] [phone] Referral ID Status Reason Start Date Expiration Date Visits Requ ested Visits Authorized [id number] Closed 01/10/2019 01/10/2020 15 15 Encounter Details Date Type Department Care Team Description 02/04/2019 Comprehensive Visit Department of Physical Serene Limon M.D., Ph.D. [address] [place] [phone] Abnormal Movement Involuntary (Primary D x); Medicine and Hanny Morgan O.T., O.T.D. Movement Disorder Rehabilitation in [place], [place] [address] [place] [phone] Social History Tobacco Use Types Packs/Day Years [...] week 04/06/2019 How often do you attend pentecostalism or judaism services? Never 04/06/2019 Do you belong to any clubs or organizations such as pentecostalism N o 04/06/2019 groups, unions, fraternal or [...] this encounter Progress Notes [place] - 02/04/2019 4:00 PM CDT Occupational Therapy Outpatient Progress Note [...] it wasn't effective. Ms. White reports seeing [facility] for two rounds of treatment [...] Payor: [facility] / Plan: [facility] / Product Type: Medicaid HMO / Total Visit Count: Visit count could not be calculated. Make sure you are using a visit which is associated with an episode. Patient/Caregiver Goals: Limit abnormal body movements. She would like to get back to bike riding. Patient Comments: I would like to have my life back OBJECTIVE TREATMENT Ms. White presented to occupational therapy alone with a 4 wheeled walker for a gait aid. She said she felt more relaxed than she had in a long time. Treatment today consisted of: The patient participated in progressive muscle relaxation to reeducate the body on differences between relaxed and tense states. This should be coupled with the diaphragmatic breathing for an optimal result. Ms. White struggled with the progressive muscle relaxation. She would begin tremoring to the point where she would sit up and need cues to keep breathing with the diaphragm to regain control. This became the focus of the session as Ms. White was unable to maintain controlled movements while castillo her muscles and had to reset multiple times during the session. She did demonstrate theability to regain control of her body through diaphragmatic breathing and was able to remain still and under control for longer and longer periods of time as the session progressed. ?? Recommendations: practice diaphragmatic breathing daily; integrate diaphragmatic breathing in to functional activities when experiencing abnormal movement; practice progressive muscle relaxation as needed Assessment Clinical Impression: At least some of Ms. White's struggles with the progressive muscle relaxation seemed to stem fromthe external cueing from the tape. She was unable to listen to the cues, tense the indicated muscles, and maintain diaphragmatic breathing at the same time. Therapist assured her that this wasn't unusual and focused the remainder of the session on using diaphragmatic breathing to regain control after her spells of tremoring. Therapist encouraged her to read the written instructions revisit the technique in the next couple days without the tape so she could proceed at her own pace. Skilled occupational therapy is required to work [...] up to 10 visits. Pt is on 2 visit. OT Duration: 1 week Plan: Comments: [...] Time (min): 30 min Associated attestation - Hanny Morgan O.T., [...] Disorder documented in this encounter Care Teams Lime Kiln Operator Relationship Specialty Start Date End Date Elsewhere, Pcp PCP - General Family Medicine 10/11/18 documented as of this encounter
--- OUTSIDE RECORDS SUMMARY | 2022-09-26 11:13 | XMS_ITS | Encounter Summary ---
:1955 Author Organization [facility] Address [address] [place] [phone] Care Team Providers Name Role Phone Elsewhere, Pcp Primary Care Provider Unavailable Reason for Visit Occupational Therapy (Routine) - Closed Specialty Diagnoses / Procedures Referred By Contact Refer red To Contact Diagnoses Abnormal Movement Involuntary Movement Disorder Serene Echeverria M.D., [facility] Procedures Neurological disorder - OT Evaluate and treat Ph.D. [address] [place] [phone] Referral ID Status Reason Start Date Expiration Date Visits Requ ested Visits Authorized [id number] Closed 01/10/2019 01/10/2020 15 15 Encounter Details Date Type Department Care Team Description 02/06/2019 Comprehensive Visit Department of Physical Serene Limon M.D., Ph.D. [address] [place] [phone] Movement Disorder (Primary Dx); Medicine and Hanny Morgan O.T., O.T.Corky Abnormal Movement Involuntary Rehabilitation in [place], [place] [address] [place] [phone] Social History Tobacco Use Types Packs/Day Years [...] How often do you attend yarsani or christianity services? Never 04/06/2019 Do you [...] encounter Progress Notes [place] - 02/06/2019 10:30 AM CDT Occupational Therapy Outpatient Progress Note [...] it wasn't effective. Ms. White reports seeing [facility] for two rounds of treatment [...] on her back reduces her symptoms. Payor: [facility] / Plan: [facility] / Product Type: Medicaid HMO / Patient/Caregiver Goals: Limit abnormal body movements. She would like to get back to bike riding. Patient Comments: I would like to have my life back OBJECTIVE TREATMENT Ms. White presents to occupational therapy alone with a 4 wheeled walker for a gait aid. She reports no abnormal movements since yesterday's session. Treatment today consisted of: Therapist facilitated cognitive task in the form of a memory matching card game with gross motor component requiring patient to stand and turn to find the corresponding matches. For the first round, 8 cards were placed face down on the counter with the matches placed on the counter to the right requiring a lateral step and a 90 degree turn. Ms. White was able to successfully match the cards, completing each turn with no abnormal movements. Therapist graded the task by increasing the number of cards and placing the corresponding matches on the counter behind her, requiring 180 degree turns and two steps. Therapist provided one cue for utilizing proper body mechanics, squaring up close to the counter rather than leaning and reaching, but otherwise Ms. White completed the task with quality movements and no loss of control. The next activity was the card game Spot It which requires a significant visual integration cognitive component to find matching items on adjacent cards. This activity was also performed standing andtherapist placed the draw pile in the cabinet directly behind the patient. Each time she needed to grab a new card, she had to turn 180 degrees, take three steps to the cabinet, step up on a step to reach in the cabinet, step down and turn around to return to the game. She demonstrated the ability to control these motions and was able to combine turning and stepping into one motion with no loss of balance. Therapist further graded the activity up by moving the draw pile to a higher shelf requiring more reach and upward head tilt, providing a greater challenge to maintain balance. Ms. White was still able to maintain control, balance, and quality of movement throughout, even with the added challenge. By the end of the session, she stood for 28 consecutive minutes with no gait aid and no loss ofcontrol. ?? Recommendations: integrate diaphragmatic breathing in to functional activities when experiencing abnormal movement; practice progressive muscle relaxation as needed, initiate resetting at first recognition of symptoms, take as much time as you need to reset, utilize proper body mechanics during activity Assessment Clinical Impression: Patient has made significant improvements since yesterday. Her swaying and foot- tapping during periods of inactivity were dramatically reduced--no foot tapping and 3 brief instances of swaying from which she quickly recovered were noted-- and her movement was controlled throughout. There were no distractions present which may have played a role in her lack of uncontrolled movements. Therapist will work to facilitate future sessions in settings with more visual and auditory stimuli to provide better simulation of real-life environments. Skilled occupational therapy is required to work [...] up to 10 visits. Pt is on 5 visit. OT Duration: 1 week Plan: Comments: fine motor with cognitive activity (cards, Hi-Que), standing-->walking with activity (balloon volley, bop-it), dynavision, carrying loads in laundry basket, walk in subway Treatment interventions may include: Therapeutic functional activity Progress: Progress: Progressing toward goals Rehab Potential: Excellent Time Spent with Patient Therapeutic Activity (min): 28 min Time Calculation Total Timed Units (min): 28 min Total Treatment Time (min): 28 min Associated attestation - Hanny Morgan O.T., O.TLilian - 02/10/2019 1:29 PM CDT This therapist has reviewed all documentation and supervised today's session. This therapist agrees with the plan of care developed in collaboration with the patient. documented in this encounter Plan of Treatment Not on filedocumented as of this encounter Visit Diagnoses Diagnosis Movement Disorder - Primary Abnormal Movement Involuntary documented in this encounter Care Teams Fruit Grading Supervisor Relationship Specialty Start Date End Date Elsewhere, Pcp PCP - General Family Medicine 10/11/18 documented as of this encounter
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
--- OUTSIDE RECORDS SUMMARY | 2022-09-26 11:13 | XMS_ITS | Encounter Summary ---
:1955 Author Organization [facility] Address [address] [place] [phone] Care Team Providers Name Role Phone Elsewhere, Pcp Primary Care Provider Unavailable Reason for Visit Physical Therapy (Routine) - Closed Specialty Diagnoses / Procedures Referred By Contact Refer red To Contact Diagnoses Abnormal Movement Involuntary Movement Disorder Serene Echeverria M.D., [facility] Procedures Neurological disease - PT Evaluate and treat Ph.D. [address] [place] [phone] Referral ID Status Reason Start Date Expiration Date Visits Requ ested Visits Authorized [id number] Closed 01/10/2019 01/10/2020 1 1 Encounter Details Date Type Department Care Team Description 02/05/2019 Comprehensive Visit Department of Serene Echeverria M.D., Ph.D. [address] [place] [phone] Abnormal Movement Physical Medicine and Kelsey Restrepo P.T., D.P.T. [address] [place] [phone] Involuntary Rehabilitation in (Primary D x) [place], [place] [address] [place] [phone] Social History Tobacco Use Types Packs/Day Years [...] How often do you attend yarsani or rastafarian services? Never 04/06/2019 Do you belong to [...] documented as of this encounter Progress Notes Kelsey Restrepo P.T., D.P.T. - 02/05/2019 11:00 AM CDT Physical Therapy Musculoskeletal Outpatient Progress Note SUBJECTIVE Patient's Name: Shawna White Referring Provider: Serene Echeverria M.D., Ph.D. Rehab Diagnosis: 1. Abnormal Movement Involuntary Reason for Referral: PT [...] which she feels she cannot move. Payor: [facility] / Plan: [facility] / Product Type: Medicaid HMO / Patient/Caregiver Goals: Return to bike riding and being able to stand still. She would also like kathleen able to go to the movies and be relaxed. Patient comments: Patient reports that the breathing exercises have been a challenge. She feels her body fights against the act of relaxing. Total Visit Count: 3 SUBJECTIVE: OBJECTIVE TREATMENT Treatment today consisted of: Neuromuscular re-education: Instructed patient to perform body scanning, identifying which muscles are turned on or off at a certain time, and working to only have necessary muscles active, allowing all others to relax. Patient performed the following gait re-training activities in the // bars: - forward/backward weight shifting in staggered stance - forward/backward stepping Patient was instructed in heel strike and weight shifting to help re-learn a normal walking pattern.Patient used hand support when needed for safety. High repetition was used to facilitate muscle memory. Patient was cued to ???reset?? when symptoms occurred. Educated patient in the exercise of mental imagery. We talked about situations or environments that she struggles with. As the therapist began to describe the mental imagery exercise the patient had anincrease in her symptoms. Patient was provided guidance for posture, breathing and relaxation to regain control. Patient was encouraged to practice this for going into a restaurant or going to a movie. Assessment Clinical Impression: Patient demonstrated and verbalized excellent understanding of the retraining principles. She understands that it will take repetition and consistency for the body to improve its ability to control thejerking movements. Patient will continue to practice using the strategies when in between therapy sessions. Functional Goals and Timeframes: PT Goal #1: [...] min Total Treatment Time (min): 60 min documented in this encounter Plan of Treatment Not on filedocumented as of this encounter Visit Diagnoses Diagnosis Abnormal Movement Involuntary - Primary documented in this encounter Care Teams Milling Supervisor Relationship Specialty Start Date End Date Elsewhere, Pcp PCP - General Family Medicine 10/11/18 documented as of this encounter
--- OUTSIDE RECORDS SUMMARY | 2022-09-26 11:15 | XMS_ITS | Clinical Summary ---
:1955 Author Organization [facility] Address [address] [place] [address] Care Team Providers Name Role Phone Samreen Romano Primary Care Provider Allergies Active Allergy Reactions Severity Noted Date Comments Sulfa Drugs Hives 04/12/2017 Medications Medication Sig Dispensed Refills Start Date End Date Status levothyroxine Take 88 mcg by 0 A ctive (SYNTHROID/LEVOTHROID) mouth daily 88 MCG tablet omeprazole (PRILOSEC) Take 40 mg by [address] capsule mouth daily rosuvastatin (CRESTOR) Take 10 mg by 0 Active 10 MG tablet mouth daily sertraline (ZOLOFT) Take 100 mg by 0 Active 100 MG tablet mouth daily ramipril (ALTACE) 5 MG Take 5 mg by mouth 0 Active capsule daily Melatonin 10 MG TABS Take 10 mg by 0 Active tablet mouth nightly as needed for sleep Magnesium Oxide 500 MG Take 1 capsule by 0 Active CAPS mouth daily docusate sodium Take 100 mg by 0 Active (COLACE) 100 MG mouth daily as capsule needed for constipation fluticasone (FLONASE) [place] 1 spray into 0 Active 50 MCG/ACT nasal spray both nostrils daily clobetasol (TEMOVATE) Apply topically 0 Active 0.05 % CREA cream twice a week acetaminophen Take 650 mg by 0 A ctive (TYLENOL) 650 MG CR mouth every 8 tablet hours as needed for mild pain aspirin 81 MG EC Take by mouth 0 Active tablet daily No dose listed NONFORMULARY Delta 9 edibles 0 Active oxyCODONE (ROXICODONE) Take 1 tablet (5 12 tablet 0 08/22/2022 Active 5 MG mg) by mouth every tabletIndications: 6 hours as needed Differentiated vulvar for pain intraepithelial neoplasia (dVIN) SENNA-docusate sodium Take 1-2 tablets 20 tablet 0 08/22/2022 Active (SENNA S) 8.6-50 MG by mouth 2 times tabletIndications: daily Take while Differentiated vulvar taking oxycodone intraepithelial neoplasia (dVIN) Active Problems Problem Noted Date 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 Lichen sclerosus 07/06/2022 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 H/O: CVA (cerebrovascular accident) 07/06/2022 Hypercholesterolemia 07/06/2022 Hypothyroidism 07/06/2022 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 Encounters Date Type Specialty Care Team Description 08/22/2022 Anesthesia Event Surgery Gerald Barnes MD 08/22/2022 Surgery Surgery Krysten Mcgregor PARTIAL SIMPLE VULVECTOMY MD Rahel 08/22/2022 Hospital Encounter Surgery Krysten Mcgregor Different iated vulvar MD Rahel intraepithelia l neoplasia (dVIN) (Primary Dx) 08/22/2022 Travel 08/03/2022 Travel from Last 3 Months Social History Tobacco Use Types Packs/Day Years Used Date Smoking Tobacco: Former Cigarettes Smokeless Tobacco: Never Tobacco Cessation: Counseling Given: Not Answered Alcohol Use Standard Drinks/Week Comments Yes 0 (1 standard drink = 0.6 oz pure alcoho l) dependence in remission Sex Assigned at Date Recorded Not on file Last Filed Vital Signs Vital Sign Reading Time Taken Comments Blood Pressure 115/69 08/22/2022 10:20 AM CARRY OUT CLERK Pulse 54 08/22/2022 9:37 AM CARRY OUT CLERK Temperature 36.5 ??C (97.7 ??F) 08/22/2022 9:37 AM CARRY OUT CLERK Respiratory Rate 16 08/22/2022 10:20 AM CARRY OUT CLERK Oxygen Saturation 98% 08/22/2022 10:20 AM CARRY OUT CLERK Inhaled Oxygen Concentration - - Weight 77.5 kg (170 lb 12.8 oz) 08/22/2022 6:31 AM CARRY OUT CLERK Height 160 cm (5' 3) 08/22/2022 6:31 AM CARRY OUT CLERK Body Mass Index 30.26 08/22/2022 6:31 AM CARRY OUT CLERK Plan of Treatment Health Maintenance Due Date Last Done Comments ADVANCE CARE PLANNING 1955 ANNUAL REVIEW OF HM ORDERS 1955 CT COLONOGRAPHY 1955 DEXA 1955 FIT-DNA (Cologuard) 1955 FIT 1955 FLEX SIG 1955 MAMMO SCREENING 1955 COLONOSCOPY 1964 COLORECTAL CANCER SCREENING 1964 HEPATITIS C SCREENING 1972 LIPID 1999 LUNG CANCER SCREENING 2004 FALL RISK ASSESSMENT 2019 MEDICARE ANNUAL WELLNESS 2019 VISIT DTAP/TDAP/TD IMMUNIZATION 06/08/2021 06/08/2011 (2 - Td or Tdap) COVID-19 Vaccine (4 - 10/08/2021 08/13/2021, 01/15/2021, Booster for Moderna series) 12/17/2020 PHQ-2 (once per calendar 10/16/2021 year) ZOSTER IMMUNIZATION Completed 05/30/2019, 02/16/2019 Pneumococcal Vaccine: 65+ Completed 09/22/2020, 10/15/2019 Years INFLUENZA VACCINE Completed 07/21/2022, 09/23/2021, 09/22/2020, Additional history exists IPV IMMUNIZATION Aged Out No longer eligi ble based on patient 's age to complete this topic MENINGITIS IMMUNIZATION Aged Out No longe r eligible based on patient 's age to complete this topic Procedures Procedure Name Priority Date/Time Associated Comments Diagnosis SURGICAL PATHOLOGY Routine 08/22/2022 8:31 AM Res ults for this EXAM CARRY OUT CLERK procedure are i n the results section. ANE AIRWAY ETT Routine 08/22/2022 8:19 AM Results for this PERFORMABLE CARRY OUT CLERK procedure are i n the results section. VULVECTOMY, SIMPLE 08/22/2022 8:03 AM Lichen sclerosus of CARRY OUT CLERK vulva from Last 3 Months Results Surgical Pathology Exam (08/22/2022 8:31 AM CARRY OUT CLERK) Component Value Ref Test Analysis Performed At [facility] Method Time Signature Case Report Surgical Pathology Report ? Case: [id number] ? 08/23/2022 Authorizing Provider: ??Case y, Krysten Mcginnis MD ?? Collected: ? 08/22/2022 08:31 AM ? 11:40 AM LABORATOR Y Ordering Location: ? [facility] ?Received: ?08/22/2022 08:52 AM ? CARRY OUT CLERK ? [facility] ? Pathologist: ? Hadley Reeves, ? MD ? Specimen: ?Vulva, PARTIA L POSTERIOR VULVECTOMY ? Final Vulva, posterior, partial vulvectomy- Electronically Diagnosis Lichen sclerosis at atrophic us, no evidence of dysplasia or malignancy 11:40 AM LABORATORY signed by Hadley Hwang MD on 08/23/2022 at 11:40 AM Comment Intradepartmental 08/23/2022 consultation has 11:40 AM LABORATORY been obtained CARRY OUT CLERK Clinical Procedure: 08/23/2022 Information PARTIAL SIMPLE VULVECTOMY 11:40 AM [facility] Pre-op Diagnosis: Lichen sclerosus of vulva [N90.4] CARRY OUT CLERK Post-op Diagnosis: N90.4 - Lichen sclerosus of vulva [ICD-10 -CM] Gross A(1). Vulva, PARTIAL POSTERIOR VULVECTOMY: 08/23/2022 Description The specimen is received in formalin, labeled with the patient's name, medical record number and other identifying information designated partial posterior vulvectomy. It consists of juárez-maurer wrinkled 11:40 AM LABORATORY partial vulvectomy (1.5 x 0 .8 x 0.3 cm). There is a suture attached without orientation and is assigned by the lab at the 12 o'clock position. The 3:00 half is inked blue and the 9:00 half is inked vinny CARRY OUT CLERK ck. The skin surface is irre gular and wrinkled without definitive mass lesion. The specimen is serially sectioned and entirely sequentially submitted in 4 cassettes from 12:00 to 6:00. ([facility] DEL[facility]) Microscopic Microscopic 08/23/2022 Description performed 11:40 AM LABORATORY CARRY OUT CLERK Performing The technical 08/23/2022 Labs component of this 11:40 AM LABORATORY testing was CARRY OUT CLERK completed at [facility] Laboratory Case Images 08/23/2022 11:40 AM LABORATORY CARRY OUT CLERK Specimen Anatomical Collection Method Collection Time Receive d Time (Source) Location / / Volume Laterality Tissue VULVAL STRUCTURE / 08/22/2022 8:31 AM 04/2022 8:52 Unknown CARRY OUT CLERK AM CARRY OUT CLERK Krysten SOTO - JOANN HARMAN Performing Organization Address City/State/ZIP Code Phon [place] [address] Care Lab [address] floor, Room 20B ANE AIRWAY ETT PERFORMABLE (08/22/2022 8:19 AM CARRY OUT CLERK) Narrative Any Martinez APRN CITY ALDERMAN - 08/22/2022 8:19 AM CARRY OUT CLERK Any Martinez APRN CITY ALDERMAN ? 08/22/2022 ??8:33 AM Airway ? Patient location during procedure : OR ? Procedure Start/Stop Times: 2021 8:19 AM Staff - ? Anesthesiologist: ??Chapito Barnes MD ? CITY ALDERMAN: Any Martinez APRN CITY ALDERMAN ? Performed By: CITY ALDERMAN Consent for Airway ? Urgency: elective Indications and Patient Condition ? Indications for airway management : theresa-procedural ? Induction type:intravenous ? Mask difficulty assessment: 2 - v ent by mask + OA or adjuvant +/- NMBA Final Airway Details ? Final airway type: endotracheal a irway ? Successful airway: ETT - single Endotracheal Airway Details ? ETT size (mm): 7.0 ? Cuffed: yes ? Successful intubation technique: video laryngoscopy ? VL Blade Size: Glidescope 3 ? Grade View of Cords: 2 ? Adjucts: stylet ? Position: Right ? Measured from: gums/teeth ? Secured at (cm): 20 Post intubation assessment ? Placement verified by: capnometry , equal breath sounds and chest rise ? Number of attempts at approach: 2 (first attempt with Zheng 2 blade, couldn't get tube up over arytenoid cart ilages) ? Secured with: pink tape ? Ease of procedure: easy ? Dentition: Intact and Unchanged Medication(s) Administered Medication Administration Time: 8:19 AM Additional Comments ? First attempt with Zheng 2 blade ; couldn't pass tube up over arytenoid cartilages Gerald Barnes MD [place] ANESTHESIA from Last 3 Months Insurance Payer Benefit Plan / Subscriber ID Effective Phone Address T ype Group Dates MEDICARE MEDICARE RR FOR [id number] 2019-Prese [phone] [address] Medicare HB SUPPLEMENT nt [address] [facility] [place] [address] BCBS BCBS [place] [id number] 2020-Prese [phone] [address] [address] PPO BLUE nt [address] [place] [address] Care Teams Reference Services Head Relationship Specialty Start Date End Date Samreen Romano PCP - General Internal Medicine 08/22/22 [facility] [address] [place] [address]
--- OUTSIDE RECORDS SUMMARY | 2022-09-26 11:16 | XMS_ITS | Encounter Summary ---
:1955 Author Organization [facility] Address [facility] [place] [address] Care Team Providers Name Role Phone Juan Antonio Samreen Primary Care Provider Reason for Visit Auth/Cert (Routine) Specialty Diagnoses / Procedures Referred By Contact Refer red To Contact Surgery Diagnoses Lichen sclerosus of vulva Lichen sclerosus of vulva [N90.4] Sh Periop Services Procedures ZZC COMPLETE SIMPLE REMV VULVA PARTIAL SIMPLE VULVECTOMY [address] [place] [address] Phone: Referral ID Status Reason Start Date Expiration Date Visits Requ ested Visits Authorized [id number] 1 1 Encounter Details Date Type Department Care Team Description 08/22/2022 Anesthesia Event M [facility] Chapito Barnes MD [facility] [address] [place] [address] [place] [address] [phone] (Wo rk) Anesthesia Record Procedure Summary Procedure Name Responsible Anesthesia Start Anesthesia Stop Anesthesiologist Time Time PARTIAL Gerald Johnson MD 08/22/22 0801 08/22/22 0 856 VULVECTOMY (Vulva) Events Date Time Event Comment 08/22/2022 0657 MARKET DEVELOPMENT MANAGER Ready for Procedure 0801 An Start 0804 An Start Data 0804 AN REASSESS I attest that I have identified and re-evaluated the patient immediately before the induction of anesthesia and I am satisfied that t he anesthetic plan is suitable for the patient's condition and procedure. The f irst vital signs recorded are pre- inducti on. Any Martinez APRN CRNA 0814 An Induction 0819 An Intubation 0824 Present 0830 AN INCISION 0845 AN Extubation All extubation c elviraeria met prior to removal. 0849 an stop data 0852 Present 0856 An Stop Electronically s igned by Any Martinez APRN CRNA on Aug 8:56 AM Name Total ceFAZolin Sodium (ANCEF) injection 2 g 2 g dexamethasone 4mg/mL 8 mg fentaNYL (SUBLIMAZE) injection 50 mcg glycopyrrolate 0.2mg/mL 0.8 mg lidocaine 2% 80 mg midazolam 1mg/mL 2 mg neostigmine 1mg/mL 4 mg ondansetron 2mg/mL 4 mg propofol (DIPRIVAN) injection 10 mg/mL vial 130 mg propofol infusion (mcg/kg/min) 45.73 mg rocuronium 10mg/mL 20 mg sugammadex (BRIDION) 200mg/2mL 160 mg esmolol 10 mg/mL 10 mg lactated ringers infusion 500 mL Agents Name NO HELIOX O2 N2O Air Exp Sevoflurane Exp Isoflurane Exp Desflurane Exp N2O Ins Sevoflurane Ins Isoflurane Ins Desflurane O2 Auxiliary Blood No blood administrations on file. Lines, Drains, and Airways Type Details Placement Removal Incision/Surgical Site 08/22/22; 0837; 08/22/22 0837 by Bilateral; Vagina; Alma Delia Pan RN posterior vulva Peripheral IV 08/22/22; 0653; 20 G; 08/22/22 0653 by 08/22/22 1020 by Right; Michelle Baker Michael J, Elaine RN RN ETT Placement Date: 08/22/22 08 by 08/22/22 0845 b y 08/22/22; Placement Any Martinez APRN Blank, Maggie M, Time: 818 (created CARL ATKINSON CRNA via procedure documentation); Mask Ventilation: 2; Induction Type: Intravenous; Ease of Intubation: Easy; Technique: Video laryngoscopy; ETT Type: Single; Tube Size: 7 mm; VL Blade Size: Wrens scope 3; Grade View: 2; Adjucts: Stylet; Placement Person: MARKET DEVELOPMENT MANAGER; Attempts: 2 (first attempt with Zheng 2 blade, couldn't get tube up over arytenoid cartilages); Depth: 20 cm documented in this encounter Social History Tobacco Use Types Packs/Day Years Used Date Smoking Tobacco: Former Cigarettes Smokeless Tobacco: Never Alcohol Use Standard Drinks/Week Comments Yes 0 (1 standard drink = 0.6 oz pure alcoho l) dependence in remission Sex Assigned at Date Recorded Not on file COVID-19 Exposure Response Date Recorded In the last 10 days, have you been in contact with No / Unsu re 08/22/2022 6:29 AM IMPORT EXPORT CLERK someone who was confirmed or suspected to have Coronavirus/COVID-19? documented as of this encounter OR Notes Anesthesia Postprocedure Evaluation - Gerald Barnes MD - 08/22/2022 9:41 AM CST Patient: Shawna White Procedure: Procedure(s): PARTIAL SIMPLE VULVECTOMY Anesthesia Type: General Note: Disposition: Outpatient Postop Pain Control: Uneventful Sign Out: Well controlled pain PONV: No Neuro/Psych: Uneventful Sign Out: Acceptable/Baseline neuro status Airway/Respiratory: Uneventful Sign Out: Acceptable/Baseline resp. status CV/Hemodynamics: Uneventful Sign Out: Acceptable CV status; No obvious hypovolemia; No obvious fluid overload Other NRE: NONE DID A NON-ROUTINE EVENT OCCUR? No Last vitals: Vitals Value Taken Time BP 107/67 08/22/22 0937 Temp 36.5 ??C (97.7 ??F) 08/22/22 0937 Pulse 57 08/22/22 0938 Resp 26 08/22/22 0938 SpO2 95 % 08/22/22 0941 Vitals shown include unvalidated device data. Electronically Signed By: Gerald Barnes MD August 22, 2022 9:41 AM RT EXPORT CLERK Anesthesia Procedure Notes - Any Martinez APRN MARKET DEVELOPMENT MANAGER - 08/22/2022 8:31 AM IMPORT EXPORT CLERK Associated Order(s): Airway Airway Patient location during procedure: OR Procedure Start/Stop Times: 08/22/2022 8:19 AM Staff - Anesthesiologist: Gerald Barnes MD MARKET DEVELOPMENT MANAGER: Any Martinez APRN MARKET DEVELOPMENT MANAGER Performed By: MARKET DEVELOPMENT MANAGER Consent for Airway Urgency: elective Indications and Patient Condition Indications for airway management: theresa-procedural Induction type:intravenous Mask difficulty assessment: 2 - vent by mask + OA or adjuvant +/- NMBA Final Airway Details Final airway type: endotracheal airway Successful airway: ETT - single Endotracheal Airway Details ETT size (mm): 7.0 Cuffed: yes Successful intubation technique: video laryngoscopy VL Blade Size: Glidescope 3 Grade View of Cords: 2 Adjucts: stylet Position: Right Measured from: gums/teeth Secured at (cm): 20 Post intubation assessment Placement verified by: capnometry, equal breath sounds and chest rise Number of attempts at approach: 2 (first attempt with Zheng 2 blade, couldn't get tube up over arytenoid cartilages) Secured with: pink tape Ease of procedure: easy Dentition: Intact and Unchanged Medication(s) Administered Medication Administration Time: 08/22/2022 8:19 AM Additional Comments First attempt with Zheng 2 blade; couldn't pass tube up over arytenoid cartilages RT EXPORT CLERK Anesthesia Preprocedure Evaluation - Gerald Barnes MD - 08/21/2022 3:55 PM CST Anesthesia Pre-Procedure Evaluation Patient: Shawna White : 1955 Procedure : Procedure(s): PARTIAL SIMPLE VULVECTOMY Past Medical History: Diagnosis Date ??? Cerebral artery occlusion with cerebral infarction (H) ??? Functional movement disorder ??? Hypertension ??? Noninfectious ileitis ??? Obese ??? Thyroid disease Past Surgical History: Procedure Laterality Date ??? APPENDECTOMY ??? CHOLECYSTECTOMY ??? MANUFACTURING INDUSTRIAL ENGINEER SURGERY ??? ORTHOPEDIC SURGERY Allergies Allergen Reactions ??? Sulfa Drugs Hives Social History Tobacco Use ??? Smoking status: Former Types: Cigarettes ??? Smokeless tobacco: Not on file Substance Use Topics ??? Alcohol use: Yes Comment: dependence in remission Wt Readings from Last 1 Encounters: 04/12/17 73 kg (161 lb) Anesthesia Evaluation Pt has had prior anesthetic. No history of anesthetic complications ROS/MED HX ENT/Pulmonary: - neg pulmonary ROS Neurologic: Comment: Functional movement disorder CVA - hypertensive/ischemic in (+) CVA, TIA, Cardiovascular: (+) Dyslipidemia hypertension----- METS/Exercise Tolerance: >4 METS Hematologic: - neg hematologic ROS Musculoskeletal: - neg musculoskeletal ROS GI/Hepatic: Comment: Colitis PUD (+) GERD, Renal/Genitourinary: Comment: Lichen Sclerosis Cystocele Endo: Comment: Prediabetes (+) thyroid problem, hypothyroidism, Obesity, Psychiatric/Substance Use: (+) psychiatric history anxiety alcohol abuse Infectious Disease: - neg infectious disease ROS Malignancy: - neg malignancy ROS Other: Physical Exam Airway airway exam normal Mallampati: II TM distance: > 3 FB Neck ROM: full Mouth opening: > 3 cm Respiratory Devices and Support Dental no notable dental history Cardiovascular cardiovascular exam normal Pulmonary pulmonary exam normal OUTSIDE LABS: CBC: No results found for: WBC, HGB, HCT, PLT BMP: No results found for: NA, POTASSIUM, CHLORIDE, CO2, BUN, CR, GLC COAGS: No results found for: PTT, INR, FIBR POC: No results found for: BGM, HCG, HCGS HEPATIC: No results found for: ALBUMIN, PROTTOTAL, ALT, AST, GGT, ALKPHOS, BILITOTAL, BILIDIRECT, ARNOLD OTHER: No results found for: PH, LACT, A1C, ANNELISE, PHOS, MAG, LIPASE, AMYLASE, TSH, T4, T3, CRP, SED Anesthesia Plan ASA Status: 3 Anesthesia Type: General. - Airway: ETT Induction: Intravenous. Maintenance: Balanced. Consents Anesthesia Plan(s) and associated risks, benefits, and realistic alternatives discussed. Questions answered and patient/sales representative printing paper(s) expressed understanding. - Discussed: - Discussed with: Patient Postoperative Care Pain management: IV analgesics, Multi-modal analgesia. PONV prophylaxis: Ondansetron (or other 5HT-3), Background Propofol Infusion, Dexamethasone or Solumedrol Comments: Gerald Barnes MD RT EXPORT CLERK documented in this encounter Miscellaneous Notes Anesthesia Care Transfer Note - Any Martinez APRN MARKET DEVELOPMENT MANAGER - 08/22/2022 8:56 AM CST Patient: Shawna White Procedure: Procedure(s): PARTIAL SIMPLE VULVECTOMY Diagnosis: Lichen sclerosus of vulva [N90.4] Diagnosis Additional Information: No value filed. Anesthesia Type: General Note: Oropharynx: oropharynx clear of all foreign objects Level of Consciousness: awake Oxygen Supplementation: face mask Level of Supplemental Oxygen (L/min / FiO2): 8 Independent Airway: airway patency satisfactory and stable Dentition: dentition unchanged Vital Signs Stable: post-procedure vital signs reviewed and stable Report to RN Given: handoff report given Patient transferred to: PACU Handoff Report: Identifed the Patient, Identified the Reponsible Provider, Reviewed the pertinent medical history, Discussed the surgical course, Reviewed Intra-OP anesthesia mangement and issues during anesthesia, Set expectations for post-procedure period and Allowed opportunity for questions and acknowledgement of understanding Vitals: Vitals Value Taken Time BP 155/119 08/22/22 0852 Temp Pulse 91 08/22/22 0854 Resp 17 08/22/22 0854 SpO2 92 % 08/22/22 0854 Vitals shown include unvalidated device data. Electronically Signed By: Any Martinez APRN CRNA August 22, 2022 8:56 AM RT EXPORT CLERK documented in this encounter Plan of Treatment Not on filedocumented as of this encounter Procedures Procedure Name Priority Date/Time Associated Comments Diagnosis ANE AIRWAY ETT Routine 08/22/2022 8:19 AM Results for this PERFORMABLE IMPORT EXPORT CLERK procedure are i n the results section. documented in this encounter Results ANE AIRWAY ETT PERFORMABLE (08/22/2022 8:19 AM IMPORT EXPORT CLERK) Narrative Any Martinez APRN CRNA - 08/22/2022 8:19 AM IMPORT EXPORT CLERK Any Martinez APRN CRNA ? 08/22/2022 ??8:33 AM Airway ? Patient location during procedure : OR ? Procedure Start/Stop Times: 2021 8:19 AM Staff - ? Anesthesiologist: ??Chapito Barnes MD ? MARKET DEVELOPMENT MANAGER: Any Martinez APRN CRNA ? Performed By: MARKET DEVELOPMENT MANAGER Consent for Airway ? Urgency: elective Indications [...] up over arytenoid cartilages Gerald Barnes MD [place] ANESTHESIA documented in this encounter Visit Diagnoses Not on filedocumented in this encounter Administered Medications Inactive Administered Medications - up to 3 most recent administrations Medication Order MAR Action Action Date Dose Rate Site ceFAZolin Sodium (ANCEF) injection 2 Given 08/22/2022 8:09 AM CS T 2 g g Routine, 2 g, Intravenous, PRE-OP/PRE-PROCEDURE, Starting on Mon08/22/22 at 0617, For 1 dose, Give first dose within 1 hour PRIOR to incision. If patient weight is greater than or equal to 120 kg increase dose to 3 g., Indications: Perioperative Pharmacoprophylaxis, Pre-procedure dexamethasone (DECADRON) injection Given 08/22/2022 8:27 AM IMPORT EXPORT CLERK 8 mg Intravenous, PRN, Administer over 1 Minutes, Starting on Mon08/22/22 at 0827, Anesthesia Intra-op esmolol (BREVIBLOC) injection Given 08/22/2022 8:47 AM IMPORT EXPORT CLERK 10 mg Intravenous, PRN, Starting on Mon08/22/22 at 0847, Anesthesia Intra-op fentaNYL (PF) (SUBLIMAZE) injection Given 08/22/2022 8:14 AM IMPORT EXPORT CLERK 50 mcg Intravenous, PRN, Administer over 3-5 Minutes, Starting on Mon08/22/22 at 0814, Anesthesia Intra-op glycopyrrolate (ROBINUL) injection Given 08/22/2022 8:37 AM IMPORT EXPORT CLERK 0.8 mg Intravenous, PRN, Administer over 1-2 Minutes, Starting on Mon08/22/22 at 0837, Anesthesia Intra-op lactated ringers infusion New Bag 08/22/2022 8:01 AM IMPORT EXPORT CLERK at 25 mL/hr, Intravenous, CONTINUOUS, IF patient NOT on dialysis., Pre-procedure, Starting on Mon08/22/22 at 0630, Until Mon08/22/22 at 0851 lidocaine 2% injection (MDV) Given 08/22/2022 8:14 AM IMPORT EXPORT CLERK 80 mg Intravenous, PRN, Starting on Mon08/22/22 at 0814, Anesthesia Intra-op midazolam (VERSED) injection Given 08/22/2022 8:01 AM IMPORT EXPORT CLERK 2 mg Intravenous, Administer over 2 Minutes, PRN, Starting on Mon08/22/22 at 0801, Anesthesia Intra-op neostigmine (PROSTIGMINE) injection Given 08/22/2022 8:37 AM IMPORT EXPORT CLERK 4 mg Intravenous, PRN, Starting on Mon08/22/22 at 0837, Anesthesia Intra-op ondansetron (ZOFRAN) injection Given 08/22/2022 8:27 AM IMPORT EXPORT CLERK 4 mg Intravenous, PRN, Administer over 2-5 Minutes, Starting on Mon08/22/22 at 0827, Anesthesia Intra-op propofol (DIPRIVAN) Rate/Dose Change 08/22/2022 8:31 20 mcg/kg/min 9. 3 mL/hr injection 10 mg/mL vial AM IMPORT EXPORT CLERK Intravenous, CONTINUOUS PRN, Starting on Mon08/22/22 at 0814, Anesthesia Intra-op New Bag 08/22/2022 8:14 AM IMPORT EXPORT CLERK 30 mcg/kg/min 13.95 mL/hr propofol (DIPRIVAN) injection 10 mg/mL v ial Given 08/22/2022 8:14 AM IMPORT EXPORT CLERK 130 mg Intravenous, PRN, Starting on Mon08/22/22 at 0814, Anesthesia Intra-op rocuronium injection Given 08/22/2022 8:15 AM IMPORT EXPORT CLERK 20 mg Intravenous, PRN, Starting on Mon08/22/22 at 0815, Anesthesia Intra-op sugammadex (BRIDION) injection Given 08/22/2022 8:44 AM IMPORT EXPORT CLERK 160 mg Intravenous, PRN, Starting on Mon08/22/22 at 0844, Anesthesia Intra-op documented in this encounter Care Teams Medical Insurance Claims Specialist Relationship Specialty Start Date End Date Samreen Romano PCP - General Internal Medicine 08/22/22 [facility] [address] [place] [address] documented as of this encounter
--- OUTSIDE RECORDS SUMMARY | 2022-09-26 11:16 | XMS_ITS | Encounter Summary ---
:1955 Author Organization [facility] Address [address] [place] [id number] Care Team Providers Name Role Phone NellySamreen adler Primary Care Provider Reason for Visit Auth/Cert (Routine) Specialty Diagnoses / Procedures Referred By Contact Refer red To Contact Surgery Diagnoses Lichen sclerosus of vulva Lichen sclerosus of vulva [N90.4] Periop Services Procedures ZZC COMPLETE SIMPLE REMV VULVA PARTIAL SIMPLE VULVECTOMY [address], [address] [place] [address] Phone: Referral ID Status Reason Start Date Expiration Date Visits Requ ested Visits Authorized [id number] 1 1 Encounter Details Date Type Department Care Team Description 08/22/2022 Surgery [facility] Krysten Mcgregor PARTIAL SI RUBIN Sampsonkeron PeriOP MD [facility] [address], [address] [place] [address] [address] [place] [phone] (Wo rk) Surgery Details Date/Time Status Location OR Service Patient Case Case Traum a Class Class Type Case? 08/22/22 8:00 Posted OR OR M Gynecology Same Day AM 43 Surgery Panel 1 Procedure LRB Anes Op Region Wound Class Commen ts PARTIAL SIMPLE VULVECTOMY N/A General Vulva I-Clean Surgeon Surgeon Role Service Panel Krysten Mcgregor MD Primary Gynecology 1 documented in this encounter Social History Tobacco [...] No / Unsu re 08/22/2022 6:29 AM MICROFILM MOUNTER someone who was confirmed or suspected to have Coronavirus/COVID-19? documented as of this encounter Last Filed Vital Signs Vital Sign Reading Time Taken Comments Blood Pressure 127/71 08/22/2022 8:55 AM MICROFILM MOUNTER Pulse 91 08/22/2022 8:55 AM MICROFILM MOUNTER Temperature 36.2 ??C (97.1 ??F) 08/22/2022 8:52 AM MICROFILM MOUNTER Respiratory Rate 17 08/22/2022 8:55 AM MICROFILM MOUNTER Oxygen Saturation 92% 08/22/2022 8:55 AM MICROFILM MOUNTER Inhaled Oxygen Concentration - - Weight 77.5 kg (170 lb 12.8 oz) 08/22/2022 6:31 AM MICROFILM MOUNTER Height 160 cm (5' 3) 08/22/2022 6:31 AM MICROFILM MOUNTER Body Mass Index 30.26 08/22/2022 6:31 AM MICROFILM MOUNTER documented in this encounter Discharge Instructions Discharge InstructionsAlma Delia Julian RN - 08/22/2022 6:55 AM CST Same Day Surgery Discharge Instructions for Sedation and General Anesthesia It's not unusual to feel dizzy, light-headed or faint for up to 24 hours after surgery or while taking pain medication. If you have these symptoms: sit for a few minutes before standing and have someone assist you when you get up to walk or use the bathroom. You should rest and relax for the next 24 hours. We recommend you make arrangements to have an adultstay with you for at least 24 hours after your discharge. Avoid hazardous and strenuous activity. DO NOT DRIVE any vehicle or operate mechanical equipment for 24 hours following the end of your surgery. Even though you may feel normal, your reactions may be affected by the medication you have received. Do not drink alcoholic beverages for 24 hours following surgery. Slowly progress to your regular diet as you feel able. It's not unusual to feel nauseated and/or vomit after receiving anesthesia. If you develop these symptoms, drink clear liquids (apple juice, joycelyn glory, broth, 7-up, etc. ) until you feel better. If your nausea and vomiting persists for 24 hours, please notify your surgeon. All narcotic pain medications, along with inactivity and anesthesia, can cause constipation. Drinking plenty of liquids and increasing fiber intake will help. For any questions of a medical nature, call your surgeon. Do not make important decisions for 24 hours. If you had general anesthesia, you may have a sore throat for a couple of days related to the breathing tube used during surgery. You may use Cepacol lozenges to help with this discomfort. If it worsens or if you develop a fever, contact your surgeon. If you feel your pain is not well managed with the pain medications prescribed by your surgeon, please contact your surgeon's office to let them know so they can address your concerns. If you have questions or concerns about your procedure, call Dr. Mcgregor [phone] Today you were given 975 mg of Tylenol at 0655. The recommended daily maximum dose is 4000 mg. OFILM MOUNTER documented in this encounter Medications at Time of Discharge Medication Sig Dispensed Refills Start Date End Date acetaminophen (TYLENOL) Take 650 mg by mouth 0 650 MG CR tablet every 8 hours as needed for mild pain aspirin 81 MG EC tablet Take by mouth daily No 0 dose listed clobetasol (TEMOVATE) Apply topically twice 0 0.05 % CREA cream a week docusate sodium (COLACE) Take 100 mg by mouth 0 100 MG capsule daily as needed for constipation fluticasone (FLONASE) 50 [place] 1 spray into 0 MCG/ACT nasal spray both nostrils daily levothyroxine Take 88 mcg by mouth 0 (SYNTHROID/LEVOTHROID) 88 daily MCG tablet Magnesium Oxide 500 MG Take 1 capsule by 0 CAPS mouth daily Melatonin 10 MG TABS Take 10 mg by mouth 0 tablet nightly as needed for sleep NONFORMULARY Delta 9 edibles 0 omeprazole (PRILOSEC) 40 Take 40 mg by mouth [address] capsule daily oxyCODONE (ROXICODONE) 5 Take 1 tablet (5 mg) 12 tablet 0 1 10/22/2021 MG tabletIndications: by mouth every 6 hours 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 There are no significant changes OFILM MOUNTER Source Note - Outside, Provider - 08/18/2022 11:05 AM CDT documented in this encounter Nursing Notes Gerald Chavez RN - 08/22/2022 10:28 AM CST AOX3-VSS-O2 sats >92% RA- Good PO intake, Denies c/o- Pt and responsible adult verbalize understanding of discharge instructions, denies questions. Up in W/C - transported to door for discharge to home. OFILM MOUNTER Michelle Lund RN - 08/22/2022 6:43 AM CST Patient brought a picture of home covid antigen test on phone as directed. I personally saw this result and it was time stamped 08/20/22. Result was negative. 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 SURGEON: Krysten Mcgregor M.D. ANESTHESIA: General endotracheal anesthesia. PROCEDURE: Partial simple posterior vulvectomy. INDICATIONS FOR PROCEDURE: The patient is a 67-year-old female with a history of lichen sclerosus diagnosed at 2 vulvar biopsies done on 10/31/2019. On 11/29/2021, she was seen for followup and noted to have a small, slightly white nodule on the anterior peritoneum. She was treated with clobetasol. She then had followup with Dr. Vaz on 05/24/2022, and she had white in appearance of the posterior introitus and anterior perineal body. Vulvar biopsy was obtained and revealed lichen sclerosus with atypia, raising the concern for dVIN. She was seen in consultation in my office. Area of most concern was the posterior perineum. She was brought to the operating room for simple posterior partial vulvectomy. FINDINGS: The patient had an area of white epithelium of the posterior perineal body that was quite limited. DESCRIPTION OF PROCEDURE: The patient was taken to the operating room. She received broad spectrum antibiotic prophylaxis. Knee high sequential compression devices were placed on her lower extremities.She was brought to the operating room and placed in a supine position. General endotracheal anesthesia was administered in the usual fashion. Once intubated, she was repositioned in high lithotomy position using well-padded Yellofin stirrups. The arms were kept at her side throughout the case. She wasprepped and draped in the usual sterile fashion. A timeout was conducted and everyone agreed upon the procedure. I infiltrated the area with 0.5% Marcaine with epinephrine. I made an elliptical incision excising the area of abnormality on her posterior perineal body. I took it down through some of thesubcutaneous tissue and took the tissue off using Bovie cautery. The tissue was tagged at 12 o'clockwith a 2-0 Vicryl suture. It was passed off the table. I then closed the defect in a 2-layer closurewith interrupted 2-0 Vicryl sutures on an SH needle. The first layer to reapproximate the subcutaneous tissue and bring the skin closer together and then the second layer was a superficial skin closurewith interrupted 2-0 Vicryl sutures. Her anesthesia was reversed. She was extubated and taken to recovery room in stable condition. A total of 20 mL of 0.5% Marcaine was infiltrated into the area. A Mirella-Pad was placed over the surgical site, and once extubated, she was brought to the recovery room instable condition. Krysten Mcgregor MD MT: [facility] Name: STEVE WHITE MRN: [id number] Account: [id number] : 1955 Procedure Date: 08/22/2022 Document: [id number] cc: Louise Vaz MD OFILM MOUNTER Op Note - Krysten Mcgregor MD - 08/22/2022 8:08 AM CST Post Op Note Pre-op Dx: Lichen sclerosus, possible dVIN Post-op Dx: Same Surgeon: Ella Mcgregor MD Procedure: Partial simple posterior vulvectomy Anesthesia: GET EBL: 10 mL Complications: None OFILM MOUNTER documented in this encounter Plan of Treatment Not on filedocumented as of this encounter Procedures Procedure Name Priority Date/Time Associated Diagnosis Comme [facility] SURGICAL PATHOLOGY Routine 08/22/2022 8:31 AM Res ults for this EXAM MICROFILM MOUNTER procedure are i n the results section. VULVECTOMY, SIMPLE 08/22/2022 8:03 AM Lichen sclerosus of MICROFILM MOUNTER vulva documented in this encounter Results Surgical Pathology Exam (08/22/2022 8:31 AM MICROFILM MOUNTER) Component Value Ref Test Analysis Performed At [facility] Method Time Signature Case Report Surgical Pathology Report ? Case: [id number] ? 08/23/2022 Authorizing Provider: ??Case y, Krysten Mcginnis MD ?? Collected: ? 08/22/2022 08:31 AM ? 11:40 AM LABORATOR Y Ordering Location: ? [facility] [place] ?Received: ?08/22/2022 08:52 AM ? MICROFILM MOUNTER ? [facility] Main OR ? Pathologist: ? Hadley Reeves, ? MD ? Specimen: ?Vulva, PARTIA L POSTERIOR VULVECTOMY ? Final Vulva, posterior, partial vulvectomy- Electronically Diagnosis Lichen sclerosis at atrophic us, no evidence of dysplasia or malignancy 11:40 AM LABORATORY signed by Hadley Hwang MD on 08/23/2022 at 11:40 AM Comment Intradepartmental 08/23/2022 consultation has 11:40 AM LABORATORY been obtained MICROFILM MOUNTER Clinical Procedure: 08/23/2022 Information PARTIAL SIMPLE VULVECTOMY 11:40 AM [facility] Pre-op Diagnosis: Lichen sclerosus of vulva [N90.4] MICROFILM MOUNTER Post-op Diagnosis: N90.4 - Lichen sclerosus of [...] and the 9:00 half is inked vinny MICROFILM MOUNTER ck. The skin surface is irre gular and wrinkled without definitive mass lesion. The specimen is serially sectioned and entirely sequentially submitted in 4 cassettes from 12:00 to 6:00. ([facility]) Microscopic Microscopic 08/23/2022 Description performed 11:40 AM LABORATORY MICROFILM MOUNTER Performing The technical 08/23/2022 Labs component of this 11:40 AM LABORATORY testing was MICROFILM MOUNTER completed at [facility] Case Images 08/23/2022 11:40 AM LABORATORY MICROFILM MOUNTER Specimen Anatomical Collection Method Collection Time Receive d Time (Source) Location / / Volume Laterality Tissue VULVAL STRUCTURE / 08/22/2022 8:31 AM 04/2022 8:52 Unknown MICROFILM MOUNTER AM MICROFILM MOUNTER Krysten SOTO - JOANN HARMAN Performing Organization Address City/State/ZIP Code [place] [address] [phone] [facility] [address] 1[address], [address] documented in this encounter Visit Diagnoses Diagnosis 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) Lichen sclerosus 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 Hold if patient has taken acetaminophen within 4 hours. Maximum acetaminophen dose from all sources = 75 mg/kg/day not to exceed 4 grams/day., Pre-procedure bupivacaine 0.5 % - Given 08/22/2022 8:37 AM 20 mLs Operative Site/Surgical EPINEPHrine 1:200,000 MICROFILM MOUNTER Sit e injection PRN, Starting on Mon08/22/22 at 0837, Intra-procedure documented in this encounter Active and Recently Administered Medications Due to Daylight Saving Time, this section may contain times in both CDT and MICROFILM MOUNTER. Scheduled Medication Order 08/20/2022 08/21/2022 08/22/2022 acetaminophen (TYLENOL) tablet 975 mg (COMPLETED) 651 (Given - Provider: Michelle Lund RN) 975 mg, Oral, ONCE, On Mon08/22/22 at 06 30, For 1 dose, Give within 60 min of procedure. Hold if patient has taken acetaminophen within 4 hours. Maximum acetaminophen dose from all sources = 75 mg/kg/day not to exceed 4 grams/day., Pre-procedure acetaminophen (TYLENOL) tablet 975 mg 975 mg, Oral, ONCE, On Mon08/22/22 at 15 30, For 1 dose, Administer 6 hours after pre-op dose, if given. Maximum acetaminophen dose from all sources = 75 mg/kg/day not to exceed 4 grams/day. ceFAZolin Sodium (ANCEF) injection 2 g (COMPLETED) 808 (Given - Provider: Any Martinez APRN REAL ESTATE OFFICE MANAGER) Routine, 2 g, Intravenous, PRE-OP/PRE-RI OCEDURE, Starting on Mon08/22/22 at 0617, For 1 dose, Give first dose within 1 hour PRIOR to incision. If patient weight is greater than or equal to 120 kg increa se dose to 3 g., Indications: Perioperative Pharmacoprophyla xis, Pre-procedure ibuprofen (ADVIL/MOTRIN) tablet 600 mg 600 mg, Oral, ONCE, On Mon08/22/22 at 15 30, For 1 dose, Administer when patient tolerating oral intake AND 6 hours after last ketorolac (TORADOL) dose, if given. Give with food. Continuous Medication Order 08/20/2022 08/21/2022 08/22/2022 lactated ringers infusion (CANCELED) 0801 (New Bag - Provider: Any Martinez APRN CRNA)0848 (Anesthesia Volume Adjustment - Provider: Any Martinez APRN CRNA) at 25 mL/hr, Intravenous, CONTINUOUS, IF patient NOT on dialysis., Pre- procedure, Starting on Mon08/22/22 at 0630, Until Mon08/22/22 at 0851 PRN Medication Order 08/20/2022 08/21/2022 08/22/2022 bupivacaine 0.5 % - EPINEPHrine 1:200,000 injection (CANCELED) 0837 (Given - Provider: Krysten Mcgregor MD) PRN, Starting on Mon08/22/22 at 0837, Intra-procedure oxyCODONE (ROXICODONE) tablet 5 mg 5 mg, Oral, ONCE PRN, other, pain contro l or improvement in physical function.??, Starting on Mon08/22/22 at 0905, For 1 dose, Hold oral PRN dose for analgesic side effects. Notify provider to assess fo r uncontrolled pain or analgesic side ef fects. Hold while on IV RADIOLOGY NURSE or with regular IV opioid dosing. documented in this encounter Care Teams Desizing Machine Offbearer Relationship Specialty Start Date End Date Samreen Romano PCP - General Internal Medicine 08/22/22 [facility] [address] [place] [address] documented as of this encounter
--- OUTSIDE RECORDS SUMMARY | 2022-09-26 11:16 | XMS_ITS | Encounter Summary ---
:1955 Author Organization [facility] Address [address] [place] [id number] Care Team Providers Name Role Phone [facility] Primary Care Provider Reason for Visit Reason Comments Fall Encounter Details Date Type Department Care Team Description 04/12/2017 [facility] Dorita Stark MD [facility] Emergency Dep t [facility] fracture, left, [address] initial encounter [place], [place] [address] [place] [address] [address] [place] [address] [phone] (Wo rk) Social History Tobacco Use Types Packs/Day Years Used Date Smoking Tobacco: Never Assessed Sex Assigned at Date Recorded Not on file documented as of this encounter Last Filed Vital Signs Vital Sign Reading Time Taken Comments Blood Pressure 111/69 04/12/2017 5:15 PM CDT Pulse 65 04/12/2017 1:40 PM CDT Temperature 36.6 ??C (97.8 ??F) 04/12/2017 1:40 PM CDT Respiratory Rate 20 04/12/2017 1:40 PM CDT Oxygen Saturation 95% 04/12/2017 5:15 PM CDT Inhaled Oxygen Concentration - - Weight 73 kg (161 lb) 04/12/2017 1:38 PM CDT Height 157.5 cm (5' 2) 04/12/2017 1:38 PM CDT Body Mass Index 29.45 04/12/2017 1:38 PM CDT documented in this encounter Discharge Instructions Discharge InstructionsDorita Stark MD - 04/12/2017 5:05 PM CDT Images from the original note were not included. Please follow up closely with the orthopedic physician at [facility]. Please return to the ED if your symptoms worsen or if you develop new or concerning symptoms. Elbow Fracture You have a break (fracture) of one or more bones of your elbow joint. This may be a small crack in the bone. Or it may be a major break, with the broken parts pushed out of position. This fracture usually takes 4 to 12 weeks to heal, depending on the type. The first step in treatment is with a splint or cast. Severe fractures may need surgery to put the bone fragments back into place. Home care Follow these guidelines when caring for yourself at home: ?? Keep your arm elevated to reduce pain and swelling. When sitting or lying down keep your arm above the level of your heart. You can do this by placing your arm on a pillow that rests on your chest or on a pillow at your side. This is most important during the first 2 days (48 hours) after the injury. ?? Put an ice pack on the injured area. Do this for 20 minutes every 1 to 2 hours the first day. Youcan make an ice pack by wrapping a plastic bag of ice cubes in a thin towel. As the ice melts, be careful that the cast or splint doesn???t get wet. You can place the ice pack inside the sling and directly over the splint or cast. Continue to use the ice pack 3 to 4 times a day for the next 2 days. Then use the ice pack as needed to ease pain and swelling. ?? Keep the splint or cast completely dry at all times. Bathe with your splint or cast out of the water. Protect it with a large plastic bag, rubber-banded at the top end. If a fiberglass splint or cast gets wet, you can dry it with a hair worker. ?? You may use acetaminophen or ibuprofen to control pain, unless another pain medicine was prescribed. If you have chronic liver or kidney disease, talk with your healthcare provider before using these medicines. Also talk with your provider if you???ve had a stomach ulcer or gastrointestinal bleeding. ?? Don???t put creams or objects under the cast if you have itching. Follow-up care Follow up with your healthcare provider in 1 week, or as advised. This is to make sure the bone is healing the way it should. If a splint was put on, it may be changed to a cast during your follow-up visit. X-rays may be taken. You will be told of any new findings that may affect your care. When to seek medical advice Call your healthcare provider right away if any of these occur: ?? The cast or splint cracks ?? The plaster cast or splint becomes wet or soft ?? The fiberglass cast or splint stays wet for more than 24 hours ?? Tightness or pain under the cast or splint gets worse ?? Bad odor from the cast or wound fluid stains the cast ?? Fingers become swollen, cold, blue, numb, or tingly ?? You can???t move your fingers ?? Skin around cast becomes red ?? Fever of 100.4??F (38??C) or higher, or as directed by your healthcare provider?? Date Last Reviewed: 11/21/2016 ?? [id number] [employer] [address] [place] [address]. All rights reserved. This information is not intended as a substitute for professional medical care. Always follow your healthcare professional's instructions. Discharge Instructions Splint Care You had a splint put on today to help protect your injury and help it heal. Splints are used to treat things like strains, sprains, cuts and fractures (broken bones). Be sure your splint is not too tight! If you splint is too tight, it may cause loss of blood supply.Signs of your splint being too tight include: your arm or leg hurting a lot more; your fingers or toes getting numb, cold, pale or blue; or your child is crying, fussing or seeming restless. Return to the Emergency Department right away if: ??? You have increased pain or pressure around the injury. ??? You have numbness, tingling, or cool, pale, or blue toes or fingers past the injury. ??? Your child is more fussy than normal, crying a lot, or restless. ??? Your splint becomes soft, breaks, or is wet. ??? Your splint begins to smell bad. ??? Your splint is cutting into your skin. Home care: ??? Keep the injured area above the level of your heart while laying or sitting down. This will helpdecrease the swelling and the pain. ??? Keep the splint dry. ??? Do not put objects down or inside the splint. ??? If there is an elastic bandage (Mayur?? wrap) holding the splint on this may be loosened slightly to relieve pressure or pain. If pain continues return to the Emergency Department right away. ??? Do not remove your splint by yourself unless told to by your doctor. Follow-up: Sometimes the splint put on in the Emergency Department needs to be changed once the swelling has gone down and a more permanent cast needs to be placed. This is usually done by a bone specialist doctor (Orthopedist). Follow the instructions given to you by your doctor today. X-rays: X-rays done today were read by your doctor but will also be read by a radiologist. We will contact you if the radiologist sees anything different on the x-ray. Your regular doctor may also wantto review your x-rays on follow-up. You could have a fracture (break), even if we told you your x-rays were normal. X-rays are not always certain, and some fractures are hard to see and may not show up right away. Also, your x-ray may look like you have a fracture, even though you do not. It is important to follow-up with your regular doctor. If you were given a prescription for medicine here today, be sure to read all of the information (including the package insert) that comes with your prescription. This will include important information about the medicine, its side effects, and any warnings that you need to know about. The pharmacist who fills the prescription can provide more information and answer questions you may have about the medicine. If you have questions or concerns that the pharmacist cannot address, please call or return to the Emergency Department. Opioid Medication Information Pain medications are among the most commonly prescribed medicines, so we are including this information for all our patients. If you did not receive pain medication or get a prescription for pain medicine, you can ignore it. You may have been given a prescription for an opioid (narcotic) pain medicine and/or have received apain medicine while here in the Emergency Department. These medicines can make you drowsy or impaired. You must not drive, operate dangerous equipment, or engage in any other dangerous activities whiletaking these medications. If you drive while taking these medications, you could be arrested for DUI, or driving under the influence. Do not drink any alcohol while you are taking these medications. Opioid pain medications can cause addiction. If you have a history of chemical dependency of any type, you are at a higher risk of becoming addicted to pain medications. Only take these prescribed medications to treat your pain when all other options have been tried. Take it for as short a time and asfew doses as possible. Store your pain pills in a secure place, as they are frequently stolen and provide a dangerous opportunity for children or visitors in your house to start abusing these powerful medications. We will not replace any lost or stolen medicine. As soon as your pain is better, you should flush all your remaining medication. Many prescription pain medications contain Tylenol?? (acetaminophen), including Vicodin??, Tylenol #3??, Acosta??, Lortab??, and Percocet??. You should not take any extra pills of Tylenol?? if you are using these prescription medications or you can get very sick. Do not ever take more than 3000 mg of acetaminophen in any 24 hour period. All opioids tend to cause constipation. Drink plenty of water and eat foods that have a lot of fiber, such as fruits, vegetables, prune juice, apple juice and high fiber cereal. Take a laxative if you don???t move your bowels at least every other day. Miralax??, Milk of Magnesia, Colace??, or Senna?? can be used to keep you regular. Remember that you can always come back to the Emergency Department if you are not able to see your regular doctor in the amount of time listed above, if you get any new symptoms, or if there is anything that worries you. documented in this encounter Medications at Time of Discharge Medication Sig Dispensed Refills Start Date End Date oxyCODONE (ROXICODONE) 5 Take 1 tablet (5 mg) 20 tablet 0 0 04/12/2017 08/22/2022 MG IR tablet by mouth every 6 hours as needed for pain documented as of this encounter ED Notes Urvashi Anderson RN - 04/12/2017 5:35 PM CDT Pt fitted with sling and instructions given. Pt and family voices understanding. Sera Lozoya RN - 04/12/2017 4:03 PM CDT Patient declines additional pain meds at this time, state the pill is finally kicked in. Urvashi Anderson RN - 04/12/2017 1:38 PM CDT ABCs intact. Pt tripped and fell. Pt c/o L elbow pain. Pt took 500mg Tylenol around 1230. Pt declines more medication at this time. Dorita Stark MD - 04/12/2017 1:33 PM CDT History Chief Complaint: Fall HPI Shawna White is a 61 year old right handed female who presents after a fall. The patient states that she was walking down a hallway around 1215 when she tripped and fell. She states that she landed on her left elbow and knees. The patient has subsequently has had left elbow pain and swelling.She denies hitting her head or loss of consciousness. She denies any headache, neck pain, back pain,chest pain, abdominal pain, or other extremity pain. Allergies: Sulfa Drugs Medications: The patient is currently on no regular medications. Past Medical History: History reviewed. No significant past medical history. Past Surgical History: History reviewed. No pertinent past surgical history. Family History: History reviewed. No pertinent family history. Social History: Marital Status: Presents to the ED with her daughter Review of Systems Cardiovascular: Negative for chest pain. Gastrointestinal: Negative for abdominal pain. Musculoskeletal: Negative for back pain and neck pain. Positive for left elbow pain. All other systems reviewed and are negative. Physical Exam First Vitals: BP: (!) 144/96 Pulse: 65 Temp: 97.8 ??F (36.6 ??C) Resp: 20 Height: 157.5 cm (5' 2) Weight: 73 kg (161 lb) SpO2: 98 % Physical Exam Constitutional: The patient is oriented to person, place, and time. Alert and cooperative. HENT: Head: atraumatic. Right Ear: External ear normal. TM normal appearing. Left Ear: External ear normal. TM normal appearing. Nose: Nose normal. Mouth/Throat: Uvula is midline, oropharynx is clear and moist and mucous membranes are normal. No posterior oropharyngeal edema or erythema. Eyes: Conjunctivae, EOM and lids are normal. Pupils are equal, round, and reactive to light. Neck: Trachea normal. Normal range of motion. Neck supple. Cardiovascular: Normal rate, regular rhythm, normal heart sounds, and intact distal pulses. Pulmonary/Chest: Effort normal and breath sounds equal bilaterally. No crackles or wheezing. Abdominal: Soft. No tenderness. No rebound and no guarding. Musculoskeletal: LUE: no obvious deformity, skin intact. Ecchymosis to the elbow with edema. Tenderness to palpation over the elbow. Non-tender to palpation over the clavicle, shoulder, humeral shaft, forearm, wrist, and hand. Decreased ROM at the elbow secondary to pain. Normal ROM of the shoulder, wrist, and hand. Sensation intact in the Ax/M/R/U nerve distributions. Radial pulse 2+ Neurological: Alert and Oriented. Strength 5/5 in upper and lower extremities bilaterally. Sensationintact to light touch throughout. Skin: Skin is dry. No rash noted. Emergency Department Course Imaging: Elbow x-ray, left, 3 views: Moderately displaced fracture involving the olecranon process of the proximal ulna. Large amount of overlying soft tissue swelling and a small elbow effusion. No other acute elbow fractures. Preliminary radiology read. Humerus X-ray, left, 2 views: Proximal ulnar fracture. Report per radiology. Radius/Ulna x-ray, PA & LAT, left: Proximal ulnar fracture. Report per radiology. Radiographic findings were communicated with the patient who voiced understanding of the findings. Procedure: Splint Placement PLACEMENT: Posterior arm plaster splint was applied to the left upper extremity and after placement I checked and adjusted the fit to ensure proper positioning. The patient was more comfortable with the splint in place. Sensation and circulation are intact after splint placement. Interventions: Roxicodone, 5 mg, PO Emergency Department Course: Nursing notes and vitals reviewed. I performed an exam of the patient as documented above. The patient was sent for a elbow x-ray, radius/ulnar x-ray and humerus x-ray while in the emergency department, findings above. I performed a splint placement as documented above. ([id number]) I consulted with Dr. Lopes of orthopedics regarding the patient. Findings and plan explained to the patient. Patient discharged home with instructions regarding supportive care, medications, and reasons to return. The importance of close follow-up was reviewed. The patient was prescribed oxycodone Impression & Plan Medical Decision Making: Shawna White is a 61 year old female who presents to the emergency department for evaluation following a mechanical fall. Upon presentation to the ED, the patient is nontoxic appearing. She ishypertensive, but vital signs are otherwise within normal limits and stable. On exam, she is well appearing. She is alert, oriented, and neurologic exam is nonfocal. Cardiopulmonary exam is unremarkable. Abdomen is soft and nontender throughout. Head is atraumatic and without signs of basilar skull fracture. She has no midline tenderness, stepoffs, or deformities in the C/T/L spine. On exam of the left upper extremity, there is no obvious deformity and skin is intact. She does have ecchymosis and edema over the elbow with tenderness to palpation in this location. She does have decreased range of motion of the elbow secondary to pain. She is neurovascularly intact. The rest of her exam is as mentioned above. X-ray of the humerus, left forearm, and left elbow were obtained and does demonstrate a moderately displaced fracture involving the olecranon process of the proximal ulna. There are no other acute fractures noted. These results were discussed with the patient and she notes understanding. Thepatient was discussed with the filtration plant mechanic orthopedic physician. He did recommend posterior splint placem ent and close follow up in clinic. I discussed this thoroughly with the patient and she notes understanding and agreement. The splint was applied. Please refer to the procedure note above for further details. The patient tolerated this well. She remained neurovascularly intact post splint placement. Overall, given that she is well appearing, I do feel that she can be discharged to home. Her head to toe trauma exam is otherwise unremarkable. Close follow up with [facility] in clinic was discussed with the patient and she notes understanding. Return instructions were given. She was stable/improved at the time of discharge. Diagnosis: ICD-10-CM 1. Closed olecranon fracture, left, initial encounter S52.022A Disposition: discharged to home Discharge Medications: New Prescriptions OXYCODONE (ROXICODONE) 5 MG IR TABLET Take 1 tablet (5 mg) by mouth every 6 hours as needed for pain IKavya am serving as a scribe on 04/12/2017 at 2:40 PM to personally document services performed by Dr. Stark based on my observations and the provider's statements to me. 04/12/2017 [facility] Dorita Stark MD 04/13/17 1851 documented in this encounter Plan of Treatment Not on filedocumented as of this encounter Procedures Procedure Name Priority Date/Time Associated Diagnosis Comme nts XR HUMERUS LEFT G/E STAT 04/12/2017 3:27 PM Re sults for this 2 VIEWS CDT procedure are i n the results section. XR FOREARM LEFT 2 STAT 04/12/2017 3:26 PM Resu lts for this VIEWS CDT procedure are i n the results section. XR ELBOW LEFT G/E 3 STAT 04/12/2017 2:15 PM Re sults for this VIEWS CDT procedure are i n the results section. documented in this encounter Results Humerus XR, G/E 2 views, left (04/12/2017 3:27 PM CDT) Anatomical Region Laterality Modality Left Arm Left Digital Radiography Specimen (Source) Anatomical Location Collection Method / Collectio n Time Received Time / Laterality Volume Impressions 04/12/2017 3:37 PM CDT IMPRESSION: Proximal ulnar fracture. TREVOR NAVAS MD Narrative 04/12/2017 3:37 PM CDT XR HUMERUS LT G/E 2 VW 04/12/2017 3:27 PM HISTORY: Trauma, pain. COMPARISON: None. FINDINGS: Fracture through the proximal ulna with distraction of the proximal fracture fragment. Distal humer us appears intact. Shoulder is unremarkable. Procedure Note Trevor Navas MD - 04/12/2017For matting of this note might be different from the original. XR HUMERUS LT G/E 2 VW 04/12/2017 3:27 PM HISTORY: Trauma, pain. COMPARISON: None. FINDINGS: Fracture through the proximal ulna with distraction of the proximal fracture fragment. Distal humer us appears intact. Shoulder is unremarkable. IMPRESSION: Proximal ulnar fracture. TREVOR NAVAS MD Dorita Stark MD [facility] DIAGNOSTIC IMAGING ORDER MIKE Radius/Ulna XR, PA &LAT, left (04/12/2017 3:26 PM CDT) Anatomical Region Laterality Modality Left Forearm Left Digital Radiography Specimen (Source) Anatomical Location Collection Method / Collectio n Time Received Time / Laterality Volume Impressions 04/12/2017 3:38 PM CDT IMPRESSION: Proximal ulnar fracture. TREVOR NAVAS MD Narrative 04/12/2017 3:38 PM CDT XR FOREARM LT 2 VW 04/12/2017 3:26 PM HISTORY: Pain after trauma. COMPARISON: None. FINDINGS: Proximal ulnar fracture with d istraction of the proximal fragment by approximately 2 cm. Radius a nd distal humerus appear intact. Procedure Note Trevor Navas MD - 04/12/2017For matting of this note might be different from the original. XR FOREARM LT 2 VW 04/12/2017 3:26 PM HISTORY: Pain after trauma. COMPARISON: None. FINDINGS: Proximal ulnar fracture with d istraction of the proximal fragment by approximately 2 cm. Radius a nd distal humerus appear intact. IMPRESSION: Proximal ulnar fracture. TREVOR NAVAS MD Dorita Stark MD [facility] DIAGNOSTIC IMAGING ORDER MIKE Elbow XR, G/E 3 views, left (04/12/2017 2:15 PM CDT) Anatomical Region Laterality Modality Left Elbow Left Digital Radiography Specimen (Source) Anatomical Location Collection Method / Collectio n Time Received Time / Laterality Volume Impressions 04/12/2017 3:11 PM CDT IMPRESSION: Moderately displaced fracture involving the olecranon process of the proximal ulna. Large amou nt of overlying soft tissue swelling and a small elbow effusion. No other acute elbow fractures. NUVIA HUGHES MD Narrative 04/12/2017 3:11 PM CDT LEFT ELBOW THREE OR MORE VIEWS ?? 04/12/2017 2:15 PM INDICATION: Fall. COMPARISON: None. Procedure Note Nuvia Hughes MD - 04/12/2017F ormatting of this note might be different from the original. LEFT ELBOW THREE OR MORE VIEWS 04/12/2017 2:15 PM INDICATION: Fall. COMPARISON: None. IMPRESSION: Moderately displaced fractur e involving the olecranon process of the proximal ulna. Large amou nt of overlying soft tissue swelling and a small elbow effusion. No other acute elbow fractures. NUVIA HUGHES MD Celso Sanches MD [facility] DI[facility]NOSTIC IMAGING ORDER MIKE documented in this encounter Visit Diagnoses Diagnosis Closed olecranon fracture, left, initial encounter documented in this encounter Administered Medications Inactive Administered Medications - up to 3 most recent administrations Medication Order MAR Action Action Date Dose Rate Site fentaNYL Citrate (PF) (SUBLIMAZE) 100 MC G/2ML injection Starting on Mon04/12/17 at 1640, For 1 d ose, Sera Lozoya : cabinet override fentaNYL Citrate (PF) (SUBLIMAZE) injection Given 04/12/2017 4:43 PM CDT 50 mcg 50 mcg 50 mcg, Nasal, ONCE, On Mon04/12/17 at 1640, For 1 dose oxyCODONE (ROXICODONE) IR tablet 5 mg Given 04/12/2017 2:59 PM CDT 5 mg 5 mg, Oral, ONCE, On Mon04/12/17 at 1450, For 1 dose documented in this encounter Active and Recently Administered Medications Times are shown in CDT. Scheduled Medication Order 04/10/2017 04/11/2017 04/12/2017 fentaNYL Citrate (PF) (SUBLIMAZE) injection 50 mcg (COMPLETED) 1643 (Given - Provider: Sera Lozoya RN - Comment: for splinting) 50 mcg, Nasal, ONCE, Mon04/12/17 at 1640, For 1 dose oxyCODONE (ROXICODONE) IR tablet 5 mg (COMPLETED) 1459 (Given - Provider: Joceline Perez RN) 5 mg, Oral, ONCE, Mon04/12/17 at 1450, For 1 dose documented in this encounter Care Teams Kier Hand Relationship Specialty Start Date End Date [facility], [facility] PCP - General 04/12/17 08/21/[address] [place] [id number] documented as of this encounter
--- OUTSIDE RECORDS SUMMARY | 2022-09-26 11:16 | XMS_ITS | Encounter Summary ---
:1955 Author Organization [facility] Address [address] [place] [address] Care Team Providers Name Role Phone [facility] Primary Care Provider [phone] Encounter Details Date Type Department Care Team Description 08/03/2022 Travel Social History Tobacco Use Types Packs/Day Years Used Date Smoking Tobacco: Never Assessed Sex Assigned at Date Recorded Not on file COVID-19 Exposure Response Date Recorded In the last 10 days, have you been in contact Unable to asse ss 08/03/2022 8:06 AM CDT with someone who was confirmed or suspected to have Coronavirus/COVID-19? documented as of this encounter Plan of Treatment Not on filedocumented as of this encounter Visit Diagnoses Not on filedocumented in this encounter Care Teams Clinical Medical Transcriptionist Relationship Specialty Start Date End Date [facility] PCP - General 04/12/17 08/21/[address] [place] [id number] documented as of this encounter
--- OUTSIDE RECORDS SUMMARY | 2022-09-26 11:16 | XMS_ITS | Encounter Summary ---
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 documented as of this encounter Plan of Treatment Not on filedocumented as of this encounter Visit Diagnoses Not on filedocumented in this encounter Care Teams Summons Server Relationship Specialty Start Date End Date aSmreen Romano PCP - General Internal Medicine 08/22/22 [facility] [address] [place] [address] documented as of this encounter
--- OUTSIDE RECORDS SUMMARY | 2022-09-26 11:16 | XMS_ITS | Encounter Summary ---
:1955 Author Organization [place] Address [address] [place] [address] Care Team Providers Name Role Phone Samina Romanoherine Primary Care Provider Reason for Visit Auth/Cert (Routine) Specialty Diagnoses / Procedures Referred By Contact Refer red To Contact Surgery Diagnoses Lichen sclerosus of vulva Lichen sclerosus of vulva [N90.4] Sh Periop Services Procedures ZZC COMPLETE SIMPLE REMV VULVA PARTIAL SIMPLE VULVECTOMY [address] [place] [address] Phone: Referral ID Status Reason Start Date Expiration Date Visits Requ ested Visits Authorized [id number] 1 1 Encounter Details Date Type Department Care Team Description 08/22/2022 [facility] Krysten Mcgregor ated vulvar Encounter Lynn Mcginnis MD intraepithelial PreOP/Phase II [place] [facility]COL[facility] neoplasia (dVIN) [address], HEMATOLOGY (Primary Dx) [address] [place] [facility] [address] [phone] [place] [id number] Social History Tobacco Use Types Packs/Day Years [...] No / Unsu re 08/22/2022 6:29 AM WHEEL CLEANER someone who was confirmed or suspected to have Coronavirus/COVID-19? documented as of this encounter Last Filed Vital Signs Vital Sign Reading Time Taken Comments Blood Pressure 115/69 08/22/2022 10:20 AM WHEEL CLEANER Pulse 54 08/22/2022 9:37 AM WHEEL CLEANER Temperature 36.5 ??C (97.7 ??F) 08/22/2022 9:37 AM WHEEL CLEANER Respiratory Rate 16 08/22/2022 10:20 AM WHEEL CLEANER Oxygen Saturation 98% 08/22/2022 10:20 AM WHEEL CLEANER Inhaled Oxygen Concentration - - Weight 77.5 kg (170 lb 12.8 oz) 08/22/2022 6:31 AM WHEEL CLEANER Height 160 cm (5' 3) 08/22/2022 6:31 AM WHEEL CLEANER Body Mass Index 30.26 08/22/2022 6:31 AM WHEEL CLEANER documented in this encounter Discharge Instructions Discharge [...] concerns about your procedure, call Dr. Mcgregor [phone] Today you were given 975 mg of Tylenol at 0655. The recommended daily maximum dose is 4000 mg. L CLEANER documented in this encounter Medications at Time [...] as needed for constipation fluticasone (FLONASE) 50 [place] 1 spray into 0 MCG/ACT nasal spray [...] the patient. There are no significant changes L CLEANER Source Note - Outside, Provider - 08/18/2022 11:05 AM CDT documented in this encounter Nursing Notes Gerald Chavez RN - 08/22/2022 10:28 AM CST AOX3-VSS-O2 sats >92% RA- Good PO intake, Denies c/o- Pt and responsible adult verbalize understanding of discharge instructions, denies questions. Up in W/C - transported to door for discharge to home. L CLEANER Michelle Lund RN - 08/22/2022 6:43 AM CST Patient brought a picture of home covid antigen test on phone as directed. I personally saw this result and it was time stamped 08/20/22. Result was negative. L CLEANER documented in this encounter Miscellaneous Notes Op [...] room instable condition. 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 VULVECTOMY, SIMPLE 08/22/2022 8:03 AM Lichen sclerosus of WHEEL CLEANER vulva documented in this encounter Results Surgical Pathology Exam (08/22/2022 8:31 AM WHEEL CLEANER) Component Value Ref Test Analysis Performed At [facility] Range Method Time Signature Case Report Surgical Pathology Report ? Case: [id number] ? 08/23/2022 Authorizing Provider: ??Krysten Saul MD ?? Collected: ? 08/22/2022 08:31 AM ? 11:40 AM LABORATOR Y Ordering Location: ? M [facility] [place] ?Received: ?08/22/2022 08:52 AM ? WHEEL CLEANER ? [facility] ? Pathologist: ? Hadley Reeves, ? MD ? Specimen: ?Vulva, PARTIA L POSTERIOR VULVECTOMY ? Final Vulva, posterior, partial vulvectomy- Electronically Diagnosis Lichen sclerosis at atrophic us, no evidence of dysplasia or malignancy 11:40 AM LABORATORY signed by Hadley Hwang MD on 08/23/2022 at 11:40 AM Comment Intradepartmental 08/23/2022 consultation has 11:40 AM LABORATORY been obtained [facility] Clinical Procedure: 08/23/2022 Information PARTIAL SIMPLE VULVECTOMY 11:40 AM LA BORATORY Pre-op Diagnosis: Lichen sclerosus of vulva [N90.4] [facility] Post-op Diagnosis: N90.4 - Lichen sclerosus of [...] and the 9:00 half is inked vinny WHEEL CLEANER ck. The skin surface is irre gular and wrinkled without definitive mass lesion. The specimen is serially sectioned and entirely sequentially submitted in 4 cassettes from 12:00 to 6:00. ([facility]) Microscopic Microscopic 08/23/2022 Description performed 11:40 AM LABORATORY WHEEL CLEANER Performing The technical 08/23/2022 Labs component of this 11:40 AM LABORATORY testing was WHEEL CLEANER completed at [facility] Laboratory Case Images 08/23/2022 11:40 AM LABORATORY WHEEL CLEANER Specimen Anatomical Collection Method Collection Time Receive d Time (Source) Location / / Volume Laterality Tissue VULVAL STRUCTURE / 08/22/2022 8:31 AM 04/2022 8:52 Unknown WHEEL CLEANER AM WHEEL CLEANER Krysten SOTO - JOANN HARMAN Performing Organization Address City/State/ZIP [place] [address] Care [facility] 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 Hold if patient has taken acetaminophen within 4 hours. Maximum acetaminophen dose from all sources = 75 mg/kg/day not to exceed 4 grams/day., Pre-procedure documented in this encounter Active and Recently Administered Medications Due to Daylight Saving Time, this section may contain times in both CDT and WHEEL CLEANER. Scheduled Medication Order 08/20/2022 08/21/2022 08/22/2022 acetaminophen (TYLENOL) tablet 975 mg (COMPLETED) 06 (Given - Provider: Michelle Lund RN) 975 [...] 808 (Given - Provider: Any Martinez APRN CRNA) Routine, 2 g, Intravenous, PRE-OP/PRE-AZ OCEDURE, Starting on Mon08/22/22 at 0617, For [...] side ef fects. Hold while on IV FINANCIAL ASSISTANCE SPECIALIST or with regular IV opioid dosing. documented in this encounter Care Teams Cook Restaurant Relationship Specialty Start Date End Date Samreen Romano PCP - General Internal Medicine 08/22/22 [facility] [address] [place] [address] documented as of this encounter
[2022-09-26 11:43] LABS: Chloride* 107 mmol/L (96-114)
[2022-09-26 11:44] LABS: Potassium* 4.4 mmol/L (3.6-5.1); Sodium* 139 mmol/L (135-149)
[2022-09-26 11:46] LABS: Blood Urea Nitrogen* 19 mg/dL (7-30); Calcium* 9.6 mg/dL (8.4-10.6); Carbon Dioxide* 24 mmol/L (20-32); Creatinine* 0.9 mg/dL (0.5-1.5); Estimated Glomerular Filt Rate 70 ml/min; Glucose* 93 mg/dL (60-115)
== END 2022-09-26 11:09 | disposition home or self-care (01) ==
LOC: NFLDREF 11:09
PROVIDERS: PCP Internal Medicine; Visit Provider Internal Medicine
DX: I10 Essential (primary) hypertension (principal)
CPT/HCPCS: 80048

== ENCOUNTER 2023-09-25 10:15 | Outpatient (REF) | payer MEDICARE, BC, SELFPAY | END 2023-09-25 10:16 | disposition home or self-care (01) | LOC: NFLDREF 10:15 | PROVIDERS: PCP Internal Medicine; Referring Provider Internal Medicine; Visit Provider Internal Medicine | DX: R73.03 Prediabetes (principal); E78.5 Hyperlipidemia, unspecified; E03.9 Hypothyroidism, unspecified; N39.0 Urinary tract infection, site not specified; E66.9 Obesity, unspecified; I10 Essential (primary) hypertension | CPT/HCPCS: 80048; 80061; 84443; 87086; 87186 ==

== ENCOUNTER 2024-01-01 12:45 | Outpatient (CLI) | payer MEDICARE, BC, SELFPAY ==
--- NOTE | 2024-01-01 13:00 | MM_ITS ---
Patient: STEVE BURROUGHS Facility:?[facility] Patient ID:?[id number] Site Patient ID:?[id number]. Site :?1955 Study:?XRay-Breast Bilateral 3D W/CAD-01/01/2024 2:08:23 PM Ordering Physician:Samreen Navarro Final Report: BILATERAL SCREENING MAMMOGRAM WITH COMPUTER-AIDED DETECTION AND TOMOSYNTHESIS TECHNIQUE: CC and MLO views were obtained. These mammographic images have been obtained using full-field digital technique. These mammographic images were interpreted with the benefit of computer-aided detection. Breast Tomosynthesis was used in this interpretation. COMPARISON FILM: 12/17/21, 12/11/20, 11/21/19. FINDINGS: There are scattered areas of fibroglandular density. IMPRESSION: There is no radiographic evidence for malignancy. ASSESSMENT: BI-RADS Category 1: Negative RECOMMENDATION: Routine screening mammogram in 1 year. A lay language report of this examination will be provided to the patient. Francisco Javier Griffith M.D. Diagnostic Radiologist [email or web address] DSM/sp R& Transcribed: 1:54 p.m. SP/Dictated by: Francisco Javier Griffith MD @ 01/02/2024 9:01:00 AM Signed by:Faraz Griffith MD @01/02/2024 2:48:37 PM (Electronic Signature)
== END 2024-01-01 12:46 | disposition home or self-care (01) ==
LOC: NFLDRAD 12:47
PROVIDERS: PCP Internal Medicine; Visit Provider Internal Medicine
DX: Z12.31 Encounter for screening mammogram for malignant neoplasm of breast (principal)
CPT/HCPCS: 77063; 77067

== ENCOUNTER 2024-03-18 10:00 | Outpatient (CLI) | payer MEDICARE, BC, SELFPAY ==
--- OUTSIDE RECORDS SUMMARY | 2024-04-04 11:23 | XMS_ITS | Clinical Summary ---
Author Organization [facility] Address [address] [place] [address] Care Team Providers Care Repair Cameraman Name Role Phone Elsewhere, Pcp Primary Care Provider Unavailabl e Source Comments Patient records contain information from all sites at [facility]. For routine questions regarding patient records, call [phone] during business hours, M-F 8:00 AM - 5:00 PM Central Time. Record requests for emergency care only can be directed to [phone] at any time.[facility] Allergies Active Allergy Reactions Criticality Noted Date Comments Sulfa (Sulfonamide Antibiotics) Hives (Reselect Reaction) 01/04/2019 Medications Medication Sig Dispensed Refills Start Date End Date Status aspirin [address] tablet Take 81 mg by mouth daily. Active melatonin 5 mg tablet Take 5 mg by mouth at bedtime. Active fluticasone propionate (FLONASE) 50 mcg/actuation nasal spray Administer 1 spray into each nostril daily. Active sertraline (ZOLOFT) 100 mg tablet Take 100 mg by mouth daily. Active omeprazole (PriLOSEC) [address] capsule Take 40 mg by mouth every morning before breakfast. Active ramipril (ALTACE) 5 mg capsule Take 5 mg by mouth daily. Active simvastatin (ZOCOR) 10 mg tablet Take 10 mg by mouth at bedtime. Active levothyroxine (SYNTHROID, LEVOTHROID) 88 mcg tablet Take 88 mcg by mouth every morning before breakfast. Active acetaminophen (TYLENOL) 325 mg tablet Take 325-650 mg by mouth as needed. 09/24/2012 Active cefdinir (OMNICEF) 300 mg capsule Take 1 capsule (300 mg total) by mouth every 12 (twelve) hours. 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 Immunizations Name Administration Dates Next Due SARS-COV-2 (COVID-19) - MODERNA(Discontinued) ,12/17/2020 Family History Medical History Relation Name Comments Coronary artery disease Father Stroke Father Breast cancer Father's Sister 3 Breast cancer Maternal Grandmother Heart failure Mother CHF Relation Name Status Comments Father (Age 79) Stroke com plications Father's Sister 3 Maternal Grandmother Mother (Age 95) After a fa ll/rhabdomyolysis Social History Tobacco Use Types Packs/Day Years Used Date Smoking Tobacco: Former Cigarettes Q uit: 04/2003 Smokeless Tobacco: Never Alcohol Use Standard Drinks/Week Comments No 0 (1 standard drink = 0.6 oz pur e alcohol) Sober since 01/2013 Social Connection and Isolation Panel [NHANES] A nswer Date Recorded Frequency of Communication with Friends and Fami ly Once a week 04/06/2019 Frequency of Social Gatherings with Friends and Family Once a week 04/06/2019 Attends Temple Services Never 04/06 Active Member of Clubs or Organizations No 04/06/2019 Attends Club or Organization Meetings Never 04/06/2019 Marital Status 04/06/2019 AUDIT-C Answer Date Recorded Frequency of Alcohol Consumption Never 04/06/2019 Average Number of Drinks Not on file 019 Frequency of Binge Drinking Never 03/17 Overall Financial Resource Strain (CARDIA) Answe r Date Recorded Difficulty of Paying Living Expenses Not hard at all 04/06/2019 [facility] [place] [facility] Occupat ional [facility] - Occupational Stress Questionnaire Answer Date Recorded Feeling of Stress Not at all 04/06/2019 Exercise Vital Sign Answer Date Recorde d Days of Exercise per Week 3 days 2018 Minutes of Exercise per Session 40 min 04/06/2019 Hunger Vital Sign Answer Date Recorded Worried About Running Out of Food in the Last Ye ar Never true 04/06/2019 Ran Out of Food in the Last Year Never true 04/06/2019 PRAPARE - Transportation Answer Date Re corded Lack of Transportation (Medical) No 04/06/2019 Lack of Transportation (Non-Medical) No 04/06/2019 Nutrition Answer Date Recorded Nutrition: EVOO Fat Source Unknown 12/14 Nutrition: Servings of Fruits/Vegetables per Day Not on file 12/14/2020 Dental Answer Date Recorded Dental: Regular Dentist Unknown 12/15/19 Education Answer Date Recorded What is the highest level of school you have completed or the highest degree you have received? Bachelor's degree (e.g., BA, AB, BS) 04/05/2019 Sex and Gender Information Value Date Recorded Sex Assigned at Female 02/07/2019 8:34 PM CDT Gender Identity Female 02/07/2019 8:34 PM CDT Sexual Orientation Straight 02/07/2019 8: 34 PM CDT Last Filed Vital Signs Vital Sign Reading Time Taken Comments Blood Pressure 135/66 08/07/2021 3:12 PM CDT Pulse 88 08/07/2021 3:12 PM CDT Temperature 36.8 ??C (98.2 ??F) 08/07/2021 3:12 PM CD T Respiratory Rate 16 08/07/2021 3:12 PM CDT Oxygen Saturation 99% 08/07/2021 3:12 PM CDT Inhaled Oxygen Concentration - - Weight 79 kg (174 lb 2.6 oz) 08/07/2021 3:10 PM CDT Height - - Body Mass Index - - Plan of Treatment Health Maintenance Due Date Last Done Comments Bone Density Scan (Osteoporo sis Screen) 1955 CT Colonography 1955 Cologuard 1955 Colonoscopy 1955 Colorectal Cancer Screening 1955 FIT 1955 Hepatitis C Screening 1955 Mammogram 1955 Thyroid Stimulating Hormone (TSH) test for thyroid function 1955 Creatinine Level (Kidney Fun ction Test) 07/15/2022 07/15/2021 Potassium Level 07/15/2022 07/15/2021 Sodium Level 07/15/2022 07/15/2021 COVID-19 Vaccine (2022-2 4 season) 2023 08/13/2021, 01/15/2021, 12/17/2020 DTaP,Tdap,and Td Vaccines (3 - Td or Tdap) 07/26/2023 07/26/2013, 06/08/2011 Depression Screening (Annual PHQ-2) 10/16/2023 Fall Risk Screen (Annual) 10/16/2023 Fasting Glucose for Diabetes Screening 07/15/2024 07/15/2021, 07/15/2021 Zoster Vaccines Completed 05/30/2019, 02/16/2019 Pneumococcal vaccine (65+ years) Completed 09/22/20 20, 10/15/2019 Influenza Vaccine Completed 09/28/2023, , 09/23/2021, Additional history exists Procedures Procedure Name Priority Date/Time Associated Diagnosis Comments COMPREHENSIVE METABOLIC PANEL, S/P STAT 07/15/2021 8:03 PM CDT GLUCOSE POCT, B Routine 07/15/2021 7:48 PM CDT from Last 3 Months or Most Recently Relevant to Health Maintenance Results * (ABNORMAL) Comprehensive Metabolic Panel (07/15/2021 8:03 PM CDT) Potassium, P 4.1 3.6 - 5.2 mmol/L 07/15/2021 8:26 PM CDT CNFL Sodium, P 135 135 - 145 mmol/L 07/15/2021 8:26 PM CDT CNFL Chloride, P 103 98 - 107 mmol/L 07/15/2021 8:26 PM CDT CNFL Bicarbonate, P 21(L) 22 - 29 mmol/L 07/15/2021 8:26 PM CDT CNFL Anion Gap, P 11 7 - 15 07/15/2021 8:26 PM CDT CNFL BUN (Blood Urea Nitrogen), P 17 6 - 21 mg/dL 07/15/2021 8:26 PM CDT CNFL Creatinine 1.08(H) 0.59 - 1.04 mg/dL 07/15/2021 8:26 PM CDT CNFL eGFR-Black/ 61 >=60 mL/min/BS A 07/15/2021 8:26 PM CDT CNFL Comment: ----ADDITIONAL INFORMATION---- Estimated GFR calculated using the 2009 CKD_EPI creatinine equation. eGFR Non-Black/ 53(L) >=60 mL/min/BS A 07/15/2021 8:26 PM CDT CNFL Comment: ----ADDITIONAL INFORMATION---- Estimated GFR calculated using the 2009 CKD_EPI creatinine equation. Calcium, Total, P 9.4 8.8 - 10.2 mg/dL 07/15/2021 8:26 PM CDT CNFL Glucose, P 125 70 - 140 mg/dL 07/15/2021 8:26 PM CDT CNFL Protein, Total, P 6.4 6.3 - 7.9 g/dL 07/15/2021 8:26 PM CDT CNFL Albumin, P 4.4 3.5 - 5.0 g/dL 07/15/2021 8:26 PM CDT CNFL Aspartate Aminotransferase (AST), P 16 8 - 43 U/L 07/15/2021 8:26 PM CDT CNFL Alkaline Phosphatase, P 68 35 - 104 U/L 07/15/2021 8:26 PM CDT CNFL Alanine Aminotransferase (ALT), P 17 7 - 45 U/L 07/15/2021 8:26 PM CDT CNFL Bilirubin, Total, P 0.2 <=1.2 mg/dL 07/15/2021 8:26 PM CDT CNFL Blood (Blood, Venous) 07/15/2021 8:03 PM CDT 07/15/2021 8:06 PM CDT Wang Cummins APRN C.N.P., M.S.N. LAB BLOO D ADD-ON [facility] [address] [place], [place] [id number], [facility] CNFL [facility] [place] [address] * Glucose, POCT (07/15/2021 7:48 PM CDT) Glucose, POCT, B 130 70 - 140 mg/dL 07/15/2021 7:48 PM CDT CNFL Blood 07/15/2021 7:48 PM CDT 07/15/2021 8:09 PM CDT Generic Rals LAB POCT ORDERABLES- MANUAL [facility] [address] [place] [address], [facility] CNFL [facility] in [address] [address] from Last 3 Months or Most Recently Relevant to Health Maintenance Advance Directives For more information, please contact: [phone] Documents on File Type Date Recorded Patient Water Quality Specialist Expl anation Advance Directives 08/08/2021 10:13 AM Inés Ortega HCPOA/ADVOCATE/AGENT/R EPRESENTATIVE/SURROGAT E Healthcare Agents on File Name Relationship Healthcare Agent Relationshi p Communication Inés Marrero Daughter Health Care Agent Justice Ortega Daughter First Alternate Health Care Agent Care Teams Repair Cameraman Relationship Specialty Start Date End Date Elsewhere, Pcp PCP - General Family Medicine 10/11/18
--- OUTSIDE RECORDS SUMMARY | 2024-04-04 11:23 | XMS_ITS | Referral Summary ---
Author Organization [facility] Address [address] [place] [address] Care Team Providers Care Textile Screen Printer Name Role Phone Samreen Romano MD Primary Care Provider Allergies Active Allergy Reactions Criticality Noted Date Comments Sulfa Antibiotics Hives 04/12/2017 Medications Medication Sig Dispensed Refills Start Date End Date Status levothyroxine (SYNTHROID/LEVOTHROID ) 88 MCG tablet Take 88 mcg by mouth daily Active omeprazole (PRILOSEC) [address] capsule Take 40 mg by mouth daily Active rosuvastatin (CRESTOR) 10 MG tablet Take 10 mg by mouth daily Active sertraline (ZOLOFT) 100 MG tablet Take 100 mg by mouth daily Active ramipril (ALTACE) 5 MG capsule Take 5 mg by mouth daily Active Melatonin 10 MG TABS tablet Take 10 mg by mouth nightly as needed for sleep Active Magnesium Oxide 500 MG CAPS Take 1 capsule by mouth daily Active docusate sodium (COLACE) 100 MG capsule Take 100 mg by mouth daily as needed for constipation Active fluticasone (FLONASE) 50 MCG/ACT nasal spray [place] 1 spray into both nostrils daily Active clobetasol (TEMOVATE) 0.05 % CREA cream Apply topically twice a week Active acetaminophen (TYLENOL) 650 MG CR tablet Take 650 mg by mouth every 8 hours as needed for mild pain Active aspirin 81 MG EC tablet Take by mouth daily No dose listed Active NONFORMULARY Delta 9 edibles Activ e oxyCODONE (ROXICODONE) 5 MG tabletIndications:Dif ferentiated vulvar intraepithelial neoplasia (dVIN) Take 1 tablet (5 mg) by mouth every 6 hours as needed for pain 12 tablet 08/22/2022 Active SENNA-docusate sodium (SENNA S) 8.6-50 MG tabletIndications:Dif ferentiated vulvar intraepithelial neoplasia (dVIN) Take 1-2 tablets by mouth 2 times daily Take while taking oxycodone 20 tablet 08/22/2022 Active Active Problems Problem Noted Date Diagnosed Date 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 Lichen sclerosus 07/06/2022 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 H/O: CVA (cerebrovascular accident) 07/06/2022 Hypercholesterolemia 07/06/2022 Hypothyroidism 07/06/2022 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 Social History Tobacco Use Types Packs/Day Years Used Date Smoking Tobacco: Former Cigarettes Smokeless Tobacco: Never Tobacco Cessation:Counseling Given: Not Answered Alcohol Use Standard Drinks/Week Comments Yes 0 (1 standard drink = 0.6 oz pur e alcohol) dependence in remission Adolescent Education Answer Date Record ed Getting School Help Needed Not on file 07/07 Sex and Gender Information Value Date Recorded Sex Assigned at Not on file Gender Identity Not on file Sexual Orientation Not on file Last Filed Vital Signs Vital Sign Reading Time Taken Comments Blood Pressure 115/69 08/22/2022 10:20 AM BUFFING WHEEL RAKER Pulse 54 08/22/2022 9:37 AM BUFFING WHEEL RAKER Temperature 36.5 ??C (97.7 ??F) 08/22/2022 9:37 AM CS T Respiratory Rate 16 08/22/2022 10:2 0 AM BUFFING WHEEL RAKER Oxygen Saturation 98% 08/22/2022 10: 20 AM BUFFING WHEEL RAKER Inhaled Oxygen Concentration - - Weight 77.5 kg (170 lb 12.8 oz) 08/22/2022 6:31 AM BUFFING WHEEL RAKER Height 160 cm (5' 3) 08/22/2022 6:31 AM BUFFING WHEEL RAKER Body Mass Index 30.26 08/22/2022 6:31 AM BUFFING WHEEL RAKER Plan of Treatment Not on file Care Teams Textile Screen Printer Relationship Specialty Start Date End Date Samreen Romano MD [facility] [address] [place] [address] PCP - General Internal Medicine 08/22/22
--- OUTSIDE RECORDS SUMMARY | 2024-04-04 11:23 | XMS_ITS ---
Author Organization [facility] Address [address] [place] [address] Care Team Providers Care Music Publisher Name Role Phone Unavailable Unavailable Unavailable Surgery Details Not on file Complications Check Surgery Details section. Procedure Estimated Blood Loss Check Surgery Details section. Procedure Findings Check Surgery Details section. Procedure Specimens Taken Check Surgery Details section.
--- OUTSIDE RECORDS SUMMARY | 2024-04-04 11:23 | XMS_ITS | Clinical Summary ---
Author Organization [facility] Address [address] [place] [address] Care Team Providers Care Candy Supervisor Name Role Phone Samreen Romano MD Primary [...] Active fluticasone (FLONASE) 50 MCG/ACT nasal spray Pixley 1 spray into both nostrils daily Active [...] Comments Blood Pressure 115/69 08/22/2022 10:20 AM FIRE FIGHTING EQUIPMENT SPECIALIST Pulse 54 08/22/2022 9:37 AM FIRE FIGHTING EQUIPMENT SPECIALIST Temperature 36.5 ??C (97.7 ??F) 08/22/2022 9:37 AM CS T Respiratory Rate 16 08/22/2022 10:2 0 AM FIRE FIGHTING EQUIPMENT SPECIALIST Oxygen Saturation 98% 08/22/2022 10: 20 AM FIRE FIGHTING EQUIPMENT SPECIALIST Inhaled Oxygen Concentration - - Weight 77.5 kg (170 lb 12.8 oz) 08/22/2022 6:31 AM FIRE FIGHTING EQUIPMENT SPECIALIST Height 160 cm (5' 3) 08/22/2022 6:31 AM FIRE FIGHTING EQUIPMENT SPECIALIST Body Mass Index 30.26 08/22/2022 6:31 AM FIRE FIGHTING EQUIPMENT SPECIALIST Plan of Treatment Health Maintenance Due Date Last Done Comments ADVANCE CARE PLANNING 1954 ANNUAL REVIEW OF HM ORDERS 1954 CT COLONOGRAPHY 1954 DEXA 1954 FIT 1954 FLEX SIG 1954 GLUCOSE 1954 LIPID 1954 MAMMO SCREENING 1954 TSH W/FREE T4 REFLEX 1954 sDNA (Cologuard) 1954 COLONOSCOPY 1964 COLORECTAL CANCER SCREENING 1964 HEPATITIS C SCREENING 1972 LUNG CANCER SCREENING 2004 RSV VACCINE ( & 60+) (1 - 1-dose 60+ series) 2014 FALL RISK ASSESSMENT 2019 MEDICARE ANNUAL WELLNESS VISIT 2019 DTAP/TDAP/TD IMMUNIZATION (2 - Td or Tdap) 06/08/2021 06/08/2011 COVID-19 Vaccine ( - season) 2023 08/13/2021, 01/15/2021, 12/17/2020 PHQ-2 (once per calendar year) 2023 INFLUENZA VACCINE (Season Ended) 2024 07/21/2022, 09/23/2021, 09/22/2020, Additional history exists ZOSTER IMMUNIZATION Completed 05/30/2019, 9 Pneumococcal Vaccine: 65+ Years Completed 09/22/2020, 10/15/2019 HPV IMMUNIZATION Aged Out No longer e ligible based on patient's age to complete this topic IPV IMMUNIZATION Aged Out No longer e ligible based on patient's age to complete this topic MENINGITIS IMMUNIZATION Aged Out No l onger eligible based on patient's age to complete this topic RSV MONOCLONAL ANTIBODY Aged Out No l onger eligible based on patient's age to complete this topic Care Teams Candy Supervisor Relationship Specialty Start Date End Date Samreen Romano MD [address] [address] PCP - General Internal Medicine 08/22/22
--- OUTSIDE RECORDS SUMMARY | 2024-04-04 11:23 | XMS_ITS | Referral Summary ---
Author Organization [facility] Address [address] [place] [address] Care Team Providers Care Toll Line Inspector Name Role Phone Elsewhere, Pcp Primary Care Provider Unavailabl e Source Comments Patient records contain information from all sites at [facility]. For routine questions regarding patient records, call [phone] during business hours, M-F 8:00 AM - 5:00 PM Central Time. Record requests for emergency care only can be directed to [phone] at any time.[facility] Allergies Active Allergy Reactions Criticality Noted Date [...] Next Due SARS-COV-2 (COVID-19) - MODERNA(Discontinued) ,12/17/2020 Social History Tobacco Use Types Packs/Day Years [...] and Family Once a week 04/06/2019 Attends [employer] Never 04/06 Active Member of Clubs [...] Living Expenses Not hard at all 04/06/2019 [facility] [place] of Occupat ional Health - Occupational Stress [...] Date Recorded Dental: Regular Dentist Unknown 12/15/19 21 Education Answer Date Recorded What is the [...] Mass Index - - Plan of Treatment Not on file Procedures Procedure Name Priority Date/Time Associated Diagnosis [...] CDT Wang Cummins APRN C.N.P., M.S.N. LAB [place] D ADD-ON Performing Organization Address City/State/[facility] Co de Phone Number [facility]- [address] [address], [facility] CNFL [facility] in [address] [address] * Glucose, POCT (07/15/2021 7:48 PM CDT) Glucose, POCT, B 130 70 - 140 mg/dL 07/15/2021 7:48 PM CDT CNFL Blood 07/15/2021 7:48 PM CDT 07/15/2021 8:09 PM CDT Generic [facility] LAB POCT ORDERABLES- MANUAL [facility] [address] [place] [id number], [place] CNFL [facility] in [address] [address] from Last 3 Months or Most Recently Relevant to Health Maintenance Advance Directives For more information, please contact: [phone] Documents on File Type Date Recorded Patient [employer] Faculty Member Expl anation Advance Directives 08/08/2021 10:13 AM Inés Ortega HCPOA/ADVOCATE/AGENT/R EPRESENTATIVE/SURROGAT E Healthcare Agents on File Name Relationship Healthcare Agent Relationshi p Communication Inés Marrero Daughter Health Care Agent [phone] (Home) Justice Ortega Daughter First Alternate Health Care Agent Care Teams Toll Line Inspector Relationship Specialty Start Date End Date Elsewhere, Pcp PCP - General Family Medicine 10/11/18
== END 2024-03-18 10:01 | disposition home or self-care (01) ==
LOC: NFLDREF 04-04 11:21
PROVIDERS: PCP Internal Medicine; Referring Provider Internal Medicine; Visit Provider Internal Medicine
DX: E78.5 Hyperlipidemia, unspecified (principal)
CPT/HCPCS: 80061

== ENCOUNTER 2024-10-01 10:20 | Outpatient (CLI) | payer MEDICARE, BC, SELFPAY | END 2024-10-01 10:21 | disposition home or self-care (01) | LOC: NFLDREF 10-02 14:25 | PROVIDERS: PCP Internal Medicine; Referring Provider Internal Medicine; Visit Provider Internal Medicine | DX: E78.5 Hyperlipidemia, unspecified (principal); R73.03 Prediabetes; E03.9 Hypothyroidism, unspecified; I10 Essential (primary) hypertension | CPT/HCPCS: 80048; 80061; 84443 ==

== ENCOUNTER 2025-01-30 11:20 | Outpatient (CLI) | payer MEDICARE, BC, SELFPAY | END 2025-01-30 11:21 | disposition home or self-care (01) | LOC: NFLDREF 02-02 19:30 | PROVIDERS: PCP Internal Medicine; Referring Provider Internal Medicine; Visit Provider Obstetrics & Gynecology | DX: N39.0 Urinary tract infection, site not specified (principal); B96.20 Unspecified Escherichia coli [E. coli] as the cause of diseases classified elsewhere; N90.4 Leukoplakia of vulva | CPT/HCPCS: 87086 ==

== ENCOUNTER 2025-04-30 10:53 | Outpatient (CLI) | payer MEDICARE, BC, SELFPAY | END 2025-04-30 10:54 | disposition home or self-care (01) | LOC: NFLDREF 10:54 | PROVIDERS: PCP Internal Medicine; Visit Provider Obstetrics & Gynecology | DX: R39.15 Urgency of urination (principal) | CPT/HCPCS: 87086 ==

== ENCOUNTER 2025-09-15 10:31 | Outpatient (CLI) | payer MEDICARE, BC, SELFPAY | END 2025-09-15 10:32 | disposition home or self-care (01) | LOC: NFLDREF 10:32 | PROVIDERS: PCP Internal Medicine; Visit Provider Internal Medicine | DX: Z01.818 Encounter for other preprocedural examination (principal) | CPT/HCPCS: 80053 ==

== ENCOUNTER 2025-09-24 10:15 | Day surgery (SDC) | payer MEDICARE, BC, SELFPAY ==
[2025-09-24] VITALS (27 sets, daily range): BP systolic 79–130; BP diastolic 44–81; PULSE 55–74; RESP 12–18; TEMP 35.5–36.8; O2SAT 90–98; BMI 27.8
--- NOTE | 2025-09-24 | CRLHL7_ITS ---
For Patients: As a result of the Cures Act, medical imaging exams and procedure reports are released immediately into your electronic medical record. You may view this report before your referring provider. If you have questions, please contact your health care provider. Indication: Hip replacement surgery Technique: AP hip fluoroscopic image. Fluoroscopy time 38.5 seconds. Findings/Impression: Hardware from a right total hip arthroplasty is in satisfactory position. Dictated by Francisco Javier Griffith MD @ 09/24/2025 3:47:47 PM (Electronically Signed)
[2025-09-24] MEDS: LACTATED RINGERS 1000 ML 1,000 ML 100 ML IV ×2 (10:25→12:45)
[2025-09-24] MEDS: ACETAMINOPHEN 500 MG TABLET 1000 MG PO ×2 (10:44→21:19)
[2025-09-24] MEDS: OXYCODONE (CR) 10 MG TAB.ER.12H PO (10:44)
[2025-09-24] MEDS: SODIUM CHLORIDE 0.9 % (FLUSH) 10 ML SYRINGE IVF (10:50)
--- NOTE | 2025-09-24 10:50 | W.PM.H&PU ---
History & Physical Update History & Physical Update H&P Reviewed and patient assessed: No changes noted
[2025-09-24] MEDS: MIDAZOLAM HCL 1 MG/ML inj IVP (11:09)
[2025-09-24] MEDS: TRANEXAMIC ACID 100 MG/ML INJ 1000 MG IV (11:40)
--- NOTE | 2025-09-24 11:52 | CRLHL7_ITS ---
For Patients: As a result of the Cures Act, medical imaging exams and procedure reports are released immediately into your electronic medical record. You may view this report before your referring provider. If you have questions, please contact your health care provider. Indication: PSOT OP RIGHT HIP ARTHROPLASTY Technique: AP hip centered pelvis and lateral view right hip Findings/Impression: Hardware from a right total hip arthroplasty is in satisfactory position. Bone alignment is normal. No sign of acute fracture. Postop changes are within normal limits. Dictated by Francisco Javier Griffith MD @ 09/24/2025 3:46:28 PM (Electronically Signed)
--- NOTE | 2025-09-24 11:52 | SUR.PREOP ---
TIME?OUT:?1109 PT/RN/MDA?VERIFICATION?OF?SURGICAL?SITE,?PROCEDURE,?AND?CONSENT OBTAINED?PRIOR?TO?INVASIVE?PROCEDURE.
--- NOTE | 2025-09-24 13:15 | P.ORPRC_ITS ---
Procedure Note Date of procedure: 09/24/25 Procedure: PREOPERATIVE DIAGNOSIS: 1. Right hip osteoarthritis, severe, primary POSTOPERATIVE DIAGNOSIS: 1. Right hip osteoarthritis, severe, primary PROCEDURE: 1. Right total hip arthroplasty-anterior approach 2. Intraoperative fluoroscopy interpreted by Bill Tate M.D. for intraoperative evaluation of arthroplasty implant component positioning and leg length/offset evaluation. Fluoroscopy time was 38.5 seconds. SURGEON: Bill Tate MD. IN SERVICE EDUCATION TEACHER: Owen Barfield PA-C; SHONNA Barnett - Of note, a skilled assistant football coach was critical for this case to aid in patient positioning, tissue retraction, limb manipulation/positioning, and closure. ANESTHESIA: General endotracheal anesthetic EBL: 350 mL IMPLANTS: DePuy J&J uncemented total hip [place] cup size 52, hole eliminator, +0 neutral liner Actis stem, standard offset, size 6 +8.5 mm ceramic 36mm head COMPLICATIONS: None evident INDICATIONS: The patient is a pleasant 70-year-old female who has experienced severe right hip pain and difficulty bearing weight. Workup included x-rays which revealed severe osteoarthrosis in the hip. Given the deformity, the dysfunction, and the pain, as well as the failure of nonoperative management, recommendation was made for surgery. FINDINGS: Full-thickness chondral loss diffusely throughout the femoral head and acetabulum. Osteophytes around the femoral head/neck junction and perimeter of the acetabulum. Moderate effusion upon entering the joint. DESCRIPTION OF PROCEDURE: Following a thorough discussion of risks, benefits, and alternatives consent was obtained and the right hip was marked. The patient was brought to the operating room and placed supine on the operating table. Induction of anesthesia was undertaken. 1 g IV Ancef and 1 g tranexamic acid was administered within 1 hr of incision preoperatively. Proper time-out was performed identifying proper patient, site, procedure. The operative extremity was prepped and draped in the appropriate sterile fashion using ChloraPrep after the patient was positioned on the [place] table with head in neutral alignment and all bony prominences well padded. C-arm fluoroscopic imaging was utilized to confirm proper pelvis rotation and position, and to get true AP films of both the contralateral left, and the affected right hip. This is for comparison. A longitudinal incision was made starting just distal to the ASIS, aiming distal and lateral at an oblique angle relative to the thigh. The incision was extended distally aiming toward the fibular head. Sharp incision through skin and bovie cautery through the subcutaneous tissue allowed identification of the TFL fascia. This was sharply divided, and the fascia bluntly released from the muscle fibers as we dissected medial. Upon coming to the medial border, we were able to retract the TFL laterally, and penetrated the deeper fascia and identify the crossing circumflex vessels. These were ligated/cauterized. The rectus was elevated from the capsule, and retractors placed laterally and medially along the femoral neck to help with visualization of the capsule. We then performed an inverted T capsulotomy. The capsule was tagged for later repair. Retractors were placed inside the capsule. The femoral neck was visualized after releasing medially down to the lesser trochanter, along the saddle laterally, and up onto the acetabulum. The femoral neck cut was made in line with our preoperative templating. The head was removed in a single piece, and sized. We turned our attention to acetabular preparation. Initially, the labrum was resected from around the perimeter, the pulvinar was excised, allowing us to visualize the false wall. We started the reaming with a 47 mm reamer. This was medialized down to the true wall. We then enlarged our reamers sequentially up to one size less than the selected cup size. We trialed at the same size and found it to have an excellent fit. The selected cup was then opened, inserted, and impacted in line with the goal of 40? of abduction, and 20-25? of anteversion. This was confirmed on C-arm fluoroscopic imaging to be in the appropriate/goal position. Once the cup was placed we placed a hole eliminator and a liner consistent with preop planning. Attention was turned to the femoral preparation. The limb was extended, externally rotated, and adducted. The posteromedial capsule was released, as retractors were placed allowing excellent access to the proximal femur. Initially a boxing machine operator was followed by canal finder followed by various broaches. We broached sequentially up to the size noted above, found it to have excellent rotational control, and trialing various heads and necks, revealed that appropriate neck offset, and the above noted head size provided the greatest stability, and latter-day of length, and offset. C-arm fluoroscopic imaging confirmed position of the stem, as well as leg lengths, which were compared with the pre procedure all fluoroscopic images. Trial implants were removed, the real femoral stem inserted, as was the appropriate head. After reducing, the leg was placed through range of motion and stability was confirmed anterior, posterior, and lateral. A 3 min Betadine soak was then performed, and thorough irrigation with normal saline followed. Closure of the capsule was performed with #1 PDS. Bleeding was confirmed to be controlled at this stage, and the TFL fascia was closed with #0 strata fix. Subcutaneous, and subcuticular closure was performed with 2-0 Stratafix and 4-0 Stratafix, respectively. Dressings were applied, and the patient was awoken from anesthesia and transferred the PACU in stable condition. A skilled assistant football coach was critical for this case to aid in patient positioning, tissue retraction, acetabular and proximal femoral exposure, limb manipulation/positioning, dislocation/relocation, patient safety, and closure. PLAN: 1. Weight bear as tolerated operative extremity. 2. 23 hr perioperative antibiotics. 3. Ice. 4. PT/OT consults for ambulation assistance/mobility education. 5. Social work consult for discharge planning. 6. DVT prophylaxis with at SCDs and Xarelto x5 days followed by aspirin for a total of 1 month.
--- NOTE | 2025-09-24 13:53 | P.ANES_ITS ---
Anesthesia Charges Start Date/Time Anesthesia Start Date: 09/24/25 Anesthesia Start Time: 11:28 Stop Date/Time Anesthesia Stop Date: 09/24/25 Anesthesia Stop Time: 13:51 Coding CPT Codes CPT Codes: ANESTH HIP ARTHROPLASTY - 55801 ([id number]) P3 - PATIENT W/SEVERE SYS DISEASE, QK - OUTPATIENT PHYSICAL THERAPIST ASSISTANT 2-4 CNCRNT ANES PROC, QX - CHEMICAL PLANT MANAGER SVC W/ MD MED DIRECTION
--- NOTE | 2025-09-24 13:53 | W.ANESCHARGE ---
Anesthesia Charges Start Date/Time Anesthesia Start Date: 09/24/25 Anesthesia Start Time: 11:28 Stop Date/Time Anesthesia Stop Date: 09/24/25 Anesthesia Stop Time: 13:51 Coding CPT Codes CPT Codes: ANESTH HIP ARTHROPLASTY - 20480 ([id number]) P3 - PATIENT W/SEVERE SYS DISEASE, QK - GLOBAL CLIMATE CHANGE RESEARCHER 2-4 CNCRNT ANES PROC, QX - MANAGER INFRASTRUCTURE SVC W/ MD MED DIRECTION
[2025-09-24] MEDS: LACTATED RINGERS 1000 ML 1,000 ML 35 ML IV (14:10)
--- NOTE | 2025-09-24 14:18 | P.NB_ITS ---
Nerve Block Nerve Block Time Seen by Provider: 11:10 Date Seen: 09/24/25 Type of block requested by surgeon for post-operative analgesia: LIN/LFCN Side: right Time out performed: Yes Verification of patient name: Yes Verification of date of : Yes Site marking: site marked Name of person performing procedure: Sheldon Continuous monitoring Was continuous monitoring of O2 sat, B/P, senior policy advisor, recorded every 15 minutes?: Yes Procedure Checklist: sterile prep, needles and gloves Ultrasound guided. Images saved: Yes Medications given in 5ml increments after negative aspiration: Ropivicaine %: 0.5 mL: 30 Needle gauge: 20 Precedex (mcg): 25 Patient tolerated procedure well: Yes Additional comments: Needle noted below psoas tendon needle noted adjacent to LFCN Block Charges Block Charge (with Pro Fee): Other Periph Nerve Block Use of Ultrasound Machine for Block: Yes- US Guidance/pain block
--- NOTE | 2025-09-24 14:18 | W.ANESCHARGE ---
Anesthesia Charges Start Date/Time Anesthesia Start Date: 09/24/25 Anesthesia Start Time: 11:28 Stop Date/Time Anesthesia Stop Date: 09/24/25 Anesthesia Stop Time: 13:51 Summary Extremes of Age - Over 70 or under 1: MDA Coding CPT Codes CPT Codes: ANESTH HIP ARTHROPLASTY - 82004 ([id number]) QK - PAINTER MIRROR 2-4 CNCRNT ANES PROC, QX - TRUCK BENCH MECHANIC SVC W/ MD MED DIRECTION, P3 - PATIENT W/SEVERE SYS DISEASE Additional Codes: Summary - Extremes of Age - Over 70 or under 1: MDA ([id number])
[2025-09-24] MEDS: ONDANSETRON 2 MG/ML inj 4 MG IVP (14:42)
[2025-09-24] MEDS: LACTATED RINGERS 1000 ML 1,000 ML 75 ML IV (14:55)
--- NOTE | 2025-09-24 14:57 | P.IMCN_ITS ---
Date of Consult Consult date: 09/24/25 Requesting Physician: Orthopedics Primary Care Provider: Samreen Romano MD Consult Narrative Narrative: HOSPITALIST CONSULT PROCEDURE: Right total hip arthroplasty-anterior approach SURGEON: iBll Tate MD. ANESTHESIA: General endotracheal anesthetic EBL: 350 mL The hospital medicine team was asked by the orthopedic surgery team to manage the patient's hypertension, history of multiple ischemic strokes, functional movement disorder There have been no perioperative complications - other than significant nausea and vomiting. Upon arrival to the floor I ordered 4 mg of IV dex, 12.5 mg of IV Phenergan. I have updated and reviewed the active medical problems, past medical history, past surgical history, social history, allergies and medications in our [facility] EMR. This includes a cross reference to care everywhere in [facility] and [email or web address]. PHYSICAL EXAM: CODE STATUS: FULL CODE CONSTITUTIONAL: sleepy. answers with one word. VITAL SIGNS: see record. HEENT: Normocephalic, atraumatic. PERRL, EOMI, conjunctivae pink, no scleral icterus. Ears and nose externally normal. Pharynx normal. NECK: No JVD. No carotid bruit, no thyromegaly, no adenopathy. CHEST: Clear to auscultation bilaterally HEART: S1 and S2 normal. ABDOMEN: Flat, soft, nontender. Normal bowel sounds. Moderately obese. EXTREMITIES: No edema. MUSCULOSKELETAL: right hip SDI. NEURO: Cranial nerves intact. Mentation normal. Normal affect. SKIN: No rashes, petechiae, concerning changes PSYCHIATRIC: Mentation normal. INVESTIGATIONS: EMR Reviewed; Pre-OP Reviewed DISPOSITION: DVT: Agree with Ortho team decision GI: [facility] Medical History (Updated 09/24/25 @ 15:18 by Kavya Knight MD) Cystocele History of peptic ulcer (2014) ?Z87.11 - Personal history of peptic ulcer disease (ICD-10) Surgical History (Updated 09/24/25 @ 15:18 by Kavya Knight MD) S/P total right hip arthroplasty ?Z96.641 - Presence of right artificial hip joint (ICD-10) History of elbow surgery (~04/2017) ?Z98.890 - Other specified postprocedural states (ICD-10) History of total hip replacement (2014) ?Z96.649 - Presence of unspecified artificial hip joint (ICD-10) History of dilation and curettage (1979) ?Z98.890 - Other specified postprocedural states (ICD-10) History of cholecystectomy (1971) ?Z90.49 - Acquired absence of other specified parts of digestive tract (ICD- 10) History of appendectomy (1972) ?Z90.49 - Acquired absence of other specified parts of digestive tract (ICD- 10) Social History (Updated 10/18/24 @ 13:20 by Samreen Sweet ~ CTA) Narrative: Health care directive on file- health care directive completed on 12/18/2020, reviewed and sent for scanning on 12/25/2020 What is your current living situation?: I presently have a place to live Problems where you live: no known problems In the past 12 months, utilities in danger of being shut off: no In past 12 months, lack of transportation kept you from medical appts, meetings, work, or getting things needed for daily living: no In the past 12 mos, have been you worried that your food would run out before you had money to buy more?: never true In the past 12 mos, the food you bought just didn't last and you didn't have money to buy more?: never true Highest level of school completed/degree received: high school graduate Smoking Status: Never smoker Do you use any of these nicotine containing products: None Second hand tobacco smoke exposure: No How often do you have a drink containing alcohol: never How often do you have six or more drinks on one occasion: Never AUDIT-C Alcohol total score: 0 Non-prescribed substance use: marijuana (any form) Non-prescribed substance use details: THC gummies Caffeine: Yes (Coffee daily) How often does anyone, including family, friends and others, physically hurt you : never How often does anyone, including family, friends and others, insult or talk down to you: never How often does anyone, including family, friends and others, threaten you with harm: never How often does anyone, including family, friends and others, scream or curse at you: never service: No Meds Home Medications and Allergies Home Medications ?Medication ?Instructions ?Recorded ?Confirmed ?Type acetaminophen 650 mg 650 mg PO Q8H PRN 05/23/22 1 11/25/24 History tablet,extended release fluticasone propionate 50 2 intranasal DAILY 05/23/22 09/15/25 History mcg/actuation nasal spray,suspension THC 1 unit PO DAILY PRN 07/21/22 09/24/25 History CBD Gummies 1 cap PO QHS PRN 10/21/24 History aspirin 81 mg tablet,delayed 81 mg PO DAILY 10/21/24 1 11/25/24 History release Held on 09/24/25. Instructions: Resume on 10/30/25. Resume daily aspirin, once your twice daily aspirin has been completed for VTE prophylaxis levothyroxine 88 mcg tablet 88 mcg PO DAILY #90 tabs 0 10/21/24 09/24/25 Rx omeprazole 40 mg capsule,delayed 40 mg PO DAILY #90 ca ps 10/21/24 09/24/25 Rx release ramipril 5 mg capsule 5 mg PO DAILY #90 caps 10/2109/24/25 Rx rosuvastatin 10 mg tablet 10 mg PO DAILY #90 tabs 04/0909/24/25 Rx sertraline 100 mg tablet 100 mg PO DAILY #90 tabs 04/0909/24/25 Rx clobetasol 0.05 % topical ointment 1 applic topical .T wice Weekly #30 04/09/25 09/24/25 Rx grams estradiol 10 mcg vaginal tablet 10 mcg vaginal 2XW #20 tabs 04/30/25 09/24/25 Rx (Vagifem) Allergies Allergy/AdvReac Type Severity Reaction Status Date / Time Sulfa (Sulfonamide Allergy Hives Verified 09/15/25 09:54 Antibiotics) Exam Const: Vital Signs, click to edit/add: Vital Signs - 24 hr 09/24/25 10:47 09/24/25 11:09 09/24/25 11:14 Temperature 98.2 F Pulse Rate 62 61 60 Respiratory Rate 16 14 16 Blood Pressure 125/81 128/78 103/67 Pulse Oximetry 96 98 90 Oxygen Delivery Me thod Room Air Room Air Room Air Oxygen Flow Rate 09/24/25 13:46 09/24/25 13:50 09/24/25 13:55 Temperature 97.2 F L Pulse Rate 72 68 74 Respiratory Rate 13 12 13 Blood Pressure 112/60 106/62 110/63 Pulse Oximetry 92 94 95 Oxygen Delivery Me thod Nasal Cannula Oxygen Flow Rate 3 09/24/25 14:00 09/24/25 14:05 09/24/25 14:10 Temperature Pulse Rate 63 62 57 L Respiratory Rate 14 12 14 Blood Pressure 127/65 126/68 124/58 L Pulse Oximetry 95 92 92 Oxygen Delivery Me thod Oxygen Flow Rate 1 09/24/25 14:15 09/24/25 14:20 Temperature 96.8 F L Pulse Rate 56 L 61 Respiratory Rate 12 12 Blood Pressure 97/55 L 110/62 Pulse Oximetry 91 92 Oxygen Delivery Me thod Oxygen Flow Rate Assessment and Plan Assessment and plan (1) S/P total right hip arthroplasty: Problem comment: 09/24/25 [facility] medicine team is happy to follow the patient through to discharge. We are expecting a routine postoperative course. I have reconciled home medications and completed our part of the discharge. -given her history of ischemic strokes we would monitor the blood pressure and telemetry overnight. Currently holding her antihypertensives could she is low normal postoperatively. -I will check an A1c. She has a history of prediabetes. Her glucose on her preop labs was only 96. Status: Acute (2) History of ischemic stroke: Problem comment: had 3 hypertensive/ischemic strokes 08/27 (she was told it was related to ibuprofen use and hypertension) Status: Acute (3) Functional movement disorder: Problem comment: Started 08/01, followed in past by multiple neurologists, uses walker, saw functional chiropractor in past (constant leg tapping and rocking) Status: Acute (4) Essential hypertension: Problem comment: since her 08/27 strokes, on ramipril, 5 mg daily Status: Acute (5) Prediabetes: Problem comment: -check an A1c Status: Acute (6) Obesity with body mass index greater than 30: Status: Acute (7) Hypothyroidism: Problem comment: Dxed around 2003, on replacement Status: Acute (8) Generalized anxiety disorder: Problem comment: SSRI started 03/01 by outside physician Status: Acute (9) Hyperlipidemia: Problem comment: on statin, back on it since strokes 08/27, simvastatin changed to rosuvastatin for non-goal LDL (147) 10/05 Status: Acute (10) Alcohol dependence in remission: Problem comment: sober 01/26 Status: Acute
[2025-09-24] MEDS: LACTATED RINGERS 1000 ML 1,000 ML 500 ML IV (16:57)
[2025-09-24] MEDS: CEFAZOLIN 1 GM in 0.9 % SODIUM CHLORIDE Mini-bag 100 ML IVPB (18:19)
[2025-09-24] MEDS: SENNOSIDES 1 TAB TABLET 2 TAB PO (21:18)
[2025-09-24] MEDS: 0.9 % SODIUM CHLORIDE 500 ML IV (21:20)
--- NOTE | 2025-09-24 22:27 | PC.NURSE ---
Pt came on to floor at 1437, upon assessment lungs clear, bowel active, pt was sleepy and responded with one word answers. Pt had nausea and discomfort. Pt reported nausea subsided. around 1735 pt became alert, pt sat up to chair and used bedside commode. Pt had low urine output, Bladder scanned for 14ml, N.S bolus given per mar. Pt reports no pain, declined prn pain medication. Pt is up in bed at this time, no concerns.
[2025-09-25 00:04] VITALS: BP 113/50; PULSE 67; RESP 15; TEMP 36.7; O2SAT 97
[2025-09-25] MEDS: CEFAZOLIN 1 GM in 0.9 % SODIUM CHLORIDE Mini-bag 100 ML IVPB (02:14)
[2025-09-25 02:20] VITALS: BP 120/70; PULSE 68; RESP 16; TEMP 36.8; O2SAT 97
[2025-09-25] MEDS: ACETAMINOPHEN 500 MG TABLET 1000 MG PO ×2 (03:16→09:31)
--- NOTE | 2025-09-25 05:45 | PC.NURSE ---
patient up with assist of one, gait belt, and walker. Patients dressing clean dry, and intact. VSS.
[2025-09-25] MEDS: OMEPRAZOLE 20 MG CAPSULE DR 40 MG PO (06:06)
[2025-09-25] MEDS: LEVOTHYROXINE 88 MCG TABLET PO (06:07)
[2025-09-25 07:00] VITALS: BP 100/58; PULSE 67; RESP 18; TEMP 36.5; O2SAT 97
--- NOTE | 2025-09-25 09:12 | P.ORPN_ITS ---
Subjective Subjective Date Seen: 09/25/25 Principal diagnosis: Status postop day 1, right total hip arthroplasty - anterior approach Interval history: Patient reports doing well. She had notable nausea and vomiting postoperatively which was resolved with various medications and is no longer impacting her recovery on postop day 1. Pain managed with scheduled and PRN medications, ice. DVT prophylaxis: Rivaroxaban for 5 days, followed by 81 mg aspirin by mouth twice daily 25 days, SCDs, walking. Denies fevers, chills, aches, N/V, CP, SOB/DA SILVA, or lightheadedness. Ortho Exam Narrative Exam Narrative: -Patient appears comfortable working with physical therapy, standing with her walker; no apparent acute distress -Alert and oriented times 3 -Operative hip swollen; soft tissues supple; no obvious erythema. Ecchymosis minimal. Warmth appropriate -Surgical dressing clean, dry, mostly intact, coming off from the proximal posterior aspect; no obvious drainage, no erythematous streaking peripheral to the bandage -Bilateral calves soft and supple; no significant swelling, edema, tenderness, erythema, discoloration, warmth, or palpable cords -2+ DP/PT pulses, intact dermatomes and myotomes distally (5/5 strength). Noted numbness about the lateral femoral cutaneous nerve distribution. Const Vital Signs, click to edit/add: Vital Signs - 24 hr 09/24/25 10:47 09/24/25 11:09 09/24/25 11:14 Temperature 98.2 F Pulse Rate 62 61 60 Pulse Rate [Left Pulse Oximeter] Respiratory Rate 16 14 16 Blood Pressure 125/81 128/78 103/67 Blood Pressure [Right Arm] Pulse Oximetry 96 98 90 Oxygen Delivery Method Room Air Room Air Room Air Oxygen Flow Rate 09/24/25 13:46 09/24/25 13:50 09/24/25 13:55 Temperature 97.2 F L Pulse Rate 72 68 74 Pulse Rate [Left Pulse Oximeter] Respiratory Rate 13 12 13 Blood Pressure 112/60 106/62 110/63 Blood Pressure [Right Arm] Pulse Oximetry 92 94 95 Oxygen Delivery Method Nasal Cannula Oxygen Flow Rate 3 09/24/25 14:00 09/24/25 14:05 09/24/25 14:10 Temperature Pulse Rate 63 62 57 L Pulse Rate [Left Pulse Oximeter] Respiratory Rate 14 12 14 Blood Pressure 127/65 126/68 124/58 L Blood Pressure [Right Arm] Pulse Oximetry 95 92 92 Oxygen Delivery Method Oxygen Flow Rate 1 09/24/25 14:15 09/24/25 14:20 09/24/25 14:34 Temperature 96.8 F L Pulse Rate 56 L 61 Pulse Rate [Left Pulse Oximeter] 60 Respiratory Rate 12 12 15 Blood Pressure 97/55 L 110/62 Blood Pressure [Right Arm] 106/57 L Pulse Oximetry 91 92 92 Oxygen Delivery Method Nasal Cannula Oxygen Flow Rate 2 09/24/25 14:37 09/24/25 14:49 09/24/25 14:52 Temperature 96.3 F L 96.3 F L 96.3 F L Pulse Rate 60 60 Pulse Rate [Left Pulse Oximeter] 60 Respiratory Rate 15 16 16 Blood Pressure 106/57 L 124/61 Blood Pressure [Right Arm] 124/61 Pulse Oximetry 92 97 97 Oxygen Delivery Method Nasal Cannula Nasal Cannula Nasal Cannula Oxygen Flow Rate 2 2 2 09/24/25 15:00 09/24/25 15:07 09/24/25 15:22 Temperature 97 F L 97 F L Pulse Rate 56 L 56 L Pulse Rate [Left Pulse Oximeter] Respiratory Rate 15 16 Blood Pressure 113/62 79/44 L Blood Pressure [Right Arm] Pulse Oximetry 97 97 97 Oxygen Delivery Method Nasal Cannula Nasal Cannula Nasal Cannula Oxygen Flow Rate 2 2 2 09/24/25 15:35 09/24/25 16:05 09/24/25 16:35 Temperature Pulse Rate 55 L 56 L 66 Pulse Rate [Left Pulse Oximeter] Respiratory Rate 16 16 Blood Pressure 83/48 L 130/67 130/67 Blood Pressure [Right Arm] Pulse Oximetry 97 94 94 Oxygen Delivery Method Nasal Cannula Room Air Room Air Oxygen Flow Rate 2 2 09/24/25 17:22 09/24/25 18:45 09/24/25 19:35 Temperature 96 F L 96.0 F L 96.6 F L Pulse Rate 66 65 71 Pulse Rate [Left Pulse Oximeter] Respiratory Rate 18 16 18 Blood Pressure 107/59 L 102/58 L 95/72 Blood Pressure [Right Arm] Pulse Oximetry 94 96 97 Oxygen Delivery Method Room Air Room Air Room Air Oxygen Flow Rate 2 2 09/24/25 20:22 09/24/25 21:19 09/24/25 23:00 Temperature 96.6 F L 96.6 F L Pulse Rate 68 Pulse Rate [Left Pulse Oximeter] Respiratory Rate 18 15 Blood Pressure 107/65 Blood Pressure [Right Arm] Pulse Oximetry 97 Oxygen Delivery Method Room Air Oxygen Flow Rate 09/24/25 23:00 09/25/25 00:04 09/25/25 02:20 Temperature 98.0 F 98.2 F Pulse Rate 67 68 Pulse Rate [Left Pulse Oximeter] Respiratory Rate 15 15 16 Blood Pressure 113/50 L 120/70 Blood Pressure [Right Arm] Pulse Oximetry 97 97 97 Oxygen Delivery Method Room Air Room Air Room Air Oxygen Flow Rate 2 09/25/25 07:00 09/25/25 07:00 Temperature 97.7 F Pulse Rate 67 Pulse Rate [Left Pulse Oximeter] Respiratory Rate 18 Blood Pressure 100/58 L Blood Pressure [Right Arm] Pulse Oximetry 97 97 Oxygen Delivery Method Room Air Room Air Oxygen Flow Rate Assessment and Plan Assessment and plan (1) S/P total right hip arthroplasty: Problem details: 09/24/25 [facility] medicine team is happy to follow the patient through to discharge. We are expecting a routine postoperative course. I have reconciled home medicati ons and completed our part of the discharge. -given her history of ischemic strokes we would monitor the blood pressure and telemetry overnight. Currently holding her antihypertensives could she is low normal postoperatively. -I will check an A1c. She has a history of prediabetes. Her glucose on her preop labs was only 96. Status: Acute (2) History of ischemic stroke: Problem details: had 3 hypertensive/ischemic strokes 08/27 (she was told it was related to ibuprofen use and hypertension) Status: Acute (3) Functional movement disorder: Problem details: Started 08/01, followed in past by multiple neurologists, uses walker, saw functional chiropractor in past (constant leg tapping and rocking) Status: Acute (4) Essential hypertension: Problem details: since her 08/27 strokes, on ramipril, 5 mg daily Status: Acute (5) Prediabetes: Problem details: -check an A1c Status: Acute (6) Obesity with body mass index greater than 30: Status: Acute (7) Hypothyroidism: Problem details: Dxed around 2003, on replacement Status: Acute (8) Generalized anxiety disorder: Problem details: SSRI started 03/01 by outside physician Status: Acute (9) Hyperlipidemia: Problem details: on statin, back on it since strokes 08/27, simvastatin changed to rosuvastatin for non-goal LDL (147) 10/05 Status: Acute (10) Alcohol dependence in remission: Problem details: sober 01/26 Status: Acute Plan - Complete 23 hour perioperative antibiotics. - PT/OT consult for education and assistance. - Social work consult for discharge planning - Prescribed analgesics as needed - DVT prophylaxis: 5 days rivaroxaban followed by 81 mg aspirin by mouth twice daily 25 days, walking, and SCDs - Anticipation is for discharge to home with family/friends today 09/25/2025 if the patient remains medically stable, pain is controlled, and they are safe with mobilization.
[2025-09-25] MEDS: RIVAROXABAN 10 MG TABLET PO (09:31)
[2025-09-25] MEDS: ROSUVASTATIN CALCIUM 10 MG TABLET PO (09:31)
[2025-09-25] MEDS: SENNOSIDES 1 TAB TABLET 2 TAB PO (09:31)
[2025-09-25] MEDS: SERTRALINE 100 MG TABLET PO (09:31)
--- NOTE | 2025-09-25 11:31 | PC.NURSE ---
Discharge note 259 Patient was very pleasant and cooperative throughout shift. VSS. Afebrile. A&Ox4. SBA with walker. Surgical dressing dry and intact. Patient discharged at 1120 am accompanied by her daughter.
== END 2025-09-25 11:20 | disposition home or self-care (01) ==
LOC: OR 10:16 → MEDSURG 10:19
PROVIDERS: Family Medicine; PCP Internal Medicine; Visit Provider Orthopaedic Surgery Sports Medicine
PROC: (CPT 27130; principal; 2025-09-24 11:45)
DX: M16.11 Unilateral primary osteoarthritis, right hip (principal); G89.18 Other acute postprocedural pain; I10 Essential (primary) hypertension; Z86.73 Personal history of transient ischemic attack (TIA), and cerebral infarction without residual deficits; R73.03 Prediabetes; E66.9 Obesity, unspecified; Z68.30 Body mass index [BMI] 30.0-30.9, adult; G25.89 Other specified extrapyramidal and movement disorders; E03.9 Hypothyroidism, unspecified; F41.1 Generalized anxiety disorder; E78.5 Hyperlipidemia, unspecified; F10.21 Alcohol dependence, in remission
CPT/HCPCS: 27130; 01214; 36415; 51798; 64450; 73501; 76942; 83036; 86850; 86900; 86901; 97110; 97116; 97161; 97165; 97530; 97535; 99100; A9270; C1776; J0330; J0690; J1100; J1171; J2250; J2405; J2550; J2704; J2710; J2795; J3010; J7030; J7120